=== PATIENT | male | born 1950 | race Caucasian/White ===

== ENCOUNTER 2020-10-02 16:13 | Emergency (ER) | payer MEDICARE, SELFPAY ==
[2020-10-02] VITALS (12 sets, daily range): BP systolic 126–168; BP diastolic 62–88; PULSE 84–119; RESP 14–32; TEMP 36.8–36.9; O2SAT 88–95; BMI 36.0; BMI 33.0
--- NOTE | 2020-10-02 16:35 | CT_ITS ---
PROCEDURE: CT ABDOMEN PELVIS W CON CLINICAL INDICATION: abdominal distension, sbo Bloating, abdominal pain and distension COMPARISON: CT ABDPELW/O CT ABD PELVIS W/O CONTRAST from 09/20/2016 TECHNIQUE: IV Contrast: 75ML Isovue 370 Oral Contrast None Axial images obtained with sagittal and coronal reformats. All CT scans at the facility use one or more dose reduction, viz: automated exposure control, ma/kV adjustment per patient size (including targeted exams where dose is matched to indication, i.e. head), or iterative reconstruction technique. FINDINGS: And irregular area of decreased attenuation is present in the left lobe at the gallbladder fossa measuring 16 mm possibly related to involvement. MRI may confirm. This measures 16 x 10 mm. The gallbladder, spleen, adrenal glands, and pancreas and kidneys have an unremarkable appearance. There is a small hiatal hernia with thickening of the distal esophagus which is nonspecific. No intestinal obstruction or free air. No evidence of appendicitis. Colonic diverticulosis is noted but no evidence of diverticulitis. There is thickening of the urinary bladder. The prostate is mildly enlarged. Artifact is present from right hip decompression screw. IMPRESSION: 1. There is moderate urinary bladder wall thickening which may be seen with incomplete distension, chronic outflow obstruction, or cystitis. 2. 16 mm hypodensity in the left hepatic lobe at the gallbladder fossa possibly due to focal fatty infiltration or liver lesion. MRI may provide further evaluation. 3. Colonic diverticulosis without diverticulitis Dictated by: Morris Hunt MD 10/03/2020 07:36 Morris Hunt MD in [place] 10/03/2020 07:36
--- NOTE | 2020-10-02 16:36 | CT_ITS ---
PROCEDURE: CT ANGIO CHEST CLINCIAL INDICATION: PTE Dyspnea , sore throat fever, shortness of breath COMPARISON: No exams were available for comparison TECHNIQUE: IV Contrast: 70ML Isovue 370 Axial images obtained with sagittal and coronal reformats. All CT scans at the facility use one or more dose reduction, viz: automated exposure control, ma/kV adjustment per patient size (including targeted exams where dose is matched to indication, i.e. head), or iterative reconstruction technique. FINDINGS: HEART AND MEDIASTINAL STRUCTURES: No evidence of pulmonary embolus aortic aneurysm or dissection. LUNGS AND PLEURAL SPACES: Airspace disease in left upper lobe lingula left lower lobe consistent with pneumonia also in the right middle lobe and right lower lobe. No effusions. BONY STRUCTURES: No acute bony abnormalities apparent. UPPER ABDOMEN: Small hiatal hernia. ADDITIONAL FINDINGS: No other significant abnormalities. IMPRESSION: 1. No evidence of pulmonary embolus. 2. Bilateral pneumonia left more severe than right Dictated by: Morris Hunt MD 10/03/2020 07:28 Morris Hunt MD in [place] 10/03/2020 07:28
--- NOTE | 2020-10-02 16:44 | PC.NURSE ---
placed patient on O2 @ 2L per NC
--- NOTE | 2020-10-02 16:45 | HMH.EDGENADL ---
ED Disposition Clinical Impression: Pneumonia Qualifiers: Laterality: bilateral Disposition: Admitted As Inpatient Condition on Discharge: Good Referrals: Geo Graham MD [Primary Care Provider] - - Critical Care Critical Care Time: No Attestation: On 10/02/20, the high probability of a clinically significant, sudden or life threatening deterioration of the following system(s) required my full and direct attention, intervention and personal management. The time I documented below is in addition to time spent performing reported procedures but includes the following listed in this critical care notation. Medical Decision Making - Medical Records Medical records reviewed: Yes: I reviewed the patient's medical records. - All Inquiry Pt receiving controlled substance: No Vital Signs: 10/02/20 16:20 10/02/20 16:35 10/02/20 17:14 Temperature 98.3 F 98.3 F Temperature Source Oral Oral Pulse Rate [Right Brachial] 93 H 93 H 86 Respiratory Rate 32 H 18 16 Blood Pressure [Right Arm] 159/71 H 159/71 H 131/68 Blood Pressure Mean [Right Arm] 100 100 89 Blood Pressure Source [Right Arm] Automatic Cuff Automatic Cuff Automatic Cuff Blood Pressure Position [Right Arm] Sitting Sitting Sitting 02 Sat by Pulse Oximetry 88 L 88 L 90 L Oxygen Delivery Method Room Air Room Air Nasal Cannula Oxygen Flow Rate (LPM) 2 10/02/20 18:00 10/02/20 18:30 10/02/20 19:03 Temperature Temperature Source Pulse Rate [Right Brachial] 84 86 119 H Respiratory Rate 15 Blood Pressure [Right Arm] 132/74 151/69 H Blood Pressure Mean [Right Arm] 93 96 Blood Pressure Source [Right Arm] Blood Pressure Position [Right Arm] 02 Sat by Pulse Oximetry 93 L 91 L 89 L Oxygen Delivery Method Nasal Cannula Nasal Cannula Room Air Oxygen Flow Rate (LPM) 2 2 10/02/20 19:07 Temperature Temperature Source Pulse Rate [Right Brachial] 86 Respiratory Rate 18 Blood Pressure [Right Arm] 168/86 H Blood Pressure Mean [Right Arm] 113 Blood Pressure Source [Right Arm] Automatic Cuff Blood Pressure Position [Right Arm] Sitting 02 Sat by Pulse Oximetry 95 Oxygen Delivery Method Oxygen Flow Rate (LPM) - Lab Data Lab Results 10/02/20 16:38: VBG pH 7.38 10/02/20 16:50: WBC 8.1, RBC 4.07 L, Hgb 12.5 L, Hct 38.3 L, MCV 94.2 H, MCH 30.6, MCHC 32.5, RDW 14.7, Plt Count 237, MPV 8.7, Neut % (Auto) 87.4 H, Lymph % (Auto) 7.6 L, Hayes % (Auto) 3.6, Eos % (Auto) 1.2, Baso % (Auto) 0.2, Neut # (Auto) 7.1, Lymph # (Auto) 0.6 L, Hayes # (Auto) 0.3, Eos # (Auto) 0.1, Baso # (Auto) 0.0, Total Counted 100, Neutrophils % (Manual) 82 H, Band Neutrophils % 1.0, Lymphocytes % (Manual) 8 L, Monocytes % (Manual) 8, Eosinophils % (Manual) 1, Nucleated RBCs 0, Platelet Estimate Normal, RBC Morphology Normal 10/02/20 16:50: Sodium 136, Potassium 4.4, Chloride 98, Carbon Dioxide 29, Anion Gap 13.4, BUN 53 H, Creatinine 1.60 H, Estimated Creat Clear 58, Estimated GFR 43 L, Est GFR ( Amer) 52 L, Glucose 221 H, Calcium 9.8, Total Bilirubin 0.6, AST 33, ALT 22, Alkaline Phosphatase 81, Total Protein 7.1, Albumin 3.9, Globulin 3.2, Albumin/Globulin Ratio 1.2 Result diagrams: 10/02/20 16:50 10/02/20 16:50 Orders (Tests/Meds): ED MEDICATIONS Generic Name Dose Route Start Last Admin Trade Name Freq PRN Reason Stop Dose Admin Sodium Chloride 1,000 mls @ 999 mls/hr 10/02/20 18:15 10/02/20 18:08 Sod Chlor 0.9% 1000ml Bag IV 10/02/20 19:15 999 mls/hr .Q1H1M SHERLYN Administration Ceftriaxone Sodium 1 gm/ 50 mls @ 100 mls/hr 10/02/20 19:15 Sodium Chloride IV 10/16/20 19:14 Q24H SHERLYN Protocol Azithromycin 500 mg/ Sodium 250 mls @ 250 mls/hr 10/02/20 19:15 Chloride IV 10/16/20 19:14 Q24H SHERLYN Protocol Discontinued Medications Generic Name Dose Route Start Last Admin Trade Name Freq PRN Reason Stop Dose Admin Iopamidol 70 ml 10/02/20 18:02 10/02/20 18:04 Iopamidol-370 (76%);100ml Bottle IV 10/02/20 18:
--- NOTE | 2020-10-02 16:46 | ECG_ITS ---
APPROVED REPORT Exam: Resting ECG HR:88 bpm ECG Measurements Heart Rate 88 AXES NE 156 P 60 QRSd 78 QRS 39 QT 352 T 63 QTc 425 Conclusion Normal sinus rhythm Normal ECG Electronically signed by : Geo Tanner, 10/03/2020 06:58:59
[2020-10-02 17:08] LABS: Basophils % 0.2 % (0.1-2.0); Eosinophils # 0.1 K/mm3 (0.0-0.4); Eosinophils % 1.2 % (0.1-12.0); Hematocrit 38.3 % (42.0-52.0); Hemoglobin 12.5 g/dL (14.1-18.0); Lymphocytes # 0.6 K/mm3 (0.7-4.5); Lymphocytes % 7.6 % (10-50); Mean Corpuscular HGB Conc 32.5 g/dL (31.8-35.4); Mean Corpuscular Hemoglobin 30.6 pg (27.0-31.2); Mean Corpuscular Volume 94.2 fl (80-94); Mean Platelet Volume 8.7 fl (7.4-10.4); Monocytes # 0.3 K/mm3 (0.1-1.0); Monocytes % 3.6 % (1.7-9.3); Neutrophils # 7.1 K/mm3 (1.8-7.8); Neutrophils % 87.4 % (37.0-80.0); Platelet Count 237 K/mm3 (142-424); Red Blood Count 4.07 M/mm3 (4.60-6.20); Red Cell Distribution Width 14.7 % (11.5-17.5); White Blood Count 8.1 K/mm3 (4.8-10.8)
[2020-10-02 17:10] LABS: MANUAL DIFFERENTIAL MANUAL DIFFERENTIAL (MANUAL DIFF)
[2020-10-02 17:16] LABS: Chloride 98 mmol/L (98-107); Potassium 4.4 mmoL/L (3.5-5.1); Sodium 136 mmol/L (136-145)
[2020-10-02 17:19] LABS: Alanine Aminotransferase 22 U/L (12-78); Albumin Level 3.9 g/dl (3.5-5.0); Albumin/Globulin Ratio 1.2 (1.1-1.8); Alkaline Phosphatase 81 U/L (38-126); Anion Gap 13.4 mEq/L (5-15); Aspartate Amino Transferase 33 U/L (17-59); Bilirubin,Total 0.6 mg/dl (0.2-1.3); Blood Urea Nitrogen 53 mg/dl (9-20); Carbon Dioxide 29 mmol/L (22.0-30.0); Creatinine Clearance Estimated 58 mL/min (50-200); Estimated Glomerular Filt Rate 43 ml/min (>60); GFR (African American) 52 ML/MIN (>60); Globulin 3.2 g/dL (1.3-3.2); Total Protein,Serum 7.1 g/dl (6.3-8.2)
[2020-10-02 17:20] LABS: Calcium 9.8 mg/dl (8.4-10.2); Glucose 221 mg/dl (74-100)
--- NOTE | 2020-10-02 17:20 | PC.NURSE ---
patient to radiology
[2020-10-02 17:34] LABS: Eosinophils % 1 % (0-3); Lymphocytes % 8 % (10-50); Monocytes % 8 % (2-9); Neutrophils % 82 % (42-76); Nucleated Red Blood Cells 0; Platelet Estimate Normal; RBC Morphology Normal; Total Cells Counted 100
[2020-10-02 17:44] LABS: VBG PH 7.38 mmol/L (7.31-7.41)
--- NOTE | 2020-10-02 18:03 | PC.NURSE ---
patient back from CT at this time
--- NOTE | 2020-10-02 19:03 | PC.NURSE ---
MD requested to have pt taken off o2 and walked to see if he can maintain his oxygen level. While walking pt began to become short of breath and was grunting. Oxygen level as charted at 89% on RA.
--- NOTE | 2020-10-02 19:03 | PC.NURSE ---
Dr Duvall paged for Dr Graham Pt
--- NOTE | 2020-10-02 19:14 | PC.NURSE ---
speaking to Dr. Duvall
[2020-10-02 19:47] LABS: Adenovirus,PCR Not Detected (NotDetected); Bordetella Pertussis Not Detected (NotDetected); Chlamydophila Pneumoniae, PCR Not Detected (NotDetected); Coronavirus 19, PCR Not Detected (NotDetected); Coronavirus 229E Not Detected (NotDetected); Coronavirus NL63 Not Detected (NotDetected); Coronavirus OC43 Not Detected (NotDetected); Coronovirus HKU1,PCR Not Detected (NotDetected); Human Metapneumovirus Not Detected (NotDetected); Influenza A, PCR Not Detected (NotDetected); Influenza AH1, 2009 Not Detected (NotDetected); Influenza AH1, PCR Not Detected (NotDetected); Influenza AH3,PCR Not Detected (NotDetected); Influenza B, PCR Not Detected (NotDetected); Mycoplasma Pneumoniae, PCR Not Detected (NotDetected); Parainfluenza 1, PCR Not Detected (NotDetected); Parainfluenza 2, PCR Not Detected (NotDetected); Parainfluenza 3, PCR Not Detected (NotDetected); Parainfluenza 4, PCR Not Detected (NotDetected); Respiratory Syncytial Virus Not Detected (NotDetected); Rhinovirus/Enterovirus Not Detected (NotDetected)
[2020-10-02 19:57] LABS: Lactic Acid 1.3 mmol/L (0.7-2.1)
--- NOTE | 2020-10-02 20:34 | PC.NURSE ---
Pt placed on room air per Dr Doran
--- NOTE | 2020-10-02 20:42 | PC.NURSE ---
Addendum entered by Lexii Hardin RN 10/02/20 21:21: time 2030 Original Note: pt called out and stated he was ready to go home. this nurse informed him that the doctors wanted him to stay overnight. the patient stated he changed his mind and didnt want to stay over night anymore. pt stated he left his bill fold at home and didnt trust his neighbors with him away for the night. this nurse explained to the pt that he was diagnosed with pneumonia and is requiring oxygen and that it was important that he stay for antibiotics. pt stated he wasnt going to stay. this nurse asked the pt if he would at least stay a little longer and see how he does on room air. this nurse turned pt from 2L NC to room air to assess pt stasus and toleration
--- NOTE | 2020-10-02 21:01 | PC.NURSE ---
this nurse went and assessed the pt. he stated he was still ready to go home. this nurse attempted to encourage the pt to stay over night but pt stated i feel better already and i can rest at home. pt stated he wanted to sign out AMA.
--- NOTE | 2020-10-03 21:24 | PC.NURSE ---
Positive Blood cultures reported to .
== END 2020-10-02 21:18 | disposition left against medical advice (07) ==
LOC: UTC 16:23 → ER 16:26 → 2ND 20:44
PROVIDERS: Emergency Provider Emergency Medicine; PCP Family Medicine; Visit Provider Internal Medicine Adolescent Medicine
DX: Z20.822 Contact with and (suspected) exposure to COVID-19 (principal); J18.9 Pneumonia, unspecified organism
CPT/HCPCS: 71275; 74177; 80053; 83605; 85007; 85025; 87040; 87077; 87186; 87581; 87633; 87798; 93005; 96365; 96367; 99284; J0456; Q9967

== ENCOUNTER → 2021-04-16 08:29 | Outpatient (CLI) | payer MEDICARE, SELFPAY | PROVIDERS: Visit Provider Ophthalmology | DX: Z01.812 Encounter for preprocedural laboratory examination (principal); Z20.822 Contact with and (suspected) exposure to COVID-19 | CPT/HCPCS: U0003 ==

== ENCOUNTER 2021-04-17 07:41 | Day surgery (SDC) | payer MEDICARE, SELFPAY ==
[2021-04-11 12:31] VITALS: BMI 33.4
[2021-04-17 08:52] VITALS: BP 113/61; PULSE 82; RESP 16; TEMP 36.4; O2SAT 96
[2021-04-17 10:35] LABS: POC Glucose,Bedside 119 (70-110)
[2021-04-17 11:06] VITALS: BP 114/67; PULSE 73; RESP 18; O2SAT 97
[2021-04-17 11:11] VITALS: BP 114/67; PULSE 73; RESP 18; TEMP 36.6; O2SAT 97
== END 2021-04-17 11:11 | disposition home or self-care (01) ==
LOC: OUTP 07:45
PROVIDERS: PCP Family Medicine; Visit Provider Ophthalmology
PROC: (CPT 66821; principal; 2021-04-17 10:00)
DX: H26.492 Other secondary cataract, left eye (principal); Z96.1 Presence of intraocular lens; H02.831 Dermatochalasis of right upper eyelid; H02.834 Dermatochalasis of left upper eyelid; E11.9 Type 2 diabetes mellitus without complications; F41.9 Anxiety disorder, unspecified; M19.90 Unspecified osteoarthritis, unspecified site; K21.9 Gastro-esophageal reflux disease without esophagitis; Z79.82 Long term (current) use of aspirin; Z79.84 Long term (current) use of oral hypoglycemic drugs; Z79.899 Other long term (current) drug therapy; Z83.3 Family history of diabetes mellitus
CPT/HCPCS: 66821; 82962

== ENCOUNTER → 2021-06-19 08:54 | Outpatient (CLI) | payer MEDICARE, SELFPAY ==
--- NOTE | 2021-06-19 09:04 | XR_ITS ---
PROCEDURE: XR CHEST 2V CLINICAL HISTORY: COUGH COMPARISON: CT CT ANGIO CHEST from 10/02/2020 FINDINGS: The cardiomediastinal silhouette and pulmonary vascularity are within normal limits. The lungs are clear without infiltrates, suspicious nodules, or pleural effusions. No acute bony abnormalities. IMPRESSION: No acute findings. Dictated by: Morris Hunt MD 06/19/2021 12:21 Morris Hunt MD in [place] 06/19/2021 12:21
== END ==
PROVIDERS: PCP Family Medicine; Visit Provider Family Medicine
DX: R05 Cough (principal)
CPT/HCPCS: 71046

== ENCOUNTER 2021-12-24 09:00 | Outpatient (RCR) | payer MEDICARE, SELFPAY | END 2021-12-24 10:00 | disposition home or self-care (01) | LOC: PT 09:00 | PROVIDERS: PCP Family Medicine; Visit Provider Family Medicine | DX: T87.43 Infection of amputation stump, right lower extremity (principal) | CPT/HCPCS: 97161; 97164; 97597 ==

== ENCOUNTER → 2022-10-02 08:42 | Outpatient (CLI) | payer MEDICARE, SELFPAY ==
--- NOTE | 2022-10-02 08:53 | XR_ITS ---
FINAL REPORT CLINICAL HISTORY: acute left foot pain COMPARISON: none FINDINGS: LEFT FOOT: Three views of the left foot were obtained. There is a subacute fracture at the proximal aspect of the 1st metatarsal. There are moderate severe degenerative changes with worst involvement of the 1st MTP. There are chronic 5th metatarsal and 5th proximal phalanx fractures. Calcaneal spurs are noted. There is no soft tissue abnormality. IMPRESSION: Subacute and chronic fractures as above. Reviewed, Interpreted and Dictated by Gene Gonzales III, MD Transcribed by Radha Trent Authenticated and [facility]
== END ==
PROVIDERS: PCP Nurse Practitioner Family; Visit Provider Podiatrist
DX: M79.672 Pain in left foot (principal)
CPT/HCPCS: 73630

== ENCOUNTER → 2023-01-08 14:07 | Outpatient (CLI) | payer MEDICARE, SELFPAY ==
--- NOTE | 2023-01-08 14:10 | XR_ITS ---
FINAL REPORT CLINICAL HISTORY: Foot Pain COMPARISON: 10/02/2022 FINDINGS: LEFT FOOT Three views of the left foot demonstrate no acute fracture or dislocation. There is a chronic fracture of the 5th metatarsal. There are severe degenerative changes of the great toe with moderate degenerative changes elsewhere. There are calcaneal spurs. The soft tissues are unremarkable. IMPRESSION: Severe degenerative change of the great toe with moderate degenerative change elsewhere. Findings are overall stable in appearance. Reviewed, Interpreted and Dictated by Gene Gonzales III, MD Transcribed by Earline Wilson Authenticated and [facility]
== END ==
PROVIDERS: PCP Nurse Practitioner Family; Visit Provider Nurse Practitioner Family
DX: M79.672 Pain in left foot (principal)
CPT/HCPCS: 73630

== ENCOUNTER → 2023-02-10 08:44 | Outpatient (POV) | payer MEDICARE, SELFPAY ==
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
[2023-02-10 09:22] VITALS: BP 168/68; PULSE 99; RESP 18; O2SAT 98; BMI 28.4
== END | disposition home or self-care (01) ==
PROVIDERS: Visit Provider Nurse Practitioner Family
DX: M79.672 Pain in left foot (principal); G90.522 Complex regional pain syndrome I of left lower limb; E11.40 Type 2 diabetes mellitus with diabetic neuropathy, unspecified; Z89.511 Acquired absence of right leg below knee
CPT/HCPCS: 99202; G0463

== ENCOUNTER 2023-02-11 09:03 | Day surgery (SDC) | payer MEDICARE, SELFPAY ==
[2023-02-07 13:18] VITALS: BMI 28.4
[2023-02-11 14:15] VITALS: BP 129/69; PULSE 80; RESP 18; TEMP 36.4; O2SAT 97
== END 2023-02-11 10:55 | disposition home or self-care (01) ==
PROVIDERS: PCP Nurse Practitioner Family; Visit Provider Ophthalmology
PROC: (CPT 66821; principal; 2023-02-11 09:30)
DX: H26.40 Unspecified secondary cataract (principal)
CPT/HCPCS: 66821; 99152

== ENCOUNTER 2023-02-18 10:48 | Day surgery (SDC) | payer MEDICARE, SELFPAY ==
[2023-02-18 10:58] VITALS: BP 137/68; PULSE 107; RESP 18; TEMP 37.1; O2SAT 97; BMI 28.4
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
[2023-02-18 11:14] VITALS: BP 130/56; PULSE 105; RESP 18; O2SAT 97
== END 2023-02-18 11:14 | disposition home or self-care (01) ==
PROVIDERS: PCP Nurse Practitioner Family; Visit Provider Nurse Anesthetist, Certified Registered
DX: M54.16 Radiculopathy, lumbar region (principal); M54.50 Low back pain, unspecified; M79.672 Pain in left foot; G89.29 Other chronic pain
CPT/HCPCS: 62323; J1030; Q9966

== ENCOUNTER → 2023-02-24 09:07 | Outpatient (POV) | payer MEDICARE, SELFPAY ==
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
[2023-02-24 15:42] VITALS: BP 134/78; PULSE 88; RESP 18; O2SAT 98; BMI 28.4
== END | disposition home or self-care (01) ==
PROVIDERS: PCP Nurse Practitioner Family; Visit Provider Nurse Practitioner Family
DX: M54.16 Radiculopathy, lumbar region (principal); M54.50 Low back pain, unspecified; G89.4 Chronic pain syndrome
CPT/HCPCS: 99212; G0463

== ENCOUNTER → 2023-05-14 10:49 | Outpatient (CLI) | payer MEDICARE, SELFPAY ==
[2023-05-14 11:51] LABS: Basophils % 0.6 % (0.1-2.0); Eosinophils # 0.2 K/mm3 (0.0-0.4); Eosinophils % 2.4 % (0.1-12.0); Hemoglobin 13.1 g/dL (14.1-18.0); Lymphocytes # 1.9 K/mm3 (0.7-4.5); Lymphocytes % 26.2 % (10-50); Mean Corpuscular HGB Conc 32.1 g/dL (31.8-35.4); Mean Corpuscular Hemoglobin 29.6 pg (27.0-31.2); Mean Corpuscular Volume 92.3 fl (80-94); Monocytes # 0.4 K/mm3 (0.1-1.0); Monocytes % 5.5 % (1.7-9.3); Neutrophils # 4.6 K/mm3 (1.8-7.8); Neutrophils % 65.3 % (37.0-80.0); Platelet Count 232 K/mm3 (142-424); Red Blood Count 4.44 M/mm3 (4.60-6.20); Red Cell Distribution Width 13.7 % (11.5-17.5); White Blood Count 7.1 K/mm3 (4.8-10.8)
[2023-05-14 13:02] LABS: Alanine Aminotransferase 22 U/L (12-78); Albumin Level 4.1 g/dl (3.5-5.0); Albumin/Globulin Ratio 1.7 (1.1-1.8); Alkaline Phosphatase 109 U/L (38-126); Anion Gap 15.2 mEq/L (5-15); Aspartate Amino Transferase 29 U/L (17-59); Bilirubin,Total 0.2 mg/dl (0.2-1.3); Blood Urea Nitrogen 36 mg/dl (9-20); Calcium 8.7 mg/dl (8.4-10.2); Carbon Dioxide 26 mmol/L (22.0-30.0); Chloride 106 mmol/L (98-107); Estimated Glomerular Filt Rate 54 ml/min (>60); GFR (African American) 65 ML/MIN (>60); Globulin 2.4 g/dL (1.3-3.2); Glucose 160 mg/dl (74-100); Potassium 5.2 mmoL/L (3.5-5.1); Sodium 142 mmol/L (136-145); Total Protein,Serum 6.5 g/dl (6.3-8.2)
== END ==
PROVIDERS: PCP Nurse Practitioner Family; Visit Provider Anesthesiology
DX: Z01.812 Encounter for preprocedural laboratory examination (principal); E11.9 Type 2 diabetes mellitus without complications; Z79.84 Long term (current) use of oral hypoglycemic drugs
CPT/HCPCS: 36415; 80053; 85025

== ENCOUNTER 2023-05-22 08:00 | Outpatient (RCR) | payer MEDICARE, SELFPAY ==
--- NOTE | 2023-03-19 15:53 | HMH.PTOPWND ---
Rehab Outpt Wound Evaluation Rehab OP Wound Evaluation Start: 03/19/23 15:41 Freq: Status: Active Protocol: Document 03/19/23 15:41 GROVER (Rec: 03/19/23 15:52 PHORFELIBERTO [id number]) E-signed By Tony Maria, PT Subjective/History History History This is the initial PT eval for Fernandez Patel, 72 yowm who presents with c/o wounds on the distal end of his R BKA stump x ~ 1 mo. He reports he has been seeing his pharmacy technician per diem who altered his prosthesis and the wounds began at that point. He has hx of previous similar wounds on the same limb. He reports tenderness in the pavithra-wound skin and pain throughout B LE. He has PMH of DM, HTN, CKD. Subjective Subjective He reports 2/4 tenderness in the pavithra-wound skin of the R LE. He also c/o pain in L LE, overall 7-8/10. He reports he is seen by pain management and is scheduled for intrathecal pain pump implantation. No edema noted in the R LE at this time. Wound Eval Wound Right Distal Leg Wound Type pressure vs shear injury from prosthesis Is This a Chronic Wound Yes Wound Length (cm) 1.3 Wound Width (cm) 2.2 Wound Depth (cm) 0.3 Wound Bed Appearance Beefy Red Percentage Granulated (%) 90 Wound Margins Description Well Defined Surrounding Tissue Appearance [place] Drainage Description Serous Drainage Amount Small Primary Dressing Composite Comment polymem 2 x 2 Wound Debridement Method Gauze,Mechanical Wound Debridement Amount of Tissue Minimal Removed Dressing Change Patient Tolerance Tolerated Well Right Anterior Cali Wound Type Pressure vs shear injury from prosthesis. Is This a Chronic Wound Yes Wound Length (cm) 0.4 Wound Width (cm) 0.5 Wound Depth (cm) 0.1 Wound Bed Appearance [place] Percentage Granulated (%) 100 Wound Margins Description Well Defined Surrounding Tissue Appearance [place] Drainage Description
--- NOTE | 2023-04-16 11:03 | HMH.RHREAS ---
Rehab Reassessment Rehab OP Re-assessment Start: 03/19/23 15:41 Freq: Status: Active Protocol: Document 04/16/23 10:56 PHORFELIBERTO (Rec: 04/16/23 11:03 PHORNE [id number]) E-signed By Tony Maria, PT Rehab Re-assessment Subjective Subjective Pt reports continued pain throughout the R residual limb and on the L lateral foot. They are fixing my prosthetic leg for me pretty soon, I've got an appointment in a couple weeks. Pain today 01/29. Objective Objective Notes R LE wounds healing steadily, superior wound appears fully epithelialized this date. Pain remains increased, likely due to neuropathy. R distal LE wound: L= 0.8 cm, W= 1.6 cm, D= 0.1 cm. 99% healthy granulation tissue. Hyperkeratosis along wound rim requires sharp, selective debridement of devitalized tissue to increase wound healing. R distal wound surface area healed by 45% from initial eval. Assessment Progress Assessment Progressing as Expected Assessment Notes Pt has shown significant improvement in R LE wounds at this time, with the small anterior otoole wound now fully epithelialized. He continues to have difficulty with ambulation due to the need for reduced pressure on his distal residual limb wound. He is unable to wear his prosthetic limb as much as he would prefer to perform necessary ADLs. He continues to need skilled intervention to return to prior level of function. Patient goals met ST,2,3 Goals Not Met LT,2,3,4,5 Revised Goals none Plan Plan Continue per initial POC. Frequency of Therapy 2 x/wk Duration of therapy 4 wks Time and Billing Re-Eval Time 14 Re-Eval Billing Units
--- NOTE | 2023-05-22 14:38 | HMH.RHREAS ---
Rehab Reassessment Rehab OP Re-assessment Start: 03/19/23 15:41 Freq: Status: Active Protocol: Document 05/22/23 14:31 GROVER (Rec: 05/22/23 14:37 GROVER [id number]) E-signed By Tony Maria, PT Rehab Re-assessment Subjective Subjective Pt continues to c/o pain thrpoughout B LE, which appears to be completely unrelated to his wound. Objective Objective Notes R distal LE wound: L= 1.0 cm, W= 1.0 cm, D= 0.1 cm. 99% healthy granulation tissue. Minimal Hyperkeratosis along wound rim requires sharp, selective debridement of devitalized tissue to increase wound healing. Assessment Progress Assessment Progressing as Expected Assessment Notes Pt continues to decrease R LE wound size steadily. Healing delayed due to hx of diabetes. He continues to have difficulty with ambulating due to wound on his residual limb prosthetic weight-bearing surface. He continues to need skilled intervention to return to prior level of function. Patient goals met ST,2,3 Goals Not Met LT,2,3,4,5 Revised Goals none Plan Plan Continue per initial POC. Frequency of Therapy 2 x/wk Duration of therapy 4 wks Time and Billing Re-Eval Time 13 Re-Eval Billing Units 1 PHYSICIAN CERTIFICATION: I certify the specified therapy services for Fernandez Patel are required, authorized, and reviewed every 30 days.
== END 2023-05-22 08:05 | disposition home or self-care (01) ==
LOC: PT 08:00
PROVIDERS: PCP Nurse Practitioner Family; Visit Provider Nurse Practitioner Family
DX: L98.491 Non-pressure chronic ulcer of skin of other sites limited to breakdown of skin (principal); S81.001A Unspecified open wound, right knee, initial encounter; S91.302A Unspecified open wound, left foot, initial encounter
CPT/HCPCS: 97163; 97164; 97597

== ENCOUNTER 2023-05-23 07:53 | Day surgery (SDC) | payer MEDICARE, SELFPAY ==
[2023-05-22 11:08] VITALS: BMI 28.5
[2023-05-23 08:16] VITALS: BP 172/67; PULSE 76; RESP 17; TEMP 36.6; O2SAT 99
[2023-05-23 08:21] LABS: POC Glucose,Bedside 98 (70-110)
--- NOTE | 2023-05-23 08:40 | EXP.ANES.CKL ---
[facility] Disclaimer: The information contained in this section may have been updated after the patient was seen, as this information can be updated by other users. Medical History Callus of foot Chronic kidney disease Diabetes mellitus GERD (gastroesophageal reflux disease) Hyperlipidemia Hypertension Surgical History (Updated 05/22/23 @ 11:07 by Óscar Kaiser RN) History of cataract surgery History of cholecystectomy History of right below knee amputation History of YAG laser capsulotomy of lens Family History Other No significant family history Social History Smoking Status: Never smoker alcohol intake: never substance use type: denies use current occupational status: retired Travel in the last 8 weeks: None household members: none housing: house current occupational exposures/hazards: No caffeine: Yes [facility] Anesthesia Checklist Patient Identification Patient Identification: Arm Band and Verbal (Name & ) Structural Data Admitted From: Home Planned Operative Procedure/s: pain pump trial Consent for Planned Operative Procedure(s) Verified: Yes Verified Documents: Surgical Consent NPO Status Verified Time NPO: 00:00 Additional verifications Fingerstick Blood Glucose: 98 Anesthesia Reactions: No Hx Blood Transfusions: No Blood Transfusion Reaction: No Airway Assessment Mallampati Score:: Class I C-Spine Mobility Assessed: Yes TMJ Mobility Assessed: Yes Dentition: Dentures-good fit Neurological Assessment Level of Consciousness: Awake and Alert Hx Seizures: No Numbness or tingling in extremities: Yes Anesthesia Plan Anesthesia Risk discussed: Yes ASA Class: III Anesthesia Type: IV sedation
[2023-05-23 09:50] VITALS: BP 102/52; PULSE 84; RESP 16; TEMP 36.6; O2SAT 92
[2023-05-23 10:00] VITALS: BP 118/66; PULSE 83; RESP 17; O2SAT 96
[2023-05-23 10:10] VITALS: BP 107/51; PULSE 83; RESP 17; O2SAT 96
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
[2023-05-23 10:20] VITALS: BP 114/59; PULSE 73; RESP 16; O2SAT 95
[2023-05-23 10:30] VITALS: BP 114/64; PULSE 79; RESP 16; O2SAT 96
== END 2023-05-23 10:40 | disposition home or self-care (01) ==
PROVIDERS: PCP Nurse Practitioner Family; Visit Provider Anesthesiology
DX: G90.522 Complex regional pain syndrome I of left lower limb (principal); M51.16 Intervertebral disc disorders with radiculopathy, lumbar region; E11.9 Type 2 diabetes mellitus without complications
CPT/HCPCS: 62350 ×2; 82962; 96374; C1778

== ENCOUNTER → 2023-05-30 11:27 | Outpatient (POV) | payer MEDICARE, SELFPAY ==
[2023-05-30 13:16] VITALS: BP 129/63; PULSE 78; RESP 18; O2SAT 95; BMI 28.8
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
== END ==
PROVIDERS: PCP Nurse Practitioner Family; Visit Provider Nurse Anesthetist, Certified Registered
DX: G90.522 Complex regional pain syndrome I of left lower limb (principal)
CPT/HCPCS: 99212; G0463

== ENCOUNTER 2023-06-13 07:52 | Day surgery (SDC) | payer MEDICARE, SELFPAY ==
[2023-06-12 10:04] VITALS: BMI 29.6
[2023-06-13 08:38] VITALS: BP 142/59; PULSE 81; RESP 18; TEMP 36.6; O2SAT 98
[2023-06-13 08:59] LABS: POC Glucose,Bedside 120 (70-110)
[2023-06-13 09:06] LABS: Basophils # 0.1 K/mm3 (0-0.2); Basophils % 0.8 % (0.1-2.0); Eosinophils # 0.1 K/mm3 (0.0-0.4); Eosinophils % 2.3 % (0.1-12.0); Hematocrit 40.9 % (42.0-52.0); Hemoglobin 12.9 g/dL (14.1-18.0); Lymphocytes # 1.4 K/mm3 (0.7-4.5); Lymphocytes % 23.7 % (10-50); Mean Corpuscular HGB Conc 31.5 g/dL (31.8-35.4); Mean Corpuscular Hemoglobin 29.3 pg (27.0-31.2); Mean Corpuscular Volume 93.1 fl (80-94); Mean Platelet Volume 7.8 fl (7.4-10.4); Monocytes # 0.4 K/mm3 (0.1-1.0); Monocytes % 6.7 % (1.7-9.3); Neutrophils % 66.5 % (37.0-80.0); Platelet Count 201 K/mm3 (142-424); Red Blood Count 4.39 M/mm3 (4.60-6.20); Red Cell Distribution Width 14.1 % (11.5-17.5); White Blood Count 6.1 K/mm3 (4.8-10.8)
[2023-06-13 09:09] LABS: Anion Gap 15.2 mEq/L (5-15); Blood Urea Nitrogen 32 mg/dl (9-20); Calcium 8.9 mg/dl (8.4-10.2); Carbon Dioxide 23 mmol/L (22.0-30.0); Chloride 108 mmol/L (98-107); Creatinine Clearance Estimated 51 mL/min (50-200); Estimated Glomerular Filt Rate 42 ml/min (>60); GFR (African American) 51 ML/MIN (>60); Glucose 124 mg/dl (74-100); Sodium 140 mmol/L (136-145)
[2023-06-13 09:14] LABS: Potassium 6.2 mmoL/L (3.5-5.1)
--- NOTE | 2023-06-13 09:20 | SUR.PREOP ---
0914- Eric Diallo spoke to Kerry in lab, potassium 6.2. Dr. Lockhart notified. Stat redraw ordered.
[2023-06-13 09:29] LABS: Hemoglobin A1C 5.8 % (4.0-6.0)
[2023-06-13 09:36] LABS: Potassium 6.3 mmoL/L (3.5-5.1)
--- NOTE | 2023-06-13 09:53 | SUR.PREOP ---
Potassium level repeated x2. K 6.3. Kitty Tafoya CRNA and Dr. Lockhart notified per Kitty Mcgraw RN. Case to be cancelled today and to notify primary care. Notified Caridad Chavez APRN per Kitty Mcgraw RN and wants pt to be evaluated in ER today. Pt and sister informed and verbzlizes understanding. Pt taken to ER in W/C.
== END 2023-06-13 10:00 | disposition home or self-care (01) ==
LOC: OR 07:53
PROVIDERS: PCP Nurse Practitioner Family; Visit Provider Anesthesiology
DX: Z53.09 Procedure and treatment not carried out because of other contraindication (principal); E78.5 Hyperlipidemia, unspecified; G90.522 Complex regional pain syndrome I of left lower limb
CPT/HCPCS: 63685; 36415; 80048; 82962; 83036; 84132; 85025

== ENCOUNTER 2023-06-13 09:55 | Emergency (ER) | payer MEDICARE, SELFPAY ==
--- NOTE | 2023-06-13 10:01 | ECG_ITS ---
APPROVED REPORT Exam: Resting ECG HR:67 bpm ECG Measurements Heart Rate 67 AXES [place] 170 P 17 QRSd 102 QRS 61 QT 349 T 67 QTc 364 Conclusion SINUS RHYTHM NORMAL ECG UNCONFIRMED REPORT Electronically signed by : Geo Tanner MD 06/15/2023 07:38:52
[2023-06-13 10:05] VITALS: BP 140/68; PULSE 69; RESP 12; TEMP 36.9; O2SAT 98; BMI 28.8
--- NOTE | 2023-06-13 10:07 | PC.NURSE ---
Dr. Alvares at BS for pt eval
--- NOTE | 2023-06-13 10:08 | PC.NURSE ---
Dr. Alvares at BS for pt eval
--- NOTE | 2023-06-13 10:17 | HMH.EDGENADL ---
Discharge Plan Disposition Patient Disposition: Home, Self-Care Prescriptions Prescriptions: New Lokelma 10 gram powder in packet 10 g PO TID 2 Days Qty: 11 0RF Rx Instructions: for 3 doses x 2 days No Action tamsulosin 0.4 mg capsule 1 cap PO DAILY cyclobenzaprine 10 mg tablet 10 mg PO DAILY ropinirole 3 mg tablet 3 mg PO DAILY metformin 500 mg tablet 1,000 mg PO BID bupropion HCl 100 MG tablet sustained-release 12 hr 100 mg PO BID zolpidem 5 MG tablet 5 mg PO HS buspirone 15 MG tablet 15 mg PO BID levocetirizine 5 MG tablet 5 mg PO DAILY lisinopril 20 MG tablet 20 mg PO DAILY lovastatin 40 MG tablet 40 mg PO DAILY sertraline 100 MG tablet 200 mg PO DAILY glipizide 5 MG tablet extended release 24hr 5 mg PO BID calcium carbonate-vitamin D3 1 EACH tablet 1 each PO DAILY aspirin 81 MG tablet,delayed release (DR/EC) 81 mg PO DAILY omeprazole 20 MG capsule,delayed release(DR/EC) 20 mg PO DAILY polyethylene glycol 3350 119 GM powder 17 g PO DAILY pioglitazone 30 MG tablet 30 mg PO DAILY multivit with lrl-QM-hkafzaek 1 EACH tablet 1 tab PO DAILY oxycodone 10 MG tablet 10 mg PO DAILY tizanidine [Zanaflex] 4 mg tablet 4 mg PO HS Qty: 30 0RF Referrals Follow up/Referrals: Caridad Chavez APRN [Primary Care Provider] - See instructions Activity Restrictions/Add. Instructions Additional Instructions/Restrictions: Please do not take your lisinopril until your kidney function and potassium levels are back to normal. It was advised that you be admitted in the hospital for observation and treatment of hyperkalemia but you opted to go home with close outpatient follow-up. Please return with any worsening symptoms. Make sure that you take all of your Lokelma and follow-up with your primary care doctor on Friday as instructed by them. Clinical Impressions Clinical Impression: Acute hyperkalemia, CKD (chronic kidney disease) Discharge ED Provider: Brianna Alvares General Adult HPI General Chief complaint: Recheck/Abnormal Lab/Rx Stated complaint: high potassium Time Seen by Provider: 06/13/23 10:04 Mode of Arrival: Wheelchair Source of Information: Patient Limitations: No Limitations Description of Symptoms (Recalled from ER Triage Doc. by RN): 72 yo M presents to ED from pre op. pt was scheduled to have pain pump placement with dr cuevas today. pt had lab work done and showed hyperkalemia. pcp was called and told pt to come to ED. pt with c/o pain in left foot that is chronic. pt does have right bka. History of Present Illness HPI narrative: Patient is a 72-year-old asymptomatic male presenting today to the emergency department with hyperkalemia. Was getting a preoperative anesthesia assessment where he had blood work drawn and was found to have a potassium of 6.2 this was repeated and it was 6.3 this was nonhemolyzed. Was told to come to the emergency department. Denies any chest pain shortness of breath capitation's etc. Historically took potassium supplementation but is no longer taking potassium supplements. States has had normal urine output he is still on lisinopril. No other medication changes recently. Related Data Home Medications Medication Instructions Recorded Confirmed bupropion HCl 100 mg tablet,12 hr 100 mg PO BID mood 10/02/20 06/13/23 sustained-release buspirone 15 mg tablet 15 mg PO BID mood 10/02/20 06/13/23 levocetirizine 5 mg tablet 5 mg PO DAILY allergies 10/02/20 06/13/23 zolpidem 5 mg tablet 5 mg PO HS sleep 10/02/20 06/13/23 aspirin 81 mg tablet,delayed 81 mg PO DAILY heart health 04/17/21 06/13/23 release calcium carbonate 600 mg-vitamin 1 each PO DAILY Supplement 04/17/21 06/13/23 D3 5 mcg (200 unit) tablet glipizide 5 mg tablet, extended 5 mg PO BID Diabetes 04/17/21 06/13/23 release 24 hr lisinopril 20 mg tablet 20 mg PO DAILY
--- NOTE | 2023-06-13 10:36 | PC.NURSE ---
Dr. Alvares s/w Caridad Chavez APRN regarding pt
[2023-06-13 10:52] VITALS: BP 136/68; PULSE 70; RESP 17; TEMP 36.9; O2SAT 98
[2023-06-13 11:00] VITALS: BP 144/76; PULSE 72; RESP 11; O2SAT 99
[2023-06-13 11:31] VITALS: BP 162/70; RESP 9; O2SAT 98
--- NOTE | 2023-06-13 11:56 | PC.NURSE ---
call made to care management for PA on [facility].
[2023-06-13 12:01] VITALS: BP 148/67; RESP 15
[2023-06-13 12:31] VITALS: BP 146/75; RESP 14
--- NOTE | 2023-06-13 12:43 | PC.NURSE ---
I s/w [facility] and the [facility] coupon will not work with his [employer] insurance. I then called Care Management and s/w Mariluz, who is looking into the option for meds to bed for the pt.
--- NOTE | 2023-06-13 12:47 | PC.NURSE ---
call made to get pt lunch tray
--- NOTE | 2023-06-13 13:21 | PC.NURSE ---
Luispr was not able to be approved thru meds to beds. staff was unable to get discount card for pt. pt was advised that he did need admission, but pt is refusing. pt states this has been going on for awhile, who knows. it hasnt killed me yet, it wont now. advised pt that prescription was sent to [facility] PA for medication filled out. advised pt to call ginnyt and pcp friday to check on status of prescription and to make a follow up appt for blood work.
--- NOTE | 2023-06-13 14:46 | PC.NURSE ---
Pt called and asking for staff to call [employer] [facility] to see if Lokelma prescription can be sent from them.
--- NOTE | 2023-06-13 15:06 | HMH.PHAINT1 ---
Pharmacy Intervention Comments: Relayed to case managment that a 5gm packet of Lokelma is $15.33 at cost and 22 packets for a full course would cost $337.26.
--- NOTE | 2023-06-13 15:12 | PC.NURSE ---
I called [facility] and requested a appeal for corin Betancourt. She submitted for the medication appeal and they would have an emergent decision within 72 hr. I attempted to call the pt and let them know this above information, left a voicemail for pt to return call.
--- NOTE | 2023-06-13 15:49 | CARE MANAGER ---
Addendum entered by Michelle Carmen RN 06/13/23 15:55: Discussed contacting [facility] to see what 2 day supply would cost and following up with PCP to see if they could prescribe something different. Original Note: Contacted to get authorization for Lokelma. Submitted to [facility] and denied due to not taking anything on formulary prior to trying Lokelma. Contacted [facility] who stated the fastest an appeal could be processed is 72 hours, but can take up to 60 days. Asked if peer to peer option available and was told it was not. Contacted ER and let them know of what I was told by Len. Patient can pay out of pocket for medication or an alternative can be prescribed that is on the insurance's formulary. The physician did not wish to prescribe anything different. Spoke with patient regarding talking to pharmacy. He states [facility] pharmacy could give it to him out of pocket for 157 for 2 day supply
== END 2023-06-13 13:29 | disposition home or self-care (01) ==
PROVIDERS: Emergency Provider Student in an Organized Health Care Education/Training Program; PCP Nurse Practitioner Family
DX: E87.5 Hyperkalemia (principal); E11.22 Type 2 diabetes mellitus with diabetic chronic kidney disease; I12.9 Hypertensive chronic kidney disease with stage 1 through stage 4 chronic kidney disease, or unspecified chronic kidney disease; N18.9 Chronic kidney disease, unspecified; E78.5 Hyperlipidemia, unspecified
CPT/HCPCS: 36415; 80048; 82962; 83036; 84132; 85025; 93005; 96360; 99285

== ENCOUNTER → 2023-06-16 14:39 | Outpatient (CLI) | payer MEDICARE, SELFPAY ==
[2023-06-16 16:38] LABS: Potassium 4.8 mmoL/L (3.5-5.1)
== END ==
PROVIDERS: Nurse Practitioner Family; PCP Family Medicine; Visit Provider Family Medicine
DX: E87.5 Hyperkalemia (principal)
CPT/HCPCS: 36415; 84132

== ENCOUNTER → 2023-07-09 08:00 | Outpatient (CLI) | payer MEDICARE, SELFPAY ==
[2023-07-09 08:30] LABS: Basophils # 0.1 K/mm3 (0-0.2); Basophils % 0.7 % (0.1-2.0); Eosinophils # 0.2 K/mm3 (0.0-0.4); Eosinophils % 3.1 % (0.1-12.0); Hematocrit 40.9 % (42.0-52.0); Lymphocytes # 1.6 K/mm3 (0.7-4.5); Lymphocytes % 25.9 % (10-50); Mean Corpuscular HGB Conc 34.3 g/dL (31.8-35.4); Mean Corpuscular Hemoglobin 31.5 pg (27.0-31.2); Mean Corpuscular Volume 91.8 fl (80-94); Mean Platelet Volume 7.4 fl (7.4-10.4); Monocytes # 0.4 K/mm3 (0.1-1.0); Monocytes % 5.9 % (1.7-9.3); Neutrophils # 4.1 K/mm3 (1.8-7.8); Neutrophils % 64.3 % (37.0-80.0); Platelet Count 183 K/mm3 (142-424); Red Blood Count 4.45 M/mm3 (4.60-6.20); Red Cell Distribution Width 14.2 % (11.5-17.5); White Blood Count 6.3 K/mm3 (4.8-10.8)
[2023-07-09 09:23] LABS: Hemoglobin A1C 5.6 % (4.0-6.0)
[2023-07-09 09:42] LABS: Chloride 104 mmol/L (98-107); Potassium 4.7 mmoL/L (3.5-5.1); Sodium 140 mmol/L (136-145)
[2023-07-09 09:45] LABS: Anion Gap 12.7 mEq/L (5-15); Blood Urea Nitrogen 26 mg/dl (9-20); Carbon Dioxide 28 mmol/L (22.0-30.0); Estimated Glomerular Filt Rate 59 ml/min (>60); GFR (African American) 72 ML/MIN (>60); Glucose 158 mg/dl (74-100)
== END ==
PROVIDERS: PCP Nurse Practitioner Family; Visit Provider Anesthesiology
DX: E11.59 Type 2 diabetes mellitus with other circulatory complications; M51.16 Intervertebral disc disorders with radiculopathy, lumbar region; Z79.84 Long term (current) use of oral hypoglycemic drugs
CPT/HCPCS: 36415; 80048; 83036; 85025

== ENCOUNTER 2023-07-11 07:36 | Day surgery (SDC) | payer MEDICARE, SELFPAY ==
[2023-07-11] VITALS (7 sets, daily range): BP systolic 146–178; BP diastolic 77–85; PULSE 85–98; RESP 16–18; TEMP 36.3–36.4; O2SAT 93–98; BMI 29.6
--- NOTE | 2023-07-11 08:07 | EXP.ANES.CKL ---
[facility] Disclaimer: The information contained in this section may have been updated after the patient was seen, as this information can be updated by other users. Medical History Callus of foot Chronic kidney disease Diabetes mellitus GERD (gastroesophageal reflux disease) Hyperlipidemia Hypertension Surgical History History of cataract surgery History of cholecystectomy History of right below knee amputation History of YAG laser capsulotomy of lens Family History Other No significant family history Social History Smoking Status: Never smoker alcohol intake: never substance use type: denies use current occupational status: retired Travel in the last 8 weeks: None household members: none housing: house current occupational exposures/hazards: No caffeine: Yes [facility] Anesthesia Checklist Patient Identification Patient Identification: Arm Band, Family and Verbal (Name & ) Structural Data Admitted From: Home Planned Operative Procedure/s: Placement Neurostimulator generator and leads Consent for Planned Operative Procedure(s) Verified: Yes Verified Documents: Surgical Consent and History and Physical NPO Status Verified Time NPO: 18:00 Chart Verification Results Verified: CBC, BMP, ECG and Chest Xray Additional verifications Fingerstick Blood Glucose: 152 Patient : No Anesthesia Reactions: No Hx Blood Transfusions: No Blood Transfusion Reaction: No Cephalosporin Allergy: No Previous Colonoscopy: No Cardiovascular Assessment Heart Sounds: S1 & S2 Pulse Rhythm: Irregular Peripheral Edema: No Airway Assessment Mallampati Score:: Class II C-Spine Mobility Assessed: Yes TMJ Mobility Assessed: Yes Dentition: Dentures-good fit Neurological Assessment Level of Consciousness: Awake, Alert, Appropriate and Follows Commands Hx Seizures: No Numbness or tingling in extremities: No Anesthesia Plan Anesthesia Risk discussed: Yes Anesthesia Plan: Verified ASA Class: III Anesthesia Type: MAC
[2023-07-11 08:18] LABS: POC Glucose,Bedside 152 (70-110)
--- NOTE | 2023-07-11 09:57 | SUR.PHASEII ---
Rep in w/ pt at this time
--- NOTE | 2023-07-11 10:01 | P.OP_ITS ---
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 He has failed all previous conservative treatments including injections, oral medications, physical therapy and is not a candidate for surgery. He has had a successful psychological evaluation and a successful spinal cord stimulator trial. He presents for permanent placement of a spinal cord stimulator today. Operative findings:: None Operative note:: Informed consent was obtained risk and benefits of the procedure were explained to the patient. Patient was taken the operating room placed prone on the procedure table. He was prepped and draped in sterile fashion. C-arm fluoroscopy was used to view the lumbar spine the skin and subcutaneous tissues adjacent to the L1-L2 interspace were anesthetized using lidocaine. I made an incision and dissected down to the lumbar paraspinous fascia. A 17-gauge epidural needle was inserted and advanced into the L1-L2 interspace. After confirmation of needle placement in the epidural space stimulating lead was inserted and advanced very easily to the T9-T10 vertebral bodies. A second needle was inserted advanced again into the L1-L2 interspace. Again after confirmation of needle placement in the epidural space a second silly lead was inserted and advanced very easily to the T9-T10 vertebral body. Leads were checked in AP and lateral view. They were in good position at the T9-T10 vertebral bodies and in posterior position. After removal of the needles and stylette's, the leads were secured to the fascia with anchor devices and 2-0 Prolene. I prepared the generator pocket on the right flank. We will be using a nonrechargeable generator. I tunneled the leads from the back to the generator pocket and attached the leads to the generator. Both incisions were irrigated with antibiotic solution. The generator was placed in the pocket. Impedances were found to be okay. Both incisions were then closed with 2-0 Vicryl followed by 4-0 nylon and subcutaneous isatu. The patient tolerated the procedure well with no complications. Patient was placed in an abdominal binder taken recovery in stable condition. Patient was programmed by the [employer] franchise sales representative with good stimulation in all areas of pain. Patient was discharged home neurologic intact with good relief of pain symptoms. Plan and disposition: We will follow-up with this patient in 1 week for wound check. We will follow-up in 2 weeks for suture removal. Condition: stable Disposition: PACU Complications:: None
--- NOTE | 2023-07-11 12:21 | P.PNANES_ITS ---
[facility] Anesthesia Record Part I Anesthesia Record I Intake, IV Amount: 500 Hydration: Adequate Estimated blood loss (mL): 10 Urine output (mL): 0 Blood Products used (#): none Blood Pressure: 146/82 SaO2: 93 Pulse Rate: 95 Airway Patency: Patent Respiratory Rate: 18 Temperature: 97.4 F Patient is:: Awake and Stable Stable to PACU at:: 09:45
== END 2023-07-11 10:20 | disposition home or self-care (01) ==
PROVIDERS: PCP Nurse Practitioner Family; Visit Provider Anesthesiology
PROC: (CPT 63650; principal; 2023-07-11 08:30)
DX: G90.522 Complex regional pain syndrome I of left lower limb (principal); M51.16 Intervertebral disc disorders with radiculopathy, lumbar region; G54.6 Phantom limb syndrome with pain; Z89.511 Acquired absence of right leg below knee; E11.9 Type 2 diabetes mellitus without complications
CPT/HCPCS: 63650 ×2; 63685; 82962; 96374; C1778; C1820

== ENCOUNTER → 2023-07-18 08:16 | Outpatient (POV) | payer MEDICARE, SELFPAY ==
--- NOTE | 2023-07-18 08:59 | EXP.PAIN.SOA ---
[facility] Pain Management SOAP Note Subjective:: Patient is a pleasant 72-year-old male that comes our clinic today for follow-up visit after receiving spinal cord stimulator 07/11/2023. Stimulator trial was moderate to significant improvement. However, today patient complaining implantation is not going well. He has CRPS pain of the left lower extremity following. He is tried and failed previous conservative treatment such as injections, oral medications and physical therapy. I discussed with the patient regarding the spinal cord stimulator. The enrollment eligibility representative will be here at this morning to reprogram him. I am optimistic we can get coverage for him regarding the CRPS of the left foot and right foot phantom pain. Objective:: Patient is awake alert [place] x3. In no acute distress. Flexion-extension lumbar spine somewhat guarded secondary to pain. Deep tendon reflexes upper lower extremities normal. There is no gross sensory deficit. Gait is normal. Assessment:: CRPS type I left foot. Right phantom pain right foot. Plan:: The [employer] enrollment eligibility representative spent some time with the patient prior to discharge today. He is receiving coverage complete to the left foot. Patient reports feeling much better. He will follow-up with us in a month. His All #[id number] have been reviewed and appropriate [facility] Disclaimer: The information contained in this section may have been updated after the patient was seen, as this information can be updated by other users. Medical History Callus of foot Chronic kidney disease Diabetes mellitus GERD (gastroesophageal reflux disease) Hyperlipidemia Hypertension Surgical History History of cataract surgery History of cholecystectomy History of right below knee amputation History of YAG laser capsulotomy of lens Family History Other No significant family history Social History Smoking Status: Never smoker alcohol intake: never substance use type: denies use current occupational status: retired Travel in the last 8 weeks: None household members: none housing: house current occupational exposures/hazards: No caffeine: Yes
[2023-07-18 09:30] VITALS: BP 152/77; PULSE 82; RESP 18; O2SAT 95; BMI 30.2
== END ==
PROVIDERS: PCP Nurse Practitioner Family; Visit Provider Nurse Practitioner Family
DX: G90.522 Complex regional pain syndrome I of left lower limb (principal); G54.6 Phantom limb syndrome with pain
CPT/HCPCS: 99212; G0463

== ENCOUNTER → 2023-07-25 10:51 | Outpatient (POV) | payer MEDICARE, SELFPAY ==
--- NOTE | 2023-07-25 11:15 | EXP.PAIN.SOA ---
[facility] Pain Management SOAP Note Subjective:: Patient is a pleasant 72-year-old male who presents today for 2-week follow-up of spinal cord stimulator implant. 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 Today he rates his pain a 7 out of 10. Patient denies any new trauma or injury. He denies any change location or type of pain he experiences. He denies any issues following his surgical procedure. He does state that he is still having pain into his lower left foot at today's visit. He states that the programming of the [employer] spinal cord stimulator helps some however he thinks it needs additional adjustment. Patient has tried and failed conservative therapy such as oral medications, heat and ice, topicals, physical therapy, at home stretching exercise for longer than 12 weeks, injection therapy. Patient's All has been reviewed and is appropriate. Review of Systems: General: No recent weight changes, no fever, no sleep disturbances Respiratory: No cough, no shortness of air, no recurring pulmonary infections Cardiovascular/peripheral vascular: No chest pain, no palpitations, no edema, no shortness of breath Gastrointestinal: No new onset incontinence, normal bowel movements reported Genitourinary: No new onset incontinence Musculoskeletal: Left foot pain Psychiatric: [Normal mood/affect] Neurological: [Denies weakness in extremities], [denies balance issues] Objective:: Physical Exam: General: Alert and oriented x3, no acute distress, pleasant and cooperative Lungs: Respirations even and unlabored, symmetrical chest expansion Eyes: PERRL Musculoskeletal: Flexion and extension of lumbar [spine] somewhat guarded secondary to pain, [antalgic gait noted] Neurological: Speech clear, no gross sensory deficit Skin: Incision sites clean, dry, well approximated with sutures intact minimal erythema noted Assessment:: degenerative disc disease of lumbar spine with lumbar radiculopathy symptoms, complex regional pain syndrome of left lower extremity, 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 asset protection representative was present during today's visit for reprogramming. Patient's incisions are clean, dry, well approximated with minimal erythema noted. Sutures were removed and skin glue and Steri-Strips applied. I have counseled the patient to continue his postop restrictions for the full 6 weeks. Patient will return to clinic in 4 weeks for reevaluation of symptoms and plan of care. Patient has been instructed to contact the clinic with any concerns before the next appointment. Dr. Lockhart has reviewed this note and agrees with this plan of care. This note was dictated using voice recognition software and make contain errors or omissions. [facility] Disclaimer: The information contained in this section may have been updated after the patient was seen, as this information can be updated by other users. Medical History Callus of foot Chronic kidney disease Diabetes mellitus GERD (gastroesophageal reflux disease) Hyperlipidemia Hypertension Surgical History History of cataract surgery History of cholecystectomy History of right below knee amputation History of YAG laser capsulotomy of lens Family History Other No significant family history Social History Smoking Status: Never smoker alcohol intake: never substance use type: denies use current occupational status: retired Travel in the last 8 weeks: None household members: none housing: house current occupational exposures/hazards: No caffeine: Yes
[2023-07-25 11:55] VITALS: BP 142/84; PULSE 88; RESP 18; O2SAT 97; BMI 30.4
== END ==
LOC: SC.PAIN 10:52
PROVIDERS: Visit Provider Nurse Practitioner Family
DX: M51.16 Intervertebral disc disorders with radiculopathy, lumbar region (principal); G90.522 Complex regional pain syndrome I of left lower limb; G54.6 Phantom limb syndrome with pain; Z89.512 Acquired absence of left leg below knee; Z96.82 Presence of neurostimulator
CPT/HCPCS: 99212; 99213; G0463

== ENCOUNTER → 2023-08-01 10:22 | Outpatient (POV) | payer MEDICARE, SELFPAY ==
--- NOTE | 2023-08-01 11:14 | EXP.PAIN.SOA ---
[facility] Pain Management SOAP Note Subjective:: This patient is a very pleasant 72-year-old male that comes our clinic today for follow-up visit regarding CRPS of the left lower extremity. Patient was here on 07/18/2023. At his previous visit he was reprogrammed by the [employer]. Today he is reporting complete relief in terms of his overall CRPS type I symptoms of the left foot as well as right foot phantom pain. He is very pleased with his current spinal cord stimulation therapy. His incisions in the lumbar spine are clean dry and well-healed. Patient has no complaints today. No concerns. He rates his his pain 3/10. Objective:: Patient is awake alert [place] x3. In no acute distress. Flexion-extension cervical lumbar spine guarded secondary to pain. Deep tendon reflexes upper and lower extremities normal. Motor strength upper lower extremities normal. There is no gross sensory deficit. Gait is antalgic secondary to right leg prosthesis. Assessment:: Degenerative disc lumbar spine multilevels. Lumbar radiculopathy. Right foot phantom pain. CRPS type I left foot. Plan:: Patient's All #[id number] has been reviewed and appropriate. Again, patient doing very well with his current spinal cord stimulation therapy. He does not request any additional intervention or medications. He will return to see us on as-needed basis. [facility] Disclaimer: The information contained in this section may have been updated after the patient was seen, as this information can be updated by other users. Medical History Callus of foot Chronic kidney disease Diabetes mellitus GERD (gastroesophageal reflux disease) Hyperlipidemia Hypertension Surgical History History of cataract surgery History of cholecystectomy History of right below knee amputation History of YAG laser capsulotomy of lens Family History Other No significant family history Social History Smoking Status: Never smoker alcohol intake: never substance use type: denies use current occupational status: retired Travel in the last 8 weeks: None household members: none housing: house current occupational exposures/hazards: No caffeine: Yes
[2023-08-01 11:17] VITALS: BP 117/84; PULSE 101; RESP 18; O2SAT 94; BMI 30.4
== END ==
LOC: SC.PAIN 10:23
PROVIDERS: Visit Provider Nurse Anesthetist, Certified Registered
DX: M51.16 Intervertebral disc disorders with radiculopathy, lumbar region (principal); G54.6 Phantom limb syndrome with pain; G90.522 Complex regional pain syndrome I of left lower limb
CPT/HCPCS: 99212; G0463

== ENCOUNTER 2024-03-04 16:26 | Inpatient (IN) | payer MEDICARE, SELFPAY ==
[2024-03-04] VITALS (7 sets, daily range): BP systolic 127–166; BP diastolic 58–85; PULSE 74–103; RESP 16–20; TEMP 36.6–36.8; O2SAT 96–99; BMI 39.0; BMI 24.2
--- NOTE | 2024-03-04 16:33 | CT_ITS ---
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 Exam focused on the arteries. 3D rendering (Not supervised by radiologist): MIP and/or 3D reconstructed images were created by the technologist. Radiation optimization: All CT scans at this facility use at least one of these dose optimization techniques: automated exposure control; mA and/or kV adjustment per patient size (includes targeted exams where dose is matched to clinical indication); or iterative reconstruction. Contrast material: ISOVUE 370; Contrast volume: 100 ml; Contrast route: INTRAVENOUS (IV); COMPARISON: CT HEAD/BRAIN WO CON 03/04/2024 5:35 PM FINDINGS: ANTERIOR CIRCULATION: Right internal carotid artery: Atherosclerosis of the right internal carotid artery, with mild stenoses. No aneurysm. Right middle cerebral artery: No occlusion or significant stenosis. No aneurysm. Right anterior cerebral artery: No occlusion or significant stenosis. No aneurysm. Left internal carotid artery: Atherosclerosis of the left internal carotid artery, with mild stenosis. No aneurysm. Left middle cerebral artery: No occlusion or significant stenosis. No aneurysm. Left anterior cerebral artery: No occlusion or significant stenosis. No aneurysm. POSTERIOR CIRCULATION: Right vertebral artery: No occlusion or significant stenosis. No aneurysm. Left vertebral artery: There is severely decreased flow and concern for occlusion involving the distal left vertebral artery. 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 Severe stenosis is noted of the mid basilar artery. Right posterior cerebral artery: No occlusion or significant stenosis. No aneurysm. Left posterior cerebral artery: No occlusion or significant stenosis. No aneurysm. Brain: A small hypodense infarct is visualized involving the left cerebellar lobe superiorly, which appears to be nonacute. Refer to the head CT report from the same day. Cerebral ventricles: Mild ventriculomegaly. Bones/joints: No acute fracture. Soft tissues: Unremarkable. IMPRESSION: 1. There is severely decreased flow and concern for occlusion involving the distal left vertebral artery. 2. 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 Severe stenosis is noted of the mid basilar artery. 3. Atherosclerosis of the internal carotid arteries, with mild stenoses bilaterally. 4. Additional findings described above.
--- NOTE | 2024-03-04 16:33 | CT_ITS ---
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 Radiation optimization: All CT scans at this facility use at least one of these dose optimization techniques: automated exposure control; mA and/or kV adjustment per patient size (includes targeted exams where dose is matched to clinical indication); or iterative reconstruction. COMPARISON: No relevant prior studies available. FINDINGS: Brain: Small hypodense lacunar infarcts are seen within the left basal ganglia and remedios, indeterminate in acuity. A few small nonacute lacunar infarcts are visualized within the right basal ganglia. No acute intracranial hemorrhage is visualized. The lópez-white differentiation is otherwise preserved. There are scattered foci of white matter hypodensity, likely representing small vessel ischemic disease. The acuity of the white matter disease is indeterminate. Cerebral ventricles: There is mild prominence of the ventricles and sulci, compatible with atrophy. Paranasal sinuses: Visualized sinuses are unremarkable. No fluid levels. Mastoid air cells: No mastoid effusion. Orbital cavities: Bilateral orbital lens implants. Bones: The calvarium demonstrates no evidence for a depressed fracture. Soft tissues: Unremarkable. Vasculature: Intracranial atherosclerosis visualized. IMPRESSION: 1. No acute intracranial hemorrhage. 2. Small hypodense lacunar infarcts are seen within the left basal ganglia and remedios, indeterminate in acuity. If further evaluation is clinically indicated, an MRI of the brain is recommended. 3. A few small nonacute lacunar infarcts are visualized within the right basal ganglia. 4. There are scattered foci of white matter hypodensity, likely representing small vessel ischemic disease. 5. Mild atrophy.
--- NOTE | 2024-03-04 16:33 | CT_ITS ---
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 Exam focused on the cervical segments of the vasculature. 3D rendering (Not supervised by radiologist): MIP and/or 3D reconstructed images were created by the technologist. Radiation optimization: All CT scans at this facility use at least one of these dose optimization techniques: automated exposure control; mA and/or kV adjustment per patient size (includes targeted exams where dose is matched to clinical indication); or iterative reconstruction. Contrast material: ISOVUE 370; Contrast volume: 100 ml; Contrast route: INTRAVENOUS (IV); COMPARISON: CT ANGIO HEAD 03/04/2024 5:36 PM FINDINGS: Right common carotid artery: Artifact limits evaluation of the right common carotid artery, without occlusion. Right internal carotid artery: No stenosis of the proximal right internal carotid artery using NASCET criteria. Artifact limits evaluation of the mid right internal carotid artery, without occlusion. Atherosclerotic changes are visualized of the distal right internal carotid artery, without significant stenosis. Right external carotid artery: No occlusion or significant stenosis. Left common carotid artery: Mild stenosis is visualized of the distal left common carotid artery, with noncalcified plaque. A tiny hyperdense focus is also visualized in this region, consistent with atherosclerosis or ulcerating plaque. Left internal carotid artery: There is increased tortuosity of the left internal carotid artery. No stenosis using NASCET criteria. Mild atherosclerosis is visualized proximally. Left external carotid artery: No occlusion or significant stenosis. Right vertebral artery: A dominant right vertebral artery is identified. Left vertebral artery: The left vertebral artery is small in caliber, without extracranial occlusion. The left vertebral artery originates from the aortic arch, which is a developmental variant. Right subclavian artery: Venous enhancement and artifact limit evaluation of the right subclavian artery. Left subclavian artery: The left subclavian artery is patent, as visualized. Mild atherosclerosis is visualized of the left subclavian artery. Aorta: The ascending aorta is ectatic measuring 2.7 cm in diameter. Mild atherosclerosis of the aortic arch. Artifact limits evaluation of the ascending aorta. Veins: Venous enhancement in artifact limit evaluation of the V1 segment of the right vertebral artery, without definitive occlusion. There is no significant stenosis or occlusion of the remaining extracranial right vertebral artery. Soft tissues: No significant soft tissue swelling. Bones/joints: Degenerative changes are visualized involving the cervical and upper thoracic spine. Varying degrees of spinal canal stenoses and neural foraminal narrowing are visualized at cervical levels. Artifact limits evaluation of the spinal canal. Severe spinal canal stenoses are visualized at C3-C4, C5-C6, and C6-C7, with a disc protrusion at C6-C7. There is probable flattening/compression of the ventral spinal cord at C5-C6 and C6-C7. Heart: There is a small amount of fluid involving the superior pericardial recess. IMPRESSION: 1. Mild stenosis is visualized of the distal left common carotid artery, with noncalcified plaque. A tiny hyperdense focus is also visualized in this region, consistent with atherosclerosis or ulcerating plaque. 2. No stenosis of the extracranial internal carotid arteries bilaterally using NASCET criteria. 3. A dominant right vertebral artery is identified. 4. The ascending aorta is ectatic measuring 2.7 cm in diameter. 5. Degenerative changes are visualized involving the cervical and upper thoracic spine. Severe spinal canal stenoses are visualized at C3-C4, C5-C6, and C6-C7, with a disc protrusion at C6-C7. There is probable flattening/compression of the ventral spinal cord at C5-C6 and C6-C7. Correlation with an MRI of the cervical spine is recommended, as clinically indicated. 6. Additional findings described above. REFERENCES: NASCET CRITERIA. The degree of stenosis in the cervical segment of the internal carotid artery is based on NASCET criteria. Normal is no stenosis. Mild is less than 50% stenosis. Moderate is 50-69% stenosis. Severe is 70% to 99% stenosis. Total occlusion is no detectable patent lumen.
--- NOTE | 2024-03-04 16:37 | HMH.EDGENADL ---
Discharge Plan Disposition Patient Disposition: Admitted Chief Complaint: Neuro Symptoms/Deficit Prescriptions Prescriptions: No Action tamsulosin 0.4 mg capsule 1 cap PO DAILY cyclobenzaprine 10 mg tablet 10 mg PO DAILY ropinirole 3 mg tablet 3 mg PO DAILY metformin 500 mg tablet 1,000 mg PO BID bupropion HCl 100 MG tablet sustained-release 12 hr 100 mg PO BID zolpidem 5 MG tablet 5 mg PO HS buspirone 15 MG tablet 15 mg PO BID levocetirizine 5 MG tablet 5 mg PO DAILY lisinopril 20 MG tablet 20 mg PO DAILY lovastatin 40 MG tablet 40 mg PO DAILY sertraline 100 MG tablet 200 mg PO DAILY glipizide 5 MG tablet extended release 24hr 5 mg PO BID calcium carbonate-vitamin D3 1 EACH tablet 1 each PO DAILY aspirin 81 MG tablet,delayed release (DR/EC) 81 mg PO DAILY omeprazole 20 MG capsule,delayed release(DR/EC) 20 mg PO DAILY polyethylene glycol 3350 119 GM powder 17 g PO DAILY pioglitazone 30 MG tablet 30 mg PO DAILY multivit with [id number] 1 EACH tablet 1 tab PO DAILY oxycodone 10 MG tablet 10 mg PO DAILY tizanidine [Zanaflex] 4 mg tablet 4 mg PO HS Qty: 30 0RF Lokelma 10 gram powder in packet 10 g PO TID 2 Days Qty: 11 0RF Rx Instructions: for 3 doses x 2 days Referrals Follow up/Referrals: Petrona Leigh APRN [Primary Care Provider] - See instructions Clinical Impressions Clinical Impression: Spinal stenosis, Intervertebral disc protrusion, Occlusion of left vertebral artery, Basilar artery stenosis, Left pontine CVA Discharge ED Provider: Ori Salomon General Adult HPI General Chief complaint: Neuro Symptoms/Deficit Stated complaint: weakness Time Seen by Provider: 03/04/24 16:27 History of Present Illness HPI narrative: Patient is a 73-year-old male past medical history of ism-uaagbxq-yacqcmmng diabetes, 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 Last known normal was evening a week ago. He is normally able to get around just fine with his prosthesis and a cane however since then he has been unable to stand without falling. He states that he has generalized weakness, he is able to bear weight on his lower extremities without difficulty however he falls due to losing his balance which is very abnormal for him. No chest pain, no abdominal pain, no dysuria, no other acute complaints at this time. Related Data Home Medications Medication Instructions Recorded Confirmed bupropion HCl 100 mg tablet,12 hr 100 mg PO BID mood 10/02/20 08/01/23 sustained-release buspirone 15 mg tablet 15 mg PO BID mood 10/02/20 08/01/23 levocetirizine 5 mg tablet 5 mg PO DAILY allergies 10/02/20 08/01/23 zolpidem 5 mg tablet 5 mg PO HS sleep 10/02/20 08/01/23 aspirin 81 mg tablet,delayed 81 mg PO DAILY heart health 04/17/21 08/01/23 release calcium carbonate 600 mg-vitamin 1 each PO DAILY Supplement 04/17/21 08/01/23 D3 5 mcg (200 unit) tablet glipizide 5 mg tablet, extended 5 mg PO BID Diabetes 04/17/21 08/01/23 release 24 hr lisinopril 20 mg tablet 20 mg PO DAILY bp 04/17/21 08/01/23 lovastatin 40 mg tablet 40 mg PO DAILY Cholesterol 04/17/21 08/01/23 multivit with minerals-folic 1 tab PO DAILY Supplement 04/17/21 08/01/23 acid-lycopene 0.4 mg-600 mcg tablet omeprazole 20 mg capsule,delayed 20 mg PO DAILY GERD 04/17/21 08/01/23 release oxycodone 10 mg tablet 10 mg PO DAILY Pain 04/17/21 08/01/23 pioglitazone 30 mg tablet 30 mg PO DAILY Diabetes 04/17/21 08/01/23 polyethylene glycol 3350 17 17 g PO DAILY constipation 04/17/21 08/01/23 gram/dose oral powder sertraline 100 mg tablet 200 mg PO DAILY Depression 04/17/21 08/01/23 cyclobenzaprine 10 mg tablet 10 mg PO DAILY . 10/02/22 08/01/23 ropinirole 3 mg tablet 3 mg PO DAILY . 10/02/22 08/01/23 tamsulosin 0.4 mg capsule 1 cap PO DAILY bladder 10/02/22 08/01/23 metformin 500 mg tablet 1,000 mg PO BID Diabetes 10/16/22 08/01/23 Previous Rx's Medication Instructions Recorded tizanidine 4 mg tablet (Zanaflex) 4 mg PO HS sleep #30 tabs 02/24/23 sodium zirconium cyclosilicate 10 10 g PO TID 2 days #11 ea 06/13/23 gram oral powder packet (Lokelma) Allergies Allergy/AdvReac Type Severity Reaction Status Date / Time No Known Allergies Allergy Verified 07/11/23 07:48 [facility] Disclaimer: The information contained in this section may have been updated after the patient was seen, as this information can be updated by other users. Medical History (Updated 03/04/24 @ 21:20 by Ori Salomon MD) GERD (gastroesophageal reflux disease) Hyperlipidemia Hypertension Chronic kidney disease Callus of foot Diabetes mellitus Surgical History History of YAG laser capsulotomy of lens History of cholecystectomy History of right below knee amputation History of cataract surgery Family History Other No significant family history Social History Smoking Status: Never smoker alcohol intake: never substance use type: denies use current occupational status: retired Travel in the last 8 weeks: None household members: none housing: house current occupational exposures/hazards: No caffeine: Yes ROS Obtained: Yes Systems reviewed as appropriate & no additional complaints except as documented Physical Exam General General appearance: alert and in no apparent distress Head Head exam: atraumatic and normocephalic Eye Eye exam: Present PERRL and EOMI ENT ENT exam: Present mucous membranes moist Neck Neck exam: Present normal inspection Chest Chest inspection: Present normal inspection and symmetric chest wall rise Respiratory Respiratory exam: Present normal lung sounds bilaterally; Absent respiratory distress Cardiovascular Cardiovascular exam: Present regular rate and normal rhythm Abdominal Exam Abdominal exam: Present soft; Absent tenderness Extremities Exam Extremities exam: Present normal inspection Neurological Exam Neurological exam: Present alert, oriented X3, CN II-XII intact and other (Finger-nose intact on the right, eumvkh-em-tagx not intact on the left.); Absent motor sensory deficit Psychiatric Psychiatric exam: Present normal affect Skin Skin exam: Present warm and dry Medical Decision Making All Inquiry Pt receiving controlled substance: No Vital Signs: 03/04/24 16:41 03/04/24 18:00 03/04/24 18:30 Temperature 98.2 F Temperature Source Oral Pulse Rate 79 76 Pulse Rate [Left Radial] 103 H Respiratory Rate 20 Blood Pressure 132/64 133/58 L Blood Pressure [Right Arm] 138/85 Blood Pressure Mean [Right Arm] 102 02 Sat by Pulse Oximetry 97 99 99 Oxygen Delivery Method Room Air 03/04/24 19:00 03/04/24 19:30 Temperature Temperature Source Pulse Rate 85 74 Pulse Rate [Left Radial] Respiratory Rate Blood Pressure 144/67 H 139/63 Blood Pressure [Right Arm] Blood Pressure Mean [Right Arm] 02 Sat by Pulse Oximetry 98 99 Oxygen Delivery Method Lab Data Lab Results 03/04/24 16:31: WBC 9.7, RBC 4.19 L, Hgb 12.0 L, Hct 37.8 L, MCV 90.1, MCH 28.5, MCHC 31.7 L, RDW 15.9, Plt Count 265, MPV 7.8, Neut % (Auto) 79.2, Lymph % (Auto) 14.6, [place] % (Auto) 3.9, Eos % (Auto) 1.6, Baso % (Auto) 0.7, Neut # (Auto) 7.7, Lymph # (Auto) 1.4, [place] # (Auto) 0.4, Eos # (Auto) 0.2, Baso # (Auto) 0.1, Sodium 140, Potassium 5.2 H, Chloride 110 H, Carbon Dioxide 21 L, Anion Gap 14.2, BUN 45 H, Creatinine 1.70 H, Estimated Creat Clear 67, Estimated GFR 39 L, Est GFR ( Amer) 48 L, Glucose 141 H, Calcium 9.4, Magnesium 1.9, Total Bilirubin 0.4, AST 54, ALT 44, Alkaline Phosphatase 102, Total Protein 7.3, Albumin 4.3, Globulin 3.0, Albumin/Globulin Ratio 1.4 03/04/24 16:31 03/04/24 16:31 Orders (Tests/Meds): ED MEDICATIONS Discontinued Medications Generic Name Dose Route Start Last Admin Trade Name Freq PRN Reason Stop Dose Admin Lactated Ringer's 1,000 mls @ 999 mls/hr 03/04/24 17:20 03/04/24 17:43 Lactated Ringer's 1000 Ml Bag IV 03/04/24 18:20 999 mls/hr .Q1H1M ONE Administration Iopamidol 100 ml 03/04/24 17:36 03/04/24 17:38 Iopamidol-370 (76%);100ml Bottle IV 03/04/24 17:37 100 ml ONCE ONE Administration Sodium Chloride 40 ml 03/04/24 17:36 03/04/24 17:38 0.9 % Sodium Chloride 50 Ml Vial IV 03/04/24 17:37 40 ml ONCE ONE Administration Sodium Chloride 10 ml 03/04/24 17:36 03/04/24 17:38 Sodium Chloride 0.9% 10ml Syr (Rad Only) IV 03/04/24 17:37 10 ml ONCE ONE Administration ORDERS Category Date Time Status CT angio head Stat Cat Scan 03/04/24 16:[address] angio neck Stat Cat Scan 03/04/24 16:[address] head/brain wo con Stat Cat Scan 03/04/24 16:33 Completed CXR --portable [XR chest portable] Stat Exams 03/04/24 16:44 Completed CBC w/Auto Diff [Complete Blood Count Auto Diff] Stat Lab 03/04/24 16:31 Completed CMP [Comprehensive Metabolic Panel] Stat Lab 03/04/24 16:31 Completed MG [Magnesium] Stat Lab 03/04/24 16:31 Completed ECG Data Tracing #1: Independently interpreted by me, rate is 84, rhythm is regular, sinus rhythm, significant chatter likely from his pain pump. QTc 371. Medical Decision Narrative: In summary patient is a 73-year-old male with past medical history described above who presents emergency department for evaluation of disequilibrium. My concern for posterior circulation CVA is high. Differential also includes electrolyte abnormality, among others. NIH is 2 with left [id number] and word finding described in the picture. Workup will be conducted with hematologic labs, noncontrasted CT scan of the head, CT of the head and neck, EKG. Initial inventions include crystalloid bolus. Workup reviewed by me, hematologic labs are nonactionable, elevation in his creatinine however it has been this elevated before and he is getting crystalloid, mild hyperkalemia which does not need to be treated. I discussed the case with radiologist who read the Noncon CT scan as lacunar infarcts in the left basal ganglia and remedios of indeterminate acuity, nonacute lacunar infarcts in the right basal ganglia. CTA head shows that is severely decreased flow with occlusion of the distal left vertebral artery severe stenosis of the mid basilar artery, severe spinal canal stenosis at C3-C7 with disc protrusion and probable compression of the ventral spinal cord at C5-C6/C6-C7. Patient is well outside the intervention from a neurology standpoint. With respect to his spinal canal stenosis and disc protrusion the case was discussed with [facility] Dr. Hardwick who recommends no surgical intervention from a spine standpoint or from the severe mid basilar stenosis and vertebral artery occlusion given it as well as outside the window at this standpoint, medical management and follow-up for outpatient evaluation with respect to his spine after his acute stroke is managed and to call them prior to his discharge schedule set appointment. Given this the patient is appropriate for management at our institution given that he has a noninterventional stroke. The case discussed with hospital medicine who admit the patient to her service for continued evaluation at this time. Critical Care Critical Care Time Critical Care Time: No
[2024-03-04 16:42] LABS: Basophils # 0.1 K/mm3 (0-0.2); Basophils % 0.7 % (0.1-2.0); Eosinophils # 0.2 K/mm3 (0.0-0.4); Eosinophils % 1.6 % (0.1-12.0); Hematocrit 37.8 % (42.0-52.0); Lymphocytes # 1.4 K/mm3 (0.7-4.5); Lymphocytes % 14.6 % (10-50); Mean Corpuscular HGB Conc 31.7 g/dL (31.8-35.4); Mean Corpuscular Hemoglobin 28.5 pg (27.0-31.2); Mean Corpuscular Volume 90.1 fl (80-94); Mean Platelet Volume 7.8 fl (7.4-10.4); Monocytes # 0.4 K/mm3 (0.1-1.0); Monocytes % 3.9 % (1.7-9.3); Neutrophils # 7.7 K/mm3 (1.8-7.8); Neutrophils % 79.2 % (37.0-80.0); Platelet Count 265 K/mm3 (142-424); Red Blood Count 4.19 M/mm3 (4.60-6.20); Red Cell Distribution Width 15.9 % (11.5-17.5); White Blood Count 9.7 K/mm3 (4.8-10.8)
--- NOTE | 2024-03-04 16:42 | ECG_ITS ---
APPROVED REPORT Exam: Resting ECG HR:84 bpm ECG Measurements Heart Rate 84 AXES PA 360 P -68 QRSd 94 QRS 61 QT 330 T 78 QTc 371 Conclusion Sinus rhythm with significant chatter, false pacer spikes due to a pain pump Electronically signed by : MC MARTINEZ, 03/04/2024 19:07:38
--- NOTE | 2024-03-04 16:44 | XR_ITS ---
PROCEDURE INFORMATION: Exam: XR Chest Exam date and time: 03/04/2024 5:35 PM Age: 73 years old Clinical indication: Other: Weakness TECHNIQUE: Imaging protocol: Radiologic exam of the chest. Views: 1 view. COMPARISON: CR XR CHEST 2V 06/19/2021 9:12 AM FINDINGS: Lungs: Bibasilar atelectatic changes are visualized. Pleural spaces: No pleural effusion. No pneumothorax. Heart/Mediastinum: No cardiomegaly. Bones/joints: There is bilateral acromioclavicular arthropathy. Degenerative changes are noted involving the spine. IMPRESSION: 1. Bibasilar atelectatic changes are visualized. 2. Additional findings described above.
[2024-03-04 16:52] LABS: Chloride 110 mmol/L (98-107); Potassium 5.2 mmoL/L (3.5-5.1); Sodium 140 mmol/L (136-145)
[2024-03-04 16:54] LABS: Alanine Aminotransferase 44 U/L (12-78); Aspartate Amino Transferase 54 U/L (17-59); Blood Urea Nitrogen 45 mg/dl (9-20); Creatinine Clearance Estimated 67 mL/min (50-200); Estimated Glomerular Filt Rate 39 ml/min (>60); GFR (African American) 48 ML/MIN (>60)
[2024-03-04 16:55] LABS: Albumin Level 4.3 g/dl (3.5-5.0); Albumin/Globulin Ratio 1.4 (1.1-1.8); Alkaline Phosphatase 102 U/L (38-126); Anion Gap 14.2 mEq/L (5-15); Bilirubin,Total 0.4 mg/dl (0.2-1.3); Calcium 9.4 mg/dl (8.4-10.2); Carbon Dioxide 21 mmol/L (22.0-30.0); Glucose 141 mg/dl (74-100); Magnesium 1.9 mg/dl (1.6-2.3); Total Protein,Serum 7.3 g/dl (6.3-8.2)
[2024-03-04] MEDS: 0.9 % SODIUM CHLORIDE 50 ML VIAL 40 ML IV (17:38)
[2024-03-04] MEDS: SODIUM CHLORIDE 0.9% 10ML SYR (RAD ONLY) 10 ML IV (17:38)
[2024-03-04] MEDS: IOPAMIDOL-370 (76%);100ML BOTTLE 100 ML IV (17:38)
[2024-03-04] MEDS: LACTATED RINGERS 1000ML 1,000 ML 999 ML IV (17:43)
--- NOTE | 2024-03-04 18:46 | PC.NURSE ---
[facility] transfer contacted re: transfer. ED doctor on phone with Dr. Saavedra
--- NOTE | 2024-03-04 18:46 | PC.NURSE ---
radiology notified to [employer] images and disc made
--- NOTE | 2024-03-04 19:47 | PC.NURSE ---
Contacted [facility] transfer center in regards to patient transfer and status update. they will call back when surgery team is available.
--- NOTE | 2024-03-04 19:58 | PC.NURSE ---
provided patient with urinal.
--- NOTE | 2024-03-04 20:10 | PC.NURSE ---
perianal care provided. moderate brown stool noted. vss. pt able to assist to stand. no complaints.
--- NOTE | 2024-03-04 21:36 | PC.NURSE ---
Report called to Kristy HUIZAR
[2024-03-04 22:19] LABS: Chol/HDL Ratio 2.4 (1-3.5); Cholesterol 87 mg/dl (140-200); HDL Cholesterol 36 mg/dl (40-60); Triglycerides 138 mg/dl (30-150); VLDL Cholesterol 28 mg/dL (0-40)
[2024-03-04 22:30] LABS: Direct LDL Cholesterol 35.79 mg/dL (100-129)
--- NOTE | 2024-03-04 22:36 | P.HP_ITS ---
History of Present Illness *Admission Date: 03/04/24 *Reason for visit:: Difficulty walking *History of present illness: This is a 73-year-old male with a past medical history of DM, prior right BKA, CKD, HTN who presents emergency department today with complaints of difficulty walking and neck pain. He reports since Friday, he has had difficulty ambulating. He normally is able to ambulate with his right lower extremity prosthetic and his cane just fine but states that he has started to have falling episodes and disequilibrium. He states he feels generally weak. He states he is able to bear weight without difficulty but then falls secondary to losing his balance. He also endorses neck pain and shoulder pain bilaterally when awaking in the mornings. He denies any fever, cough, congestion. States that other than his disequilibrium and pain in his neck he has been in his normal, chronic state of health. Emergency department workup notable for CT head imaging with small hypodense lacunar infarcts within the left basal ganglia and remedios that are indeterminant of acuity as well as lacunar infarcts in the right basal ganglia. 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 CT of the neck notable for mild stenosis of the left common carotid artery as well as severe spinal canal stenosis visualized at C3 and C4 and C5 and C6 with disc protrusion at C6 and 7. transfer center was initially consulted secondary to disc protrusion. ER provider spoke with spinal surgeon at and stated no current need for emergent decompression at this time. Does recommend follow-up outpatient with spinal. transfer center has open an encounter and will aid in follow-up at patient's discharge from here. Given his remote strokes noted on CT, he is admitted here for further r estratification and workup. [facility] Disclaimer: The information contained in this section may have been updated after the patient was seen, as this information can be updated by other users. Medical History (Updated 03/04/24 @ 23:30 by JENNIFER Montes De Oca) CVA (cerebrovascular accident) Amputation of right lower extremity below knee upon examination GERD (gastroesophageal reflux disease) Hyperlipidemia Hypertension Chronic kidney disease Callus of foot Diabetes mellitus Surgical History History of YAG laser capsulotomy of lens History of cholecystectomy History of right below knee amputation History of cataract surgery Family History Other No significant family history Social History Smoking Status: Never smoker alcohol intake: never substance use type: denies use current occupational status: retired Travel in the last 8 weeks: None household members: none housing: house current occupational exposures/hazards: No caffeine: Yes Review of Systems Review of Systems Review of systems (narrative): Negative except for HPI Meds Home Medications and Allergies Home Medications Medication Instructions Recorded Confirmed Type bupropion HCl 100 mg tablet,12 hr 100 mg PO BID mood 10/02/20 03/04/24 History sustained-release buspirone 15 mg tablet 15 mg PO BID mood 10/02/20 03/04/24 History levocetirizine 5 mg tablet 5 mg PO DAILY allergies 10/02/20 03/04/24 History zolpidem 5 mg tablet 5 mg PO HS sleep 10/02/20 03/04/24 History aspirin 81 mg tablet,delayed 81 mg PO DAILY heart health 04/17/21 03/04/24 History release calcium carbonate 600 mg-vitamin 1 each PO DAILY Supplement 04/17/21 08/01/23 History D3 5 mcg (200 unit) tablet glipizide 5 mg tablet, extended 5 mg PO BID Diabetes 04/17/21 03/04/24 History release 24 hr lisinopril 20 mg tablet 20 mg PO DAILY bp 04/17/21 03/04/24 History lovastatin 40 mg tablet 40 mg PO DAILY Cholesterol 04/17/21 08/01/23 History multivit with minerals-folic 1 tab PO DAILY Supplement 04/17/21 08/01/23 History acid-lycopene 0.4 mg-600 mcg tablet omeprazole 20 mg capsule,delayed 20 mg PO DAILY GERD 04/17/21 03/04/24 History release oxycodone 10 mg tablet 10 mg PO DAILY Pain 04/17/21 03/04/24 History pioglitazone 30 mg tablet 30 mg PO DAILY Diabetes 04/17/21 03/04/24 History polyethylene glycol 3350 17 17 g PO DAILY constipation 04/17/21 03/04/24 History gram/dose oral powder sertraline 100 mg tablet 200 mg PO DAILY Depression 04/17/21 03/04/24 History cyclobenzaprine 10 mg tablet 10 mg PO DAILY . 10/02/22 03/04/24 History ropinirole 3 mg tablet 3 mg PO DAILY . 10/02/22 03/04/24 History tamsulosin 0.4 mg capsule 1 cap PO DAILY bladder 10/02/22 03/04/24 History metformin 500 mg tablet 1,000 mg PO BID Diabetes 10/16/22 03/04/24 History tizanidine 4 mg tablet (Zanaflex) 4 mg PO HS sleep #30 tabs 02/24/23 03/04/24 Rx sodium zirconium cyclosilicate 10 10 g PO TID 2 days #11 ea 06/13/23 08/01/23 Rx gram oral powder packet (Lokelnd) hydrocodone 5 mg-acetaminophen 325 1 tab PO BID 03/04/24 03/04/24 History mg tablet naproxen 500 mg tablet 500 mg PO DAILY 03/04/24 03/04/24 History New Prescriptions to Start Prescriptions: Allergies Allergy/AdvReac Type Severity Reaction Status Date / Time No Known Allergies Allergy Verified 07/11/23 07:48 Exam Data for Last 24 hours Vital signs and Labs for Last 24 Hours: Temp Pulse Resp BP Pulse Ox O2 Del Method 97.9 F 88 16 166/78 H 96 Room Air 03/04/24 22:14 03/04/24 22:14 03/04/24 22:14 03/04/24 22:14 03/04/24 22:14 03/04/24 22:14 Laboratory Results - last 24 hr 03/04/24 16:31: WBC 9.7, RBC 4.19 L, Hgb 12.0 L, Hct 37.8 L, MCV 90.1, MCH 28.5, MCHC 31.7 L, RDW 15.9, Plt Count 265, MPV 7.8, Neut % (Auto) 79.2, Lymph % (Auto) 14.6, [place] % (Auto) 3.9, Eos % (Auto) 1.6, Baso % (Auto) 0.7, Neut # (Auto) 7.7, Lymph # (Auto) 1.4, [place] # (Auto) 0.4, Eos # (Auto) 0.2, Baso # (Auto) 0.1, Sodium 140, Potassium 5.2 H, Chloride 110 H, Carbon Dioxide 21 L, Anion Gap 14.2, BUN 45 H, Creatinine 1.70 H, Estimated Creat Clear 67, Estimated GFR 39 L, Est GFR ( Amer) 48 L, Glucose 141 H, Calcium 9.4, Magnesium 1.9, Total Bilirubin 0.4, AST 54, ALT 44, Alkaline Phosphatase 102, Total Protein 7.3, Albumin 4.3, Globulin 3.0, Albumin/Globulin Ratio 1.4, Triglycerides 138, Cholesterol 87 L, LDL Cholesterol Direct 35.79 L, VLDL Cholesterol 28, HDL Cholesterol 36 L, Cholesterol/HDL Ratio 2.4 I & O for Last 24 hours: Intake & Output 03/01/24 03/02/24 03/03/24 03/04/24 23:59 23:59 23:59 23:59 Weight 78.562 kg Constitutional Constitutional: no acute distress *Routine HEENT Exam Head: Present normocephalic Eye: Present EOMI and PERRL ENT: Present mucous membranes moist *Routine Neck Exam Neck: Present supple; Absent lymphadenopathy *Routine Respiratory Exam Respiratory: Present CTA bilaterally *Routine Cardiovascular Exam Cardiovascular: Present RRR *Routine Abdominal Exam Abdominal: Present soft and normoactive bowel sounds; Absent tenderness *Routine Rectal Exam Rectal:: deferred *Routine Genitalia Exam Genitalia:: deferred *Routine Extremities Exam Comments: Right BKA noted. Purpling of left second toe noted. *Routine Skin Exam Skin: Present warm; Absent rash *Routine Neurological Exam Neurological: Present alert, oriented X3, normal reflexes and moving all extremities Detailed Neurological Exam Brainstem reflexes: present: corneal reflex and present: gag reflex Cranial nerves: normal: CN I, normal: CN II, normal: CN III, normal: CN IV, normal: CN V, normal: CN , normal: CN VII, normal: CN VIII, normal: CN IX, normal: CN X, normal: CN XI and normal: CN XII Cerebellar function: abnormal: finger to nose Sensory: normal: LE 2-point discrimination and normal: UE 2-point discrimination Assessment and Plan *Assessment and plan (1) Left pontine CVA: Status: Acute Category: Medical Code(s): I63.9 - Cerebral infarction, unspecified (2) Basilar artery stenosis: Status: Acute Category: Medical Code(s): I65.1 - Occlusion and stenosis of basilar artery (3) Occlusion of left vertebral artery: Status: Acute Category: Medical Code(s): I65.02 - Occlusion and stenosis of left vertebral artery (4) Intervertebral disc protrusion: Status: Acute Category: Medical (5) CKD (chronic kidney disease): Status: Acute Qualifiers: Chronic kidney disease stage: stage 3 (moderate) Category: Medical Code(s): N18.9 - Chronic kidney disease, unspecified (6) Diabetes mellitus: Status: Acute Qualifiers: Diabetes mellitus type: type 2 Diabetes mellitus complication status: with kidney complications Category: Medical Code(s): E11.9 - Type 2 diabetes mellitus without complications Plan Ischemic CVA 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 Complains mostly of neck pain when awakening and disequilibrium when ambulating. Otherwise NIH 1, [id number] test slightly off. Allow for mild permissive hypertension at this time Complete stroke workup with MRI brain, echocardiogram A1c and lipid panel pending Speech therapy in the a.m., bedside swallow passed. Diabetic diet now Continue aspirin, would likely benefit from DAPT with Plavix as well PT OT Cervical disc protrusion Will obtain MRI of C-spine in a.m. as well. has opened an encounter via the transfer center and will aid in follow-up appointment at discharge from here. Case management consult to ensure patient has follow-up at discharge. CKD Stable, at baseline Continue maintenance IV fluids DM Sliding scale insulin, A1c pending DVT ppx SQH DNR/DNI
--- NOTE | 2024-03-04 22:49 | PC.NURSE ---
performed a stroke assessment on patient once he arrived to the floor - equal strengths, no deficits noted - passed. patient is unable to provide medication hx, done med rec per pharm refill hx. patient passed nursing bedside swallow eval, diet advanced per [employer] approval. right prosthetic leg at bedside, bed alarm on r/t frequent falls at home (3 this week), scattered bruising noted. patient is [place] and left hearing aids and dentures at home.
[2024-03-04] MEDS: ROPINIROLE 3 MG 3 EACH PO (23:37)
[2024-03-04] MEDS: SERTRALINE 100MG TABLET 200 MG PO (23:45)
[2024-03-05] VITALS: BP 109/68; PULSE 83; PULSE 90; RESP 18; TEMP 36.9; O2SAT 95
[2024-03-05 00:46] LABS: POC Glucose,Bedside 124 (70-110)
[2024-03-05 04:00] VITALS: BP 139/59; PULSE 70; PULSE 71; RESP 18; TEMP 37.2; O2SAT 95; BMI 24.2
--- NOTE | 2024-03-05 06:30 | CA_ITS ---
APPROVED REPORT EXAM: Comprehensive 2D, Doppler, and color-flow Echocardiogram Corporate Strategy Analyst: ABRAM Burks, RVS Ht: 5 ft 11 in Wt: 280lbs BSA: 2.43 BP: 166/78 mmHg Indications: Stroke, CKD,Dizziness, DM, HTN, HLD Echo Enhancing Agent Comments: Technically limited exam due to patient factors 2D Dimensions IVSd 0.97 cm LVEF (Visual) 59.80 % PWd 0.79 cm LA Volume 50.80 mL LVDd 5.12 cm LA Volume Index 20.40 mL/m2 (M/F) 16-34 LVDs 3.48 cm EF AP4 39.10 % Left Atrium 1.97 cm GL Strain -11.9 % M-Mode Dimensions LA Diam 3.67 cm (1.9-4.0) EPSs 1.12 cm TAPSE 2.54 (<1.7) LV Diastology E Decel Time 250 (160-240 msec) E/A Ratio 0.73 MED A' 10.20 cm/s LAT A' 11.80 cm/s Aortic Valve MICHELLE Index 0.84 cm2/m2 AoV Peak Catrachito. 140.0 (50-130 cm/s) AO Peak GR. 7.80 mmHg AO Mean GR. 3.90 (<5 mmHg) AO VTI 28.2 (18-25 cm) MICHELLE (VTI) 2.10 (2.5-4.5 cm2) Mitral Valve MV A Velocity 105.0 (40-130 cm/s) E/A Ratio 0.73 Tricuspid Valve TR P. Velocity 252.00 cm/s RAP Estimate 10.00 mmHg RVSP 35.40 mmHg Left Ventricle The left ventricle is normal size. The left ventricular systolic function is normal. The left ventricular ejection fraction is within the normal range. There is increased LV wall thickness. There is normal LV segmental wall motion. Transmitral Doppler flow pattern suggests impaired LV relaxation. LVEF is 55%. Right Ventricle The right ventricle is normal size. The right ventricular systolic function is normal. Atria The left atrium size is normal. The right atrium size is normal. The interatrial septum is not well-visualized. Aortic Valve The aortic valve is mildly thickened. There is no aortic valvular stenosis. Trace aortic regurgitation. Mitral Valve The mitral valve is normal in structure. No evidence of mitral valve stenosis. Trace mitral valve regurgitation noted. Tricuspid Valve The tricuspid valve leaflets are thin and pliable. Mild to moderate tricuspid regurgitation. RVSP is 25???30 mmHg. Pulmonic Valve The pulmonary valve is normal in structure. Trace pulmonic regurgitation. Other Information Study Quality: Fair Conclusion Normal biventricular systolic function. Mild to moderate TR. RVSP 25-30 mmHg. Electronically signed by : Sherry Mueller MD 03/09/2024 11:32:02
[2024-03-05 06:38] LABS: POC Glucose,Bedside 157 (70-110)
[2024-03-05 07:01] LABS: Chloride 110 mmol/L (98-107); Potassium 4.6 mmoL/L (3.5-5.1); Sodium 139 mmol/L (136-145)
[2024-03-05 07:04] LABS: Anion Gap 13.6 mEq/L (5-15); Blood Urea Nitrogen 37 mg/dl (9-20); Carbon Dioxide 20 mmol/L (22.0-30.0); Creatinine Clearance Estimated 51 mL/min (50-200); Estimated Glomerular Filt Rate 49 ml/min (>60); GFR (African American) 60 ML/MIN (>60)
[2024-03-05 07:05] LABS: Calcium 9.2 mg/dl (8.4-10.2); Glucose 149 mg/dl (74-100)
[2024-03-05 07:14] LABS: Basophils # 0.1 K/mm3 (0-0.2); Basophils % 0.8 % (0.1-2.0); Eosinophils # 0.2 K/mm3 (0.0-0.4); Eosinophils % 3.3 % (0.1-12.0); Hematocrit 35.4 % (42.0-52.0); Hemoglobin 11.4 g/dL (14.1-18.0); Lymphocytes # 1.5 K/mm3 (0.7-4.5); Lymphocytes % 20.9 % (10-50); Mean Corpuscular HGB Conc 32.1 g/dL (31.8-35.4); Mean Corpuscular Hemoglobin 28.9 pg (27.0-31.2); Mean Platelet Volume 8.2 fl (7.4-10.4); Monocytes # 0.3 K/mm3 (0.1-1.0); Monocytes % 4.1 % (1.7-9.3); Neutrophils # 5.2 K/mm3 (1.8-7.8); Platelet Count 236 K/mm3 (142-424); Red Blood Count 3.93 M/mm3 (4.60-6.20); Red Cell Distribution Width 15.7 % (11.5-17.5); White Blood Count 7.4 K/mm3 (4.8-10.8)
--- NOTE | 2024-03-05 07:55 | HMH.PHAINT1 ---
Pharmacy Intervention Comments: HOME MEDICATION LIST VERIFIED USING LIST FROM OUTPATIENT PHARMACY
[2024-03-05 08:00] VITALS: BP 140/67; PULSE 74; PULSE 80; RESP 18; TEMP 36.8; O2SAT 95
[2024-03-05] MEDS: BUSPIRONE HCL 5 MG TABLET 15 MG PO (08:48)
[2024-03-05] MEDS: ASPIRIN EC 81MG TABLET 81 MG PO (08:49)
[2024-03-05] MEDS: HEPARIN SODIUM 5,000 UNIT/ML VIAL 5000 UNIT SQ (08:49)
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
--- NOTE | 2024-03-05 10:01 | HMH.PTEV ---
Physical Therapy Evaluation Rehab PT IP Evaluation Start: 03/05/24 07:46 Freq: ONCE Status: Active Protocol: Document 03/05/24 09:55 ABDIEL (Rec: 03/05/24 10:01 ABDIEL [email or web address]) Subjective/History History History Per H&P: This is a 73-year-old male with a past medical history of DM, prior right BKA, CKD, HTN who presents emergency department today with complaints of difficulty walking and neck pain. He reports since Friday, he has had difficulty ambulating. He normally is able to ambulate with his right lower extremity prosthetic and his cane just fine but states that he has started to have falling episodes and disequilibrium. He states he feels generally weak. He states he is able to bear weight without difficulty but then falls secondary to losing his balance. He also endorses neck pain and shoulder pain bilaterally when awaking in the mornings. He denies any fever, cough, congestion. States that other than his disequilibrium and pain in his neck he has been in his normal, chronic state of health. Emergency department workup notable for CT head imaging with small hypodense lacunar infarcts within the left basal ganglia and remedios that are indeterminant of acuity as well as lacunar infarcts in the right basal ganglia. Subjective Subjective PLOF per pt report: Pt was living at home alone in a single story home with 0 INDIRA. Pt reports 3 falls in the past month. Pt was driving prior. Pt usually IND with mobility and ADLs without AD (including donning/doffing RLE prosthesis). Pt reports he has had more difficulty performing mobility since his symptom onset. New diagnosis of cancer in past 12 No months? Rehab PT IP Eval Objective Appearance Patient Behavior Appropriate,Cooperative Patient Orientation Person,Place,Situation Difficulty following instructions none Speech Pattern Clear Ambulation Patient Able to Ambulate No Balance Ability to Arise Able, uses arms to help Sitting Balance Steady, safe Standing Balance Unsteady Transfers Bed Transfer Ability Minimal x 1 (25% assist) Chair Transfer Ability Minimal x 2 (25% assist) Sit to Stand Bed Transfer Ability Minimal x 1 (25% assist) MMT LLE PT MMT WFL Rehab PT IP prob,goals,plan Problems Date of Evaluation: 03/05/24 PT IP Problems Bed Mobility,Transfers,Gait, Balance,Safety Rehab Potential Rehab Potential Good Equipment Needs Assistive Devices Rolling / Wheeled Walker Plan PT Intervention Plan Bed Mobility,Transfers,Gait, Balance,Safety,Therapeutic Exercise Other Intervention Plan 1-2 times PT Plan Frequency Daily Duration LOS Discharge Goals Bed Transfer Ability Supervision/Stand by Sit to Stand Chair Transfer Ability Contact Guard/Hand Hold Ambulation Assistive Device Rolling Walker Ambulation Distance (feet) 10 Discharge Plan PT Discharge Plan Initial physical therapy evaluation performed. Patient presents below baseline at this time in functional mobility, transfers, gait, and strength. Pt not safe to return home at this time d/t current level of functional mobility. PT recommending short-term rehabilitation stay upon d/c from [facility]. Pt would benefit from skilled PT while at [facility] to prevent further functional decline and maximize safety with mobility. Pt left seated in recliner with prothesis on (per pt request). Eval Complexity Eval Charge Codes 43092 - Moderate Complexity PHYSICIAN CERTIFICATION: I certify the specified therapy services for Fernandez Patel are required, authorized, and reviewed every 30 days.
--- NOTE | 2024-03-05 10:10 | HMH.OTEV ---
OT Inpatient Evaluation Rehab OT IP Evaluation Start: 03/05/24 07:46 Freq: ONCE Status: Active Protocol: Document 03/05/24 09:54 PATRIZIAASHLEIGH (Rec: 03/05/24 10:10 MIK [id number]) Rehab OT IP Assessment Subjective History This is a 73-year-old male with a past medical history of DM, prior right BKA, CKD, HTN who presents emergency department today with complaints of difficulty walking and neck pain. He reports since Friday, he has had difficulty ambulating. He normally is able to ambulate with his right lower extremity prosthetic and his cane just fine but states that he has started to have falling episodes and disequilibrium. He states he feels generally weak. He states he is able to bear weight without difficulty but then falls secondary to losing his balance. He also endorses neck pain and shoulder pain bilaterally when awaking in the mornings. He denies any fever, cough, congestion. States that other than his disequilibrium and pain in his neck he has been in his normal, chronic state of health. Emergency department workup notable for CT head imaging with small hypodense lacunar infarcts within the left basal ganglia and remedios that are indeterminant of acuity as well as lacunar infarcts in the right basal ganglia. 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 CT of the neck notable for mild stenosis of the left common carotid artery as well as severe spinal canal stenosis visualized at C3 and C4 and C5 and C6 with disc protrusion at C6 and 7. transfer center was initially consulted secondary to disc protrusion. ER provider spoke with spinal surgeon at and stated no current need for emergent decompression at this time. Does recommend follow-up outpatient with spinal. transfer center has open an encounter and will aid in follow-up at patient's discharge from here. Given his remote strokes noted on CT, he is admitted here for further restratification and workup. Patient lives alone in 1 story home with no INDIRA. Independent with ADLs and fx'l mobility prior to hospitalization. Subjective I would like to get up. Patient completed bed mobility task from supine->sit @ EOB requiring Mod A. Patient required Mod A to thanh B LE prosthetic to prepare for SPT. Instructed Patient on completing SPT from EOB-> recliner with MOd A x2. Patient reported numbness and tingling in B UE And B LE. Objective Patient Orientation Person,Name,Age,Birthday,Year Right Upper Extremity Gross ROM WFL Left Upper Extremity Gross ROM WFL Bed Mobility bed mobility - supine/sit Assist Level Moderate x 1 (50% assist) Transfer Training Sit/Stand/Pivot Transfer Assist Level Moderate x 2 (50% assist) Chair Transfer Ability Moderate x 2 (50% assist) Chair Transfer Technique Stand Step Pivot Lower Body Dressing Ability Moderate Assistance Rehab OT IP prob,goals,plan Problems Date of Evaluation: 03/05/24 OT IP Problems Bed Mobility,Transfers,Balance ,Self care,Safety Rehab Potential Rehab Potential Good Equipment Needs Assistive Devices Rolling / Wheeled Walker Plan OT intervention Plan Bed Mobility,Transfers,Balance ,Self care,Safety,Therapeutic Exercise OT Plan Frequency Daily Duration LOS Discharge Goals Bed Mobility Ability Assistance x1 Sit to Stand Chair Transfer Ability Minimal x 2 (25% assist) Chair Transfer Ability Moderate x 1 (50% assist) Chair Transfer Technique Stand Step Pivot Discharge Plan OT Discharge Plan Recommend placement after medical d/c. Patient is unable to provide care at this time independently. Patient will continue to be seen here at [facility] with IP OT services til medical d/c. Eval Complexity Eval Charge Codes 83846 - Low Complexity PHYSICIAN CERTIFICATION: I certify the specified therapy services for Fernandez Patel are required, authorized, and reviewed every 30 days.
--- NOTE | 2024-03-05 10:17 | SW/DCPLANNER ---
Addendum entered by Taylor Paul 03/05/24 10:50: Per the plan for this patient is to transfer to [facility]. Original Note: I spoke w/ patient this AM regarding plans once medically stable for discharge. PT/OT evaluated patient and recommended SNF level of care. Patient is agreeable to placement and prefers the following facilities: [place] (currently no beds), [facility], [facility] or [facility]. Patient first preference is [facility] due to daughter residing in [facility]. I will continue to follow up w/ patient and facilities.
[2024-03-05 11:56] VITALS: BP 146/66; PULSE 78; RESP 18; TEMP 36.9; O2SAT 98
[2024-03-05 12:00] VITALS: PULSE 80
[2024-03-05 12:07] LABS: POC Glucose,Bedside 163 (70-110)
[2024-03-05] MEDS: humaLOG 100 UNITS/ML 10ML VIAL (SSI) SQ (12:22)
--- OUTSIDE RECORDS SUMMARY | 2024-03-05 13:11 | XMS_ITS ---
Author Name Levon Vicente Address [address] [place] [id number] Organization Unknown Address [address] [place] [id number] ALLERGIES AND ADVERSE REACTIONS No information ASSESSMENT No information CHIEF COMPLAINT No information MEDICATIONS No information OBJECTIVE DATA No information PHYSICAL EXAMINATION No information TREATMENT PLAN Planned Care Start Date Provider Encounter for Check-up [id number] [facility] PROBLEMS No information RESULTS No information REVIEW OF SYSTEMS No information SUBJECTIVE DATA No information VITAL SIGNS No information
--- OUTSIDE RECORDS SUMMARY | 2024-03-05 13:11 | XMS_ITS ---
Author Name Unknown Organization [facility] No information ASSESSMENT No information CHIEF COMPLAINT No information Medications Date Medication Dosage Dosageunit Startdate Active Dispense Refills Ndccode Isprescription Srcstatus 02/22 00:00 :00 Alcohol Pads 70 % Pad 08/20/2022 00:00:00 1 100 3 [id number] 45 P Taking 02/08 00:00 :00 Alcohol Pads 70 % Pad 08/20/2022 00:00:00 1 100 3 [id number] 45 P Taking 01/13 00:00 :00 Alcohol Pads 70 % Pad 08/20/2022 00:00:00 1 100 3 [id number] 45 P Refill 12/21 00:00 :00 Alcohol Pads 70 % Pad 08/20/2022 00:00:00 1 100 3 [id number] 45 P Taking 11/06 00:00 :00 Alcohol Pads 70 % Pad 08/20/2022 00:00:00 1 100 3 [id number] 45 P Taking 10/30 00:00 :00 Alcohol Pads 70 % Pad 08/20/2022 00:00:00 1 100 3 [id number] 45 P Refill 08/18 00:00 :00 Alcohol Pads 70 % Pad 08/20/2022 00:00:00 1 100 3 [id number] 45 P Refill 08/08 00:00 :00 Alcohol Pads 70 % Pad 08/20/2022 00:00:00 1 100 [id number] 45 P Taking 07/14 00:00 :00 Alcohol Pads 70 % Pad 08/20/2022 00:00:00 1 100 [id number] 45 P Taking 06/16 00:00 :00 Alcohol Pads 70 % Pad 08/20/2022 00:00:00 1 100 [id number] 45 P Taking 06/09 00:00 :00 Alcohol Pads 70 % Pad 08/20/2022 00:00:00 1 100 [id number] 45 P Taking 05/14 00:00 :00 Alcohol Pads 70 % Pad 08/20/2022 00:00:00 1 100 [id number] 45 P Taking 04/21 00:00 :00 Alcohol Pads 70 % Pad 08/20/2022 00:00:00 1 100 [id number] 45 P Taking 03/31 00:00 :00 Alcohol Pads 70 % Pad 08/20/2022 00:00:00 1 100 [id number] 45 P Taking 03/17 00:00 :00 Alcohol Pads 70 % Pad 08/20/2022 00:00:00 1 100 [id number] 45 P Taking 03/10 00:00 :00 Alcohol Pads 70 % Pad 08/20/2022 00:00:00 1 100 [id number] 45 P Taking 02/22 00:00 :00 Aspir-81 81 MG Tablet Delayed Release null 1 30 [id number] 726 Taking 02/08 00:00 :00 Aspir-81 81 MG Tablet Delayed Release null 1 30 [id number] 726 Taking 12/21 00:00 :00 Aspir-81 81 MG Tablet Delayed Release null 1 30 [id number] 726 Taking 11/06 00:00 :00 Aspir-81 81 MG Tablet Delayed Release null 1 30 [id number] 726 Taking 08/08 00:00 :00 Aspir-81 81 MG Tablet Delayed Release null 1 30 [id number] 726 Taking 07/14 00:00 :00 Aspir-81 81 MG Tablet Delayed Release null 1 30 [id number] 726 Taking 06/16 00:00 :00 Aspir-81 81 MG Tablet Delayed Release null 1 30 [id number] 726 Taking 06/09 00:00 :00 Aspir-81 81 MG Tablet Delayed Release null 1 30 [id number] 726 Taking 05/14 00:00 :00 Aspir-81 81 MG Tablet Delayed Release null 1 30 [id number] 726 Taking 04/21 00:00 :00 Aspir-81 81 MG Tablet Delayed Release null 1 30 [id number] 726 Taking 03/31 00:00 :00 Aspir-81 81 MG Tablet Delayed Release null 1 30 [id number] 726 Taking 03/17 00:00 :00 Aspir-81 81 MG Tablet Delayed Release null 1 30 [id number] 726 Taking 03/10 00:00 :00 Aspir-81 81 MG Tablet Delayed Release null 1 30 [id number] 726 Taking 02/22 00:00 :00 buPROPion HCl ER (SR) 150 MG Tablet Extended Release 12 Hour 08/07/2020 00:00:00 1 180 3 [id number] 501 P Taking 02/08 00:00 :00 buPROPion HCl ER (SR) 150 MG Tablet Extended Release 12 Hour 08/07/2020 00:00:00 1 180 3 [id number] 501 P Taking 12/21 00:00 :00 buPROPion HCl ER (SR) 150 MG Tablet Extended Release 12 Hour 08/07/2020 00:00:00 1 180 3 [id number] 501 P Taking 11/06 00:00 :00 buPROPion HCl ER (SR) 150 MG Tablet Extended Release 12 Hour 08/07/2020 00:00:00 1 180 3 [id number] 501 P Taking 09/04 00:00 :00 buPROPion HCl ER (SR) 150 MG Tablet Extended Release 12 Hour 08/07/2020 00:00:00 1 180 3 [id number] 501 P Refill 09/04 00:00 :00 buPROPion HCl ER (SR) 150 MG Tablet Extended Release 12 Hour 08/07/2020 00:00:00 1 180 3 [id number] 501 P Refill 09/04 00:00 :00 buPROPion HCl ER (SR) 150 MG Tablet Extended Release 12 Hour 08/07/2020 00:00:00 1 180 3 [id number] 501 P Refill 08/08 00:00 :00 buPROPion HCl ER (SR) 150 MG Tablet Extended Release 12 Hour 08/07/2020 00:00:00 1 180 3 [id number] 501 P Taking 07/14 00:00 :00 buPROPion HCl ER (SR) 150 MG Tablet Extended Release 12 Hour 08/07/2020 00:00:00 1 180 3 [id number] 501 P Taking 06/16 00:00 :00 buPROPion HCl ER (SR) 150 MG Tablet Extended Release 12 Hour 08/07/2020 00:00:00 1 180 3 [id number] 501 P Taking 06/09 00:00 :00 buPROPion HCl ER (SR) 150 MG Tablet Extended Release 12 Hour 08/07/2020 00:00:00 1 180 3 [id number] 501 P Taking 05/14 00:00 :00 buPROPion HCl ER (SR) 150 MG Tablet Extended Release 12 Hour 08/07/2020 00:00:00 1 180 3 [id number] 501 P Taking 04/21 00:00 :00 buPROPion HCl ER (SR) 150 MG Tablet Extended Release 12 Hour 08/07/2020 00:00:00 1 180 3 [id number] 501 P Taking 03/31 00:00 :00 buPROPion HCl ER (SR) 150 MG Tablet Extended Release 12 Hour 08/07/2020 00:00:00 1 180 3 [id number] 501 P Taking 03/17 00:00 :00 buPROPion HCl ER (SR) 150 MG Tablet Extended Release 12 Hour 08/07/2020 00:00:00 1 180 3 [id number] 501 P Taking 03/10 00:00 :00 buPROPion HCl ER (SR) 150 MG Tablet Extended Release 12 Hour 08/07/2020 00:00:00 1 180 3 [id number] 501 P Taking 02/22 00:00 :00 busPIRone HCl 15 MG Tablet null 1 180 Tablet 0 [id number] 605 P Taking 02/08 00:00 :00 busPIRone HCl 15 MG Tablet null 1 180 Tablet 0 [id number] 605 P Taking 12/21 00:00 :00 busPIRone HCl 15 MG Tablet null 1 180 Tablet 0 [id number] 605 P Taking 12/01 00:00 :00 busPIRone HCl 15 MG Tablet null 1 180 Tablet 0 [id number] 605 P Refill 11/06 00:00 :00 busPIRone HCl 15 MG Tablet null 1 180 Tablet 3 [id number] 605 Taking 08/08 00:00 :00 busPIRone HCl 15 MG Tablet null 1 180 Tablet 3 [id number] 605 Taking 07/14 00:00 :00 busPIRone HCl 15 MG Tablet null 1 180 Tablet 3 [id number] 605 Taking 06/16 00:00 :00 busPIRone HCl 15 MG Tablet null 1 180 Tablet 3 [id number] 605 Taking 06/09 00:00 :00 busPIRone HCl 15 MG Tablet null 1 180 Tablet 3 [id number] 605 Taking 06/02 00:00 :00 busPIRone HCl 15 MG Tablet null 1 180 Tablet 3 [id number] 605 Start 06/02 00:00 :00 busPIRone HCl 15 MG Tablet null 0 180 Tablet 3 [id number] 301 Stop 05/14 00:00 :00 busPIRone HCl 15 MG Tablet null 1 180 Tablet 3 [id number] 301 Taking 04/21 00:00 :00 busPIRone HCl 15 MG Tablet null 1 180 Tablet 3 [id number] 301 Taking 03/31 00:00 :00 busPIRone HCl 15 MG Tablet null 1 180 Tablet 3 [id number] 301 Taking 03/17 00:00 :00 busPIRone HCl 15 MG Tablet null 1 180 Tablet 3 [id number] 301 Taking 03/10 00:00 :00 busPIRone HCl 15 MG Tablet null 1 180 Tablet 3 [id number] 301 Taking 03/10 00:00 :00 Calmoseptin e 0.44-20 .6 % Ointment 01/24/2023 00:00:00 0 1 3 [id number] 102 P Discontinu ed 02/22 00:00 :00 CeleBREX 50 MG Capsule 11/21/2022 00:00:00 1 180 0 [id number] 501 P Taking 02/08 00:00 :00 CeleBREX 50 MG Capsule 11/21/2022 00:00:00 1 180 0 [id number] 501 P Taking 12/21 00:00 :00 CeleBREX 50 MG Capsule 11/21/2022 00:00:00 1 180 0 [id number] 501 P Taking 12/14 00:00 :00 CeleBREX 50 MG Capsule 11/21/2022 00:00:00 1 180 0 [id number] 501 P Refill 11/06 00:00 :00 CeleBREX 50 MG Capsule 11/21/2022 00:00:00 1 180 Capsule 2 [id number] 501 P Taking 08/08 00:00 :00 CeleBREX 50 MG Capsule 11/21/2022 00:00:00 1 180 Capsule 2 [id number] 501 P Taking 07/14 00:00 :00 CeleBREX 50 MG Capsule 11/21/2022 00:00:00 1 180 Capsule 2 [id number] 501 P Taking 06/16 00:00 :00 CeleBREX 50 MG Capsule 11/21/2022 00:00:00 1 180 Capsule 2 [id number] 501 P Taking 06/09 00:00 :00 CeleBREX 50 MG Capsule 11/21/2022 00:00:00 1 180 Capsule 2 [id number] 501 P Taking 05/14 00:00 :00 CeleBREX 50 MG Capsule 11/21/2022 00:00:00 1 180 Capsule 2 [id number] 501 P Taking 05/08 00:00 :00 CeleBREX 50 MG Capsule 11/21/2022 00:00:00 1 180 Capsule 2 [id number] 501 P Refill 05/05 00:00 :00 CeleBREX 50 MG Capsule 11/21/2022 00:00:00 1 180 Capsule 1 [id number] 501 Continue 04/21 00:00 :00 CeleBREX 50 MG Capsule 11/21/2022 00:00:00 1 60 Capsule 2 [id number] 501 P Taking 03/31 00:00 :00 CeleBREX 50 MG Capsule 11/21/2022 00:00:00 1 60 Capsule 2 [id number] 501 P Taking 03/17 00:00 :00 CeleBREX 50 MG Capsule 11/21/2022 00:00:00 1 60 Capsule 2 [id number] 501 P Taking 03/10 00:00 :00 CeleBREX 50 MG Capsule 11/21/2022 00:00:00 1 60 Capsule 2 [id number] 501 P Taking 02/22 00:00 :00 Cyclobenzap rine HCl 10 MG Tablet 04/03/2020 00:00:00 1 90 Tablet 3 [id number] 003 P Taking 02/08 00:00 :00 Cyclobenzap rine HCl 10 MG Tablet 04/03/2020 00:00:00 1 90 Tablet 3 [id number] 003 P Taking 12/21 00:00 :00 Cyclobenzap rine HCl 10 MG Tablet 04/03/2020 00:00:00 1 90 Tablet 3 [id number] 003 P Taking 11/06 00:00 :00 Cyclobenzap rine HCl 10 MG Tablet 04/03/2020 00:00:00 1 90 Tablet 3 [id number] 003 P Taking 09/23 00:00 :00 Cyclobenzap rine HCl 10 MG Tablet 04/03/2020 00:00:00 1 90 Tablet 3 [id number] 003 P Refill 08/08 00:00 :00 Cyclobenzap rine HCl 10 MG Tablet 04/03/2020 00:00:00 1 90 3 [id number] 003 P Taking 07/14 00:00 :00 Cyclobenzap rine HCl 10 MG Tablet 04/03/2020 00:00:00 1 90 3 [id number] 003 P Taking 06/16 00:00 :00 Cyclobenzap rine HCl 10 MG Tablet 04/03/2020 00:00:00 1 90 3 [id number] 003 P Taking 06/09 00:00 :00 Cyclobenzap rine HCl 10 MG Tablet 04/03/2020 00:00:00 1 90 3 [id number] 003 P Taking 05/14 00:00 :00 Cyclobenzap rine HCl 10 MG Tablet 04/03/2020 00:00:00 1 90 3 [id number] 003 P Taking 04/21 00:00 :00 Cyclobenzap rine HCl 10 MG Tablet 04/03/2020 00:00:00 1 90 3 [id number] 003 P Taking 03/31 00:00 :00 Cyclobenzap rine HCl 10 MG Tablet 04/03/2020 00:00:00 1 90 3 [id number] 003 P Taking 03/17 00:00 :00 Cyclobenzap rine HCl 10 MG Tablet 04/03/2020 00:00:00 1 90 3 [id number] 003 P Taking 03/10 00:00 :00 Cyclobenzap rine HCl 10 MG Tablet 04/03/2020 00:00:00 1 90 3 [id number] 003 P Refill 03/10 00:00 :00 Cyclobenzap rine HCl 10 MG Tablet 04/03/2020 00:00:00 1 90 3 [id number] 003 Taking 02/22 00:00 :00 Ezetimibe 10 MG Tablet 12/24/2023 00:00:00 1 90 Tablet 3 [id number] 305 P Taking 02/08 00:00 :00 Ezetimibe 10 MG Tablet 12/24/2023 00:00:00 1 90 Tablet 3 [id number] 305 P Taking 12/23 00:00 :00 Ezetimibe 10 MG Tablet 12/24/2023 00:00:00 1 90 Tablet 3 [id number] 305 P Refill 12/23 00:00 :00 Ezetimibe 10 MG Tablet 12/24/2023 00:00:00 1 90 Tablet 3 [id number] 305 P Start 02/22 00:00 :00 Famotidine 40 MG Tablet null 1 90 Tablet 3 [id number] 960 P Taking 02/08 00:00 :00 Famotidine 40 MG Tablet null 1 90 Tablet 3 [id number] 960 P Taking 12/21 00:00 :00 Famotidine 40 MG Tablet null 1 90 Tablet 3 [id number] 960 P Taking 11/06 00:00 :00 Famotidine 40 MG Tablet null 1 90 Tablet 3 [id number] 960 P Taking 08/08 00:00 :00 Famotidine 40 MG Tablet null 1 90 Tablet 3 [id number] 960 P Taking 07/14 00:00 :00 Famotidine 40 MG Tablet null 1 90 Tablet 3 [id number] 960 P Taking 06/16 00:00 :00 Famotidine 40 MG Tablet null 1 90 Tablet 3 [id number] 960 P Taking 06/09 00:00 :00 Famotidine 40 MG Tablet null 1 90 Tablet 3 [id number] 960 P Taking 05/14 00:00 :00 Famotidine 40 MG Tablet null 1 90 Tablet 3 [id number] 960 P Taking 04/21 00:00 :00 Famotidine 40 MG Tablet null 1 90 Tablet 3 [id number] 960 P Taking 04/03 00:00 :00 Famotidine 40 MG Tablet null 1 90 Tablet 3 [id number] 960 P Refill 03/31 00:00 :00 Famotidine 40 MG Tablet null 1 30 [id number] 960 Taking 03/17 00:00 :00 Famotidine 40 MG Tablet null 1 30 [id number] 960 Taking 03/10 00:00 :00 Famotidine 40 MG Tablet null 1 30 [id number] 960 Taking 02/22 00:00 :00 glipiZIDE 5 MG Tablet null 1 90 Tablet 3 [id number] 101 Taking 02/08 00:00 :00 glipiZIDE 5 MG Tablet null 1 90 Tablet 3 [id number] 101 Taking 12/21 00:00 :00 glipiZIDE 5 MG Tablet null 1 90 Tablet 3 [id number] 101 Taking 11/06 00:00 :00 glipiZIDE 5 MG Tablet null 1 90 Tablet 3 [id number] 101 Taking 08/08 00:00 :00 glipiZIDE 5 MG Tablet null 1 90 Tablet 3 [id number] 101 Taking 07/14 00:00 :00 glipiZIDE 5 MG Tablet null 1 90 Tablet 3 [id number] 101 Taking 06/16 00:00 :00 glipiZIDE 5 MG Tablet null 1 90 Tablet 3 [id number] 101 Taking 06/09 00:00 :00 glipiZIDE 5 MG Tablet null 1 90 Tablet 3 [id number] 101 Taking 06/02 00:00 :00 glipiZIDE 5 MG Tablet null 1 90 Tablet 3 [id number] 101 Start 06/02 00:00 :00 glipiZIDE 5 MG Tablet null 0 90 Tablet 3 [id number] 501 Stop 05/14 00:00 :00 glipiZIDE 5 MG Tablet null 1 90 Tablet 3 [id number] 501 Taking 04/21 00:00 :00 glipiZIDE 5 MG Tablet null 1 90 Tablet 3 [id number] 501 Taking 03/31 00:00 :00 glipiZIDE 5 MG Tablet null 1 90 Tablet 3 [id number] 501 Taking 03/17 00:00 :00 glipiZIDE 5 MG Tablet null 1 90 Tablet 3 [id number] 501 Taking 03/10 00:00 :00 glipiZIDE 5 MG Tablet null 1 90 Tablet 3 [id number] 501 Taking 02/22 00:00 :00 HYDROcodone -Acetaminop hen 5-325 MG Tablet 02/17/2024 00:00:00 1 28 Tablet 0 [id number] 301 P Taking 02/16 00:00 :00 HYDROcodone -Acetaminop hen 5-325 MG Tablet 02/17/2024 00:00:00 1 28 Tablet 0 [id number] 301 P Start 02/24 00:00 :00 Hydrocortis one 1 % Cream 02/25/2024 00:00:00 1 1 1 [id number] 516 P Start 02/22 00:00 :00 Levocetiriz ine Dihydrochlo ride 5 MG Tablet 06/06/2020 00:00:00 1 90 3 [id number] 290 P Taking 02/08 00:00 :00 Levocetiriz ine Dihydrochlo ride 5 MG Tablet 06/06/2020 00:00:00 1 90 3 [id number] 290 P Taking 12/21 00:00 :00 Levocetiriz ine Dihydrochlo ride 5 MG Tablet 06/06/2020 00:00:00 1 90 3 [id number] 290 P Taking 11/06 00:00 :00 Levocetiriz ine Dihydrochlo ride 5 MG Tablet 06/06/2020 00:00:00 1 90 3 [id number] 290 P Taking 08/08 00:00 :00 Levocetiriz ine Dihydrochlo ride 5 MG Tablet 06/06/2020 00:00:00 1 90 3 [id number] 290 P Taking 07/14 00:00 :00 Levocetiriz ine Dihydrochlo ride 5 MG Tablet 06/06/2020 00:00:00 1 90 3 [id number] 290 P Taking 07/03 00:00 :00 Levocetiriz ine Dihydrochlo ride 5 MG Tablet 06/06/2020 00:00:00 1 90 3 [id number] 290 P Refill 06/16 00:00 :00 Levocetiriz ine Dihydrochlo ride 5 MG Tablet 06/06/2020 00:00:00 1 90 3 [id number] 290 Taking 06/09 00:00 :00 Levocetiriz ine Dihydrochlo ride 5 MG Tablet 06/06/2020 00:00:00 1 90 3 [id number] 290 Taking 05/14 00:00 :00 Levocetiriz ine Dihydrochlo ride 5 MG Tablet 06/06/2020 00:00:00 1 90 3 [id number] 290 Taking 04/21 00:00 :00 Levocetiriz ine Dihydrochlo ride 5 MG Tablet 06/06/2020 00:00:00 1 90 3 [id number] 290 Taking 03/31 00:00 :00 Levocetiriz ine Dihydrochlo ride 5 MG Tablet 06/06/2020 00:00:00 1 90 3 [id number] 290 Taking 03/17 00:00 :00 Levocetiriz ine Dihydrochlo ride 5 MG Tablet 06/06/2020 00:00:00 1 90 3 [id number] 290 Taking 03/10 00:00 :00 Levocetiriz ine Dihydrochlo ride 5 MG Tablet 06/06/2020 00:00:00 1 90 3 [id number] 290 Taking 02/22 00:00 :00 Lisinopril 20 MG Tablet null 1 90 Tablet 3 [id number] 103 Taking 02/08 00:00 :00 Lisinopril 20 MG Tablet null 1 90 Tablet 3 [id number] 103 Taking 12/21 00:00 :00 Lisinopril 20 MG Tablet null 1 90 Tablet 3 [id number] 103 Taking 11/06 00:00 :00 Lisinopril 20 MG Tablet null 1 90 Tablet 3 [id number] 103 Taking 08/08 00:00 :00 Lisinopril 20 MG Tablet null 1 90 Tablet 3 [id number] 103 Taking 07/14 00:00 :00 Lisinopril 20 MG Tablet null 1 90 Tablet 3 [id number] 103 Taking 06/16 00:00 :00 Lisinopril 20 MG Tablet null 1 90 Tablet 3 [id number] 103 Taking 06/09 00:00 :00 Lisinopril 20 MG Tablet null 1 90 Tablet 3 [id number] 103 Taking 06/02 00:00 :00 Lisinopril 20 MG Tablet null 1 90 Tablet 3 [id number] 103 Start 06/02 00:00 :00 Lisinopril 20 MG Tablet null 0 90 Tablet 3 [id number] 301 Stop 05/14 00:00 :00 Lisinopril 20 MG Tablet null 1 90 Tablet 3 [id number] 301 Taking 04/21 00:00 :00 Lisinopril 20 MG Tablet null 1 90 Tablet 3 [id number] 301 Taking 03/31 00:00 :00 Lisinopril 20 MG Tablet null 1 90 Tablet 3 [id number] 301 Taking 03/17 00:00 :00 Lisinopril 20 MG Tablet null 1 90 Tablet 3 [id number] 301 Taking 03/10 00:00 :00 Lisinopril 20 MG Tablet null 1 90 Tablet 3 [id number] 301 Taking 02/22 00:00 :00 Lovastatin 40 MG Tablet null 1 90 Tab 3 [id number] 903 Taking 02/08 00:00 :00 Lovastatin 40 MG Tablet null 1 90 Tab 3 [id number] 903 Taking 12/21 00:00 :00 Lovastatin 40 MG Tablet null 1 90 Tab 3 [id number] 903 Taking 11/06 00:00 :00 Lovastatin 40 MG Tablet null 1 90 Tab 3 [id number] 903 Taking 08/08 00:00 :00 Lovastatin 40 MG Tablet null 1 90 Tab 3 [id number] 903 Taking 07/14 00:00 :00 Lovastatin 40 MG Tablet null 1 90 Tab 3 29835040 903 Taking 06/16 00:00 :00 Lovastatin 40 MG Tablet null 1 90 Tab 3 [id number] 903 Taking 06/09 00:00 :00 Lovastatin 40 MG Tablet null 1 90 Tab 3 [id number] 903 Taking 05/14 00:00 :00 Lovastatin 40 MG Tablet null 1 90 Tab 3 [id number] 903 Taking 04/21 00:00 :00 Lovastatin 40 MG Tablet null 1 90 Tab 3 [id number] 903 Taking 03/31 00:00 :00 Lovastatin 40 MG Tablet null 1 90 Tab 3 [id number] 903 Taking 03/17 00:00 :00 Lovastatin 40 MG Tablet null 1 90 Tab 3 [id number] 903 Taking 03/10 00:00 :00 Lovastatin 40 MG Tablet null 1 90 Tab 3 [id number] 903 Taking 02/08 00:00 :00 Methocarbam ol 750 MG Tablet 01/12/2024 00:00:00 0 [id number] 861 P Stop 02/08 00:00 :00 Methocarbam ol 750 MG Tablet 01/12/2024 00:00:00 1 270 Tablet 3 [id number] 861 P Taking 01/11 00:00 :00 Methocarbam ol 750 MG Tablet 01/12/2024 00:00:00 1 270 Tablet 3 [id number] 861 P Start 02/22 00:00 :00 Naproxen 500 MG Tablet 02/23/2024 00:00:00 1 180 0 [id number] 801 P Start 02/22 00:00 :00 Omeprazole 20 MG Capsule Delayed Release null 1 90 3 [id number] 801 P Taking 02/08 00:00 :00 Omeprazole 20 MG Capsule Delayed Release null 1 90 3 [id number] 801 P Taking 12/21 00:00 :00 Omeprazole 20 MG Capsule Delayed Release null 1 90 3 [id number] 801 P Taking 11/06 00:00 :00 Omeprazole 20 MG Capsule Delayed Release null 1 90 3 [id number] 801 P Taking 08/08 00:00 :00 Omeprazole 20 MG Capsule Delayed Release null 1 90 3 [id number] 801 P Taking 07/14 00:00 :00 Omeprazole 20 MG Capsule Delayed Release null 1 90 3 [id number] 801 P Taking 07/03 00:00 :00 Omeprazole 20 MG Capsule Delayed Release null 1 90 3 [id number] 801 P Refill 06/16 00:00 :00 Omeprazole 20 MG Capsule Delayed Release null 1 30 [id number] 801 Taking 06/09 00:00 :00 Omeprazole 20 MG Capsule Delayed Release null 1 30 [id number] 801 Taking 05/14 00:00 :00 Omeprazole 20 MG Capsule Delayed Release null 1 30 [id number] 801 Taking 04/21 00:00 :00 Omeprazole 20 MG Capsule Delayed Release null 1 30 [id number] 801 Taking 03/31 00:00 :00 Omeprazole 20 MG Capsule Delayed Release null 1 30 [id number] 801 Taking 03/17 00:00 :00 Omeprazole 20 MG Capsule Delayed Release null 1 30 [id number] 801 Taking 03/10 00:00 :00 Omeprazole 20 MG Capsule Delayed Release null 1 30 [id number] 801 Taking 02/22 00:00 :00 One Daily Men Formula w/o Iron Tablet null 1 [id number] 88 Taking 02/08 00:00 :00 One Daily Men Formula w/o Iron Tablet null 1 [id number] 88 Taking 12/21 00:00 :00 One Daily Men Formula w/o Iron Tablet null 1 [id number] 88 Taking 11/06 00:00 :00 One Daily Men Formula w/o Iron Tablet null 1 [id number] 88 Taking 08/08 00:00 :00 One Daily Men Formula w/o Iron Tablet null 1 [id number] 88 Taking 07/14 00:00 :00 One Daily Men Formula w/o Iron Tablet null 1 [id number] 88 Taking 06/16 00:00 :00 One Daily Men Formula w/o Iron Tablet null 1 [id number] 88 Taking 06/09 00:00 :00 One Daily Men Formula w/o Iron Tablet null 1 [id number] 88 Taking 05/14 00:00 :00 One Daily Men Formula w/o Iron Tablet null 1 [id number] 88 Taking 04/21 00:00 :00 One Daily Men Formula w/o Iron Tablet null 1 [id number] 88 Taking 03/31 00:00 :00 One Daily Men Formula w/o Iron Tablet null 1 [id number] 88 Taking 03/17 00:00 :00 One Daily Men Formula w/o Iron Tablet null 1 [id number] 88 Taking 03/10 00:00 :00 One Daily Men Formula w/o Iron Tablet null 1 [id number] 88 Taking 02/22 00:00 :00 Pioglitazon e HCl 30 MG Tablet null 1 90 Tablet 3 [id number] 115 Taking 02/08 00:00 :00 Pioglitazon e HCl 30 MG Tablet null 1 90 Tablet 3 [id number] 115 Taking 12/21 00:00 :00 Pioglitazon e HCl 30 MG Tablet null 1 90 Tablet 3 [id number] 115 Taking 11/06 00:00 :00 Pioglitazon e HCl 30 MG Tablet null 1 90 Tablet 3 [id number] 115 Taking 08/08 00:00 :00 Pioglitazon e HCl 30 MG Tablet null 1 90 Tablet 3 [id number] 115 Taking 07/14 00:00 :00 Pioglitazon e HCl 30 MG Tablet null 1 90 Tablet 3 [id number] 115 Taking 06/16 00:00 :00 Pioglitazon e HCl 30 MG Tablet null 1 90 Tablet 3 [id number] 115 Taking 06/09 00:00 :00 Pioglitazon e HCl 30 MG Tablet null 1 90 Tablet 3 [id number] 115 Taking 06/09 00:00 :00 Pioglitazon e HCl 30 MG Tablet null 1 90 Tablet 3 [id number] 115 Start 06/09 00:00 :00 Pioglitazon e HCl 30 MG Tablet null 0 90 Tab 3 [id number] 116 Stop 05/14 00:00 :00 Pioglitazon e HCl 30 MG Tablet null 1 90 Tab 3 [id number] 116 Taking 04/21 00:00 :00 Pioglitazon e HCl 30 MG Tablet null 1 90 Tab 3 [id number] 116 Taking 03/31 00:00 :00 Pioglitazon e HCl 30 MG Tablet null 1 90 Tab 3 [id number] 116 Taking 03/17 00:00 :00 Pioglitazon e HCl 30 MG Tablet null 1 90 Tab 3 [id number] 116 Taking 03/10 00:00 :00 Pioglitazon e HCl 30 MG Tablet null 1 90 Tab 3 [id number] 116 Taking 02/22 00:00 :00 Pramipexole Dihydrochlo ride 0.125 MG Tablet 12/16/2022 00:00:00 1 30 0 [id number] 105 P Taking 02/08 00:00 :00 Pramipexole Dihydrochlo ride 0.125 MG Tablet 12/16/2022 00:00:00 1 30 0 [id number] 105 P Taking 12/21 00:00 :00 Pramipexole Dihydrochlo ride 0.125 MG Tablet 12/16/2022 00:00:00 1 30 0 [id number] 105 P Taking 11/06 00:00 :00 Pramipexole Dihydrochlo ride 0.125 MG Tablet 12/16/2022 00:00:00 1 30 0 [id number] 105 P Taking 08/08 00:00 :00 Pramipexole Dihydrochlo ride 0.125 MG Tablet 12/16/2022 00:00:00 1 30 0 [id number] 105 P Taking 07/14 00:00 :00 Pramipexole Dihydrochlo ride 0.125 MG Tablet 12/16/2022 00:00:00 1 30 0 [id number] 105 P Taking 06/16 00:00 :00 Pramipexole Dihydrochlo ride 0.125 MG Tablet 12/16/2022 00:00:00 1 30 0 [id number] 105 P Taking 06/09 00:00 :00 Pramipexole Dihydrochlo ride 0.125 MG Tablet 12/16/2022 00:00:00 1 30 0 [id number] 105 P Taking 05/14 00:00 :00 Pramipexole Dihydrochlo ride 0.125 MG Tablet 12/16/2022 00:00:00 1 30 0 [id number] 105 P Taking 04/21 00:00 :00 Pramipexole Dihydrochlo ride 0.125 MG Tablet 12/16/2022 00:00:00 1 30 0 [id number] 105 P Taking 03/31 00:00 :00 Pramipexole Dihydrochlo ride 0.125 MG Tablet 12/16/2022 00:00:00 1 30 0 [id number] 105 P Taking 03/17 00:00 :00 Pramipexole Dihydrochlo ride 0.125 MG Tablet 12/16/2022 00:00:00 1 30 0 [id number] 105 P Taking 03/10 00:00 :00 Pramipexole Dihydrochlo ride 0.125 MG Tablet 12/16/2022 00:00:00 1 30 0 [id number] 105 P Taking 02/22 00:00 :00 Prostate Therapy Complex - Capsule null 1 [id number] 35 Taking 02/08 00:00 :00 Prostate Therapy Complex - Capsule null 1 [id number] 35 Taking 12/21 00:00 :00 Prostate Therapy Complex - Capsule null 1 [id number] 35 Taking 11/06 00:00 :00 Prostate Therapy Complex - Capsule null 1 [id number] 35 Taking 08/08 00:00 :00 Prostate Therapy Complex - Capsule null 1 [id number] 35 Taking 07/14 00:00 :00 Prostate Therapy Complex - Capsule null 1 [id number] 35 Taking 06/16 00:00 :00 Prostate Therapy Complex - Capsule null 1 [id number] 35 Taking 06/09 00:00 :00 Prostate Therapy Complex - Capsule null 1 [id number] 35 Taking 05/14 00:00 :00 Prostate Therapy Complex - Capsule null 1 [id number] 35 Taking 04/21 00:00 :00 Prostate Therapy Complex - Capsule null 1 [id number] 35 Taking 03/31 00:00 :00 Prostate Therapy Complex - Capsule null 1 [id number] 35 Taking 03/17 00:00 :00 Prostate Therapy Complex - Capsule null 1 [id number] 35 Taking 03/10 00:00 :00 Prostate Therapy Complex - Capsule null 1 [id number] 35 Taking 02/22 00:00 :00 rOPINIRole HCl 3 MG Tablet null 1 90 0 [id number] 301 P Refill 02/22 00:00 :00 rOPINIRole HCl 3 MG Tablet null 1 90 3 [id number] 301 P Taking 02/08 00:00 :00 rOPINIRole HCl 3 MG Tablet null 1 90 3 [id number] 301 P Taking 12/21 00:00 :00 rOPINIRole HCl 3 MG Tablet null 1 90 3 [id number] 301 P Taking 11/06 00:00 :00 rOPINIRole HCl 3 MG Tablet null 1 90 3 [id number] 301 P Taking 10/21 00:00 :00 rOPINIRole HCl 3 MG Tablet null 1 90 3 [id number] 301 P Refill 08/08 00:00 :00 rOPINIRole HCl 3 MG Tablet null 1 90 3 [id number] 301 Taking 07/14 00:00 :00 rOPINIRole HCl 3 MG Tablet null 1 90 3 [id number] 301 Taking 06/16 00:00 :00 rOPINIRole HCl 3 MG Tablet null 1 90 3 [id number] 301 Taking 06/09 00:00 :00 rOPINIRole HCl 3 MG Tablet null 1 90 3 [id number] 301 Taking 05/14 00:00 :00 rOPINIRole HCl 3 MG Tablet null 1 90 3 [id number] 301 Taking 04/21 00:00 :00 rOPINIRole HCl 3 MG Tablet null 1 90 3 [id number] 301 Taking 03/31 00:00 :00 rOPINIRole HCl 3 MG Tablet null 1 90 3 [id number] 301 Taking 03/17 00:00 :00 rOPINIRole HCl 3 MG Tablet null 1 90 3 [id number] 301 Taking 03/10 00:00 :00 rOPINIRole HCl 3 MG Tablet null 1 90 3 [id number] 301 Taking 02/22 00:00 :00 Sertraline HCl 100 MG Tablet null 1 180 Tablet 3 [id number] 305 Taking 02/08 00:00 :00 Sertraline HCl 100 MG Tablet null 1 180 Tablet 3 [id number] 305 Taking 12/21 00:00 :00 Sertraline HCl 100 MG Tablet null 1 180 Tablet 3 [id number] 305 Taking 11/06 00:00 :00 Sertraline HCl 100 MG Tablet null 1 180 Tablet 3 [id number] 305 Taking 08/08 00:00 :00 Sertraline HCl 100 MG Tablet null 1 180 Tablet 3 [id number] 305 Taking 07/14 00:00 :00 Sertraline HCl 100 MG Tablet null 1 180 Tablet 3 [id number] 305 Taking 06/16 00:00 :00 Sertraline HCl 100 MG Tablet null 1 180 Tablet 3 [id number] 305 Taking 06/09 00:00 :00 Sertraline HCl 100 MG Tablet null 1 180 Tablet 3 [id number] 305 Taking 06/09 00:00 :00 Sertraline HCl 100 MG Tablet null 1 180 Tablet 3 [id number] 305 Start 06/09 00:00 :00 Sertraline HCl 100 MG Tablet null 0 180 3 [id number] 305 Stop 05/14 00:00 :00 Sertraline HCl 100 MG Tablet null 1 180 3 [id number] 305 Taking 04/21 00:00 :00 Sertraline HCl 100 MG Tablet null 1 180 3 [id number] 305 Taking 03/31 00:00 :00 Sertraline HCl 100 MG Tablet null 1 180 3 [id number] 305 Taking 03/17 00:00 :00 Sertraline HCl 100 MG Tablet null 1 180 3 [id number] 305 Taking 03/10 00:00 :00 Sertraline HCl 100 MG Tablet null 1 180 3 [id number] 305 Taking 06/09 00:00 :00 Sulfamethox azole-Trime thoprim 800-160 MG Tablet 03/10/2023 00:00:00 0 20 0 [id number] 561 P Discontinu ed 05/14 00:00 :00 Sulfamethox azole-Trime thoprim 800-160 MG Tablet 03/10/2023 00:00:00 1 20 0 [id number] 561 P Taking 04/21 00:00 :00 Sulfamethox azole-Trime thoprim 800-160 MG Tablet 03/10/2023 00:00:00 1 20 0 [id number] 561 P Taking 03/31 00:00 :00 Sulfamethox azole-Trime thoprim 800-160 MG Tablet 03/10/2023 00:00:00 1 20 0 [id number] 561 P Taking 03/17 00:00 :00 Sulfamethox azole-Trime thoprim 800-160 MG Tablet 03/10/2023 00:00:00 1 20 0 [id number] 561 P Taking 03/10 00:00 :00 Sulfamethox azole-Trime thoprim 800-160 MG Tablet 03/10/2023 00:00:00 1 20 0 [id number] 561 P Start 02/22 00:00 :00 Tamsulosin HCl 0.4 MG Capsule 03/21/2021 00:00:00 1 90 Capsule 3 [id number] 611 P Taking 02/08 00:00 :00 Tamsulosin HCl 0.4 MG Capsule 03/21/2021 00:00:00 1 90 Capsule 3 [id number] 611 P Taking 12/21 00:00 :00 Tamsulosin HCl 0.4 MG Capsule 03/21/2021 00:00:00 1 90 Capsule 3 [id number] 611 P Taking 11/06 00:00 :00 Tamsulosin HCl 0.4 MG Capsule 03/21/2021 00:00:00 1 90 Capsule 3 [id number] 611 P Taking 08/08 00:00 :00 Tamsulosin HCl 0.4 MG Capsule 03/21/2021 00:00:00 1 90 Capsule 3 [id number] 611 P Taking 08/05 00:00 :00 Tamsulosin HCl 0.4 MG Capsule 03/21/2021 00:00:00 1 90 Capsule 3 [id number] 611 P Refill 07/14 00:00 :00 Tamsulosin HCl 0.4 MG Capsule 03/21/2021 00:00:00 1 90 Capsule 3 [id number] 611 P Taking 06/16 00:00 :00 Tamsulosin HCl 0.4 MG Capsule 03/21/2021 00:00:00 1 90 Capsule 3 [id number] 611 P Taking 06/09 00:00 :00 Tamsulosin HCl 0.4 MG Capsule 03/21/2021 00:00:00 1 90 Capsule 3 [id number] 611 P Taking 05/14 00:00 :00 Tamsulosin HCl 0.4 MG Capsule 03/21/2021 00:00:00 1 90 Capsule 3 [id number] 611 P Taking 04/21 00:00 :00 Tamsulosin HCl 0.4 MG Capsule 03/21/2021 00:00:00 1 90 Capsule 3 [id number] 611 P Taking 03/31 00:00 :00 Tamsulosin HCl 0.4 MG Capsule 03/21/2021 00:00:00 1 90 Capsule 3 [id number] 611 P Taking 03/17 00:00 :00 Tamsulosin HCl 0.4 MG Capsule 03/21/2021 00:00:00 1 90 Capsule 3 [id number] 611 P Taking 03/10 00:00 :00 Tamsulosin HCl 0.4 MG Capsule 03/21/2021 00:00:00 1 90 Capsule 3 [id number] 611 P Taking 02/22 00:00 :00 tiZANidine HCl 4 MG Tablet 02/09/2024 00:00:00 1 180 Tablet 1 [id number] 861 P Not Taking 02/08 00:00 :00 tiZANidine HCl 4 MG Tablet 02/09/2024 00:00:00 1 180 Tablet 1 [id number] 861 P Start 02/22 00:00 :00 True Metrix Level 1 Low Solution 08/20/2022 00:00:00 1 300 [id number] 001 P Taking 02/08 00:00 :00 True Metrix Level 1 Low Solution 08/20/2022 00:00:00 1 300 [id number] 001 P Taking 12/21 00:00 :00 True Metrix Level 1 Low Solution 08/20/2022 00:00:00 1 300 [id number] 001 P Taking 11/06 00:00 :00 True Metrix Level 1 Low Solution 08/20/2022 00:00:00 1 300 [id number] 001 P Taking 08/08 00:00 :00 True Metrix Level 1 Low Solution 08/20/2022 00:00:00 1 300 [id number] 001 P Taking 07/14 00:00 :00 True Metrix Level 1 Low Solution 08/20/2022 00:00:00 1 300 [id number] 001 P Taking 06/16 00:00 :00 True Metrix Level 1 Low Solution 08/20/2022 00:00:00 1 300 [id number] 001 P Taking 06/09 00:00 :00 True Metrix Level 1 Low Solution 08/20/2022 00:00:00 1 300 [id number] 001 P Taking 05/14 00:00 :00 True Metrix Level 1 Low Solution 08/20/2022 00:00:00 1 300 [id number] 001 P Taking 04/21 00:00 :00 True Metrix Level 1 Low Solution 08/20/2022 00:00:00 1 300 [id number] 001 P Taking 03/31 00:00 :00 True Metrix Level 1 Low Solution 08/20/2022 00:00:00 1 300 [id number] 001 P Taking 03/17 00:00 :00 True Metrix Level 1 Low Solution 08/20/2022 00:00:00 1 300 [id number] 001 P Taking 03/10 00:00 :00 True Metrix Level 1 Low Solution 08/20/2022 00:00:00 1 300 [id number] 001 P Taking 02/22 00:00 :00 True Metrix Meter w/Devic e Kit 08/09/2022 00:00:00 1 1 [id number] 004 Taking 02/08 00:00 :00 True Metrix Meter w/Devic e Kit 08/09/2022 00:00:00 1 1 [id number] 004 Taking 12/21 00:00 :00 True Metrix Meter w/Devic e Kit 08/09/2022 00:00:00 1 1 [id number] 004 Taking 11/06 00:00 :00 True Metrix Meter w/Devic e Kit 08/09/2022 00:00:00 1 1 [id number] 004 Taking 08/08 00:00 :00 True Metrix Meter w/Devic e Kit 08/09/2022 00:00:00 1 1 [id number] 004 Taking 07/14 00:00 :00 True Metrix Meter w/Devic e Kit 08/09/2022 00:00:00 1 1 [id number] 004 Taking 06/16 00:00 :00 True Metrix Meter w/Devic e Kit 08/09/2022 00:00:00 1 1 [id number] 004 Taking 06/09 00:00 :00 True Metrix Meter w/Devic e Kit 08/09/2022 00:00:00 1 1 [id number] 004 Taking 05/14 00:00 :00 True Metrix Meter w/Devic e Kit 08/09/2022 00:00:00 1 1 [id number] 004 Taking 04/21 00:00 :00 True Metrix Meter w/Devic e Kit 08/09/2022 00:00:00 1 1 [id number] 004 Taking 03/31 00:00 :00 True Metrix Meter w/Devic e Kit 08/09/2022 00:00:00 1 1 [id number] 004 Taking 03/17 00:00 :00 True Metrix Meter w/Devic e Kit 08/09/2022 00:00:00 1 1 [id number] 004 Taking 03/10 00:00 :00 True Metrix Meter w/Devic e Kit 08/09/2022 00:00:00 1 1 [id number] 004 Taking 02/22 00:00 :00 TRUEplus Lancets 33G - Miscellaneo us 08/20/2022 00:00:00 1 300 3 [id number] 18 P Taking 02/08 00:00 :00 TRUEplus Lancets 33G - Miscellaneo us 08/20/2022 00:00:00 1 300 3 [id number] 18 P Taking 12/21 00:00 :00 TRUEplus Lancets 33G - Miscellaneo us 08/20/2022 00:00:00 1 300 3 [id number] 18 P Taking 11/06 00:00 :00 TRUEplus Lancets 33G - Miscellaneo us 08/20/2022 00:00:00 1 300 3 [id number] 18 P Taking 08/18 00:00 :00 TRUEplus Lancets 33G - Miscellaneo us 08/20/2022 00:00:00 1 300 3 [id number] 18 P Refill 08/08 00:00 :00 TRUEplus Lancets 33G - Miscellaneo us 08/20/2022 00:00:00 1 300 3 [id number] 18 Taking 07/14 00:00 :00 TRUEplus Lancets 33G - Miscellaneo us 08/20/2022 00:00:00 1 300 3 [id number] 18 Taking 06/16 00:00 :00 TRUEplus Lancets 33G - Miscellaneo us 08/20/2022 00:00:00 1 300 3 [id number] 18 Taking 06/09 00:00 :00 TRUEplus Lancets 33G - Miscellaneo us 08/20/2022 00:00:00 1 300 3 [id number] 18 Taking 05/14 00:00 :00 TRUEplus Lancets 33G - Miscellaneo us 08/20/2022 00:00:00 1 300 3 [id number] 18 Taking 04/21 00:00 :00 TRUEplus Lancets 33G - Miscellaneo us 08/20/2022 00:00:00 1 300 3 [id number] 18 Taking 03/31 00:00 :00 TRUEplus Lancets 33G - Miscellaneo us 08/20/2022 00:00:00 1 300 3 [id number] 18 Taking 03/17 00:00 :00 TRUEplus Lancets 33G - Miscellaneo us 08/20/2022 00:00:00 1 300 3 [id number] 18 Taking 03/10 00:00 :00 TRUEplus Lancets 33G - Miscellaneo us 08/20/2022 00:00:00 1 300 3 [id number] 18 Taking 11/06 00:00 :00 Veltassa 8.4 GM Packet 06/13/2023 00:00:00 0 3 0 [id number] 401 P Discontinu ed 08/08 00:00 :00 Veltassa 8.4 GM Packet 06/13/2023 00:00:00 1 3 0 [id number] 401 P Taking 07/14 00:00 :00 Veltassa 8.4 GM Packet 06/13/2023 00:00:00 1 3 0 [id number] 401 P Taking 06/16 00:00 :00 Veltassa 8.4 GM Packet 06/13/2023 00:00:00 1 3 0 [id number] 401 P Taking 06/13 00:00 :00 Veltassa 8.4 GM Packet 06/13/2023 00:00:00 1 3 0 [id number] 401 P Start 02/22 00:00 :00 Zolpidem Tartrate 5 MG Tablet 12/08/2023 00:00:00 1 90 0 [id number] 710 P Taking 02/08 00:00 :00 Zolpidem Tartrate 5 MG Tablet 12/08/2023 00:00:00 1 90 0 [id number] 710 P Taking 12/21 00:00 :00 Zolpidem Tartrate 5 MG Tablet 12/08/2023 00:00:00 1 90 0 [id number] 710 P Taking 12/07 00:00 :00 Zolpidem Tartrate 5 MG Tablet 12/08/2023 00:00:00 1 90 0 [id number] 710 P Refill 11/06 00:00 :00 Zolpidem Tartrate 5 MG Tablet 09/18/2023 00:00:00 1 90 0 [id number] 710 P Taking 09/18 00:00 :00 Zolpidem Tartrate 5 MG Tablet 09/18/2023 00:00:00 1 90 0 [id number] 710 P Refill 08/08 00:00 :00 Zolpidem Tartrate 5 MG Tablet 05/07/2023 00:00:00 1 90 1 [id number] 710 Taking 07/14 00:00 :00 Zolpidem Tartrate 5 MG Tablet 05/07/2023 00:00:00 1 90 1 [id number] 710 Taking 06/16 00:00 :00 Zolpidem Tartrate 5 MG Tablet 05/07/2023 00:00:00 1 90 1 [id number] 710 Taking 06/09 00:00 :00 Zolpidem Tartrate 5 MG Tablet 05/07/2023 00:00:00 1 90 1 [id number] 710 Taking 05/14 00:00 :00 Zolpidem Tartrate 5 MG Tablet 05/07/2023 00:00:00 1 90 1 [id number] 710 Taking 05/06 00:00 :00 Zolpidem Tartrate 5 MG Tablet 05/07/2023 00:00:00 1 90 1 [id number] 710 Continue 04/21 00:00 :00 Zolpidem Tartrate 5 MG Tablet 03/10/2023 00:00:00 1 90 1 [id number] 710 P Taking 03/31 00:00 :00 Zolpidem Tartrate 5 MG Tablet 03/10/2023 00:00:00 1 90 1 [id number] 710 P Taking 03/17 00:00 :00 Zolpidem Tartrate 5 MG Tablet 03/10/2023 00:00:00 1 90 1 [id number] 710 P Taking 03/10 00:00 :00 Zolpidem Tartrate 5 MG Tablet 03/10/2023 00:00:00 1 90 1 [id number] 710 P Refill 03/10 00:00 :00 Zolpidem Tartrate 5 MG Tablet 06/20/2022 00:00:00 1 90 0 [id number] 710 Taking OBJECTIVE DATA No information PHYSICAL EXAMINATION No information TREATMENT PLAN No information PROBLEMS No information RESULTS No information REVIEW OF SYSTEMS No information SUBJECTIVE DATA No information VITAL SIGNS No information
--- NOTE | 2024-03-05 13:41 | HMH.SLDYSPHA ---
Speech & Language Evaluation Speech/Language Dysphagia Evaluation Start: 03/05/24 13:33 Freq: ONCE Status: Active Protocol: Document 03/05/24 13:33 ILZ (Rec: 03/05/24 13:41 [email or web address] [id number]) Dysphagia Assess/Goals/Plan Assessment Date of Evaluation: 03/05/24 Evaluation Type Initial Certification Assessment/Problems stroke protocol per MD order Does Patient Qualify for Service No Qualify/Failure Comment Based on clinical observations made throughout bedside swallow evaluation and informal assessment of motor speech, language, and cog-lx skills, pt's mastication/ manipulation of bolus and swallowing appear to be WFL, same with speech and language skills. No further skilled speech therapy services are warranted at this time. Recommendations PHYSICIAN CERTIFICATION: The specified therapy services are required, authorized, and reviewed every 30 days. Diet Recommendations Normal Liquid Type Recommendations Normal/Thin SL Swallow Guidelines Alt bite w/sip thru meal, Standard Aspiration Prec.,Eat at slow rate,Reflux precautions Dysphagia Swallow Precautions/Strategies Sitting Upright (90 deg),Small Bites and Sips,Alternate Liquids/Solids Plan Pt/Guardian verbally ack understanding Yes of dx/prognosis/goals G -code Required No Education Instructions provided Discussed CSE and assessment results, diet recommendations, compensatory strategies, and aspiration/reflux precautions with pt and daughter, nursing, and care management all of which expressed understanding. Pt/Caregiver able to recall information Able to recall/restate Reinforcement needed No Speech & Language HPI History Present Illness Description of Patient Problem TELECOMMUNICATOR pulled following information from chart review and H&P dated 03/04/24, This is a 73-year-old male with a past medical history of DM, prior right BKA, CKD, HTN who presents emergency department today with complaints of difficulty walking and neck pain. He reports since Friday , he has had difficulty ambulating. He normally is able to ambulate with his right lower extremity prosthetic and his cane just fine but states that he has started to have falling episodes and disequilibrium. He states he feels generally weak. He states he is able to bear weight without difficulty but then falls secondary to losing his balance. He also endorses neck pain and shoulder pain bilaterally when awaking in the mornings. He denies any fever, cough, congestion. States that other than his disequilibrium and pain in his neck he has been in his normal, chronic state of health. Emergency department workup notable for CT head imaging with small hypodense lacunar infarcts within the left basal ganglia and remedios that are indeterminant of acuity as well as lacunar infarcts in the right basal ganglia. 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 CT of the neck notable for mild stenosis of the left common carotid artery as well as severe spinal canal stenosis visualized at C3 and C4 and C5 and C6 with disc protrusion at C6 and 7. transfer center was initially consulted secondary to disc protrusion. ER provider spoke with spinal surgeon at and stated no current need for emergent decompression at this time. Does recommend follow-up outpatient with spinal. transfer center has open an encounter and will aid in follow-up at patient's discharge from here. Given his remote strokes noted on CT, he is admitted here for further restratification and workup. Nursing reports he is being transferred to later today. Rehab Services Assessed Speech therapy General Information General Current Food Consistancy Regular,Thin Liquids Dentition Edentulous Oxygen Status Room Air Ability to Follow Directions Good Communication Ability No Impairment Dysphagia:Food Presentation Evaluation Dysphagia Evaluation Summary Pt was seen sitting upright in chair this afternoon for CSE and informal speech and language assessment. He was A& O x3. Nursing reported some difficulty with cheeseburger during lunch, however, it is to be reported pt does not have his dentures with him and is eating edentulous currently. During pt interview , pt reports he, at times, eats without them 2' ill fit. No overt s/sxs of aspiration were noted throughout the CSE across all bolus consistencies . Bolus trials provided x3 to assess for consistency and/or fatigue. He was administered the following: thin liquids ( open cup/straw sip, two consecutive open cup/straw sips), pudding, pureed appleauce, MS (nutrigrain bar) , and regular (syed cracker. ) No s/sxs of distress or difficulty noted. Speech and language WFL. No further skilled speech therapy services are warranted at this time. Stroke Dysphagia Assessment PHYSICIAN CERTIFICATION: I certify the specified therapy services for Fernandze Patel are required, authorized, and reviewed every 30 days.
[2024-03-05 14:08] LABS: Hemoglobin A1C 5.9 % (4.0-6.0)
--- NOTE | 2024-03-10 05:50 | EXP.DC.SUM ---
General Admission date:: 03/04/24 Discharge date: 03/05/24 HPI HPI HPI: This is a 73-year-old male with a past medical history of DM, prior right BKA, CKD, HTN who presents emergency department today with complaints of difficulty walking and neck pain. He reports since Friday, he has had difficulty ambulating. He normally is able to ambulate with his right lower extremity prosthetic and his cane just fine but states that he has started to have falling episodes and disequilibrium. He states he feels generally weak. He states he is able to bear weight without difficulty but then falls secondary to losing his balance. He also endorses neck pain and shoulder pain bilaterally when awaking in the mornings. He denies any fever, cough, congestion. States that other than his disequilibrium and pain in his neck he has been in his normal, chronic state of health. Emergency department workup notable for CT head imaging with small hypodense lacunar infarcts within the left basal ganglia and remedios that are indeterminant of acuity as well as lacunar infarcts in the right basal ganglia. 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 CT of the neck notable for mild stenosis of the left common carotid artery as well as severe spinal canal stenosis visualized at C3 and C4 and C5 and C6 with disc protrusion at C6 and 7. transfer center was initially consulted secondary to disc protrusion. ER provider spoke with spinal surgeon at and stated no current need for emergent decompression at this time. Does recommend follow-up outpatient with spinal. transfer center has open an encounter and will aid in follow-up at patient's discharge from here. Given his remote strokes noted on CT, he is admitted here for further restratification and workup. Hospital Course Hospital Course Hospital Course: This is a 73-year-old male with a past medical history of DM, prior right BKA, CKD, HTN who presents emergency department today with complaints of difficulty walking and neck pain. He reports since Friday, he has had difficulty ambulating. He normally is able to ambulate with his right lower extremity prosthetic and his cane just fine but states that he has started to have falling episodes and disequilibrium. He states he feels generally weak. He states he is able to bear weight without difficulty but then falls secondary to losing his balance. He also endorses neck pain and shoulder pain bilaterally when awaking in the mornings. He denies any fever, cough, congestion. States that other than his disequilibrium and pain in his neck he has been in his normal, chronic state of health. Emergency department workup notable for CT head imaging with small hypodense lacunar infarcts within the left basal ganglia and remedios that are indeterminant of acuity as well as lacunar infarcts in the right basal ganglia. 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 CT of the neck notable for mild stenosis of the left common carotid artery as well as severe spinal canal stenosis visualized at C3 and C4 and C5 and C6 with disc protrusion at C6 and 7. 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 The patient was found not to be in any acute distress, and no new abnormalities on physical examination. Further, the patient expressed appropriate understanding of, and agreement with, the discharge recommendations, medications, and plan. Time spent 37 mins Exam Data for Last 24 hours Vital signs and Labs for Last 24 Hours: Temp Pulse Resp BP Pulse Ox O2 Del Method 98.4 F 80 18 146/66 H 98 Room Air 03/05/24 11:56 03/05/24 12:00 03/05/24 11:56 03/05/24 11:56 03/05/24 11:56 03/05/24 13:33 Constitutional Constitutional: no acute distress *Routine HEENT Exam Head: Present normocephalic Eye: Present EOMI and PERRL ENT: Present mucous membranes moist *Routine Neck Exam Neck: Present supple; Absent lymphadenopathy *Routine Respiratory Exam Respiratory: Present CTA bilaterally *Routine Cardiovascular Exam Cardiovascular: Present RRR *Routine Abdominal Exam Abdominal: Present soft and normoactive bowel sounds; Absent tenderness *Routine Extremities Exam Extremities: Absent cyanosis, clubbing or edema *Routine Skin Exam Skin: Present warm; Absent rash *Routine Neurological Exam Neurological: Present alert and oriented X3 DS: Diagnosis Discharge Diagnosis (1) Peripheral artery disease: Status: Acute Code(s): I73.9 - Peripheral vascular disease, unspecified (2) Diabetes mellitus: Status: Acute Code(s): E11.9 - Type 2 diabetes mellitus without complications Qualifiers: Diabetes mellitus complication status: with kidney complications Diabetes mellitus type: type 2 (3) Hypertension: Status: Acute Code(s): I10 - Essential (primary) hypertension Meds Home Medications and Allergies Home Medications Medication Instructions Recorded Confirmed Type buspirone 15 mg tablet 15 mg PO BID 10/02/20 03/04/24 History zolpidem 5 mg tablet 5 mg PO HS 10/02/20 03/04/24 History aspirin 81 mg tablet,delayed 81 mg PO DAILY 04/17/21 03/04/24 History release glipizide 5 mg tablet, extended 5 mg PO DAILY Diabetes 04/17/21 03/05/24 History release 24 hr lisinopril 20 mg tablet 20 mg PO DAILY 04/17/21 03/04/24 History omeprazole 20 mg capsule,delayed 20 mg PO DAILY GERD 04/17/21 03/04/24 History release pioglitazone 30 mg tablet 30 mg PO DAILY 04/17/21 03/04/24 History sertraline 100 mg tablet 200 mg PO DAILY 04/17/21 03/04/24 History ropinirole 3 mg tablet 3 mg PO HS 10/02/22 03/05/24 History tamsulosin 0.4 mg capsule 0.4 mg PO HS 10/02/22 03/05/24 History metformin 500 mg tablet 1,000 mg PO BID Diabetes 10/16/22 03/04/24 History naproxen 500 mg tablet 500 mg PO BID 03/04/24 03/05/24 History bupropion HCl 150 mg tablet,12 hr 1,510 mg PO BID 03/05/24 03/05/24 History sustained-release ezetimibe 10 mg tablet 10 mg PO DAILY 03/05/24 03/05/24 History tizanidine 4 mg tablet (Zanaflex) 8 mg PO HS 03/05/24 03/05/24 History New Prescriptions to Start Prescriptions: Allergies Allergy/AdvReac Type Severity Reaction Status Date / Time No Known Allergies Allergy Verified 07/11/23 07:48 Discharge Plan Disposition Patient Disposition: Xfer Short-Term Hosp Condition: Good Discharge Order Discharge Orders: Discharge Order (Routine); Ordered 03/05/24 Ordered By: Anastacio Ott Follow up Plan Prescriptions/Medication Reconciliation: Continued tamsulosin 0.4 mg capsule 0.4 mg PO HS ropinirole 3 mg tablet 3 mg PO HS metformin 500 mg tablet 1,000 mg PO BID zolpidem 5 MG tablet 5 mg PO HS buspirone 15 MG tablet 15 mg PO BID lisinopril 20 MG tablet 20 mg PO DAILY sertraline 100 MG tablet 200 mg PO DAILY glipizide 5 MG tablet extended release 24hr 5 mg PO DAILY aspirin 81 MG tablet,delayed release (DR/EC) 81 mg PO DAILY omeprazole 20 MG capsule,delayed release(DR/EC) 20 mg PO DAILY pioglitazone 30 MG tablet 30 mg PO DAILY naproxen 500 mg tablet 500 mg PO BID bupropion HCl 150 mg tablet sustained-release 12 hr 1,510 mg PO BID ezetimibe 10 mg tablet 10 mg PO DAILY tizanidine [Zanaflex] 4 mg tablet 8 mg PO HS Problem Reconciliation Problems Reviewed?: Yes Patient Discharge Instructions ACTIVITY: Ambulate as tolerated DIET: continue same diet Stand Alone Forms: Transfer Record Patient Instructions: DI for Stroke-Ischemic Providers Primary Care Provider: Petrona Leigh Admit Provider: Anastacio Ott Attending Provider: Anastacio Ott
== END 2024-03-05 14:09 | disposition short-term general hospital (02) | DRG 66 ==
LOC: ER 21:20 → 2ND 03-05 01:42
PROVIDERS: Nurse Practitioner Acute Care; Admitting Provider Internal Medicine; Emergency Provider Emergency Medicine; PCP Nurse Practitioner Family; Visit Provider Internal Medicine
DX: I63.9 Cerebral infarction, unspecified (principal); E11.51 Type 2 diabetes mellitus with diabetic peripheral angiopathy without gangrene; I10 Essential (primary) hypertension; E11.22 Type 2 diabetes mellitus with diabetic chronic kidney disease; I12.9 Hypertensive chronic kidney disease with stage 1 through stage 4 chronic kidney disease, or unspecified chronic kidney disease; Z89.511 Acquired absence of right leg below knee; Z86.73 Personal history of transient ischemic attack (TIA), and cerebral infarction without residual deficits; I65.1 Occlusion and stenosis of basilar artery; I65.02 Occlusion and stenosis of left vertebral artery; N18.30 Chronic kidney disease, stage 3 unspecified; Z79.84 Long term (current) use of oral hypoglycemic drugs; M50.223 Other cervical disc displacement at C6-C7 level
CPT/HCPCS: 36415; 70450; 70496; 70498; 71045; 80048; 80053; 80061; 82962; 83036; 83735; 85025; 92610; 93005; 93306; 97162; 97165; 99285; J1644; J7120; Q9967

== ENCOUNTER 2024-08-03 16:52 | Emergency (ER) | payer MEDICARE, SELFPAY ==
[2024-08-03 16:53] VITALS: BP 143/65; PULSE 86; RESP 20; TEMP 36.6; O2SAT 98; BMI 27.6
--- NOTE | 2024-08-03 17:21 | ED_ITS ---
<Statement entered by Ольга Nunes DO - 08/04/24 00:26> I was consulted by the MOSHE, and we discussed the complexity of the problems being addressed. I approved the treatment and management plan for this patient's care in the emergency department, thus performing a substantive portion of the medical decision making. Ольга Nunes DO Discharge Plan Disposition Patient Disposition: Home, Self-Care Condition: Good Prescriptions Prescriptions: No Action tamsulosin 0.4 mg capsule 0.4 mg PO HS ropinirole 3 mg tablet 3 mg PO HS metformin 500 mg tablet 1,000 mg PO BID zolpidem 5 MG tablet 5 mg PO HS buspirone 15 MG tablet 15 mg PO BID lisinopril 20 MG tablet 20 mg PO DAILY sertraline 100 MG tablet 200 mg PO DAILY glipizide 5 MG tablet extended release 24hr 5 mg PO DAILY aspirin 81 MG tablet,delayed release (DR/EC) 81 mg PO DAILY omeprazole 20 MG capsule,delayed release(DR/EC) 20 mg PO DAILY pioglitazone 30 MG tablet 30 mg PO DAILY naproxen 500 mg tablet 500 mg PO BID bupropion HCl 150 mg tablet sustained-release 12 hr 1,510 mg PO BID ezetimibe 10 mg tablet 10 mg PO DAILY tizanidine [Zanaflex] 4 mg tablet 8 mg PO HS Referrals Follow up/Referrals: Petrona Leigh APRN [Primary Care Provider] - See instructions Clinical Impressions Clinical Impression: Cervicalgia Print Language Print Language: Syrian Discharge ED Provider: Ольга Nunes General Adult HPI General Chief complaint: PAIN Stated complaint: pain control Time Seen by Provider: 08/03/24 17:12 History of Present Illness HPI narrative: Patient presents for evaluation of chronic neck pain. Patient has chronic degenerative spine and disc disease. He recently underwent cervical spine surgery at the [facility] 3 months ago. Patient states that he has continued to have pain in his neck since then. He actually saw his spinal surgeon this week and they offered no options or relief. Patient presents to the ER for evaluation. He denies any numbness tingling or any acute new symptoms today including chest pain shortness of breath fever chills hemoptysis hematochezia melena nausea vomiting diarrhea.. Related Data Home Medications ?Medication ?Instructions ?Recorded ?Confirmed buspirone 15 mg tablet 15 mg PO BID 10/02/20 03/04/24 zolpidem 5 mg tablet 5 mg PO HS 10/02/20 03/04/24 aspirin 81 mg tablet,delayed 81 mg PO DAILY 04/17/21 03/04/24 release glipizide 5 mg tablet, extended 5 mg PO DAILY Diabetes 04/17/21 03/05/24 release 24 hr lisinopril 20 mg tablet 20 mg PO DAILY 04/17/21 03/04/24 omeprazole 20 mg capsule,delayed 20 mg PO DAILY GERD 04/17/21 03/04/24 release pioglitazone 30 mg tablet 30 mg PO DAILY 04/17/21 03/04/24 sertraline 100 mg tablet 200 mg PO DAILY 04/17/21 03/04/24 ropinirole 3 mg tablet 3 mg PO HS 10/02/22 03/05/24 tamsulosin 0.4 mg capsule 0.4 mg PO HS 10/02/22 03/05/24 metformin 500 mg tablet 1,000 mg PO BID Diabetes 10/16/22 03/04/24 naproxen 500 mg tablet 500 mg PO BID 03/04/24 03/05/24 bupropion HCl 150 mg tablet,12 hr 1,510 mg PO BID 03/05/24 03/05/24 sustained-release ezetimibe 10 mg tablet 10 mg PO DAILY 03/05/24 03/05/24 tizanidine 4 mg tablet (Zanaflex) 8 mg PO HS 03/05/24 03/05/24 Allergies Allergy/AdvReac Type Severity Reaction Status Date / Time No Known Allergies Allergy Verified 07/11/23 07:48 [facility] Disclaimer: The information contained in this section may have been updated after the clinton ellis was seen, as this information can be updated by other users. Medical History (Updated 08/03/24 @ 18:38 by CLAYTON Mendoza) CVA (cerebrovascular accident) Amputation of right lower extremity below knee upon examination GERD (gastroesophageal reflux disease) Hyperlipidemia Hypertension Chronic kidney disease Callus of foot Diabetes mellitus Surgical History (Updated 03/09/24 @ 00:00 by Janette Holbrook) History of YAG laser capsulotomy of lens History of cholecystectomy History of right below knee amputation History of cataract surgery Family History Other No significant family history Social History Smoking Status: Never smoker alcohol intake: never substance use type: denies use current occupational status: retired Travel in the last 8 weeks: None household members: none housing: house current occupational exposures/hazards: No caffeine: Yes Other Medical History Have you received the Flu Vaccine for this season: No Have you received the Pneumonia Vaccine: No ROS Obtained: Yes Systems reviewed as appropriate & no additional complaints except as documented Physical Exam General General appearance: alert and in no apparent distress Respiratory Respiratory exam: Present normal lung sounds bilaterally Cardiovascular Cardiovascular exam: Present regular rate Neurological Exam Neurological exam: Present alert and oriented X3 Medical Decision Making Medical Records Medical records reviewed: Yes I reviewed the patient's medical records. Screening: Per USPSTF and CDC recommendations, given the prevalence of disease in our region, it is our hospital?s policy to screen for HIV and viral Hepatitis for all patients aged 18 and over and those with ongoing risk factors. All Inquiry Pt receiving controlled substance: No Vital Signs: 08/03/24 16:53 08/03/24 18:45 Temperature 97.9 F 98.1 F Temperature Source Oral Pulse Rate 81 Pulse Rate [Right Radial] 86 Respiratory Rate 20 18 Blood Pressure 133/74 Blood Pressure [Right Arm] 143/65 H Blood Pressure Mean [Right Arm] 91 02 Sat by Pulse Oximetry 98 Oxygen Delivery Method Room Air Lab Data Lab results reviewed: Yes I reviewed the patient's lab results. Orders (Tests/Meds): ED MEDICATIONS Discontinued Medications Generic Name Dose Route Start Last Admin Trade Name Perry PRN Reason Stop Dose Admin Acetaminophen 1,000 mg 08/03/24 17:57 08/03/24 18:08 Acetaminophen 500mg Tab PO 08/03/24 17:58 1,000 mg ONCE ONE Administration Diphenhydramine HCl 50 mg 08/03/24 17:57 08/03/24 18:08 Diphenhydramine 25mg Capsule PO 08/03/24 17:58 50 mg ONCE ONE Administration Lidocaine 1 each 08/03/24 17:57 08/03/24 18:08 Lidocaine 5% Transdermal Patch TP 08/03/24 17:58 1 each ONCE ONE Administration Methocarbamol 500 mg 08/03/24 17:57 08/03/24 18:08 Methocarbamol 500mg Tablet PO 08/03/24 17:58 500 mg ONCE ONE Administration Medical Decision Narrative: In summary patient is a 73-year-old male who presents to the emergency department for evaluation of cervicalgia. Patient is hemodynamically stable upon arrival, afebrile. Zickel exam is unremarkable and nonfocal including bilateral upper extremity being neurovascularly intact with no paresthesias or neuropathies or muscle weakness, tender midline cervical spine but no evidence of infection drainage erythema or edema.. Differential diagnosis includes chronic neck pain versus muscle spasm or torticollis etc. Initial workup was considered including labs and imaging however patient has chronic pain there is no new changes and he has discussed this with his cervical spine surgeon and no interventions were offered thus deferred for our purposes.. Initial interventions include Lidoderm patch Tylenol Robaxin. Upon repeat evaluation patient reported that our initial interventions did nothing for me . Given this I had interactive discussion regarding his care with the patient and offered to attempt further nonnarcotic or sedating pain relief however via patient directed decision making and discharge he declined and felt he would just go home and follow-up with his PCP. Thus patient is appropriate for discharge with close follow-up with his PCP with strict return precautions. Critical Care Critical Care Time Critical Care Time: No
[2024-08-03] MEDS: LIDOCAINE 5% TRANSDERMAL PATCH 1 EACH TP (18:08)
[2024-08-03] MEDS: diphenhydrAMINE 25MG CAPSULE 50 MG PO (18:08)
[2024-08-03] MEDS: ACETAMINOPHEN 500MG TAB 1000 MG PO (18:08)
[2024-08-03] MEDS: METHOCARBAMOL 500MG TABLET 500 MG PO (18:08)
[2024-08-03 18:45] VITALS: BP 133/74; PULSE 81; RESP 18; TEMP 36.7; O2SAT 95
== END 2024-08-03 18:47 | disposition home or self-care (01) ==
PROVIDERS: Emergency Provider Emergency Medicine; PCP Nurse Practitioner Family
DX: M54.2 Cervicalgia (principal)
CPT/HCPCS: 99283

== ENCOUNTER 2024-08-09 13:30 | Outpatient (POV) | payer MEDICARE, SELFPAY ==
[2024-08-09 13:54] VITALS: BP 116/65; PULSE 90; RESP 16; O2SAT 99; BMI 29.2
--- NOTE | 2024-08-09 13:54 | A.OFFVIS_ITS ---
[facility] Disclaimer: The information contained in this section may have been updated after the patient was seen, as this information can be updated by other users. Medical History (Updated 08/07/24 @ 00:00 by Background Daemon) CVA (cerebrovascular accident) Amputation of right lower extremity below knee upon examination GERD (gastroesophageal reflux disease) Hyperlipidemia Hypertension Chronic kidney disease Callus of foot Diabetes mellitus Surgical History (Updated 08/07/24 @ 00:00 by Background Daemon) History of YAG laser capsulotomy of lens History of cholecystectomy History of right below knee amputation History of cataract surgery Family History Other No significant family history Social History Smoking Status: Never smoker alcohol intake: never substance use type: denies use current occupational status: other Travel in the last 8 weeks: None household members: none housing: house current occupational exposures/hazards: No caffeine: Yes PM Subjective & Objective Subjective Subjective:: Patient is a pleasant 73-year-old male who presents today for spinal cord stimulator reprogramming and follow-up. Today he rates his pain a 6 out of 10. He denies any new trauma or injury. He just states that he is feeling like he is having more overall pain in his feet. He states that it is bad and asked that he feels like it is not safe for him to try to drive. He feels like he would not be fast enough to respond. Patient has tried and failed conservative therapy such as oral medications, heat and ice, topicals, physical therapy, at home stretching exercise for longer than 12 weeks, injection therapy. Patient's All has been reviewed and is appropriate. Review of Systems: General: No recent weight changes, no fever, no sleep disturbances Respiratory: No cough, no shortness of air, no recurring pulmonary infections Cardiovascular/peripheral vascular: No chest pain, no palpitations, no edema, no shortness of breath Gastrointestinal: No new onset incontinence, normal bowel movements reported Genitourinary: No new onset incontinence Musculoskeletal: Left foot pain Psychiatric: [Normal mood/affect] Neurological: [Denies weakness in extremities], [denies balance issues] Pain at rest (0-10 scale): 6 Objective Objective:: Physical Exam: General: Alert and oriented x3, no acute distress, pleasant and cooperative Lungs: Respirations even and unlabored, symmetrical chest expansion Eyes: PERRL Musculoskeletal: Flexion and extension of lumbar [spine] somewhat guarded secon rufus to pain, [antalgic gait noted] Neurological: Speech clear, no gross sensory deficit Has patient had previous pain injection?: No Conservative treatment options previously tried: Home exercise plan Length of treatment: Longer than 12 weeks Meds Home Medications and Allergies Home Medications ?Medication ?Instructions ?Recorded ?Confirmed ?Type buspirone 15 mg tablet 15 mg PO BID 10/02/20 03/04/24 History zolpidem 5 mg tablet 5 mg PO HS 10/02/20 03/04/24 History aspirin 81 mg tablet,delayed 81 mg PO DAILY 04/17/21 03/04/24 History release glipizide 5 mg tablet, extended 5 mg PO DAILY Diabetes 04/17/21 03/05/24 History release 24 hr lisinopril 20 mg tablet 20 mg PO DAILY 04/17/21 03/04/24 History omeprazole 20 mg capsule,delayed 20 mg PO DAILY GERD 04/17/21 03/04/24 History release pioglitazone 30 mg tablet 30 mg PO DAILY 04/17/21 03/04/24 History sertraline 100 mg tablet 200 mg PO DAILY 04/17/21 03/04/24 History ropinirole 3 mg tablet 3 mg PO HS 10/02/22 03/05/24 History tamsulosin 0.4 mg capsule 0.4 mg PO HS 10/02/22 03/05/24 History metformin 500 mg tablet 1,000 mg PO BID Diabetes 10/16/22 03/04/24 History naproxen 500 mg tablet 500 mg PO BID 03/04/24 03/05/24 History bupropion HCl 150 mg tablet,12 hr 1,510 mg PO BID 03/05/24 03/05/24 History sustained-release ezetimibe 10 mg tablet 10 mg PO DAILY 03/05/24 03/05/24 History tizanidine 4 mg tablet (Zanaflex) 8 mg PO HS 03/05/24 03/05/24 History New Prescriptions to Start Prescriptions: Allergies Allergy/AdvReac Type Severity Reaction Status Date / Time No Known Allergies Allergy Verified 07/11/23 07:48 Assessment and Plan *Assessment and plan (1) Peripheral artery disease: Status: Acute Category: Medical Code(s): I73.9 - Peripheral vascular disease, unspecified (2) Diabetic neuropathy: Status: Acute Category: Medical Code(s): E11.40 - Type 2 diabetes mellitus with diabetic neuropathy, unspecified Plan Patient was able to be reprogrammed with [employer] 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 I did discuss with the patient that I will send in a prescription of pregabalin 50 mg at bedtime. Patient will be given a 1 month supply of this medication. Patient has tried and failed conservative therapy. We will follow-up with the patient and 1 month for reevaluation of symptoms and plan of care. Patient has been instructed to contact the clinic with any concerns before the next appointment. Dr. Lockhart has reviewed this note and agrees with this plan of care. This note was dictated using voice recognition software and make contain errors or omissions. All injections are used with Lidocaine or Bupivacaine and Depo Medrol.
== END 2024-08-09 23:59 | disposition home or self-care (01) ==
PROVIDERS: PCP Family Medicine; Visit Provider Nurse Practitioner Family
DX: I73.9 Peripheral vascular disease, unspecified (principal); E11.40 Type 2 diabetes mellitus with diabetic neuropathy, unspecified
CPT/HCPCS: 99212; G0463

== ENCOUNTER 2024-12-20 10:44 | Outpatient (CLI) | payer MEDICARE, SELFPAY ==
--- NOTE | 2024-12-20 10:50 | XR_ITS ---
FINAL REPORT CLINICAL HISTORY: Right elbow pain FINDINGS: RIGHT ELBOW Three views were obtained. There is a corticated bony density along the lateral epicondyle which may represent an old avulsion injury or chronic epicondylitis. Moderate degenerative changes are present. There is no acute fracture. There is significant soft tissue swelling overlying the olecranon which may be seen with bursitis. IMPRESSION: No acute bony abnormality. Soft tissue swelling over the olecranon is likely related to bursitis. Chronic changes. Reviewed, Interpreted and Dictated by Kitty Traore MD Transcribed by Cyndi Campbell Authenticated and [facility]
== END 2024-12-20 23:59 | disposition home or self-care (01) ==
LOC: RAD 10:45
PROVIDERS: PCP Nurse Practitioner Family; Visit Provider Physician Assistant
DX: M25.521 Pain in right elbow (principal); S42.401A Unspecified fracture of lower end of right humerus, initial encounter for closed fracture
CPT/HCPCS: 73080

== ENCOUNTER 2024-12-27 10:42 | Outpatient (CLI) | payer MEDICARE, SELFPAY ==
--- NOTE | 2024-12-27 10:57 | XR_ITS ---
FINAL REPORT TECHNIQUE: 3 views right elbow CLINICAL HISTORY: SWELLING OF JOINT ON RT ELBOW, pt stated that he fell 3 weeks ago and had blood drained out of his right elbow 1-2 weeks ago COMPARISON: 12/10/2024 FINDINGS: RIGHT ELBOW: 3 images of the right elbow were obtained. There is an 8 mm ossific density adjacent to the lateral epicondyle, that appears well-corticated and likely represents a remote avulsion fracture. There is no evidence of acute fracture or dislocation. The joint spaces are intact. No joint effusion is identified. There is moderate soft tissue swelling posterior to the olecranon, similar to the prior exam of 12/20/2024. IMPRESSION: No acute bony abnormality. Moderate soft tissue swelling posterior to the olecranon, similar to the prior exam of 12/10/2024. Reviewed, Interpreted and Dictated by Chucho Galaviz MD Transcribed by Luzmaria Hardy Authenticated and [facility]
--- OUTSIDE RECORDS SUMMARY | 2024-12-30 20:22 | XMS_ITS ---
Author Organization Unknown Medications Date Medication Dosage DosageUnit StartDate StopDate StopReason Active DoseQuantity DoseUnit Dispense DispenseUnit Refills NdcCode DrugCode PharmacyId IsPrescription MappedMedication Srcstatus 12/16 00:00 :00 Amoxicillin -Pot Clavulanate 875-125 MG Tablet 10/07/2024 00:00:00 0 6 Tablet 0 550571 27 534 P Not Taking 12/06 00:00 :00 Amoxicillin -Pot Clavulanate 875-125 MG Tablet 10/07/2024 00:00:00 0 6 Tablet 0 199381 27 534 P Not Taking 12/02 00:00 :00 Amoxicillin -Pot Clavulanate 875-125 MG Tablet 10/07/2024 00:00:00 0 6 Tablet 0 739661 27 534 P Not Taking 11/25 00:00 :00 Amoxicillin -Pot Clavulanate 875-125 MG Tablet 10/07/2024 00:00:00 0 6 Tablet 0 595019 27 534 P Not Taking 11/18 00:00 :00 Amoxicillin -Pot Clavulanate 875-125 MG Tablet 10/07/2024 00:00:00 1 6 Tablet 0 968969 27 534 P Taking 11/11 00:00 :00 Amoxicillin -Pot Clavulanate 875-125 MG Tablet 10/07/2024 00:00:00 1 6 Tablet 0 006243 27 534 P Taking 11/08 00:00 :00 Amoxicillin -Pot Clavulanate 875-125 MG Tablet 10/07/2024 00:00:00 1 6 Tablet 0 172545 27 534 P Taking 10/11 00:00 :00 Amoxicillin -Pot Clavulanate 875-125 MG Tablet 10/07/2024 00:00:00 1 6 Tablet 0 763777 27 534 P Taking 10/07 00:00 :00 Amoxicillin -Pot Clavulanate 875-125 MG Tablet 10/07/2024 00:00:00 1 6 Tablet 0 395227 27 534 P Start 12/16 00:00 :00 Aspir-81 81 MG Tablet Delayed Release 1 30 69937927 726 Taking 12/06 00:00 :00 Aspir-81 81 MG Tablet Delayed Release 1 30 74101519 726 Taking 12/02 00:00 :00 Aspir-81 81 MG Tablet Delayed Release 1 30 44807613 726 Taking 11/25 00:00 :00 Aspir-81 81 MG Tablet Delayed Release 1 30 64553724 726 Taking 11/18 00:00 :00 Aspir-81 81 MG Tablet Delayed Release 1 30 55581767 726 Taking 11/11 00:00 :00 Aspir-81 81 MG Tablet Delayed Release 1 30 84928589 726 Taking 11/08 00:00 :00 Aspir-81 81 MG Tablet Delayed Release 1 30 61043557 726 Taking 10/11 00:00 :00 Aspir-81 81 MG Tablet Delayed Release 1 30 39563551 726 Taking 10/07 00:00 :00 Aspir-81 81 MG Tablet Delayed Release 1 30 [id number] 726 Taking 10/04 00:00 :00 Aspir-81 81 MG Tablet Delayed Release 1 30 11332120 726 Taking 09/02 00:00 :00 Aspir-81 81 MG Tablet Delayed Release 1 30 57930214 726 Taking 12/16 00:00 :00 Bactrim DS 800-160 MG Tablet 02/26/2024 00:00:00 0 6 Tablet 0 554044 14 601 P Not Taking 12/06 00:00 :00 Bactrim DS 800-160 MG Tablet 02/26/2024 00:00:00 0 6 Tablet 0 266012 14 601 P Not Taking 12/02 00:00 :00 Bactrim DS 800-160 MG Tablet 02/26/2024 00:00:00 0 6 Tablet 0 109540 14 601 P Not Taking 11/25 00:00 :00 Bactrim DS 800-160 MG Tablet 02/26/2024 00:00:00 0 6 Tablet 0 771639 14 601 P Not Taking 11/18 00:00 :00 Bactrim DS 800-160 MG Tablet 02/26/2024 00:00:00 0 6 Tablet 0 660242 14 601 P Not Taking 11/11 00:00 :00 Bactrim DS 800-160 MG Tablet 02/26/2024 00:00:00 0 6 Tablet 0 924616 14 601 P Not Taking 11/08 00:00 :00 Bactrim DS 800-160 MG Tablet 02/26/2024 00:00:00 0 6 Tablet 0 670244 14 601 P Not Taking 10/11 00:00 :00 Bactrim DS 800-160 MG Tablet 02/26/2024 00:00:00 0 6 Tablet 0 933702 14 601 P Not Taking 10/07 00:00 :00 Bactrim DS 800-160 MG Tablet 02/26/2024 00:00:00 0 6 Tablet 0 795595 14 601 P Not Taking 10/04 00:00 :00 Bactrim DS 800-160 MG Tablet 02/26/2024 00:00:00 1 6 Tablet 0 200663 14 601 P Taking 09/02 00:00 :00 Bactrim DS 800-160 MG Tablet 02/26/2024 00:00:00 1 6 Tablet 0 293499 14 601 P Taking 12/16 00:00 :00 buPROPion HCl ER (SR) 150 MG Tablet Extended Release 12 Hour 1 180 Tablet 3 89910735 505 Taking 12/09 00:00 :00 buPROPion HCl ER (SR) 150 MG Tablet Extended Release 12 Hour 1 180 Tablet 3 55239925 505 Start 12/09 00:00 :00 buPROPion HCl ER (SR) 150 MG Tablet Extended Release 12 Hour 0 180 0 41563396 501 Stop 12/06 00:00 :00 buPROPion HCl ER (SR) 150 MG Tablet Extended Release 12 Hour 08/07/2020 00:00:00 1 180 0 6500888 1 501 P Taking 12/02 00:00 :00 buPROPion HCl ER (SR) 150 MG Tablet Extended Release 12 Hour 08/07/2020 00:00:00 1 180 0 0482351 1 501 P Taking 11/25 00:00 :00 buPROPion HCl ER (SR) 150 MG Tablet Extended Release 12 Hour 08/07/2020 00:00:00 1 180 0 5486536 1 501 P Taking 11/18 00:00 :00 buPROPion HCl ER (SR) 150 MG Tablet Extended Release 12 Hour 08/07/2020 00:00:00 1 180 0 9716377 1 501 P Taking 11/11 00:00 :00 buPROPion HCl ER (SR) 150 MG Tablet Extended Release 12 Hour 08/07/2020 00:00:00 1 180 0 [id number] 1 501 P Taking 11/08 00:00 :00 buPROPion HCl ER (SR) 150 MG Tablet Extended Release 12 Hour 08/07/2020 00:00:00 1 180 0 6941014 1 501 P Taking 10/11 00:00 :00 buPROPion HCl ER (SR) 150 MG Tablet Extended Release 12 Hour 08/07/2020 00:00:00 1 180 0 [id number] 1 501 P Taking 10/07 00:00 :00 buPROPion HCl ER (SR) 150 MG Tablet Extended Release 12 Hour 08/07/2020 00:00:00 1 180 0 5633100 1 501 P Taking 10/04 00:00 :00 buPROPion HCl ER (SR) 150 MG Tablet Extended Release 12 Hour 08/07/2020 00:00:00 1 180 0 7800585 1 501 P Taking 09/06 00:00 :00 buPROPion HCl ER (SR) 150 MG Tablet Extended Release 12 Hour 08/07/2020 00:00:00 1 180 0 5609247 1 501 P Refill 09/02 00:00 :00 buPROPion HCl ER (SR) 150 MG Tablet Extended Release 12 Hour 08/07/2020 00:00:00 1 180 3 4116313 1 501 P Taking 12/16 00:00 :00 busPIRone HCl 15 MG Tablet 1 180 0 3242860 4 605 Taking 12/06 00:00 :00 busPIRone HCl 15 MG Tablet 1 180 0 4004156 4 605 Taking 12/02 00:00 :00 busPIRone HCl 15 MG Tablet 1 180 0 2959142 4 605 Taking 11/25 00:00 :00 busPIRone HCl 15 MG Tablet 1 180 0 2686996 4 605 Taking 11/18 00:00 :00 busPIRone HCl 15 MG Tablet 1 180 0 1125767 4 605 Taking 11/11 00:00 :00 busPIRone HCl 15 MG Tablet 1 180 0 1555745 4 605 Taking 11/08 00:00 :00 busPIRone HCl 15 MG Tablet 1 180 0 3621342 4 605 Taking 10/14 00:00 :00 busPIRone HCl 15 MG Tablet 1 180 0 6485341 4 605 Start 10/14 00:00 :00 busPIRone HCl 15 MG Tablet 0 180 0 3074089 4 605 Stop 10/11 00:00 :00 busPIRone HCl 15 MG Tablet 1 180 0 1874349 4 605 P Taking 10/07 00:00 :00 busPIRone HCl 15 MG Tablet 1 180 0 7030731 4 605 P Taking 10/04 00:00 :00 busPIRone HCl 15 MG Tablet 1 180 0 4860937 4 605 P Taking 09/02 00:00 :00 busPIRone HCl 15 MG Tablet 1 180 0 8768830 4 605 P Taking 12/16 00:00 :00 CeleBREX 50 MG Capsule 11/21/2022 00:00:00 1 180 0 7059063 1 501 P Taking 12/06 00:00 :00 CeleBREX 50 MG Capsule 11/21/2022 00:00:00 1 180 0 8672046 1 501 P Taking 12/02 00:00 :00 CeleBREX 50 MG Capsule 11/21/2022 00:00:00 1 180 0 7869979 1 501 P Taking 11/25 00:00 :00 CeleBREX 50 MG Capsule 11/21/2022 00:00:00 1 180 0 4090941 1 501 P Taking 11/18 00:00 :00 CeleBREX 50 MG Capsule 11/21/2022 00:00:00 1 180 0 1195659 1 501 P Taking 11/11 00:00 :00 CeleBREX 50 MG Capsule 11/21/2022 00:00:00 1 180 0 4361378 1 501 P Taking 11/08 00:00 :00 CeleBREX 50 MG Capsule 11/21/2022 00:00:00 1 180 0 6189001 1 501 P Taking 10/11 00:00 :00 CeleBREX 50 MG Capsule 11/21/2022 00:00:00 1 180 0 4036804 1 501 P Taking 10/07 00:00 :00 CeleBREX 50 MG Capsule 11/21/2022 00:00:00 1 180 0 3011626 1 501 P Taking 10/04 00:00 :00 CeleBREX 50 MG Capsule 11/21/2022 00:00:00 1 180 0 1667141 1 501 P Taking 09/02 00:00 :00 CeleBREX 50 MG Capsule 11/21/2022 00:00:00 1 180 0 4178435 1 501 P Taking 12/16 00:00 :00 Cephalexin 500 MG Capsule 12/02/2024 00:00:00 0 40 5223608 4 701 P Not Taking 12/06 00:00 :00 Cephalexin 500 MG Capsule 12/02/2024 00:00:00 1 40 1423662 4 701 P Taking 12/02 00:00 :00 Cephalexin 500 MG Capsule 12/02/2024 00:00:00 1 40 8731905 4 701 P Start 12/16 00:00 :00 Cyclobenzap rine HCl 10 MG Tablet 04/03/2020 00:00:00 0 90 0 1139819 0 010 P Not Taking 12/06 00:00 :00 Cyclobenzap rine HCl 10 MG Tablet 04/03/2020 00:00:00 0 90 0 3348545 0 010 P Not Taking 12/02 00:00 :00 Cyclobenzap rine HCl 10 MG Tablet 04/03/2020 00:00:00 0 90 0 6489062 0 010 P Not Taking 11/25 00:00 :00 Cyclobenzap rine HCl 10 MG Tablet 04/03/2020 00:00:00 0 90 0 [id number] 0 010 P Not Taking 11/18 00:00 :00 Cyclobenzap rine HCl 10 MG Tablet 04/03/2020 00:00:00 0 90 0 8416435 0 010 P Not Taking 11/11 00:00 :00 Cyclobenzap rine HCl 10 MG Tablet 04/03/2020 00:00:00 0 90 0 7836212 0 010 P Not Taking 11/08 00:00 :00 Cyclobenzap rine HCl 10 MG Tablet 04/03/2020 00:00:00 0 90 0 1634123 0 010 P Not Taking 10/11 00:00 :00 Cyclobenzap rine HCl 10 MG Tablet 04/03/2020 00:00:00 0 90 0 6353940 0 010 P Not Taking 10/07 00:00 :00 Cyclobenzap rine HCl 10 MG Tablet 04/03/2020 00:00:00 0 90 0 5644467 0 010 P Not Taking 10/04 00:00 :00 Cyclobenzap rine HCl 10 MG Tablet 04/03/2020 00:00:00 1 90 0 1827967 0 010 P Taking 09/06 00:00 :00 Cyclobenzap rine HCl 10 MG Tablet 04/03/2020 00:00:00 1 90 0 3584659 0 010 P Refill 09/02 00:00 :00 Cyclobenzap rine HCl 10 MG Tablet 04/03/2020 00:00:00 0 90 Tablet 3 41205 040 010 P Discontinu ed 12/16 00:00 :00 diazePAM 5 MG Tablet 12/02/2024 00:00:00 1 90 Tablet 0 76906 392 660 P Taking 12/06 00:00 :00 diazePAM 5 MG Tablet 12/02/2024 00:00:00 1 90 Tablet 0 80088 392 660 P Taking 12/02 00:00 :00 diazePAM 5 MG Tablet 12/02/2024 00:00:00 1 90 Tablet 0 80870 392 660 P Refill 12/02 00:00 :00 diazePAM 5 MG Tablet 1 90 Tablet 0 0017 2392 660 P Refill 12/02 00:00 :00 diazePAM 5 MG Tablet 1 69476833 660 Taking 11/25 00:00 :00 diazePAM 5 MG Tablet 1 22592554 660 Taking 11/18 00:00 :00 diazePAM 5 MG Tablet 1 46990439 660 Taking 11/11 00:00 :00 diazePAM 5 MG Tablet 1 28634297 660 Taking 11/08 00:00 :00 diazePAM 5 MG Tablet 1 59279577 660 Taking 10/11 00:00 :00 diazePAM 5 MG Tablet 1 96859275 660 Taking 12/16 00:00 :00 Donepezil HCl 5 MG Tablet 1 90 Tablet 0 009 80070 761 P Taking 12/06 00:00 :00 Donepezil HCl 5 MG Tablet 1 90 Tablet 0 009 54913 761 P Taking 12/02 00:00 :00 Donepezil HCl 5 MG Tablet 1 90 Tablet 0 009 76643 761 P Taking 11/25 00:00 :00 Donepezil HCl 5 MG Tablet 1 90 Tablet 0 009 74180 761 P Taking 11/18 00:00 :00 Donepezil HCl 5 MG Tablet 1 90 Tablet 0 009 85351 761 P Taking 11/11 00:00 :00 Donepezil HCl 5 MG Tablet 1 90 Tablet 0 009 77936 761 P Taking 11/08 00:00 :00 Donepezil HCl 5 MG Tablet 1 90 Tablet 0 009 08762 761 P Taking 10/11 00:00 :00 Donepezil HCl 5 MG Tablet 1 90 Tablet 0 009 66911 761 P Taking 10/07 00:00 :00 Donepezil HCl 5 MG Tablet 1 90 Tablet 0 009 63135 761 P Refill 10/07 00:00 :00 Donepezil HCl 5 MG Tablet 1 90 Tablet 0 009 44646 761 P Taking 10/04 00:00 :00 Donepezil HCl 5 MG Tablet 1 90 Tablet 0 009 59628 761 P Taking 09/02 00:00 :00 Donepezil HCl 5 MG Tablet 1 90 Tablet 0 009 31559 761 P Refill 09/02 00:00 :00 Donepezil HCl 5 MG Tablet 1 6039026 7 761 Taking 12/16 00:00 :00 DropSafe Alcohol Prep 70 % Pad 1 300 Swab 3 11482 062 510 Taking 12/06 00:00 :00 DropSafe Alcohol Prep 70 % Pad 1 300 Swab 3 48790 062 510 Taking 12/02 00:00 :00 DropSafe Alcohol Prep 70 % Pad 1 300 Swab 3 71900 062 510 Taking 11/25 00:00 :00 DropSafe Alcohol Prep 70 % Pad 1 300 Swab 3 02382 062 510 Taking 11/18 00:00 :00 DropSafe Alcohol Prep 70 % Pad 1 300 Swab 3 90627 062 510 Taking 11/11 00:00 :00 DropSafe Alcohol Prep 70 % Pad 1 300 Swab 3 49624 062 510 Taking 11/08 00:00 :00 DropSafe Alcohol Prep 70 % Pad 1 300 Swab 3 54638 062 510 Taking 10/11 00:00 :00 DropSafe Alcohol Prep 70 % Pad 1 300 Swab 3 19446 062 510 Taking 10/07 00:00 :00 DropSafe Alcohol Prep 70 % Pad 1 300 Swab 3 84478 062 510 Taking 10/04 00:00 :00 DropSafe Alcohol Prep 70 % Pad 1 300 Swab 3 58457 062 510 Taking 09/02 00:00 :00 DropSafe Alcohol Prep 70 % Pad 1 300 Swab 3 81121 062 510 Taking 12/16 00:00 :00 Ezetimibe 10 MG Tablet 12/24/2023 00:00:00 1 90 Tablet 3 51869 371 305 P Taking 12/06 00:00 :00 Ezetimibe 10 MG Tablet 12/24/2023 00:00:00 1 90 Tablet 3 38086 371 305 P Taking 12/02 00:00 :00 Ezetimibe 10 MG Tablet 12/24/2023 00:00:00 1 90 Tablet 3 68578 371 305 P Taking 11/25 00:00 :00 Ezetimibe 10 MG Tablet 12/24/2023 00:00:00 1 90 Tablet 3 90849 371 305 P Taking 11/18 00:00 :00 Ezetimibe 10 MG Tablet 12/24/2023 00:00:00 1 90 Tablet 3 37233 371 305 P Taking 11/11 00:00 :00 Ezetimibe 10 MG Tablet 12/24/2023 00:00:00 1 90 Tablet 3 45779 371 305 P Taking 11/08 00:00 :00 Ezetimibe 10 MG Tablet 12/24/2023 00:00:00 1 90 Tablet 3 96129 371 305 P Taking 10/11 00:00 :00 Ezetimibe 10 MG Tablet 12/24/2023 00:00:00 1 90 Tablet 3 62409 371 305 P Refill 10/11 00:00 :00 Ezetimibe 10 MG Tablet 12/24/2023 00:00:00 1 90 Tablet 3 28594 371 305 P Taking 10/07 00:00 :00 Ezetimibe 10 MG Tablet 12/24/2023 00:00:00 1 90 Tablet 3 28181 371 305 P Taking 10/04 00:00 :00 Ezetimibe 10 MG Tablet 12/24/2023 00:00:00 1 90 Tablet 3 36410 371 305 P Taking 09/02 00:00 :00 Ezetimibe 10 MG Tablet 12/24/2023 00:00:00 1 90 Tablet 3 59841 371 305 P Taking 12/16 00:00 :00 Famotidine 40 MG Tablet 1 90 Tablet 3 7 7871886 400 Taking 12/06 00:00 :00 Famotidine 40 MG Tablet 1 90 Tablet 3 7 1175048 400 Taking 12/02 00:00 :00 Famotidine 40 MG Tablet 1 90 Tablet 3 7 2873474 400 Taking 11/25 00:00 :00 Famotidine 40 MG Tablet 1 90 Tablet 3 7 4006425 400 Taking 11/18 00:00 :00 Famotidine 40 MG Tablet 1 90 Tablet 3 7 7547187 400 Taking 11/15 00:00 :00 Famotidine 40 MG Tablet 1 90 Tablet 3 7 6924127 400 Start 11/15 00:00 :00 Famotidine 40 MG Tablet 0 90 0 015104 72 960 Stop 11/11 00:00 :00 Famotidine 40 MG Tablet 0 90 0 766358 72 960 P Not Taking 11/08 00:00 :00 Famotidine 40 MG Tablet 0 90 0 533857 72 960 P Not Taking 10/11 00:00 :00 Famotidine 40 MG Tablet 0 90 0 642186 72 960 P Not Taking 10/07 00:00 :00 Famotidine 40 MG Tablet 0 90 0 699170 72 960 P Not Taking 10/04 00:00 :00 Famotidine 40 MG Tablet 1 90 0 843013 72 960 P Taking 09/06 00:00 :00 Famotidine 40 MG Tablet 1 90 0 506117 72 960 P Refill 09/02 00:00 :00 Famotidine 40 MG Tablet 1 90 Tablet 3 0 9554327 960 P Taking 12/16 00:00 :00 Flonase Allergy Relief 50 MCG/ACT Suspension 1 1 Each 3 679506 57 602 Taking 12/06 00:00 :00 Flonase Allergy Relief 50 MCG/ACT Suspension 1 1 Each 3 313371 57 602 Taking 12/02 00:00 :00 Flonase Allergy Relief 50 MCG/ACT Suspension 1 1 Each 3 466722 57 602 Taking 11/25 00:00 :00 Flonase Allergy Relief 50 MCG/ACT Suspension 1 1 Each 3 123542 57 602 Taking 11/18 00:00 :00 Flonase Allergy Relief 50 MCG/ACT Suspension 1 1 Each 3 781292 57 602 Taking 11/15 00:00 :00 Flonase Allergy Relief 50 MCG/ACT Suspension 1 1 Each 3 569603 57 602 Start 11/15 00:00 :00 Flonase Allergy Relief 50 MCG/ACT Suspension 0 1 3 8982803 7 602 Stop 11/11 00:00 :00 Flonase Allergy Relief 50 MCG/ACT Suspension 06/14/2024 00:00:00 1 1 3 1857520 7 602 P Taking 11/08 00:00 :00 Flonase Allergy Relief 50 MCG/ACT Suspension 06/14/2024 00:00:00 1 1 3 6907479 7 602 P Taking 10/11 00:00 :00 Flonase Allergy Relief 50 MCG/ACT Suspension 06/14/2024 00:00:00 1 1 3 7614383 7 602 P Taking 10/07 00:00 :00 Flonase Allergy Relief 50 MCG/ACT Suspension 06/14/2024 00:00:00 1 1 3 4398073 7 602 P Taking 10/04 00:00 :00 Flonase Allergy Relief 50 MCG/ACT Suspension 06/14/2024 00:00:00 1 1 3 4844480 7 602 P Taking 09/02 00:00 :00 Flonase Allergy Relief 50 MCG/ACT Suspension 06/14/2024 00:00:00 1 1 3 4114365 7 602 P Taking 12/16 00:00 :00 Furosemide 20 MG Tablet 1 30 Tablet 11 6 4105971 210 P Taking 12/06 00:00 :00 Furosemide 20 MG Tablet 1 30 Tablet 11 6 5731343 210 P Taking 12/02 00:00 :00 Furosemide 20 MG Tablet 1 30 Tablet 11 6 1277645 210 P Taking 11/25 00:00 :00 Furosemide 20 MG Tablet 1 30 Tablet 11 6 6938688 210 P Taking 11/18 00:00 :00 Furosemide 20 MG Tablet 1 30 Tablet 11 6 9421463 210 P Taking 11/11 00:00 :00 Furosemide 20 MG Tablet 1 30 Tablet 11 6 2053856 210 P Taking 11/08 00:00 :00 Furosemide 20 MG Tablet 1 30 Tablet 11 6 2656046 210 P Taking 10/25 00:00 :00 Furosemide 20 MG Tablet 1 30 Tablet 11 6 6234002 210 P Refill 10/14 00:00 :00 Furosemide 20 MG Tablet 1 30 Tablet 11 6 1012353 210 Start 10/14 00:00 :00 Furosemide 20 MG Tablet 0 30 0 887765 29 725 Stop 10/11 00:00 :00 Furosemide 20 MG Tablet 1 30 0 068028 29 725 P Refill 10/11 00:00 :00 Furosemide 20 MG Tablet 1 30 0 735254 29 725 Taking 10/07 00:00 :00 Furosemide 20 MG Tablet 1 30 0 065625 29 725 Taking 10/04 00:00 :00 Furosemide 20 MG Tablet 1 30 0 956752 29 725 Taking 09/05 00:00 :00 Furosemide 20 MG Tablet 1 30 0 931668 29 725 Start 09/05 00:00 :00 Furosemide 20 MG Tablet 0 30 864143 29 725 Stop 09/02 00:00 :00 Furosemide 20 MG Tablet 07/22/2024 00:00:00 1 30 9100443 9 725 P Taking 12/16 00:00 :00 glipiZIDE 5 MG Tablet 1 90 Tablet 3 605 37420 101 Taking 12/16 00:00 :00 glipiZIDE 10 MG Tablet 12/06/2024 00:00:00 1 30 3 5174628 6 101 P Taking 12/06 00:00 :00 glipiZIDE 10 MG Tablet 12/06/2024 00:00:00 1 30 3 9630321 6 101 P Start 12/06 00:00 :00 glipiZIDE 5 MG Tablet 1 90 Tablet 3 605 09415 101 Taking 12/02 00:00 :00 glipiZIDE 5 MG Tablet 1 90 Tablet 3 605 85402 101 Taking 11/25 00:00 :00 glipiZIDE 5 MG Tablet 1 90 Tablet 3 605 99098 101 Taking 11/18 00:00 :00 glipiZIDE 5 MG Tablet 1 90 Tablet 3 605 15946 101 Taking 11/11 00:00 :00 glipiZIDE 5 MG Tablet 1 90 Tablet 3 605 37996 101 Taking 11/08 00:00 :00 glipiZIDE 5 MG Tablet 1 90 Tablet 3 605 28174 101 Taking 11/04 00:00 :00 glipiZIDE 5 MG Tablet 1 90 Tablet 3 605 79383 101 Start 11/04 00:00 :00 glipiZIDE 5 MG Tablet 0 90 0 15962828 101 Stop 10/11 00:00 :00 glipiZIDE 5 MG Tablet 1 90 0 76772247 101 Taking 10/07 00:00 :00 glipiZIDE 5 MG Tablet 1 90 0 20222716 101 Taking 10/04 00:00 :00 glipiZIDE 5 MG Tablet 1 90 0 95914188 101 Taking 09/02 00:00 :00 glipiZIDE 5 MG Tablet 1 90 0 23043257 101 Taking 12/16 00:00 :00 HYDROcodone -Acetaminop hen 5-325 MG Tablet 10/11/2024 00:00:00 1 28 Tablet 0 07555 012 301 P Taking 12/16 00:00 :00 HYDROcodone -Acetaminop hen 5-325 MG Tablet 11/25/2024 00:00:00 1 40 Tablet 0 50377 012 301 P Taking 12/06 00:00 :00 HYDROcodone -Acetaminop hen 5-325 MG Tablet 10/11/2024 00:00:00 1 28 Tablet 0 39913 012 301 P Taking 12/06 00:00 :00 HYDROcodone -Acetaminop hen 5-325 MG Tablet 11/25/2024 00:00:00 1 40 Tablet 0 22065 012 301 P Taking 12/02 00:00 :00 HYDROcodone -Acetaminop hen 5-325 MG Tablet 10/11/2024 00:00:00 1 28 Tablet 0 88823 012 301 P Taking 12/02 00:00 :00 HYDROcodone -Acetaminop hen 5-325 MG Tablet 11/25/2024 00:00:00 1 40 Tablet 0 84359 012 301 P Taking 11/25 00:00 :00 HYDROcodone -Acetaminop hen 5-325 MG Tablet 11/25/2024 00:00:00 1 40 Tablet 0 85000 012 301 P Refill 11/25 00:00 :00 HYDROcodone -Acetaminop hen 5-325 MG Tablet 10/11/2024 00:00:00 1 28 Tablet 0 21798 012 301 P Taking 11/25 00:00 :00 HYDROcodone -Acetaminop hen 5-325 MG Tablet 05/18/2024 00:00:00 0 40 Tablet 0 70159 012 301 P Not Taking 11/18 00:00 :00 HYDROcodone -Acetaminop hen 5-325 MG Tablet 10/11/2024 00:00:00 1 28 Tablet 0 23964 012 301 P Taking 11/18 00:00 :00 HYDROcodone -Acetaminop hen 5-325 MG Tablet 05/18/2024 00:00:00 0 40 Tablet 0 79658 012 301 P Not Taking 11/11 00:00 :00 HYDROcodone -Acetaminop hen 5-325 MG Tablet 10/11/2024 00:00:00 1 28 Tablet 0 33926 012 301 P Taking 11/11 00:00 :00 HYDROcodone -Acetaminop hen 5-325 MG Tablet 05/18/2024 00:00:00 0 40 Tablet 0 66243 012 301 P Not Taking 11/08 00:00 :00 HYDROcodone -Acetaminop hen 5-325 MG Tablet 10/11/2024 00:00:00 1 28 Tablet 0 76872 012 301 P Taking 11/08 00:00 :00 HYDROcodone -Acetaminop hen 5-325 MG Tablet 05/18/2024 00:00:00 0 40 Tablet 0 00121 012 301 P Not Taking 10/25 00:00 :00 HYDROcodone -Acetaminop hen 5-325 MG Tablet 10/11/2024 00:00:00 1 28 Tablet 0 96375 012 301 P Refill 10/11 00:00 :00 HYDROcodone -Acetaminop hen 5-325 MG Tablet 10/11/2024 00:00:00 1 28 Tablet 0 35037 012 301 P Refill 10/11 00:00 :00 HYDROcodone -Acetaminop hen 5-325 MG Tablet 09/13/2024 00:00:00 1 28 Tablet 0 45555 012 301 P Taking 10/11 00:00 :00 HYDROcodone -Acetaminop hen 5-325 MG Tablet 05/18/2024 00:00:00 0 40 Tablet 0 26352 012 301 P Not Taking 10/07 00:00 :00 HYDROcodone -Acetaminop hen 5-325 MG Tablet 09/13/2024 00:00:00 1 28 Tablet 0 84693 012 301 P Taking 10/07 00:00 :00 HYDROcodone -Acetaminop hen 5-325 MG Tablet 05/18/2024 00:00:00 0 40 Tablet 0 73453 012 301 P Not Taking 10/04 00:00 :00 HYDROcodone -Acetaminop hen 5-325 MG Tablet 05/18/2024 00:00:00 1 40 Tablet 0 48725 012 301 P Taking 10/04 00:00 :00 HYDROcodone -Acetaminop hen 5-325 MG Tablet 09/13/2024 00:00:00 1 28 Tablet 0 08450 012 301 P Taking 09/13 00:00 :00 HYDROcodone -Acetaminop hen 5-325 MG Tablet 09/13/2024 00:00:00 1 28 Tablet 0 54641 012 301 P Refill 09/02 00:00 :00 HYDROcodone -Acetaminop hen 5-325 MG Tablet 02/17/2024 00:00:00 1 28 Tablet 0 70297 012 301 P Taking 09/02 00:00 :00 HYDROcodone -Acetaminop hen 5-325 MG Tablet 05/18/2024 00:00:00 1 40 Tablet 0 19021 012 301 P Taking 12/16 00:00 :00 Hydrocortis one 1 % Cream 02/25/2024 00:00:00 1 1 1 5986504 1 516 P Taking 12/06 00:00 :00 Hydrocortis one 1 % Cream 02/25/2024 00:00:00 1 1 1 8128154 1 516 P Taking 12/02 00:00 :00 Hydrocortis one 1 % Cream 02/25/2024 00:00:00 1 1 1 5319384 1 516 P Taking 11/25 00:00 :00 Hydrocortis one 1 % Cream 02/25/2024 00:00:00 1 1 1 [id number] 1 516 P Taking 11/18 00:00 :00 Hydrocortis one 1 % Cream 02/25/2024 00:00:00 1 1 1 7634139 1 516 P Taking 11/11 00:00 :00 Hydrocortis one 1 % Cream 02/25/2024 00:00:00 1 1 1 8305870 1 516 P Taking 11/08 00:00 :00 Hydrocortis one 1 % Cream 02/25/2024 00:00:00 1 1 1 2152255 1 516 P Taking 10/11 00:00 :00 Hydrocortis one 1 % Cream 02/25/2024 00:00:00 1 1 1 7048635 1 516 P Taking 10/07 00:00 :00 Hydrocortis one 1 % Cream 02/25/2024 00:00:00 1 1 1 2435321 1 516 P Taking 10/04 00:00 :00 Hydrocortis one 1 % Cream 02/25/2024 00:00:00 1 1 1 7996483 1 516 P Taking 09/02 00:00 :00 Hydrocortis one 1 % Cream 02/25/2024 00:00:00 1 1 1 6373173 1 516 P Taking 12/16 00:00 :00 Levocetiriz ine Dihydrochlo ride 5 MG Tablet 1 90 Tablet 0 000 22381 198 Taking 12/06 00:00 :00 Levocetiriz ine Dihydrochlo ride 5 MG Tablet 1 90 Tablet 0 000 41875 198 Taking 12/02 00:00 :00 Levocetiriz ine Dihydrochlo ride 5 MG Tablet 1 90 Tablet 0 000 63346 198 Taking 11/25 00:00 :00 Levocetiriz ine Dihydrochlo ride 5 MG Tablet 1 90 Tablet 0 000 77586 198 Taking 11/18 00:00 :00 Levocetiriz ine Dihydrochlo ride 5 MG Tablet 1 90 Tablet 0 000 36477 198 Taking 11/15 00:00 :00 Levocetiriz ine Dihydrochlo ride 5 MG Tablet 1 90 Tablet 0 000 10021 198 Start 11/15 00:00 :00 Levocetiriz ine Dihydrochlo ride 5 MG Tablet 0 90 0 [id number] 2 290 Stop 11/11 00:00 :00 Levocetiriz ine Dihydrochlo ride 5 MG Tablet 06/06/2020 00:00:00 1 90 0 [id number] 2 290 P Taking 11/08 00:00 :00 Levocetiriz ine Dihydrochlo ride 5 MG Tablet 06/06/2020 00:00:00 1 90 0 [id number] 2 290 P Taking 10/11 00:00 :00 Levocetiriz ine Dihydrochlo ride 5 MG Tablet 06/06/2020 00:00:00 1 90 0 [id number] 2 290 P Taking 10/07 00:00 :00 Levocetiriz ine Dihydrochlo ride 5 MG Tablet 06/06/2020 00:00:00 1 90 0 [id number] 2 290 P Taking 10/04 00:00 :00 Levocetiriz ine Dihydrochlo ride 5 MG Tablet 06/06/2020 00:00:00 1 90 0 [id number] 2 290 P Taking 09/06 00:00 :00 Levocetiriz ine Dihydrochlo ride 5 MG Tablet 06/06/2020 00:00:00 1 90 0 [id number] 2 290 P Refill 09/02 00:00 :00 Levocetiriz ine Dihydrochlo ride 5 MG Tablet 06/06/2020 00:00:00 1 90 3 [id number] 2 290 P Taking 12/16 00:00 :00 Lisinopril 20 MG Tablet 1 90 1 [id number] 98 103 P Taking 12/06 00:00 :00 Lisinopril 20 MG Tablet 1 90 1 [id number] 98 103 P Taking 12/02 00:00 :00 Lisinopril 20 MG Tablet 1 90 1 [id number] 98 103 P Taking 11/25 00:00 :00 Lisinopril 20 MG Tablet 1 90 1 861576 98 103 P Taking 11/18 00:00 :00 Lisinopril 20 MG Tablet 1 90 1 382174 98 103 P Taking 11/11 00:00 :00 Lisinopril 20 MG Tablet 1 90 1 803487 98 103 P Taking 11/08 00:00 :00 Lisinopril 20 MG Tablet 1 90 1 812820 98 103 P Taking 10/11 00:00 :00 Lisinopril 20 MG Tablet 1 90 1 318409 98 103 P Taking 10/07 00:00 :00 Lisinopril 20 MG Tablet 1 90 1 912650 98 103 P Taking 10/04 00:00 :00 Lisinopril 20 MG Tablet 1 90 1 263338 98 103 P Taking 09/02 00:00 :00 Lisinopril 20 MG Tablet 1 90 1 883067 98 103 P Taking 12/16 00:00 :00 Lovastatin 40 MG Tablet 1 90 Tab 3 6818 0046 903 P Taking 12/06 00:00 :00 Lovastatin 40 MG Tablet 1 90 Tab 3 6818 0046 903 P Taking 12/02 00:00 :00 Lovastatin 40 MG Tablet 1 90 Tab 3 6818 0046 903 P Taking 11/25 00:00 :00 Lovastatin 40 MG Tablet 1 90 Tab 3 6818 0046 903 P Taking 11/18 00:00 :00 Lovastatin 40 MG Tablet 1 90 Tab 3 6818 0046 903 P Taking 11/11 00:00 :00 Lovastatin 40 MG Tablet 1 90 Tab 3 6818 0046 903 P Taking 11/08 00:00 :00 Lovastatin 40 MG Tablet 1 90 Tab 3 6818 0046 903 P Taking 10/11 00:00 :00 Lovastatin 40 MG Tablet 1 90 Tab 3 6818 0046 903 P Taking 10/07 00:00 :00 Lovastatin 40 MG Tablet 1 90 Tab 3 6818 0046 903 P Taking 10/04 00:00 :00 Lovastatin 40 MG Tablet 1 90 Tab 3 6818 0046 903 P Taking 09/02 00:00 :00 Lovastatin 40 MG Tablet 1 90 Tab 3 6818 0046 903 P Taking 12/16 00:00 :00 Naproxen 500 MG Tablet 02/23/2024 00:00:00 1 180 0 3145842 1 801 P Taking 12/06 00:00 :00 Naproxen 500 MG Tablet 02/23/2024 00:00:00 1 180 0 0667352 1 801 P Taking 12/02 00:00 :00 Naproxen 500 MG Tablet 02/23/2024 00:00:00 1 180 0 6243817 1 801 P Taking 11/25 00:00 :00 Naproxen 500 MG Tablet 02/23/2024 00:00:00 1 180 0 8920793 1 801 P Refill 11/25 00:00 :00 Naproxen 500 MG Tablet 02/23/2024 00:00:00 0 180 0 9889984 1 801 P Not Taking 11/18 00:00 :00 Naproxen 500 MG Tablet 02/23/2024 00:00:00 0 180 0 8078110 1 801 P Not Taking 11/11 00:00 :00 Naproxen 500 MG Tablet 02/23/2024 00:00:00 0 180 0 0720413 1 801 P Not Taking 11/08 00:00 :00 Naproxen 500 MG Tablet 02/23/2024 00:00:00 0 180 0 9590932 1 801 P Not Taking 10/11 00:00 :00 Naproxen 500 MG Tablet 02/23/2024 00:00:00 0 180 0 4632932 1 801 P Not Taking 10/07 00:00 :00 Naproxen 500 MG Tablet 02/23/2024 00:00:00 0 180 0 9999010 1 801 P Not Taking 10/04 00:00 :00 Naproxen 500 MG Tablet 02/23/2024 00:00:00 1 180 0 7713127 1 801 P Taking 09/02 00:00 :00 Naproxen 500 MG Tablet 02/23/2024 00:00:00 1 180 0 6846986 1 801 P Taking 12/16 00:00 :00 Nasal [place] 0.05 % Solution 06/09/2024 00:00:00 1 1 5 7665230 1 003 P Taking 12/06 00:00 :00 [place]al [place] 0.05 % Solution 06/09/2024 00:00:00 1 1 5 5059979 1 003 P Taking 12/02 00:00 :00 [place]al [place] 0.05 % Solution 06/09/2024 00:00:00 1 1 5 4965750 1 003 P Taking 11/25 00:00 :00 [place]al [place] 0.05 % Solution 06/09/2024 00:00:00 1 1 5 [id number] 1 003 P Taking 11/18 00:00 :00 [place]al [place] 0.05 % Solution 06/09/2024 00:00:00 1 1 5 [id number] 1 003 P Taking 11/11 00:00 :00 [place]al [place] 0.05 % Solution 06/09/2024 00:00:00 1 1 5 [id number] 1 003 P Taking 11/08 00:00 :00 [place]al [place] 0.05 % Solution 06/09/2024 00:00:00 1 1 5 [id number] 1 003 P Taking 10/11 00:00 :00 [place]al [place] 0.05 % Solution 06/09/2024 00:00:00 1 1 5 [id number] 1 003 P Taking 10/07 00:00 :00 [place]al [place] 0.05 % Solution 06/09/2024 00:00:00 1 1 5 3435336 1 003 P Taking 10/04 00:00 :00 [place]al [place] 0.05 % Solution 06/09/2024 00:00:00 1 1 5 [id number] 1 003 P Taking 09/02 00:00 :00 Nasal [place] 0.05 % Solution 06/09/2024 00:00:00 1 1 5 1749063 1 003 P Taking 08/16 00:00 :00 Nasal [place] 0.05 % Solution 06/09/2024 00:00:00 1 1 5 [id number] 1 003 P Taking 07/19 00:00 :00 Nasal [place] 0.05 % Solution 06/09/2024 00:00:00 1 1 5 [id number] 1 003 P Refill 07/19 00:00 :00 Nasal [place] 0.05 % Solution 06/09/2024 00:00:00 1 1 5 [id number] 1 003 P Taking 06/18 00:00 :00 Nasal [place] 0.05 % Solution 06/09/2024 00:00:00 1 1 5 [id number] 1 003 P Taking 06/14 00:00 :00 Nasal [place] 0.05 % Solution 06/09/2024 00:00:00 1 1 5 [id number] 1 003 P Taking 06/09 00:00 :00 Nasal [place] 0.05 % Solution 06/09/2024 00:00:00 1 1 5 3928438 1 003 P Start 12/16 00:00 :00 Omeprazole 40 MG Capsule Delayed Release 1 90 Capsule 3 36188336 710 Taking 12/16 00:00 :00 Omeprazole 20 MG Capsule Delayed Release 0 90 3 56440183 801 P Not Taking 12/06 00:00 :00 Omeprazole 40 MG Capsule Delayed Release 1 90 Capsule 3 47787772 710 Taking 12/06 00:00 :00 Omeprazole 20 MG Capsule Delayed Release 0 90 3 90752145 801 P Not Taking 12/02 00:00 :00 Omeprazole 40 MG Capsule Delayed Release 1 90 Capsule 3 34729646 710 Taking 12/02 00:00 :00 Omeprazole 20 MG Capsule Delayed Release 0 90 3 97654470 801 P Not Taking 11/25 00:00 :00 Omeprazole 40 MG Capsule Delayed Release 1 90 Capsule 3 30382949 710 Taking 11/25 00:00 :00 Omeprazole 20 MG Capsule Delayed Release 0 90 3 41661868 801 P Not Taking 11/18 00:00 :00 Omeprazole 40 MG Capsule Delayed Release 1 90 Capsule 3 99922006 710 Taking 11/18 00:00 :00 Omeprazole 20 MG Capsule Delayed Release 0 90 3 61147616 801 P Not Taking 11/11 00:00 :00 Omeprazole 40 MG Capsule Delayed Release 1 90 Capsule 3 17840141 710 Taking 11/11 00:00 :00 Omeprazole 20 MG Capsule Delayed Release 0 90 3 90336758 801 P Not Taking 11/08 00:00 :00 Omeprazole 40 MG Capsule Delayed Release 1 90 Capsule 3 84066245 710 Taking 11/08 00:00 :00 Omeprazole 20 MG Capsule Delayed Release 0 90 3 85598939 801 P Not Taking 10/11 00:00 :00 Omeprazole 40 MG Capsule Delayed Release 1 90 Capsule 3 69430762 710 Start 10/11 00:00 :00 Omeprazole 40 MG Capsule Delayed Release 0 30 3 13591047 401 Stop 10/11 00:00 :00 Omeprazole 40 MG Capsule Delayed Release 07/19/2024 00:00:00 1 30 3 8073972 3 401 P Taking 10/11 00:00 :00 Omeprazole 20 MG Capsule Delayed Release 0 90 3 80067980 801 P Not Taking 10/07 00:00 :00 Omeprazole 40 MG Capsule Delayed Release 07/19/2024 00:00:00 1 30 3 6892462 3 401 P Taking 10/07 00:00 :00 Omeprazole 20 MG Capsule Delayed Release 0 90 3 15950469 801 P Not Taking 10/04 00:00 :00 Omeprazole 40 MG Capsule Delayed Release 07/19/2024 00:00:00 1 30 3 5243015 3 401 P Taking 10/04 00:00 :00 Omeprazole 20 MG Capsule Delayed Release 1 90 3 67285324 801 P Taking 09/02 00:00 :00 Omeprazole 40 MG Capsule Delayed Release 07/19/2024 00:00:00 1 30 3 6223215 3 401 P Taking 09/02 00:00 :00 Omeprazole 20 MG Capsule Delayed Release 1 90 3 33389018 801 P Taking 12/16 00:00 :00 One Daily Men Formula w/o Iron Tablet 1 4329 2559 88 Taking 12/06 00:00 :00 One Daily Men Formula w/o Iron Tablet 1 4329 2559 88 Taking 12/02 00:00 :00 One Daily Men Formula w/o Iron Tablet 1 4329 2559 88 Taking 11/25 00:00 :00 One Daily Men Formula w/o Iron Tablet 1 4329 2559 88 Taking 11/18 00:00 :00 One Daily Men Formula w/o Iron Tablet 1 4329 2559 88 Taking 11/11 00:00 :00 One Daily Men Formula w/o Iron Tablet 1 4329 2559 88 Taking 11/08 00:00 :00 One Daily Men Formula w/o Iron Tablet 1 4329 2559 88 Taking 10/11 00:00 :00 One Daily Men Formula w/o Iron Tablet 1 4329 2559 88 Taking 10/07 00:00 :00 One Daily Men Formula w/o Iron Tablet 1 4329 2559 88 Taking 10/04 00:00 :00 One Daily Men Formula w/o Iron Tablet 1 4329 2559 88 Taking 09/02 00:00 :00 One Daily Men Formula w/o Iron Tablet 1 4329 2559 88 Taking 12/16 00:00 :00 Pioglitazon e HCl 30 MG Tablet 0 90 0 7963458 2 115 P Not Taking 12/06 00:00 :00 Pioglitazon e HCl 30 MG Tablet 0 90 0 9672877 2 115 P Not Taking 12/02 00:00 :00 Pioglitazon e HCl 30 MG Tablet 0 90 0 2607564 2 115 P Not Taking 11/25 00:00 :00 Pioglitazon e HCl 30 MG Tablet 0 90 0 6501649 2 115 P Not Taking 11/18 00:00 :00 Pioglitazon e HCl 30 MG Tablet 0 90 0 4744429 2 115 P Not Taking 11/11 00:00 :00 Pioglitazon e HCl 30 MG Tablet 0 90 0 5178634 2 115 P Not Taking 11/08 00:00 :00 Pioglitazon e HCl 30 MG Tablet 0 90 0 4980949 2 115 P Not Taking 10/11 00:00 :00 Pioglitazon e HCl 30 MG Tablet 0 90 0 9119612 2 115 P Not Taking 10/07 00:00 :00 Pioglitazon e HCl 30 MG Tablet 0 90 0 5308825 2 115 P Unknown Status 10/04 00:00 :00 Pioglitazon e HCl 30 MG Tablet 1 90 0 3794072 2 115 P Taking 09/13 00:00 :00 Pioglitazon e HCl 30 MG Tablet 1 90 0 5374699 2 115 P Refill 09/02 00:00 :00 Pioglitazon e HCl 30 MG Tablet 1 90 0 1212865 2 115 Taking 12/16 00:00 :00 Pramipexole Dihydrochlo ride 0.125 MG Tablet 12/16/2022 00:00:00 0 30 0 3203667 9 105 P Not Taking 12/06 00:00 :00 Pramipexole Dihydrochlo ride 0.125 MG Tablet 12/16/2022 00:00:00 0 30 0 0924531 9 105 P Not Taking 12/02 00:00 :00 Pramipexole Dihydrochlo ride 0.125 MG Tablet 12/16/2022 00:00:00 0 30 0 2882600 9 105 P Not Taking 11/25 00:00 :00 Pramipexole Dihydrochlo ride 0.125 MG Tablet 12/16/2022 00:00:00 0 30 0 4616029 9 105 P Not Taking 11/18 00:00 :00 Pramipexole Dihydrochlo ride 0.125 MG Tablet 12/16/2022 00:00:00 0 30 0 8670747 9 105 P Not Taking 11/11 00:00 :00 Pramipexole Dihydrochlo ride 0.125 MG Tablet 12/16/2022 00:00:00 0 30 0 7164857 9 105 P Not Taking 11/08 00:00 :00 Pramipexole Dihydrochlo ride 0.125 MG Tablet 12/16/2022 00:00:00 0 30 0 3250510 9 105 P Not Taking 10/11 00:00 :00 Pramipexole Dihydrochlo ride 0.125 MG Tablet 12/16/2022 00:00:00 0 30 0 7946926 9 105 P Not Taking 10/07 00:00 :00 Pramipexole Dihydrochlo ride 0.125 MG Tablet 12/16/2022 00:00:00 0 30 0 6503297 9 105 P Unknown Status 10/04 00:00 :00 Pramipexole Dihydrochlo ride 0.125 MG Tablet 12/16/2022 00:00:00 1 30 0 3866773 9 105 P Taking 09/02 00:00 :00 Pramipexole Dihydrochlo ride 0.125 MG Tablet 12/16/2022 00:00:00 1 30 0 3872247 9 105 P Taking 12/16 00:00 :00 predniSONE 20 MG Tablet 11/25/2024 00:00:00 0 20 Tablet 0 28065 001 820 P Not Taking 12/06 00:00 :00 predniSONE 20 MG Tablet 11/25/2024 00:00:00 1 20 Tablet 0 04974 001 820 P Taking 12/02 00:00 :00 predniSONE 20 MG Tablet 11/25/2024 00:00:00 1 20 Tablet 0 56838 001 820 P Taking 11/25 00:00 :00 predniSONE 20 MG Tablet 11/25/2024 00:00:00 1 20 Tablet 0 71799 001 820 P Start 12/16 00:00 :00 Prostate Therapy Complex - Capsule 1 1184 5014 435 Taking 12/06 00:00 :00 Prostate Therapy Complex - Capsule 1 1184 5014 435 Taking 12/02 00:00 :00 Prostate Therapy Complex - Capsule 1 1184 5014 435 Taking 11/25 00:00 :00 Prostate Therapy Complex - Capsule 1 1184 5014 435 Taking 11/18 00:00 :00 Prostate Therapy Complex - Capsule 1 1184 5014 435 Taking 11/11 00:00 :00 Prostate Therapy Complex - Capsule 1 1184 5014 435 Taking 11/08 00:00 :00 Prostate Therapy Complex - Capsule 1 1184 5014 435 Taking 10/11 00:00 :00 Prostate Therapy Complex - Capsule 1 1184 5014 435 Taking 10/07 00:00 :00 Prostate Therapy Complex - Capsule 1 1184 5014 435 Taking 10/04 00:00 :00 Prostate Therapy Complex - Capsule 1 1184 5014 435 Taking 09/02 00:00 :00 Prostate Therapy Complex - Capsule 1 1184 5014 435 Taking 12/16 00:00 :00 rOPINIRole HCl 5 MG Tablet 1 90 3 0634487 7 901 P Taking 12/16 00:00 :00 rOPINIRole HCl 2 MG Tablet 03/01/2024 00:00:00 1 90 3 0325398 7 601 P Taking 12/06 00:00 :00 rOPINIRole HCl 5 MG Tablet 1 90 3 4843428 7 901 P Taking 12/06 00:00 :00 rOPINIRole HCl 2 MG Tablet 03/01/2024 00:00:00 1 90 3 3552088 7 601 P Taking 12/02 00:00 :00 rOPINIRole HCl 5 MG Tablet 1 90 3 2298772 7 901 P Taking 12/02 00:00 :00 rOPINIRole HCl 2 MG Tablet 03/01/2024 00:00:00 1 90 3 0476397 7 601 P Taking 11/25 00:00 :00 rOPINIRole HCl 5 MG Tablet 1 90 3 4127453 7 901 P Taking 11/25 00:00 :00 rOPINIRole HCl 2 MG Tablet 03/01/2024 00:00:00 1 90 3 [id number] 7 601 P Taking 11/18 00:00 :00 rOPINIRole HCl 5 MG Tablet 1 90 3 7178231 7 901 P Taking 11/18 00:00 :00 rOPINIRole HCl 2 MG Tablet 03/01/2024 00:00:00 1 90 3 0366919 7 601 P Taking 11/11 00:00 :00 rOPINIRole HCl 5 MG Tablet 1 90 3 6536815 7 901 P Taking 11/11 00:00 :00 rOPINIRole HCl 2 MG Tablet 03/01/2024 00:00:00 1 90 3 4821282 7 601 P Taking 11/08 00:00 :00 rOPINIRole HCl 5 MG Tablet 1 90 3 8362114 7 901 P Taking 11/08 00:00 :00 rOPINIRole HCl 2 MG Tablet 03/01/2024 00:00:00 1 90 3 5105822 7 601 P Taking 10/11 00:00 :00 rOPINIRole HCl 5 MG Tablet 1 90 3 3149778 7 901 P Taking 10/11 00:00 :00 rOPINIRole HCl 2 MG Tablet 03/01/2024 00:00:00 1 90 3 4815457 7 601 P Taking 10/07 00:00 :00 rOPINIRole HCl 5 MG Tablet 1 90 3 5520526 7 901 P Taking 10/07 00:00 :00 rOPINIRole HCl 2 MG Tablet 03/01/2024 00:00:00 1 90 3 1010770 7 601 P Taking 10/04 00:00 :00 rOPINIRole HCl 5 MG Tablet 1 90 3 2453380 7 901 P Taking 10/04 00:00 :00 rOPINIRole HCl 2 MG Tablet 03/01/2024 00:00:00 1 90 3 7259616 7 601 P Taking 09/02 00:00 :00 rOPINIRole HCl 5 MG Tablet 1 90 3 4831384 7 901 P Taking 09/02 00:00 :00 rOPINIRole HCl 2 MG Tablet 03/01/2024 00:00:00 1 90 3 9162320 7 601 P Taking 12/16 00:00 :00 Sertraline HCl 100 MG Tablet 1 180 0 745863 01 305 Taking 12/06 00:00 :00 Sertraline HCl 100 MG Tablet 1 180 0 972171 01 305 Taking 12/02 00:00 :00 Sertraline HCl 100 MG Tablet 1 180 0 493551 01 305 Taking 11/25 00:00 :00 Sertraline HCl 100 MG Tablet 1 180 0 519354 01 305 Start 11/25 00:00 :00 Sertraline HCl 100 MG Tablet 0 180 0 228854 01 305 Stop 11/25 00:00 :00 Sertraline HCl 100 MG Tablet 1 180 0 379934 01 305 P Refill 11/25 00:00 :00 Sertraline HCl 100 MG Tablet 1 180 0 562448 01 305 P Taking 11/18 00:00 :00 Sertraline HCl 100 MG Tablet 1 180 0 431868 305 P Taking 11/11 00:00 :00 Sertraline HCl 100 MG Tablet 1 180 0 428418 01 305 P Taking 11/08 00:00 :00 Sertraline HCl 100 MG Tablet 1 180 0 853968 01 305 P Taking 10/11 00:00 :00 Sertraline HCl 100 MG Tablet 1 180 0 722535 01 305 P Taking 10/07 00:00 :00 Sertraline HCl 100 MG Tablet 1 180 0 585402 01 305 P Taking 10/04 00:00 :00 Sertraline HCl 100 MG Tablet 1 180 0 724233 01 305 P Taking 09/13 00:00 :00 Sertraline HCl 100 MG Tablet 1 180 0 111511 01 305 P Refill 09/02 00:00 :00 Sertraline HCl 100 MG Tablet 1 180 Tablet 3 83473470 305 Taking 12/16 00:00 :00 Tamsulosin HCl 0.4 MG Capsule 1 90 Capsule 3 43264211 210 Taking 12/06 00:00 :00 Tamsulosin HCl 0.4 MG Capsule 1 90 Capsule 3 81928498 210 Taking 12/02 00:00 :00 Tamsulosin HCl 0.4 MG Capsule 1 90 Capsule 3 61326225 210 Taking 11/25 00:00 :00 Tamsulosin HCl 0.4 MG Capsule 1 90 Capsule 3 64914147 210 Taking 11/18 00:00 :00 Tamsulosin HCl 0.4 MG Capsule 1 90 Capsule 3 06409429 210 Taking 11/15 00:00 :00 Tamsulosin HCl 0.4 MG Capsule 1 90 Capsule 3 55991961 210 Start 11/15 00:00 :00 Tamsulosin HCl 0.4 MG Capsule 0 90 0 42174 074 405 Stop 11/11 00:00 :00 Tamsulosin HCl 0.4 MG Capsule 03/21/2021 00:00:00 1 90 0 2119276 4 405 P Taking 11/08 00:00 :00 Tamsulosin HCl 0.4 MG Capsule 03/21/2021 00:00:00 1 90 0 8082928 4 405 P Taking 10/11 00:00 :00 Tamsulosin HCl 0.4 MG Capsule 03/21/2021 00:00:00 1 90 0 1238428 4 405 P Taking 10/07 00:00 :00 Tamsulosin HCl 0.4 MG Capsule 03/21/2021 00:00:00 1 90 0 1175893 4 405 P Taking 10/04 00:00 :00 Tamsulosin HCl 0.4 MG Capsule 03/21/2021 00:00:00 1 90 0 8102091 4 405 P Taking 09/06 00:00 :00 Tamsulosin HCl 0.4 MG Capsule 03/21/2021 00:00:00 1 90 0 9569692 4 405 P Refill 09/02 00:00 :00 Tamsulosin HCl 0.4 MG Capsule 03/21/2021 00:00:00 1 90 Capsule 3 47475208 405 P Taking 12/16 00:00 :00 tiZANidine HCl 4 MG Tablet 1 180 Tablet 1 03426538 861 Taking 12/06 00:00 :00 tiZANidine HCl 4 MG Tablet 1 180 Tablet 1 65939224 861 Taking 12/02 00:00 :00 tiZANidine HCl 4 MG Tablet 1 180 Tablet 1 15402099 861 Taking 11/25 00:00 :00 tiZANidine HCl 4 MG Tablet 1 180 Tablet 1 31070174 861 Taking 11/18 00:00 :00 tiZANidine HCl 4 MG Tablet 1 180 Tablet 1 06872513 861 Taking 11/11 00:00 :00 tiZANidine HCl 4 MG Tablet 1 180 Tablet 1 40799460 861 Taking 11/08 00:00 :00 tiZANidine HCl 4 MG Tablet 1 180 Tablet 1 15370832 861 Taking 10/11 00:00 :00 tiZANidine HCl 4 MG Tablet 1 180 Tablet 1 02646219 861 Taking 10/07 00:00 :00 tiZANidine HCl 4 MG Tablet 1 180 Tablet 1 80214782 861 Taking 10/04 00:00 :00 tiZANidine HCl 4 MG Tablet 1 180 Tablet 1 54081071 861 Taking 09/06 00:00 :00 tiZANidine HCl 4 MG Tablet 1 180 Tablet 1 36651277 861 Start 09/06 00:00 :00 tiZANidine HCl 4 MG Tablet 0 180 Tablet 1 62398338 861 Stop 09/02 00:00 :00 tiZANidine HCl 4 MG Tablet 02/09/2024 00:00:00 0 180 Tablet 1 44578112 861 P Not Taking 08/16 00:00 :00 tiZANidine HCl 4 MG Tablet 02/09/2024 00:00:00 0 180 Tablet 1 59571332 861 P Not Taking 07/19 00:00 :00 tiZANidine HCl 4 MG Tablet 02/09/2024 00:00:00 0 180 Tablet 1 88717654 861 P Not Taking 06/18 00:00 :00 tiZANidine HCl 4 MG Tablet 02/09/2024 00:00:00 0 180 Tablet 1 71230658 861 P Not Taking 06/14 00:00 :00 tiZANidine HCl 4 MG Tablet 02/09/2024 00:00:00 0 180 Tablet 1 52187360 861 P Not Taking 03/26 00:00 :00 tiZANidine HCl 4 MG Tablet 02/09/2024 00:00:00 0 180 Tablet 1 35531382 861 P Not Taking 03/15 00:00 :00 tiZANidine HCl 4 MG Tablet 02/09/2024 00:00:00 0 180 Tablet 1 55462903 861 P Not Taking 03/01 00:00 :00 tiZANidine HCl 4 MG Tablet 02/09/2024 00:00:00 0 180 Tablet 1 59368261 861 P Not Taking 03/01 00:00 :00 tiZANidine HCl 4 MG Tablet 02/09/2024 00:00:00 0 180 Tablet 1 59440121 861 P Not Taking 02/22 00:00 :00 tiZANidine HCl 4 MG Tablet 02/09/2024 00:00:00 0 180 Tablet 1 11716779 861 P Not Taking 12/16 00:00 :00 True Metrix Level 1 Low Solution 08/20/2022 00:00:00 9 792 5718143 5 001 P Taking 12/06 00:00 :00 True Metrix Level 1 Low Solution 08/20/2022 00:00:00 6 606 8784766 5 001 P Taking 12/02 00:00 :00 True Metrix Level 1 Low Solution 08/20/2022 00:00:00 2 351 6450443 5 001 P Taking 11/25 00:00 :00 True Metrix Level 1 Low Solution 08/20/2022 00:00:00 4 795 4594074 5 001 P Taking 11/18 00:00 :00 True Metrix Level 1 Low Solution 08/20/2022 00:00:00 8 216 9515113 5 001 P Taking 11/11 00:00 :00 True Metrix Level 1 Low Solution 08/20/2022 00:00:00 4 198 3706022 5 001 P Taking 11/08 00:00 :00 True Metrix Level 1 Low Solution 08/20/2022 00:00:00 6 457 4669527 5 001 P Taking 10/11 00:00 :00 True Metrix Level 1 Low Solution 08/20/2022 00:00:00 3 554 3451487 5 001 P Taking 10/07 00:00 :00 True Metrix Level 1 Low Solution 08/20/2022 00:00:00 6 293 6599945 5 001 P Taking 10/04 00:00 :00 True Metrix Level 1 Low Solution 08/20/2022 00:00:00 1 401 6064010 5 001 P Taking 09/02 00:00 :00 True Metrix Level 1 Low Solution 08/20/2022 00:00:00 1 883 1291830 5 001 P Taking 12/16 00:00 :00 True Metrix Meter w/Devic e Kit 08/09/2022 00:00:00 1 1 2538619 7 002 P Taking 12/06 00:00 :00 True Metrix Meter w/Devic e Kit 08/09/2022 00:00:00 1 1 [id number] 7 002 P Taking 12/02 00:00 :00 True Metrix Meter w/Devic e Kit 08/09/2022 00:00:00 1 1 4709231 7 002 P Taking 11/25 00:00 :00 True Metrix Meter w/Devic e Kit 08/09/2022 00:00:00 1 1 1337585 7 002 P Refill 11/25 00:00 :00 True Metrix Meter w/Devic e Kit 08/09/2022 00:00:00 1 1 0998344 7 002 P Taking 11/18 00:00 :00 True Metrix Meter w/Devic e Kit 08/09/2022 00:00:00 1 1 0637090 7 002 P Taking 11/11 00:00 :00 True Metrix Meter w/Devic e Kit 08/09/2022 00:00:00 1 1 2084364 7 002 P Taking 11/08 00:00 :00 True Metrix Meter w/Devic e Kit 08/09/2022 00:00:00 1 1 0607827 7 002 P Taking 10/11 00:00 :00 True Metrix Meter w/Devic e Kit 08/09/2022 00:00:00 1 1 3927675 7 002 P Taking 10/07 00:00 :00 True Metrix Meter w/Devic e Kit 08/09/2022 00:00:00 1 1 3980491 7 002 P Taking 10/04 00:00 :00 True Metrix Meter w/Devic e Kit 08/09/2022 00:00:00 1 1 0677301 7 002 P Taking 09/02 00:00 :00 True Metrix Meter w/Devic e Kit 08/09/2022 00:00:00 1 1 8421735 7 002 P Taking 08/16 00:00 :00 True Metrix Meter w/Devic e Kit 08/09/2022 00:00:00 1 1 3034495 7 002 P Taking 07/19 00:00 :00 True Metrix Meter w/Devic e Kit 08/09/2022 00:00:00 1 1 3846655 7 002 P Taking 06/18 00:00 :00 True Metrix Meter w/Devic e Kit 08/09/2022 00:00:00 1 1 1641175 7 002 P Taking 06/14 00:00 :00 True Metrix Meter w/Devic e Kit 08/09/2022 00:00:00 1 1 4322597 7 002 P Taking 03/26 00:00 :00 True Metrix Meter w/Devic e Kit 08/09/2022 00:00:00 1 1 [id number] 7 002 P Taking 03/15 00:00 :00 True Metrix Meter w/Devic e Kit 08/09/2022 00:00:00 1 1 5111930 7 002 P Taking 03/01 00:00 :00 True Metrix Meter w/Devic e Kit 08/09/2022 00:00:00 1 1 [id number] 7 002 P Refill 03/01 00:00 :00 True Metrix Meter w/Devic e Kit 08/09/2022 00:00:00 1 1 2652163 7 002 Taking 03/01 00:00 :00 True Metrix Meter w/Devic e Kit 08/09/2022 00:00:00 1 1 3591367 7 002 Taking 02/22 00:00 :00 True Metrix Meter w/Devic e Kit 08/09/2022 00:00:00 1 1 3765726 7 002 Taking 02/08 00:00 :00 True Metrix Meter w/Devic e Kit 08/09/2022 00:00:00 1 1 3266320 7 002 Taking 12/16 00:00 :00 TRUEplus Lancets 33G - Miscellaneo us 1 300 0 02536405 701 Taking 12/16 00:00 :00 TRUEplus Lancets 33G - Miscellaneo us 1 300 0 51624735 701 Taking 12/06 00:00 :00 TRUEplus Lancets 33G - Miscellaneo us 1 300 0 22192554 701 Taking 12/06 00:00 :00 TRUEplus Lancets 33G - Miscellaneo us 1 300 0 94924730 701 Taking 12/02 00:00 :00 TRUEplus Lancets 33G - Miscellaneo us 1 300 0 08301567 701 Taking 12/02 00:00 :00 TRUEplus Lancets 33G - Miscellaneo us 1 300 0 34831255 701 Taking 11/25 00:00 :00 TRUEplus Lancets 33G - Miscellaneo us 1 300 0 06733475 701 Taking 11/25 00:00 :00 TRUEplus Lancets 33G - Miscellaneo us 1 300 0 51752951 701 Taking 11/18 00:00 :00 TRUEplus Lancets 33G - Miscellaneo us 1 300 0 30011253 701 Taking 11/18 00:00 :00 TRUEplus Lancets 33G - Miscellaneo us 1 300 0 91266485 701 Taking 11/11 00:00 :00 TRUEplus Lancets 33G - Miscellaneo us 1 300 0 56364282 701 Taking 11/11 00:00 :00 TRUEplus Lancets 33G - Miscellaneo us 1 300 0 14528162 701 Start 11/11 00:00 :00 TRUEplus Lancets 33G - Miscellaneo us 0 300 0 34819630 701 Stop 11/08 00:00 :00 TRUEplus Lancets 33G - Miscellaneo us 1 300 0 05834181 701 Taking 10/11 00:00 :00 TRUEplus Lancets 33G - Miscellaneo us 1 300 0 98314060 701 Taking 10/07 00:00 :00 TRUEplus Lancets 33G - Miscellaneo us 1 300 0 17772764 701 Taking 10/04 00:00 :00 TRUEplus Lancets 33G - Miscellaneo us 1 300 0 95124279 701 Taking 09/02 00:00 :00 TRUEplus Lancets 33G - Miscellaneo us 1 300 0 83026358 701 Taking 12/16 00:00 :00 Zolpidem Tartrate 5 MG Tablet 11/15/2024 00:00:00 1 90 Tablet 0 05157 531 710 P Taking 12/06 00:00 :00 Zolpidem Tartrate 5 MG Tablet 11/15/2024 00:00:00 1 90 Tablet 0 64514 531 710 P Taking 12/02 00:00 :00 Zolpidem Tartrate 5 MG Tablet 11/15/2024 00:00:00 1 90 Tablet 0 38784 531 710 P Taking 11/25 00:00 :00 Zolpidem Tartrate 5 MG Tablet 11/15/2024 00:00:00 1 90 Tablet 0 40407 531 710 P Taking 11/18 00:00 :00 Zolpidem Tartrate 5 MG Tablet 11/15/2024 00:00:00 1 90 Tablet 0 45044 531 710 P Taking 11/15 00:00 :00 Zolpidem Tartrate 5 MG Tablet 11/15/2024 00:00:00 1 90 Tablet 0 98715 531 710 P Refill 11/11 00:00 :00 Zolpidem Tartrate 5 MG Tablet 09/06/2024 00:00:00 1 90 Tablet 0 44583 531 710 Taking 11/08 00:00 :00 Zolpidem Tartrate 5 MG Tablet 09/06/2024 00:00:00 1 90 Tablet 0 26228 531 710 Taking 10/11 00:00 :00 Zolpidem Tartrate 5 MG Tablet 09/06/2024 00:00:00 1 90 Tablet 0 [id number] 531 710 Taking 10/07 00:00 :00 Zolpidem Tartrate 5 MG Tablet 09/06/2024 00:00:00 1 90 Tablet 0 44529 531 710 Taking 10/04 00:00 :00 Zolpidem Tartrate 5 MG Tablet 09/06/2024 00:00:00 1 90 Tablet 0 33696 531 710 Taking 09/06 00:00 :00 Zolpidem Tartrate 5 MG Tablet 09/06/2024 00:00:00 1 90 Tablet 0 [id number] 531 710 Start 09/06 00:00 :00 Zolpidem Tartrate 5 MG Tablet 0 90 0 1366 8000 710 Stop 09/02 00:00 :00 Zolpidem Tartrate 5 MG Tablet 06/03/2024 00:00:00 1 90 0 [id number] 0 710 Taking
== END 2024-12-27 23:59 | disposition home or self-care (01) ==
LOC: RAD 10:44
PROVIDERS: PCP Nurse Practitioner Family; Visit Provider Nurse Practitioner Family
DX: M25.421 Effusion, right elbow (principal)
CPT/HCPCS: 73080

== ENCOUNTER 2024-12-31 13:41 | Outpatient (CLI) | payer MEDICARE, SELFPAY ==
--- NOTE | 2024-12-31 13:45 | XR_ITS ---
FINAL REPORT TECHNIQUE: 5 views CLINICAL HISTORY: CHRONIC NECK PAIN FINDINGS: There is no fracture present. There are extensive postoperative changes from posterior fusion extending from C2-T2. Moderate diffuse degenerative disc disease is identified. The hardware is unremarkable. Patient is status post laminectomy. IMPRESSION: Extensive postoperative changes from posterior fusion without malalignment. Reviewed, Interpreted and Dictated by Kitty Traore MD Transcribed by Ana Rosa Jarrett Authenticated and [facility]
== END 2024-12-31 23:59 | disposition home or self-care (01) ==
LOC: RAD 13:42
PROVIDERS: PCP Nurse Practitioner; Visit Provider Nurse Practitioner
DX: M54.2 Cervicalgia (principal)
CPT/HCPCS: 72050

== ENCOUNTER 2025-02-11 09:35 | Outpatient (CLI) | payer MEDICARE, SELFPAY ==
--- NOTE | 2025-02-11 09:48 | XR_ITS ---
FINAL REPORT CLINICAL HISTORY: RIGHT ELBOW PAIN pt states he fell COMPARISON: 12/27/2024 FINDINGS: RIGHT ELBOW: 3 images of the right elbow were obtained. There is no evidence of fracture or dislocation. Mild degenerative changes are present. There is a corticated calcification adjacent to the lateral epicondyle, that may be secondary to chronic lateral epicondylitis. There is advanced soft tissue swelling posterior to the olecranon, that may represent bursitis or contusion. There is a small metallic subcutaneous density measuring 2 mm near the medial epicondyle, presumed chronic. IMPRESSION: 1. No acute fracture. 2. Chronic changes as above. 3. Olecranon bursitis versus soft tissue contusion. Reviewed, Interpreted and Dictated by Kitty Traore MD Transcribed by Luzmaria Hardy Authenticated and . [facility]
== END 2025-02-11 23:59 | disposition home or self-care (01) ==
LOC: RAD 09:38
PROVIDERS: PCP Nurse Practitioner; Visit Provider Nurse Practitioner
DX: M19.021 Primary osteoarthritis, right elbow (principal); M25.821 Other specified joint disorders, right elbow; M77.11 Lateral epicondylitis, right elbow
CPT/HCPCS: 73080

== ENCOUNTER 2025-03-24 10:12 | Outpatient (CLI) | payer MEDICARE, SELFPAY ==
--- NOTE | 2025-03-24 10:17 | XR_ITS ---
FINAL REPORT CLINICAL HISTORY: LT HIP PAIN POST FALL COMPARISON: None FINDINGS: LEFT HIP: Two views of the left hip with an AP view of the pelvis demonstrate no acute fracture or dislocation. There are mild hypertrophic changes of the acetabular margin. The joint space is preserved. The visualized bony structures are well aligned. No soft tissue abnormality is seen. An intramedullary fuentes and compression screw are noted in the proximal right femur. IMPRESSION: No acute bony abnormality. Reviewed, Interpreted and Dictated by Chucho Galaviz MD Transcribed by Radha Trent Authenticated and [facility]
--- OUTSIDE RECORDS SUMMARY | 2025-03-24 10:17 | XMS_ITS | Encounter Summary ---
Author Organization Healthcare Address [address] [place] [address] Care Team Providers Care Property Investor Name Role Phone Pcp, No Primary Care Provider Unavailabl e Encounter Details Date Type Department Care Team ([facility] st Contact Info) Description 02/11/2025 Orders Only External Location [address] [place] [address] Cecily Romero, MANUFACTURING OPERATIONS MANAGER [address] [place] [address] Social History Tobacco Use Types Packs/Day Years Used Date Smoking Tobacco: Former Cigarettes Smokeless Tobacco: Never Alcohol Use Standard Drinks/Week Comments Not Currently 0 (1 standard drink = 0.6 oz pur e alcohol) Humiliation, Afraid, Rape, and Kick questionnair e Answer Date Recorded Within the last year, have y ou been afraid of your partner or ex-partner? No 03/09/2024 Within the last year, have y ou been humiliated or emotionally abused in other ways by your partner or ex-partner? No Within the last year, have y ou been kicked, hit, slapped, or otherwise physically hurt by your partner or ex-partner? No 03/09/2024 Within the last year, have y ou been raped or forced to have any kind of sexual activity by your partner or ex-partner? No 03/09/2024 PHQ-2 Answer Date Recorded Patient Health Questionnaire-2 Score 2 07/27/2024 Hunger Vital Sign Answer Date Recorded Within the past 12 months, y ou worried that your food would run out before you got the money to buy more. Never true 03/09/20 24 Within the past 12 months, t he food you bought just didn't last and you didn't have money to get more. Never true 03/09/2024 PRAPARE - Transportation Answer Date Re corded In the past 12 months, has l ack of transportation kept you from medical appointments or from getting medications? No 02/20 In the past 12 months, has l ack of transportation kept you from meetings, work, or from getting things needed for daily living? No 03/09/2024 Housing Stability Vital Sign Answer Ben e Recorded In the last 12 months, was t here a time when you were not able to pay the mortgage or rent on time? No 03/09/2024 [address] of Places Lived in the Last Year Not on f ile 03/09/2024 In the last 12 months, was t here a time when you did not have a steady place to sleep or slept in a care home (including now)? No 03/09/2024 CAGE ASSESSMENT Answer Date Recorded Cage unable to access Not on file 04/23/2024 Cage max number of drinks Not on file 2023 Cage Beverages a week Not on file 04/23/2024 Have you ever felt you should CUT down on your d rinking? 0 04/23/2024 Have you been ANNOYED by people criticizing your drinking? 0 04/23/2024 Have you felt GUILTY about your drinking? 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 0 04/23/2024 CAGE Questionnaire Score 0 024 Utilities Answer Date Recorded In the past 12 months has th e electric, gas, oil, or water company threatened to shut off services in your home? No 03/09/2024 Sex and Gender Information Value Date Recorded Sex Assigned at Not on file Legal Sex Male 8:50 PM EDT Gender Identity Not on file Sexual Orientation Not on file documented as of this encounter Plan of Treatment Upcoming Encounters Date Type Department Care Team (Late st Contact Info) Description 04/12/2025 9:15 AM EDT Office Visit [place] [facility] Clinic [address], [address] [place] [address] Abhilash Trimble MD [address] [place] [address] documented as of this encounter Procedures Procedure Name Priority Date/Time Associated Diagnosis Comments XR MSK OUTSIDE IMAGES 02/11/2025 9:49 AM EDT documented in this encounter Results * XR MSK OUTSIDE IMAGES (02/11/2025 9:49 AM EDT) Anatomical Region Laterality Modality Radiographic Lindy ging 02/11/2025 9:49 AM EDT Cecily Romero APRN IMG XR PROCEDURES Final R esult documented in this encounter Visit Diagnoses Not on filedocumented in this encounter Additional Health Concerns Assessment Noted Time A fall risk assessment has been complete d for the patient 07/27/2024 1:51 PM EST A Body Mass Index follow-up plan has been documented for the patient 07/30/2024 2:14 PM EST documented as of this encounter Care Teams Property Investor Relationship Specialty Start Date End Date Pcp, [place] [address] PCP - General Family Medicine 03/06/23 documented as of this encounter
--- OUTSIDE RECORDS SUMMARY | 2025-03-24 10:17 | XMS_ITS | Encounter Summary ---
Author Organization Healthcare Address [address] [place] [address] Care Team Providers Care Crop Specialist Name Role Phone Pcp, No Primary Care Provider Unavailabl e Reason for Visit * Reason Onset Date Comments HCN - Patient Message 02/22/2025 Reschedule Encounter Details Date Type Department Care Team (Late st Contact Info) Description 02/22/2025 Telephone [place] [facility] [address] [place] [address] Abhilash Trimble MD [address] [place] [address] HCN - Patient Message (Reschedule ) Social History Tobacco Use Types Packs/Day Years [...] place to sleep or slept in a detention (including now)? 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 Best contact number and optimal time of day to reach caller: [phone] anytime Note: Please do not reply to this message. Follow-up communication and further actions as a result of this message need to be communicated with the patient directly, if the patient is not active onMyChart. If the patient is active on MyChart, they will receive notification of the communication/outcome via [employer]. * Telephone Encounter - Luanen Bergeron - 02/22/2025 4:26 PM EDT Patient is scheduled for yearly follow up in April. * Telephone Encounter - Ramses Chase RN - 02/22/2025 3:28 PM EDT Spoke w/ pt daughter and she states pt has had multiple bad falls in past several weeks and is having severe neck pain that pt rates at 12/10 and is sharp in nature. Daughter states pt crying about pain and medication isn't helping. States pt has over 75 pill bottle at his house and unsure about what meds are being taken or how much. States about two weeks ago pt [facility] and imaging was taken but unsure of what. Contacted [facility] and requesteda [facility] and the only imaging available to share was an xray of pts elbow. Pt refuses to let daughter call ambulance. Requesting appt to be seen short-notice. * Telephone Encounter - Camille Alexander - 02/22/2025 12:53 PM EDT Patient Phone Message Reason for Call: Patient daughter calling states pt has fallen a few times in the past month is having bad pain in neck and upper back, daughter states there is a lump in area of hardware please call to advise. Was seen at [facility] for pain unsure of imaging Best contact number and optimal time of day to reach caller: [phone] Note: Please do not reply to this message. Follow-up communication and further actions as a result of this message need to be communicated with the patient directly, if the patient is not active onMyChart. If the patient is active on MyChart, they will receive notification of the communication/outcome via [employer]. documented in this encounter Plan of Treatment Upcoming Encounters Date Type Department Care Team (Late st Contact Info) Description 04/12/2025 9:15 AM EDT Office Visit [place] [facility] [address] [place] [address] Abhilash Trimble MD [address] [place] [address] documented as of this encounter Visit Diagnoses Not on filedocumented in this encounter Additional Health Concerns Assessment Noted Time A fall risk assessment has been complete d for the patient 07/27/2024 1:51 PM EST A Body Mass Index follow-up plan has been documented for the patient 07/30/2024 2:14 PM EST documented as of this encounter Care Teams Crop Specialist Relationship Specialty Start Date End Date Pcp, Nissa [address] [place] [address] PCP - General Family Medicine 03/06/23 documented as of this encounter
--- OUTSIDE RECORDS SUMMARY | 2025-03-24 10:17 | XMS_ITS | Clinical Summary ---
Author Organization [facility] Address [address] [place] [address] Care Team Providers Care Relief Pilot Name Role Phone Pcp, No Primary Care Provider Unavailabl e Allergies No known active allergies Medications buPROPion SR (Wellbutrin SR) 150 MG 12 hr tablet Take 1 tablet (150 mg) by mouth 2 (two) times a day. Do not crush, chew, or split. Active ezetimibe (Zetia) 10 MG tabletIndication s:Hyperlipidemia Take 1 tablet (10 mg) by mouth 1 (one) time each day. Active glipiZIDE (Glucotrol) 5 MG tablet Take 1.5 tablets (7.5 mg) by mouth 2 (two) times a day before meals. Active sertraline (Zoloft) 100 MG tabletIndication s:Major Depressive Disorder Take 1 tablet (100 mg) by mouth 1 (one) time each day. Active hydrOXYzine pamoate (Vistaril) 25 MG capsule Take 1 capsule (25 mg) by mouth every 6 (six) hours if needed for anxiety. 4 Active polyethylene glycol (Miralax) 17 g packet Take 17 g by mouth 2 (two) times a day. 4 Active Additional Information Patient not taking.Reported on 07/27/2024 amLODIPine (Norvasc) 5 MG tablet Take 1 tablet (5 mg) by mouth 1 (one) time each day. Active tamsulosin (Flomax) 0.4 MG 24 hr capsule Take 1 capsule (0.4 mg) by mouth every night. Active acetaminophen (Tylenol) 325 MG tablet Take 2 tablets (650 mg) by mouth every 6 (six) hours if needed. Active Heparin Sodium, Porcine, (heparin, porcine,) 5000 UNIT/ML injectionIndicat ions:DVT preventative Inject 1 mL (5,000 Units) under the skin every 8 (eight) hours. Active Lidocaine 4 % patch Apply 1 patch topically 1 (one) time each day in the morning. Active magnesium hydroxide (Milk of Magnesia) 400 MG/5ML suspension Take 30 mL by mouth every 12 (twelve) hours if needed. Active nitroglycerin (Michel-Bid) 2 % ointment Place 0.5 inches on the skin every 2 (two) hours if needed for chest pain. Active famotidine (Pepcid) 20 MG tablet Take 1 tablet (20 mg) by mouth 2 (two) times a day. Active senna (Senokot) 8.6 MG tablet Take 2 tablets (17.2 mg) by mouth 2 (two) times a day. Active methocarbamol (Robaxin) 750 MG tablet Take 1 tablet (750 mg) by mouth 3 (three) times a day. 4 Active oxyCODONE (Roxicodone) 10 MG immediate release tablet Take 0.5-1 tablets (5-10 mg) by mouth every 4 (four) hours if needed for severe pain. 4 Active Additional Information Patient not taking.Reported on 07/27/2024 melatonin 3 MG tablet Take 2 tablets (6 mg) by mouth at night if needed for sleep. 4 Active naloxone (Narcan) 4 mg/0.1 mL nasal spray 1. Give 1 spray in nostril for no/slow breathing or cannot wake after opioid use 2. Call 911 3. Repeat in other nostril if symptoms continue 4 Active Additional Information Patient not taking.Reported on 07/27/2024 busPIRone (Buspar) 15 MG tablet 4 Active fluticasone (Flonase) 50 MCG/ACT nasal spray 4 Active TRUEplus Lancets 33G misc 4 Active levocetirizine (Xyzal) 5 MG tablet 4 Active omeprazole (PriLOSEC) [address] capsule 4 Active pioglitazone (Actos) 30 MG tablet 4 Active tiZANidine (Zanaflex) 4 MG tablet 4 Active rOPINIRole (Requip) 5 MG tablet 4 Active pregabalin (Lyrica) 75 MG capsule Take 1 capsule (75 mg) by mouth 2 (two) times a day. 60 capsule 4 Active furosemide (Lasix) 20 MG tablet 4 Active Active Problems Problem Noted Date Diagnosed Date Moderate protein-calorie malnutrition 04/26/2024 Cervical myelopathy 03/23/2024 Diabetes mellitus 03/08/2024 CKD (chronic kidney disease), stage III 03/08/20 24 Below knee amputation 03/08/2024 Hypertension 03/08/2024 Complaints of weakness of lower extremity 2023 Encounters Date Type Department Care Team Description 02/22/2025 Telephone [place] [facility] [address] [place] [address] Abhilash Trimble MD HCN - Patient Message (Reschedule ) 02/11/2025 Orders Only External Location [address] [place] [address] Cecily Romero APRN from Last 3 Months Social History Tobacco Use Types Packs/Day Years [...] place to sleep or slept in a custodial (including now)? 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) to steady your nerves or to get [...] on file Sexual Orientation Not on file Last Filed Vital Signs Vital Sign Reading Time Taken Comments Blood Pressure 150/66 08/11/2024 2:00 AM EST Pulse 79 08/11/2024 3:31 AM EST Temperature 36.9 C (98.4 F) 08/11/2024 1:41 AM EST Respiratory Rate 14 08/11/2024 3:31 AM EST Oxygen Saturation 95% 08/11/2024 1:41 AM EST Inhaled Oxygen Concentration - - Weight 82.6 kg (182 lb) 08/10/2024 12:44 PM EST Height 172.7 cm (5' 8 ) 07/27/2024 1:49 PM EST Body Mass Index 27.67 07/27/2024 1:49 PM EST Plan of Treatment Upcoming Encounters Date Type Department Care Team (Late st Contact Info) Description 04/12/2025 9:15 AM EDT Office Visit [place] [facility] [address] [place] [address] Abhilash Trimble MD [address] [place] [address] Health Maintenance Due Date Last Done Comments [facility]-Bone Density Scan 1950 [facility]-Medicare Annual Wellness (AWV) 1950 [facility]-Infant/Child/Adol SDOH Screenings 1950 Diabetes: Dental Exam 1958 [facility]- SDOH Screenings 1966 [facility]-Adult SDOH Screenings 1966 [facility]-Pneumococcal Vaccine: 50+ Years (1 of 2 - PCV) 1967 [facility]-DTaP,Tdap,and Td Vaccines (1 - Tdap) 11/24/1996 11/23/1996 [facility]-RSV Vaccine: 60+ Years or (1 - 1-dose 75+ series) 2023 [facility]-Zoster Vaccines (2 of 3) 09/08/2023 07/14/2023 [id number] Vaccine (4 - season) 2024 06/20/2021, 11/29/2020, 11/01/2020 [facility]-Diabetes: Hemoglobin A1C 09/03/2024 03/06/2024 [facility]-Influenza Vaccine (#1) 05/23/202507/14, 06/12/2021, 06/30/2020, Additional history exists [facility]-Depression Screening 07/27/2025 07/27/2024 [facility]-Obesity Intervention Completed 024, 07/09/2024, 05/07/2024, Additional history exists [facility]-Hepatitis C Screening Completed 08/10/2024 HPV Vaccines Aged Out No longer eligi ble based on patient's age to complete this topic [facility]-HIB Vaccines Aged Out No longer e ligible based on patient's age to complete this topic [facility]-Hepatitis A Vaccines Aged Out No longer eligible based on patient's age to complete this topic [facility]-IPV Vaccines Aged Out No longer e ligible based on patient's age to complete this topic [facility]-Rotavirus Vaccines Aged Out No lo nger eligible based on patient's age to complete this topic Medical Devices Implanted Type Area Production Staff Worker Device Identifier Shelf Expiration Date Model / Serial / Lot Lester-07/11/2023 Implanted:Qty: 1 on 07/11/2023 Lester Back [id number] / / Lead-07/11/2023 Implanted:Qty: 2 on 07/11/2023 Lead Back [id number] / / Wavewriter Alpha-07/11/2023 Implanted: 023 (Quantity not on file) Spinal Cord Stimulator Back Sportfort [id number] / / Screw 4.0mm Symphny Polyaxlschraube 3.5mm X 28mm - [id number] Implanted:Qty: 2 on 04/23/2024 by Abhilash Trimble MD at [facility] N/A: Spine Cervical DePuy Spine Sales [id number] 04/23/2025 [id number] / / Screw 4.0 Ply Cfx 4.5x20 - [id number] Implanted:Qty: 1 on 04/23/2024 by Abhilash Trimble MD at [facility] N/A: Spine Cervical DePuy Spine Sales [id number] 04/23/2025 [id number] / / Screw 4.0 Ply Cfx 4.5x24 - [id number] Implanted:Qty: 1 on 04/23/2024 by Abhilash Trimble MD at [facility] N/A: Spine Cervical DePuy Spine Sales [id number] 04/23/2025 [id number] / / Screw 4.0 Ply Cfx 5.0x24 - [id number] Implanted:Qty: 1 on 04/23/2024 by Abhilash Trimble MD at [facility] N/A: Spine Cervical DePuy Spine Sales [id number] 04/23/2025 [id number] / / Screw 4.0 Ply Cfx 5.0x28 - [id number] Implanted:Qty: 1 on 04/23/2024 by Abhilash Trimble MD at [facility] N/A: Spine Cervical DePuy Spine Sales [id number] 04/23/2025 [id number] / / Set Screw - [id number] Implanted:Qty: 14 on 04/23/2024 by Abhilash Trimble MD at [facility] N/A: Spine Cervical DePuy Spine Sales [id number] 04/23/2025 [id number] / / Chip Bone 20cc - [id number] - [id number] Implanted:Qty: 1 on 04/23/2024 by Abhilash Trimble MD at [facility] N/A: Spine Cervical [facility]-[id number] 02/02/2029 PCAN1/4 / [id number] / [id number] Description:This item was no t implanted, can't take off the record due to it coming from [employer] and the case was already closed. Graft Vivigen 1cc - [id number] - [id number] Implanted:Qty: 1 on 04/23/2024 by Abhilash Trimble MD at [facility] N/A: Spine Cervical [facility]-[id number] 04/09/2025 BL-1500-00 1-4PK / [id number] / [id number] Graft Vivigen 1cc - [id number] - [id number] Implanted:Qty: 1 on 04/23/2024 by Abhilash Trimble MD at [facility] N/A: Spine Cervical [facility]-[id number] 04/09/2025 BL-1500-00 1-4PK / [id number] / [id number] Alexander Ti 4.0x120 Viv - [id number] Implanted:Qty: 2 on 04/23/2024 by Abhilash Trimble MD at [facility] N/A: Spine Cervical DePuy Spine Sales LP-[id number] 06/21/2028 [id number] / / TBAMHX Screw 4.0 Ply 3.5x12 - [id number] Implanted:Qty: 2 on 04/23/2024 by Abhilash Trimble MD at [facility] N/A: Spine Cervical DePuy Spine Sales LP-[id number] 04/23/2025 [id number] / / Screw 4.0 Ply 3.5x14 - [id number] Implanted:Qty: 6 on 04/23/2024 by Abhilash Trimble MD at [facility] N/A: Spine Cervical DePuy Spine Sales [id number] 04/23/2025 [id number] / / Procedures Procedure Name Priority Date/Time Associated Diagnosis Comments XR MSK OUTSIDE IMAGES 02/11/2025 9:49 AM EDT HEPATITIS C ANTIBODY - ED W/REFLEX TO HCV QUANT PCR STAT 08/10/2024 1:39 PM EST HEMOGLOBIN A1C Routine 03/06/2024 10:17 AM EDT from Last 3 Months or Most Recently Relevant to Health Maintenance Results * XR MSK OUTSIDE IMAGES (02/11/2025 9:49 AM EDT) Anatomical Region Laterality Modality Radiographic Lindy ging 02/11/2025 9:49 AM EDT Cecily Romero AUGER OPERATOR IMG XR PROCEDURES Final R esult * Hepatitis C Antibody - ED (08/10/2024 1:39 PM EST) Hepatitis C Antibody Negative Negative 08/10/2024 2:52 PM EST [facility] Blood Venous blood specimen / Unknown Venipuncture / Unknown 08/10/2024 1:39 PM EST 08/10/2024 2:07 PM EST Papito Lamas MD LAB BLOOD ORDERABLES Final Re sult Performing Organization Address City/[facility]/ZIP Co de Phone Number [facility] [address] [place] [address] * (ABNORMAL) Hemoglobin A1c (03/06/2024 10:17 AM EDT) Hemoglobin A1c 6.1(H) <5.7 % 03/06/2024 12:56 PM EDT [facility] Blood Venous blood specimen / Unknown Venipuncture / Unknown 03/06/2024 10:17 AM EDT 03/06/2024 10:22 AM EDT Narrative [facility] - 03/06/2024 12:56 PM EDT HA1C Interpretive Data: Diagnosis of Diabetes: Diabetic > or = 6.5% Pre-diabetic 5.7 to 6.4% Non-diabetic < or = 5.6% Glycemic Targets for Type I and Type II Diabetics: Non- Adults <7.0% Adults <6.0% Children and Adolescents <7.5% Source: [place] [employer]. Standards of medical care in diabetes,2017. Diabetes Care.2017:40 (suppl 1):S1-S135. HbA1c assay performed by an ion-exchange chromatography method that is certified traceable to the DCCT. us Kristy Urias APRN, DNP LAB BLOOD ORDERABLES Fi nal Result Performing Organization Address City/[facility]/ZIP Co de Phone Number [facility] [address] [place] [address] from Last 3 Months or Most Recently Relevant to Health Maintenance Insurance [facility] MEDICARE Advance Directives Documents on File Type Date Recorded Patient Debt Management Counselor Expl anation Advance Directives and Livin g Will 05/01/2024 11:14 AM Advance Directives and Livin g Will 03/05/2024 4:40 PM * Full Code (Latest Code Status on File) Date Activated Date Inactivated Comments 04/23/2024 10:25 AM 04/28/2024 7:12 PM Question Answer Comments Patient has decision-making capacity? Yes * DNR/DNI Date Activated Date Inactivated Comments 03/14/2024 10:47 AM 04/23/2024 8:56 AM Question Answer Comments DNR determined on/before admission date? Yes * DNR/DNI Date Activated Date Inactivated Comments 03/06/2024 3:28 PM 03/14/2024 10:47 AM Question Answer Comments DNR determined on/before admission date? Yes Patient has decision-making capacity? Yes * Full Code Date Activated Date Inactivated Comments 03/05/2024 5:45 PM 03/06/2024 3:28 PM Question Answer Comments Patient has decision-making capacity? Yes Care Teams Relief Pilot Relationship Specialty Start Date End Date Pcp, Nissa [address] [place] [address] PCP - General Family Medicine 03/06/23
--- NOTE | 2025-03-24 12:28 | XR_ITS ---
FINAL REPORT CLINICAL HISTORY: pain post fall COMPARISON: None FINDINGS: LEFT ELBOW 3 views were obtained. There is no acute fracture or dislocation. Small olecranon spur is noted. There is an ossific density adjacent to the lateral epicondyle measuring up to 5 mm. It is well corticated and may be related to old trauma. There is no joint effusion. The joint spaces are intact. There is no soft tissue abnormality. IMPRESSION: No acute bony abnormality. Reviewed, Interpreted and Dictated by Chucho Galaviz MD Transcribed by Radha Trent Authenticated and [facility]
--- NOTE | 2025-03-24 12:28 | XR_ITS ---
FINAL REPORT CLINICAL HISTORY: PAIN post fall COMPARISON: None with a FINDINGS: LEFT KNEE 3 views of the left knee were obtained. There is no acute fracture or dislocation. Osteophytes are noted along the superior margin of the patella. The medial and lateral joint spaces are preserved. Visualized joint spaces are normally aligned. Soft tissues are unremarkable. IMPRESSION: No acute bony abnormality. Reviewed, Interpreted and Dictated by Chucho Galaviz MD Transcribed by Radha Trent Authenticated and . [facility]
== END 2025-03-24 23:59 | disposition home or self-care (01) ==
PROVIDERS: PCP Nurse Practitioner Family; Visit Provider Nurse Practitioner Family
DX: M25.552 Pain in left hip (principal); M25.522 Pain in left elbow
CPT/HCPCS: 73080; 73502; 73562

== ENCOUNTER 2025-04-28 10:15 | Outpatient (CLI) | payer MEDICARE, SELFPAY ==
--- OUTSIDE RECORDS SUMMARY | 2025-04-12 09:04 | XMS_ITS | Encounter Summary ---
Author Organization Healthcare Address [address] [place] [address] Care Team Providers Care Camouflage Specialist Name Role Phone Pcp, No Primary Care Provider Unavailabl e Encounter Details Date Type Department Care Team (Latest Contact Info) Description 04/12/2025 9:04 AM EDT - 04/12/2025 11:59 PM EDT [facility] Encounter [facility] [address], [address] [place] [address] Status post cervical spinal fusion; [...] place to sleep or slept in a group home (including now)? No 03/09/2024 CAGE ASSESSMENT [...] drink first t davin in the 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-SETTER OFF) to steady your nerves or to get [...] skin every 8 (eight) hours. HYDROcodone-acetam inophen ([place]) 5-325 MG tablet 11/26/2024 hydrOXYzine pamoate (Vistaril) [...] is limited by overlying structures. Redemonstration of C3-D5kjasshoofme and C2-T2 posterior spinal fusion hardware without [...] Carmona MD on 512:12 PM Mariposa Mcelroy AFRICAN STUDIES PROFESSOR, DNP IMG XR PROCEDURES Brianne l Result [...] documented as of this encounter Care Teams Camouflage Specialist Relationship Specialty Start Date End Date Pcp, No [address] [place] [address] PCP - General Family Medicine 03/06/23 documented as of this encounter
--- OUTSIDE RECORDS SUMMARY | 2025-04-12 09:15 | XMS_ITS | Encounter Summary ---
Author Organization [facility] Address [address] [id number] Care Team Providers Care Nursing Aide Name Role Phone Pcp, No Primary Care [...] laterality Mariposa Mcelroy APRN, DNP [address] [address] Phone: tel: fax: Referral ID Status Reason Start Date Expiration Date Visits Requested Visits Authorized [id number] Authorized Specialty Services Required 04/12/2025 10/12/2026 1 1 Scheduling Instructions Please schedule at [facility] * Imaging (Routine) - Authorized Specialty Diagnoses [...] Contrast Mariposa Mcelroy APRN, DNP [address] [address] Phone: tel: fax: Referral ID Status Reason Start Date Expiration Date V isits Requested Visits Authorized [id number] Authorized 04/12/2025 10/12/2026 1 1 Encounter Details Date Type Department Care Team (Late st Contact Info) Description 04/12/2025 9:15 AM EDT Office Visit [place] [facility] [address], [address]st [place] [address] Abhilash Trimble MD [address] [place] [address] Status post cervical spinal fusion [...] place to sleep or slept in a snf (including now)? 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 0 04/23/2024 CAGE Questionnaire Score 0 024 Utilities Answer Date Recorded In the past 12 months has th e [employer], gas, oil, or water company threatened to [...] may recall, we discontinued the patient's postoperative [place] at his three-month postop follow up in July,, was having significant sedative effects from the [place]. Since his most recent appointment, his primary care provider has added [place] back on, and he now is taking [...] (porcine) 5,000 Units, Every 8 hours HYDROcodone-acetaminophen ([place]) 5-325 MG tablet hydrOXYzine pamoate (VISTARIL) 25 [...] 465 PERRL, EOMI Strength: Delt Bi Tri Shingle Packer Intrinsics RUE: 5/5 5/5 5/5 5/5 5/5 [...] noted in flexion-extension. Assessment and Plan Fernandez Patle is a 74 y.o. male with history [...] the cervical spine to be obtained at [facility] to assess for hardware failure versus compressive [...] have referred him to interventional pain at [facility] for trigger point injections of the neck, [...] Parts of this note were dictated using [employer] Direct voice recognition software. As a result, errors may occur. When identified, these greenhouse or nursery transplanter errors are corrected, but while every attempt is made to prevent/correct these, errors may still exist. I reviewed this patient's history, exam, and any imaging with Dr Romo. He guided plan of care forthis patient. Mariposa Mcelroy, PAXTON, RELAY MOTORMAN [facility] Department of Neurosurgery Diagnoses and all orders [...] Medical History: Diagnosis Date Below knee amputation ([facility]) 03/08/2024 CKD (chronic kidney disease), stage III ([facility]) 03/08/2024 Diabetes mellitus ([facility]) 03/08/2024 Hypertension 03/08/2024 [2] Past Surgical History: [...] spent for this visit with >50% in [id number] communication with the patient over the diagnosis, [...] is limited by overlying structures. Redemonstration of C3-C5cotqnezwitz and C2-T2 posterior spinal fusion hardware without [...] documented as of this encounter Care Teams Nursing Aide Relationship Specialty Start Date End Date Pcp, [place] [address] PCP - General Family Medicine 03/06/23 documented as of this encounter
--- NOTE | 2025-04-28 | CT_ITS ---
FINAL REPORT TECHNIQUE: Axial images were obtained of the cervical spine by computed tomography. Coronal and sagittal reconstruction process performed. This study was performed with techniques to keep radiation doses as low as reasonably achievable (ALARA). Individualized dose reduction techniques using automated exposure control or adjustment of mA and/or kV according to the patient''s size were employed. CLINICAL HISTORY: MEDTRONIC/POST C-SPINE FUSION FINDINGS: There is long segment cervical fusion bridging C2-T2. Posterior osteophyte formation is seen in the midline at C3-4 and C4-5. There is diffuse endplate hypertrophy at C5-6 and C6-7. Long segment posteriorly laminectomy extends from the C2-3 to C6-7 levels. No foraminal narrowing is most evident on the left at C5-6. IMPRESSION: Long segment fusion bridging C2-T2 with long segment posterior laminectomy. Reviewed, Interpreted and Dictated by Chucho Galaviz MD Transcribed by Ana Rosa Jarrett Authenticated and [facility]
--- OUTSIDE RECORDS SUMMARY | 2025-04-28 10:23 | XMS_ITS | Clinical Summary ---
Author Organization [facility] Address [address] [place] [address] Care Team Providers Care Home Assessment Nurse Name Role Phone Pcp, No Primary Care [...] Active Additional Information Patient not taking.Reported on 04/12/2025 amLODIPine (Norvasc) 5 MG tablet Take 1 tablet (5 mg) by mouth 1 (one) time each day. 4 Active tamsulosin (Flomax) 0.4 MG 24 hr [...] Active Additional Information Patient not taking.Reported on 04/12/2025 melatonin 3 MG tablet Take 2 tablets (6 mg) by mouth at night if needed for sleep. 4 Active naloxone (Narcan) 4 mg/0.1 mL nasal spray 1. Give 1 spray in nostril for no/slow breathing or cannot wake after opioid use 2. Call 911 3. Repeat in other nostril if symptoms continue 4 Active busPIRone (Buspar) 15 MG tablet 4 Active [...] furosemide (Lasix) 20 MG tablet 4 Active amoxicillin-clav ulanate (Augmentin) 875-125 MG tablet 5 Active Blood Glucose Monitoring Suppl (True Metrix Air Glucose Meter) w/Device kit 5 Active calcium carbonate (Tums) 500 MG chewable tablet Chew 1 tablet. 4 Active celecoxib (CeleBREX) 50 MG capsule 1 capsule. 5 Active cyclobenzaprine (Flexeril) 5 MG tablet Take 1 tablet by mouth. 4 Active donepezil (Aricept) 5 MG tablet 1 tablet. 5 Active HYDROcodone-acet aminophen ([place]) 5-325 MG tablet 5 Active lisinopril 20 MG tablet 1 tablet. 5 Active lovastatin (Mevacor) 40 MG tablet 1 tablet. 5 Active naproxen (Naprosyn) 500 MG tablet 1 tablet. 5 Active traMADol (Ultram) 50 MG tablet 1 tablet. 5 Active zolpidem (Ambien) 5 MG tablet 5 Active famotidine (Pepcid) 40 MG tablet 1 tablet. 5 Active omeprazole (PriLOSEC) [address] capsule 1 capsule. 5 Active rOPINIRole (Requip) 2 MG tablet 1 tablet. 4 Active Active Problems Problem Noted Date Diagnosed Date Moderate protein-calorie malnutrition 04/26/2024 Cervical myelopathy 03/23/2024 Diabetes mellitus 03/08/2024 CKD (chronic kidney disease), stage III 03/08/20 24 Below knee amputation 03/08/2024 Hypertension 03/08/2024 Complaints of weakness of lower extremity 2023 Encounters Date Type Department Care Team Description 04/15/2025 Orders Only [place] [facility] [address], [address] [place] [phone] Mariposa Mcelroy, STANDARDS ENGINEER, DNP Status post cervical spinal fusion (Primary Dx); Closed fracture of first thoracic vertebra with routine healing, unspecified fracture morphology, subsequent encounter; Muscle spasms of neck; Bilateral occipital neuralgia; Trigger point of neck; Trigger point of shoulder region, unspecified laterality 04/12/2025 9:15 AM EDT Office Visit [facility] 0 [facility], [address] [place] [phone] Abhilash Trimble MD Status post cervical spinal fusion (Primary Dx); Closed fracture of first thoracic vertebra with routine healing, unspecified fracture morphology, subsequent encounter; Muscle spasms of neck; Bilateral occipital neuralgia; Trigger point of neck; Trigger point of shoulder region, unspecified laterality 04/12/2025 9:04 AM EDT - 04/12/2025 11:59 PM EDT Hospital Encounter [facility] Radiology [address] [place] [address], [address] [place] [phone] Status post cervical spinal fusion; Closed fracture of first thoracic vertebra with routine healing, unspecified fracture morphology, subsequent encounter Discharge Disposition: Home or Self Care 04/12/2025 Travel 04/11/2025 Travel 02/22/[address] [address] Abhilash Trimble MD [facility] - Patient Message (Reschedule ) 02/11/2025 Orders Only External Location [address] [place] [phone] Cecily Romero APRN from Last 3 Months [...] place to sleep or slept in a residential (including now)? No 03/09/2024 CAGE ASSESSMENT Answer [...] drink first t davin in the 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-STEWARD/STEWARDESS SECOND CLASS) to steady your nerves or to get [...] Pulse 66 04/12/2025 9:57 AM EDT Temperature 36.9 C (98.4 F) 08/11/2024 1:41 AM EST Respiratory Rate 14 08/11/2024 3:31 AM EST Oxygen Saturation 99% 04/12/2025 9:57 AM EDT Inhaled Oxygen Concentration - - Weight 82.6 kg (182 lb) 04/12/2025 9:57 AM EDT Height 172.7 cm (5' 8 ) 04/12/2025 9:57 AM EDT Body Mass Index 27.67 04/12/2025 9:57 AM EDT Plan of Treatment Health Maintenance Due Date Last Done Comments [facility]-Bone Density Scan 1948 [facility]-Medicare Annual Wellness (AWV) 1948 [facility]-/Child/Adol SDOH Screenings 1948 Diabetes: Dental Exam 1958 [facility]- SDOH Screenings 1966 [facility]-Adult SDOH Screenings 1966 [facility]-Pneumococcal Vaccine: 50+ Years (1 of 2 - PCV) 1967 [facility]-DTaP,Tdap,and Td Vaccines (1 - Tdap) 11/24/1996 11/23/1996 [facility]-RSV Vaccine: 60+ Years or (1 - 1-dose 75+ series) 2023 [facility]-Zoster Vaccines (2 of 3) 09/08/2023 07/14/2023 TKM-VEXDM-02 Vaccine (4 - season) 2024 06/20/2021, 11/29/2020, 11/01/2020 [facility]-Diabetes: Hemoglobin A1C 09/03/2024 03/06/2024 [facility]-Influenza Vaccine (#1) 05/23/202507/14, 06/12/2021, 06/30/2020, Additional history exists [facility]-Depression Screening 07/27/2025 07/27/2024 [facility]-Hepatitis C Screening Completed 08/10/2024 [facility]-Obesity Intervention Completed 025, 07/27/2024, 07/09/2024, Additional history exists HPV Vaccines Aged Out No longer eligi [...] this topic Medical Devices Implanted Type Area Community Program Assistant Device Identifier Shelf Expiration Date Model / Serial / Lot [place]-07/11/2023 Implanted:Qty: 1 on 07/11/2023 [place] Back [id number] / / Lead-07/11/2023 Implanted:Qty: 2 on 07/11/2023 Lead Back [id number] / / Wavewriter Alpha-07/11/2023 Implanted: 023 (Quantity not on file) Spinal Cord Stimulator Back imagine SC-1416 / / Screw 4.0mm Symphny Polyaxlschraube 3.5mm X 28mm - [id number] Implanted:Qty: 2 on 04/23/2024 by Abhilash Trimble MD at [facility] N/A: Spine Cervical DePuy Spine Sales [id number] 04/23/2025 [id number] / / Screw 4.0 Ply Cfx 4.5x20 - [id number] Implanted:Qty: 1 on 04/23/2024 by Abhilash Trimble MD at [facility] N/A: Spine Cervical DePuy Spine [employer] [id number] 04/23/2025 [id number] / / Screw 4.0 Ply Cfx 4.5x24 - [id number] Implanted:Qty: 1 on 04/23/2024 by Abhilash Trimble MD at [facility] N/A: Spine Cervical DePuy Spine [employer] [id number] 04/23/2025 [id number] / / Screw 4.0 Ply Cfx 5.0x24 - [id number] Implanted:Qty: 1 on 04/23/2024 by Abhilash Trimble MD at [facility] N/A: Spine Cervical DePuy Spine Sales [id number] 04/23/2025 [id number] / / Screw 4.0 Ply Cfx 5.0x28 - [id number] Implanted:Qty: 1 on 04/23/2024 by Abhilash Trimble MD at [facility] N/A: Spine Cervical DePuy Spine Sales [id number] 04/23/2025 [id number] / / Set Screw - [id number] Implanted:Qty: 14 on 04/23/2024 by Abhilash Trimble MD at [facility] N/A: Spine Cervical DePuy Spine Sales [id number] 04/23/2025 [id number] / / Chip Bone 20cc - [id number] - [id number] Implanted:Qty: 1 on 04/23/2024 by Abhilash Trimble MD at [facility] N/A: Spine Cervical [facility]-[id number] 02/02/2029 PCAN1/4 / [id number] / [id number] Description:This item was no t implanted, can't take off the record due to it coming from [employer] and the case was already closed. Graft Vivigen 1cc - [id number] - [id number] Implanted:Qty: 1 on 04/23/2024 by Abhilash Trimble MD at [facility] N/A: Spine Cervical [facility]-[id number] 04/09/2025 BL-1500-00 1-4PK / [id number] / [id number] Graft Vivigen 1cc - [id number] - [id number] Implanted:Qty: 1 on 04/23/2024 by Abhilash Trimble MD at [facility] N/A: Spine Cervical [facility]-[id number] 04/09/2025 BL-1500-00 1-4PK / [id number] / [id number] Alexander Ti 4.0x120 Viv - [id number] Implanted:Qty: 2 on 04/23/2024 by Abhilash Trimble MD at [facility] N/A: Spine Cervical DePuy Spine Sales LP-[id number] 06/21/2028 [id number] / / [id number] Screw 4.0 Ply 3.5x12 - [id number] Implanted:Qty: 2 on 04/23/2024 by Abhilash Trimble MD at [facility] N/A: Spine Cervical DePuy Spine [employer] [id number] 04/23/2025 [id number] / / Screw 4.0 Ply 3.5x14 - [id number] Implanted:Qty: 6 on 04/23/2024 by Abhilash Trimble MD at [facility] N/A: Spine Cervical DePuy Spine Sales LP-[id number] 04/23/2025 [id number] / / Procedures Procedure Name Priority Date/Time Associated Diagnosis Comments XR CERVICAL SPINE COMPLETE 4 TO 5 VIEWS Routine 04/12/2025 9:19 AM EDT Status post cervical spinal fusion Closed fracture of first thoracic vertebra with routine healing, unspecified fracture morphology, subsequent encounter XR MSK OUTSIDE IMAGES 02/11/2025 9:49 AM EDT HEPATITIS C ANTIBODY - ED W/REFLEX TO HCV QUANT PCR STAT 08/10/2024 1:39 PM EST HEMOGLOBIN A1C Routine 03/06/2024 10:17 AM EDT from Last 3 Months or Most Recently Relevant to Health Maintenance Results * XR Cervical Spine Complete 4 [...] intervention. Unchanged multilevel degenerative changes. Procedure Note Kota Matamoros MD - 04/12/2025 CLINICAL INDICATION: assess hardware TECHNIQUE: XR CERVICAL SPINE COMPLETE 4 TO 5 VIEWS COMPARISON: CT cervical spine 08/10/2024 FINDINGS: Visualization of the cervicothoracic transition and upper thoracicvertebra is limited by overlying structures. Redemonstration of C3-L4bsglexvgbng and C2-T2 posterior spinal fusion hardware without [...] Kota Carmona MD on 512:12 PM Mariposa De La Cruzmaliachloe STANDARDS ENGINEER, DNP IMG XR PROCEDURES Brianne l Result * XR MSK OUTSIDE IMAGES (02/11/2025 9:49 AM EDT) Anatomical Region Laterality Modality Radiographic Lindy ging 02/11/2025 9:49 AM EDT Cecily Romero STANDARDS ENGINEER IMG XR PROCEDURES Final R esult * Hepatitis C Antibody - ED (08/10/2024 1:39 PM EST) Hepatitis C Antibody Negative Negative 08/10/2024 2:52 PM EST [facility] Blood Venous blood specimen / Unknown Venipuncture / Unknown 08/10/2024 1:39 PM EST 08/10/2024 2:07 PM EST Papito Lamas MD LAB BLOOD ORDERABLES Final Re sult [facility] [address] [place] [address] * (ABNORMAL) Hemoglobin A1c (03/06/2024 10:17 AM EDT) Hemoglobin A1c 6.1(H) <5.7 % 03/06/2024 12:56 PM EDT [facility] Blood Venous blood specimen / Unknown Venipuncture / Unknown 03/06/2024 10:17 AM EDT 03/06/2024 10:22 AM EDT Narrative [facility] - 03/06/2024 12:56 PM EDT HA1C Interpretive Data: Diagnosis of Diabetes: Diabetic > or = 6.5% Pre-diabetic 5.7 to 6.4% Non-diabetic < or = 5.6% Glycemic Targets for Type I and Type II Diabetics: Non- Adults <7.0% Adults <6.0% Children and Adolescents <7.5% Source: [place] Diabetes [employer]. Standards of medical care in diabetes,2017. Diabetes Care.2017:40 (suppl 1):S1-S135. HbA1c assay performed by an ion-exchange chromatography method that is certified traceable to the DCCT. us Kristy Urias APRN, DNP LAB BLOOD ORDERABLES Fi nal Result [facility] [address] [place] [address] from Last 3 Months or Most Recently Relevant to Health Maintenance Insurance [facility] MEDICARE Advance Directives Documents on File Type Date Recorded Patient Data Integrity Analyst Expl anation Advance Directives and Livin g [...] Patient has decision-making capacity? Yes Care Teams Home Assessment Nurse Relationship Specialty Start Date End Date Pcp, No [address] [place] [address] PCP - General Family Medicine 03/06/23
--- OUTSIDE RECORDS SUMMARY | 2025-04-28 10:23 | XMS_ITS | Encounter Summary ---
Author Organization Healthcare Address [address] [place] [address] Care Team Providers Care Soldering Inspector Name Role Phone Pcp, No Primary Care Provider Unavailabl e Reason for Referral * Imaging (Routine) - Authorized Specialty Diagnoses / Procedures Referred By Contac t Referred To Contact Diagnoses Status post cervical spinal fusion Closed fracture of first thoracic vertebra with routine healing, unspecified fracture morphology, subsequent encounter Muscle spasms of neck Bilateral occipital neuralgia Trigger point of neck Trigger point of shoulder region, unspecified laterality Procedures MR Cervical Spine wo IV Contrast Mariposa Mcelroy APRN, DNP [address] [facility] [place] [address] Phone: tel: fax: Referral ID Status Reason Start Date Expiration Date V isits Requested Visits Authorized [id number] Authorized 04/15/2025 10/15/2026 1 1 Encounter Details Date Type Department Care Team (Late st Contact Info) Description 04/15/2025 Orders Only [place] [facility] [address] [place] [address] Mariposa Mcelroy APRN, DNP [address] [facility] [address] [place] [address] Status post cervical spinal fusion [...] place to sleep or slept in a prison (including now)? No 03/09/2024 CAGE ASSESSMENT Answer [...] drink first t davin in the 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-OPERATIONS SUPERVISOR) to steady your nerves or to get rid of a hangover? 0 04/23/2024 CAGE Questionnaire Score 0 024 Utilities Answer Date Recorded In the past 12 months has e electric, gas, oil, or water company threatened to shut off services in your home? No 03/09/2024 Sex and Gender Information Value Date Recorded Sex Assigned at Not on file Legal Sex Male 8:50 PM EDT Gender Identity Not on file Sexual Orientation Not on file documented as of this encounter Plan of Treatment Scheduled Orders Name Type Priority Associated Diagnoses Orde r Schedule MR Cervical Spine wo IV Contrast Imaging Routine Status post cervical spinal fusion Closed fracture of first thoracic vertebra with routine healing, unspecified fracture morphology, subsequent encounter Muscle spasms of neck Bilateral occipital neuralgia Trigger point of neck Trigger point of shoulder region, unspecified laterality Expected: 04/15/2025 (Approximate), Expires: 10/16/2026 documented as of this encounter Visit Diagnoses Diagnosis Status post cervical spinal fusion- Primary Arthrodesis status Closed fracture of first thoracic vertebra with routine healing, unspecified fracture morphology, subsequent encounter Muscle spasms of neck Bilateral occipital neuralgia Trigger point of shoulder region, unspecified laterality documented in this encounter Additional Health Concerns Assessment Noted Time A fall risk assessment has been complete d for the patient 04/12/2025 9:57 AM EDT A Body Mass Index follow-up plan has been documented for the patient 04/14/2025 1:47 PM EDT documented as of this encounter Care Teams Soldering Inspector Relationship Specialty Start Date End Date Pcp, Nissa [address] [place] [address] PCP - General Family Medicine 03/06/23 documented as of this encounter
--- OUTSIDE RECORDS SUMMARY | 2025-04-28 10:23 | XMS_ITS | Clinical Summary ---
Author Organization [email or web address] ([place], [place], [place], [place]) Address [address] [place] [address] Care Team Providers Care Pump Erector Helper Name Role Phone Caridad Chavez NP Primary Care Provider [phone] SUPERVISOR Unavailable [phone] Social History Tobacco Use Types Packs/Day Years Used Date Smoking Tobacco: Never Assessed Food Insecurity Answer Date Recorded Food run out past 12 months Not on file 09/22 Food did not last past 12 months Not on file 10/03/2023 Employment Answer Date Recorded Help finding and keeping a job Not on file 0 10/03/2023 Family and Community Support Answer Ben e Recorded Help with Day to Day Activities Not on file 10/03/2023 Feeling Lonely or Isolated Not on file 10/03 Educational Attainment Answer Date Prasanth rded Speak language other than Telugu at home Not on file 10/03/2023 Want help with school or training Not on file 10/03/2023 Substance Use Answer Date Recorded Used prescription meds for non-medical reasons N ot on file 10/03/2023 Used illegal drugs past 12 months Not on file 10/03/2023 Sex and Gender Information Value Date Recorded Sex Assigned at Not on file Legal Sex Male 4:21 PM CDT Gender Identity Not on file Sexual Orientation Not on file Plan of Treatment Not on file Insurance ANNA MATT [id number] [facility] [place] [address] Care Teams Pump Erector Helper Relationship Specialty Start Date End Date Caridad Chavez NP [address] [place] [address] PCP - General Nurse Practitioner 07/04/23 Caridad Chavez NP [address] [place] [address] Referring Physician Nurse Practitioner 07/04/23
--- OUTSIDE RECORDS SUMMARY | 2025-04-28 10:23 | XMS_ITS | Encounter Summary ---
Author Organization Healthcare Address [address] [place] [address] Care Team Providers Care Handle And Vent Machine Operator Name Role Phone Pcp, No Primary Care Provider Unavailabl e Encounter Details Date Type Department Care Team (Latest Contact Info) Description 04/11/2025 Travel Social History Tobacco Use Types Packs/Day Years [...] place to sleep or slept in a alf (including now)? No 03/09/2024 CAGE ASSESSMENT Answer [...] drink first t davin in the 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-EDUCATION DIRECTOR) to steady your nerves or to get [...] on file documented as of this encounter Visit Diagnoses Not on filedocumented in this encounter Additional Health Concerns Assessment Noted Time A fall risk assessment has been complete d for the patient 07/27/2024 1:51 PM EST A Body Mass Index follow-up plan has been documented for the patient 07/30/2024 2:14 PM EST documented as of this encounter Care Teams Handle And Vent Machine Operator Relationship Specialty Start Date End Date Pcp, No [address] [place] [address] PCP - General Family Medicine 03/06/23 documented as of this encounter
--- OUTSIDE RECORDS SUMMARY | 2025-04-28 10:23 | XMS_ITS | Referral Summary ---
Author Organization [employer] ([place], [place], [place], [place]) Address [address] [place] [address] Care Team Providers Care Sprayer Automatic Spray Machine Name Role Phone Caridad Chavez NP Primary Care Provider [phone] Caridad Chavez OPERATIONS LABEL CLERK Unavailable [phone] Social History Tobacco Use Types Packs/Day Years [...] Date Prasanth rded Speak language other than Kyrgyz at home Not on file 10/03/2023 Want [...] Treatment Not on file Insurance ANNA MATT [id number] [facility] MEDICARE HMO Care Teams Sprayer Automatic Spray Machine Relationship Specialty Start Date End Date Caridad Chavez NP [address] [place] [address] PCP - General Nurse Practitioner 07/04/23 Caridad Chavez NP [address] [place] [address] Referring Physician Nurse Practitioner 07/04/23
--- OUTSIDE RECORDS SUMMARY | 2025-04-28 10:23 | XMS_ITS | Encounter Summary ---
Author Organization Healthcare Address [address] [place] [address] Care Team Providers Care Driver Sales Name Role Phone Pcp, No Primary Care Provider Unavailabl e Reason for Visit * Reason Onset Date Comments HCN - Patient Message 02/22/2025 Reschedule Encounter Details Date Type Department Care Team (Late st Contact Info) Description 02/22/2025 Telephone [place] [facility] [address], [address] [place] [address] Abhilash Trimble MD [address] [place] [address] HCN - Patient Message (Reschedule [...] place to sleep or slept in a jail (including now)? No 03/09/2024 CAGE ASSESSMENT Answer [...] drink first t davin in the 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-ONLINE MARKETING STRATEGIST) to steady your nerves or to get [...] optimal time of day to reach caller: [phone] anytime Note: Please do not reply to this message. Follow-up communication and further actions as a result of this message need to be communicated with the patient directly, if the patient is not active onMyChart. If the patient is active on MyChart, they will receive notification of the communication/outcome via eBooxt. * Telephone Encounter - Luanne Bergeron - 02/22/2025 4:26 PM EDT Patient [...] about two weeks ago pt went to [facility] after a fall and imaging was taken but unsure of what. Contacted [facility] and requesteda [employer] and the only imaging available to share [...] please call to advise. Was seen at [facility] for pain unsure of imaging Best contact number and optimal time of day to reach caller: [phone] Note: Please do not reply to this message. Follow-up communication and further actions as a result of this message need to be communicated with the patient directly, if the patient is not active onMyChart. If the patient is active on MyChart, they will receive notification of the communication/outcome via [employer]. documented in this encounter Plan of Treatment Not on [...] documented as of this encounter Care Teams Driver Sales Relationship Specialty Start Date End Date Pcp, [place] [address] PCP - General Family Medicine 03/06/23 documented as of this encounter
--- OUTSIDE RECORDS SUMMARY | 2025-04-28 10:23 | XMS_ITS | Encounter Summary ---
Author Organization Healthcare Address [address] [place] [address] Care Team Providers Care Institution Librarian Name Role Phone Pcp, No Primary Care Provider Unavailabl e Encounter Details Date Type Department Care Team (Latest Contact Info) Description 04/12/2025 Travel Social History Tobacco Use Types Packs/Day [...] drink first t davin in the 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-SOIL TECHNICIAN) to steady your nerves or to get [...] documented as of this encounter Care Teams Institution Librarian Relationship Specialty Start Date End Date Pcp, No [address] [place] [address] PCP - General Family Medicine 03/06/23 documented as of this encounter
== END 2025-04-28 23:59 | disposition home or self-care (01) ==
LOC: RAD 10:16
PROVIDERS: PCP Nurse Practitioner Family; Visit Provider Nurse Practitioner Critical Care Medicine
DX: S22.019D Unspecified fracture of first thoracic vertebra, subsequent encounter for fracture with routine healing (principal); M62.838 Other muscle spasm; M54.81 Occipital neuralgia; M54.2 Cervicalgia; M25.519 Pain in unspecified shoulder; Z98.1 Arthrodesis status; Z98.890 Other specified postprocedural states
CPT/HCPCS: 72125

== ENCOUNTER 2025-05-04 09:44 | Outpatient (POV) | payer MEDICARE, SELFPAY ==
--- OUTSIDE RECORDS SUMMARY | 2025-04-12 09:04 | XMS_ITS | Encounter Summary ---
Author Organization Healthcare Address [address] [place] [address] Care Team Providers Care Improvement Auditor Name Role Phone Pcp, No Primary Care Provider Unavailabl e Encounter Details Date Type Department Care Team (Latest Contact Info) Description 04/12/2025 9:04 AM EDT - 04/12/2025 11:59 PM EDT Hospital Encounter [facility] [address], [address] [place] [address] Status post cervical spinal fusion; [...] place to sleep or slept in a nursing home (including now)? No 03/09/2024 CAGE ASSESSMENT [...] drink first t davin in the 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-MASTERCAM PROGRAMMER) to steady your nerves or to get [...] skin every 8 (eight) hours. HYDROcodone-acetam inophen ([place]) 5-325 MG tablet 11/26/2024 hydrOXYzine pamoate (Vistaril) [...] is limited by overlying structures. Redemonstration of C3-[id number] and C2-T2 posterior spinal fusion hardware without [...] Carmona MD on 512:12 PM Mariposa Mcelroy BEHAVIOR MANAGEMENT SPECIALIST, DNP IMG XR PROCEDURES Brianne l Result [...] documented as of this encounter Care Teams Improvement Auditor Relationship Specialty Start Date End Date Pcp, No [address] [place] [address] PCP - General Family Medicine 03/06/23 documented as of this encounter
--- OUTSIDE RECORDS SUMMARY | 2025-04-12 09:15 | XMS_ITS | Encounter Summary ---
Author Organization [facility] Address [address] [id number] Care Team Providers Care Glue Line Operator Name Role Phone Pcp, No Primary Care [...] laterality Mariposa Mcelroy APRN, DNP [address] [address] Phone: tel: fax: Referral ID Status Reason Start Date Expiration Date Visits Requested Visits Authorized [id number] Authorized Specialty Services Required 04/12/2025 10/12/2026 1 1 Scheduling Instructions Please schedule at [facility] * Imaging (Routine) - Authorized [...] Contrast Mariposa Mcelroy APRN, DNP [address] [address] Phone: tel: fax: Referral ID Status Reason Start Date Expiration Date V isits Requested Visits Authorized [id number] Authorized 04/12/2025 10/12/2026 1 1 Encounter Details Date Type Department Care Team (Late st Contact Info) Description 04/12/2025 9:15 AM EDT [facility] Visit [place] [facility] [address], [address] [place] [address] Abhilash Trimble MD [address] [place] [address] Status post cervical spinal fusion [...] No 03/09/2024 Housing Stability Vital Sign Answer Bne e Recorded In the last 12 months, [...] place to sleep or slept in a [place] facility (including now)? No 03/09/2024 CAGE ASSESSMENT Answer [...] drink first t davin in the 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-DISCHARGING MACHINE OPERATOR) to steady your nerves or to get rid of a hangover? 0 04/23/2024 CAGE Questionnaire Score 0 024 Utilities Answer Date Recorded In the past 12 months has th e [employer], gas, oil, or water company threatened to [...] may recall, we discontinued the patient's postoperative Herron at his three-month postop follow up in July,, was having significant sedative effects from the Herron. Since his most recent appointment, his primary care provider has added Herron back on, and he now is taking [...] (porcine) 5,000 Units, Every 8 hours HYDROcodone-acetaminophen (Herron) 5-325 MG tablet hydrOXYzine pamoate (VISTARIL) 25 [...] 465 PERRL, EOMI Strength: Delt Bi Tri Cabinet Professional Intrinsics RUE: 5/5 5/5 5/5 5/5 5/5 [...] the cervical spine to be obtained at [facility] to assess for hardware failure [...] have referred him to interventional pain at [facility] for trigger point injections of the [...] Parts of this note were dictated using Criptext Direct voice recognition software. As a result, errors may occur. When identified, these stationary engineer apprentice errors are corrected, but while every attempt is made to prevent/correct these, errors may still exist. I reviewed this patient's history, exam, and any imaging with Dr Romo. He guided plan of care forthis patient. Mariposa Mcelroy, PAXTON, FUEL QUALITY TECH [facility] Department of Neurosurgery Diagnoses and all [...] Medical History: Diagnosis Date Below knee amputation ([facility]) 03/08/2024 CKD (chronic kidney disease), stage III ([facility]) 03/08/2024 Diabetes mellitus ([facility]) 03/08/2024 Hypertension 03/08/2024 [2] Past Surgical History: [...] spent for this visit with >50% in [id number] communication with the patient over the diagnosis, [...] is limited by overlying structures. Redemonstration of C3-I9qcypidmpnba and C2-T2 posterior spinal fusion hardware without [...] documented as of this encounter Care Teams Glue Line Operator Relationship Specialty Start Date End Date Pcp, [place] [address] PCP - General Family Medicine 03/06/23 documented as of this encounter
--- OUTSIDE RECORDS SUMMARY | 2025-05-04 09:48 | XMS_ITS | Clinical Summary ---
Author Organization [employer] ([place], [place], [place], [place]) Address [address] [place] [address] Care Team Providers Care Slabber Name Role Phone Caridad Chavez NP Primary Care Provider [phone] Caridad Chavez DENTAL TECHNICIAN APPRENTICE Unavailable [phone] Social History Tobacco Use Types Packs/Day Years [...] Date Prasanth rded Speak language other than South African at home Not on file 10/03/2023 Want [...] Treatment Not on file Insurance ANNA MATT [id number] [place] MEDICARE HMO Care Teams Slabber Relationship Specialty Start Date End Date Caridad Chavez NP [address] [place] [address] PCP - General Nurse Practitioner 07/04/23 Caridad Chavez NP [address] [place] [address] Referring Physician Nurse Practitioner 07/04/23
--- OUTSIDE RECORDS SUMMARY | 2025-05-04 09:48 | XMS_ITS | Clinical Summary ---
Author Organization [facility] Address [address] [place] [address] Care Team Providers Care Entry Level Accountant Name Role Phone Pcp, No Primary Care [...] tablet 1 tablet. 5 Active HYDROcodone-acet aminophen ([place]) 5-325 MG tablet 5 Active lisinopril 20 [...] Department Care Team Description 04/15/2025 [facility] Only [facility] [address], [address] [place] [phone] Mariposa Mcelroy, BARBER INSTRUCTOR, DNP Status post cervical spinal fusion (Primary Dx); Closed fracture of first thoracic vertebra with routine healing, unspecified fracture morphology, subsequent encounter; Muscle spasms of neck; Bilateral occipital neuralgia; Trigger point of neck; Trigger point of shoulder region, unspecified laterality 04/12/2025 9:15 AM EDT Office Visit [facility], [address] [place] [phone] Abhilash Trimble MD Status post cervical spinal fusion (Primary Dx); Closed fracture of first thoracic vertebra with routine healing, unspecified fracture morphology, subsequent encounter; Muscle spasms of neck; Bilateral occipital neuralgia; Trigger point of neck; Trigger point of shoulder region, unspecified laterality 04/12/2025 9:04 AM EDT - 04/12/2025 11:59 PM EDT Hospital Encounter [facility] [address] [place] [address], [address] [place] [phone] Status post cervical spinal fusion; Closed fracture of first thoracic vertebra with routine healing, unspecified fracture morphology, subsequent encounter Discharge Disposition: Home or Self Care 04/12/2025 Travel 04/11/2025 Travel 02/22/[address] [address] Abhilash Trimble MD HCN - Patient Message (Reschedule ) 02/11/2025 Orders Only External Location [address] [place] [phone] Cecily Romero APRN from Last 3 Months [...] place to sleep or slept in a skilled nursing (including now)? No 03/09/2024 CAGE ASSESSMENT Answer [...] drink first t davin in the 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-DENTAL HYGIENE INSTRUCTOR) to steady your nerves or to get [...] Scan 1948 [facility]-Medicare Annual Wellness (AWV) 1948 [facility]-Infant/Child/Adol SDOH Screenings 1948 Diabetes: Dental Exam 1958 [facility]- SDOH Screenings 1966 [facility]-Adult SDOH Screenings 1966 [facility]-Pneumococcal Vaccine: 50+ Years (1 of 2 - PCV) 1967 [facility]-DTaP,Tdap,and Td Vaccines (1 - Tdap) 11/24/1996 11/23/1996 [facility]-RSV Vaccine: 60+ Years or (1 - 1-dose 75+ series) 2023 [facility]-Zoster Vaccines (2 of 3) 09/08/2023 07/14/2023 [id number]-[id number] Vaccine (4 - season) 2024 06/20/2021, 11/29/2020, [...] this topic Medical Devices Implanted Type Area Drama Therapist Device Identifier Shelf Expiration Date Model / Serial / Lot Maxie-07/11/2023 Implanted:Qty: 1 on 07/11/2023 Maxie Back [id number] / / Lead-07/11/2023 Implanted:Qty: 2 on 07/11/2023 Lead Back [id number] / / Wavewriter Alpha-07/11/2023 Implanted: 023 (Quantity not on file) Spinal Cord Stimulator Back Vertical Acuity SC-1416 / / Screw 4.0mm Symphny Polyaxlschraube 3.5mm X 28mm - [id number] Implanted:Qty: 2 on 04/23/2024 by Abhilash Trimble MD at [facility] N/A: Spine Cervical DePuy Spine Sales LP-[id number] 04/23/2025 [id number] / / Screw 4.0 Ply Cfx 4.5x20 - [id number] Implanted:Qty: 1 on 04/23/2024 by Abhilash Trimble MD at [facility] N/A: Spine Cervical DePuy Spine Sales LP-[id number] 04/23/2025 [id number] / / Screw 4.0 Ply Cfx 4.5x24 - [id number] Implanted:Qty: 1 on 04/23/2024 by Abhilash Trimble MD at [facility] N/A: Spine Cervical DePuy Spine Sales LP-[id number] 04/23/2025 [id number] / / Screw 4.0 Ply Cfx 5.0x24 - [id number] Implanted:Qty: 1 on 04/23/2024 by Abhilash Trimble MD at [facility] N/A: Spine Cervical DePuy Spine Sales LP-[id number] 04/23/2025 [id number] / / Screw 4.0 Ply Cfx 5.0x28 - [id number] Implanted:Qty: 1 on 04/23/2024 by Abhilash Trimble MD at [facility] N/A: Spine Cervical DePuy Spine Sales LP-[id number] 04/23/2025 [id number] / / Set Screw - [id number] Implanted:Qty: 14 on 04/23/2024 by Abhilash Trimble MD at [facility] N/A: Spine Cervical DePuy Spine Sales LP-[id number] 04/23/2025 [id number] / / Chip Bone 20cc - [id number] - [id number] Implanted:Qty: 1 on 04/23/2024 by Abhilash Trimble MD at [facility] N/A: Spine Cervical [facility]-[id number] 02/02/2029 PCAN1/4 / [id number] / [id number] Description:This item was no t implanted, can't take off the record due to it coming from [employer] and the case was already closed. Graft Vivigen 1cc - [id number] - [id number] Implanted:Qty: 1 on 04/23/2024 by Abhilash Trimble MD at [facility] N/A: Spine Cervical [facility]-714779 04/09/2025 BL-1500-00 1-4PK / [id number] / [id number] Graft Vivigen 1cc - [id number] - [id number] Implanted:Qty: 1 on 04/23/2024 by Abhilash Trimble MD at [facility] N/A: Spine Cervical [facility]-[id number] 04/09/2025 BL-1500-00 1-4PK / [id number] / [id number] Alexander Ti 4.0x120 Viv - [id number] Implanted:Qty: 2 on 04/23/2024 by Abhilash Trimble MD at [facility] N/A: Spine Cervical DePuy Spine Sales LP-[id number] 06/21/2028 [id number] / / TBAMHX Screw 4.0 Ply 3.5x12 - [id number] Implanted:Qty: 2 on 04/23/2024 by Abhilash Trimble MD at [facility] N/A: Spine Cervical DePuy Spine Sales LP-[id number] 04/23/2025 [id number] / / Screw 4.0 Ply 3.5x14 - [id number] Implanted:Qty: 6 on 04/23/2024 by Abhilash Trimble MD at [facility] N/A: Spine Cervical DePuy Spine Sales LP-[id number] 04/23/2025 [id number] / / Procedures Procedure Name Priority Date/Time [...] is limited by overlying structures. Redemonstration of C3-Q0erhznrpepvc and C2-T2 posterior spinal fusion hardware without [...] on 512:12 PM Mariposa De La Cruzmaliachloe BARBER INSTRUCTOR, DNP IMG XR PROCEDURES Brianne l Result * XR MSK OUTSIDE IMAGES (02/11/2025 9:49 AM EDT) Anatomical Region Laterality Modality Radiographic Lindy ging 02/11/2025 9:49 AM EDT Cecily Romero BARBER INSTRUCTOR IMG XR PROCEDURES Final R esult * Hepatitis C Antibody - ED (08/10/2024 1:39 PM EST) Hepatitis C Antibody Negative Negative 08/10/2024 2:52 PM EST [facility] Blood Venous blood specimen / Unknown Venipuncture / Unknown 08/10/2024 1:39 PM EST 08/10/2024 2:07 PM EST Papito Lamas MD LAB BLOOD ORDERABLES Final Re sult [facility] [address] [place] [address] * (ABNORMAL) Hemoglobin A1c (03/06/2024 10:17 AM EDT) Hemoglobin A1c 6.1(H) <5.7 % 03/06/2024 12:56 PM EDT [facility] Blood Venous blood specimen / [...] Adults <6.0% Children and Adolescents <7.5% Source: [place] Diabetes Association. Standards of medical care in diabetes,2017. Diabetes Care.2017:40 (suppl 1):S1-S135. HbA1c assay performed by an ion-exchange chromatography method that is certified traceable to the DCCT. us Kristy Urias APRN, DNP LAB BLOOD ORDERABLES Fi nal Result [facility] [address] [place] [address] from Last 3 Months or Most Recently Relevant to Health Maintenance Insurance [facility] MEDICARE Advance Directives Documents on File Type Date Recorded Patient Lease Purchase Driver Expl anation Advance Directives and Livin g [...] Patient has decision-making capacity? Yes Care Teams Entry Level Accountant Relationship Specialty Start Date End Date Pcp, No [address] [place] [address] PCP - General Family Medicine 03/06/23
--- OUTSIDE RECORDS SUMMARY | 2025-05-04 09:48 | XMS_ITS | Encounter Summary ---
Author Organization [facility] Address [address] [place] [address] Care Team Providers Care Back Hoe Machine Operator Name Role Phone Pcp, No [...] Contrast Mariposa Mcelroy APRN, DNP [address] [facility] [place] [address] Phone: tel: fax: Referral ID Status Reason Start Date Expiration Date V isits Requested Visits Authorized [id number] Authorized 04/15/2025 10/15/2026 1 1 Encounter Details Date Type Department Care Team (Late st Contact Info) Description 04/15/2025 Orders Only [place] [facility] [address], [address] [place] [address] Mariposa Mcelroy APRN, DNP [address] [facility] [address] [place] [address] Status post cervical spinal fusion [...] drink first t davin in the 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-NANNY/HOUSEHOLD MANAGER) to steady your nerves or to get [...] documented as of this encounter Care Teams Back Hoe Machine Operator Relationship Specialty Start Date End Date Pcp, Nissa [address] [place] [address] PCP - General Family Medicine 03/06/23 documented as of this encounter
--- OUTSIDE RECORDS SUMMARY | 2025-05-04 09:48 | XMS_ITS | Referral Summary ---
Author Organization [employer] ([place], [place], [place], [place]) Address [address] [place] [address] Care Team Providers Care Ceo And Founder Name Role Phone Caridad Chavez NP Primary Care Provider [phone] Caridad Chavez ASSEMBLER HANDBAGS Unavailable [phone] Social History Tobacco Use Types Packs/Day Years [...] Date Prasanth rded Speak language other than [place] at home Not on file 10/03/2023 Want [...] Treatment Not on file Insurance ANNA MATT [id number] [facility] MEDICARE HMO Care Teams Ceo And Founder Relationship Specialty Start Date End Date Caridad Chavez NP [address] [place] [address] PCP - General Nurse Practitioner 07/04/23 Caridad Chavez NP [address] [place] [address] Referring Physician Nurse Practitioner 07/04/23
--- OUTSIDE RECORDS SUMMARY | 2025-05-04 09:48 | XMS_ITS | Encounter Summary ---
Author Organization Healthcare Address [address] [place] [address] Care Team Providers Care Java Websphere Developer Name Role Phone Pcp, No Primary Care [...] place to sleep or slept in a fdc (including now)? No 03/09/2024 CAGE ASSESSMENT Answer [...] drink first t davin in the 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-COTTON CLASSER AIDE) to steady your nerves or to get [...] documented as of this encounter Care Teams Java Websphere Developer Relationship Specialty Start Date End Date Pcp, No [address] [place] [address] PCP - General Family Medicine 03/06/23 documented as of this encounter
--- OUTSIDE RECORDS SUMMARY | 2025-05-04 09:48 | XMS_ITS | Encounter Summary ---
Author Organization Healthcare Address [address] [place] [address] Care Team Providers Care Lockstitch Hemmer Name Role Phone Pcp, No Primary Care [...] drink first t davin in the 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-ENGINEERING FACULTY) to steady your nerves or to get [...] documented as of this encounter Care Teams Lockstitch Hemmer Relationship Specialty Start Date End Date Pcp, No [address] [place] [address] PCP - General Family Medicine 03/06/23 documented as of this encounter
--- OUTSIDE RECORDS SUMMARY | 2025-05-04 09:48 | XMS_ITS | Encounter Summary ---
Author Organization Healthcare Address [address] [place] [address] Care Team Providers Care Production Support Analyst Name Role Phone Pcp, No Primary Care Provider Unavailabl e Reason for Visit * Reason Onset Date Comments HCN - Patient Message 02/22/2025 Reschedule Encounter Details Date Type Department Care Team (Late st Contact Info) Description 02/22/2025 Telephone [place] [facility] [address], [address] [place] [address] Abhilash Trimble MD [address] [place] [address] HCN - Patient Message (Reschedule [...] place to sleep or slept in a fpc (including now)? No 03/09/2024 CAGE ASSESSMENT Answer [...] drink first t davin in the 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-STOCK PARTS INSPECTOR) to steady your nerves or to get [...] optimal time of day to reach caller: [phone] anytime Note: Please do not reply to this message. Follow-up communication and further actions as a result of this message need to be communicated with the patient directly, if the patient is not active onMyChart. If the patient is active on MyChart, they will receive notification of the communication/outcome via [email or web address]. * Telephone Encounter - Luanne Bergeron - [...] about two weeks ago pt went to [facility] after a fall and imaging was taken but unsure of what. Contacted [facility] and requesteda [employer] and the only imaging available to share [...] please call to advise. Was seen at [facility] for pain unsure of imaging Best contact number and optimal time of day to reach caller: [phone] Note: Please do not reply to this message. Follow-up communication and further actions as a result of this message need to be communicated with the patient directly, if the patient is not active onMyChart. If the patient is active on MyChart, they will receive notification of the communication/outcome via [employer]. documented in this encounter Plan of Treatment [...] documented as of this encounter Care Teams Production Support Analyst Relationship Specialty Start Date End Date Pcp, [place] [address] PCP - General Family Medicine 03/06/23 documented as of this encounter
[2025-05-04 09:56] VITALS: BP 86/52; BP 89/41; PULSE 74; RESP 14; O2SAT 93; BMI 27.6
--- NOTE | 2025-05-04 10:23 | EXP.PAIN.SOA ---
[facility] Disclaimer: The information contained in this section may have been updated after the patient was seen, as this information can be updated by other users. Medical History CVA (cerebrovascular accident) patient reports stroke in Amputation of right lower extremity below knee upon examination GERD (gastroesophageal reflux disease) Hyperlipidemia Hypertension Chronic kidney disease Callus of foot Diabetes mellitus Surgical History History of YAG laser capsulotomy of lens History of cholecystectomy History of right below knee amputation History of cataract surgery Family History Other No significant family history Social History Smoking Status: Never smoker alcohol intake: never substance use type: denies use current occupational status: other Travel in the last 8 weeks?: None household members: none housing: house current occupational exposures/hazards: No caffeine: Yes PM Subjective & Objective Subjective Subjective:: Patient is a pleasant 74-year-old male who presents today for worsening neck pain. He rates his pain today as 7 out of 10. He denies any new falls or injuries. Patient does state that he does have increased pain and pressure at the back of his head but also has numbness and tingling that does radiate into both arms. He states that his hands side constantly numb. He does state that it is interfering with his ability to perform activities of daily living such as cooking and cleaning. Patient is interested in any help we may be able to provide as the pain is very bothersome. Patient has continued conservative therapy with no additional improvement. Patient does have a spinal cord stimulator in place however feels like he is just not really doing much of improvement. His All has been reviewed and is appropriate. Review of Systems: General: No recent weight changes, no fever, no sleep disturbances Respiratory: No cough, no shortness of air, no recurring pulmonary infections Cardiovascular/peripheral vascular: No chest pain, no palpitations, no edema, no shortness of breath Gastrointestinal: No new onset incontinence, normal bowel movements reported Genitourinary: No new onset incontinence Musculoskeletal: Neck pain, bilateral arm numbness tingling, head pressure Psychiatric: [Normal mood/affect] Neurological: [Denies weakness in extremities], [denies balance issues] Pain at rest (0-10 scale): 7 Objective Objective:: Physical Exam: General: Alert and oriented x3, no acute distress, pleasant and cooperative Lungs: Respirations even and unlabored, symmetrical chest expansion Eyes: PERRL Musculoskeletal: Flexion and extension of cervical [spine] somewhat guarded secondary to pain, [antalgic gait noted] positive Spurling's test Neurological: Speech clear, no gross sensory deficit FINDINGS: There is long segment cervical fusion bridging C2-T2. Posterior osteophyte formation is seen in the midline at C3-4 and C4-5. There is diffuse endplate hypertrophy at C5-6 and C6-7. Long segment posteriorly laminectomy extends from the C2-3 to C6-7 levels. No foraminal narrowing is most evident on the left at C5-6. IMPRESSION: Long segment fusion bridging C2-T2 with long segment posterior laminectomy. Reviewed, Interpreted and Dictated by Chucho Galaviz MD Transcribed by Ana Rosa Jarrett Authenticated and [facility] Has patient had previous pain injection?: No Conservative treatment options previously tried: Home exercise plan Length of treatment: Longer than 12 weeks Meds Home Medications and Allergies Home Medications ?Medication ?Instructions ?Recorded ?Confirmed ?Type buspirone 15 mg tablet 15 mg PO BID 10/02/20 05/04/25 History zolpidem 5 mg tablet 5 mg PO HS 10/02/20 05/04/25 History aspirin 81 mg tablet,delayed 81 mg PO DAILY 04/17/21 05/04/25 History release glipizide 5 mg tablet, extended 5 mg PO DAILY Diabetes 04/17/21 05/04/25 History release 24 hr lisinopril 20 mg tablet 20 mg PO DAILY 04/17/21 05/04/25 History omeprazole 20 mg capsule,delayed 20 mg PO DAILY GERD 04/17/21 05/04/25 History release pioglitazone 30 mg tablet 30 mg PO DAILY 04/17/21 05/04/25 History sertraline 100 mg tablet 200 mg PO DAILY 04/17/21 05/04/25 History ropinirole 3 mg tablet 3 mg PO HS 10/02/22 05/04/25 History tamsulosin 0.4 mg capsule 0.4 mg PO HS 10/02/22 05/04/25 History metformin 500 mg tablet 1,000 mg PO BID Diabetes 10/16/22 05/04/25 History naproxen 500 mg tablet 500 mg PO BID 03/04/24 05/04/25 History bupropion HCl 150 mg tablet,12 hr 1,510 mg PO BID 03/05/24 05/04/25 History sustained-release ezetimibe 10 mg tablet 10 mg PO DAILY 03/05/24 05/04/25 History tizanidine 4 mg tablet (Zanaflex) 8 mg PO HS 03/05/24 05/04/25 History pregabalin 50 mg capsule 50 mg PO HS #30 caps 08/09/24 05/04/25 Rx New Prescriptions to Start Prescriptions: Allergies Allergy/AdvReac Type Severity Reaction Status Date / Time No Known Allergies Allergy Verified 12/20/24 11:16 Assessment and Plan *Assessment and plan (1) Cervicalgia: Status: Acute Category: Medical Code(s): M54.2 - Cervicalgia (2) Degenerative disc disease, cervical: Status: Acute Category: Medical Code(s): M50.30 - Other cervical disc degeneration, unspecified cervical region (3) Cervical radiculopathy: Status: Acute Category: Medical Code(s): M54.12 - Radiculopathy, cervical region Plan Patient is experiencing worsening pain in their neck with radiating tingling and burning sensations into their bilateral upper extremities. Patient did have limited range of motion of his cervical spine with a positive Spurling's test. I did discuss with the patient that I do believe they would benefit from a cervical epidural steroid injection. Risk and benefits were discussed with patient and they would like to proceed forward with this plan of care. Patient has tried and failed conservative therapy including oral medications, heat and ice, topicals, physical therapy and continued at home stretching exercise for longer than 12 weeks that was physician guided. Patient denies any prior cervical epidurals in the past to compare to. Patient has had chronic neck pain for longer than 6 months. Patient does have a history of failed neck surgery. Patient will be scheduled for a IRLANDA C6-C7 under fluoroscopy. Patient denies any blood thinners. Patient did have decreased blood pressure during today's visit. We did discuss with him to monitor this and to make sure to make slow movements when he is going from seated or laying down positions to getting up to minimize risk of falls. He does state that he frequently has dizziness when he goes to stand up. I did review with him that it may be that his blood pressure medication needs to be adjusted. He states that he does have a follow-up appointment coming up later this week with Cecily. I have discussed with him to make sure to review with her about today's visit. We will continue to monitor this. Patient has been instructed to contact the clinic with any concerns before the next appointment. Dr. Lockhart has reviewed this note and agrees with this plan of care. This note was dictated using voice recognition software and make contain errors or omissions. All injections are used with Lidocaine, Bupivacaine and dexamethasone unless otherwise stated as a diagnostic in which it has no steroid. Occasionally urine drug screen is needed to verify patient's compliance with our office pain contract. This is ordered based off specific treatments related to chronic pain with the potential to abuse certain medications.
== END 2025-05-04 23:59 | disposition home or self-care (01) ==
LOC: SC.PAIN 09:46
PROVIDERS: PCP Nurse Practitioner; Visit Provider Nurse Practitioner Family
DX: M50.123 Cervical disc disorder at C6-C7 level with radiculopathy (principal)
CPT/HCPCS: 99212; G0463

== ENCOUNTER 2025-05-09 08:45 | Outpatient (CLI) | payer MEDICARE, SELFPAY ==
--- OUTSIDE RECORDS SUMMARY | 2025-04-12 09:04 | XMS_ITS | Encounter Summary ---
Author Organization Healthcare Address [address] [place] [address] Care Team Providers Care Medical Office Manager Name Role Phone Pcp, No Primary Care Provider Unavailabl e Encounter Details Date Type Department Care Team (Latest Contact Info) Description 04/12/2025 9:04 AM EDT - 04/12/2025 11:59 PM EDT [facility] Encounter [facility] [address], [address] [place] [address] Status post cervical spinal fusion; Closed fracture of first thoracic vertebra with routine healing, unspecified fracture morphology, subsequent encounter Discharge Disposition: Home or Self Care Social History Tobacco Use Types Packs/Day Years [...] drink first t davin in the 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-BRAKE RELINER) to steady your nerves or to get [...] on file documented as of this encounter Medications at Time of Discharge acetaminophen (Tylenol) 325 MG tablet Take 2 tablets (650 mg) by mouth every 6 (six) hours if needed. amLODIPine (Norvasc) 5 MG tablet Take 1 tablet (5 mg) by mouth 1 (one) time each day. 03/15/2024 amoxicillin-clavul anate (Augmentin) 875-125 MG tablet 10/08/2024 Blood Glucose Monitoring Suppl (True Metrix Air Glucose Meter) w/Device kit 11/26/2024 buPROPion SR (Wellbutrin SR) 150 MG 12 hr tablet Take 1 tablet (150 mg) by mouth 2 (two) times a day. Do not crush, chew, or split. busPIRone (Buspar) 15 MG tablet 05/21/2024 calcium carbonate (Tums) 500 MG chewable tablet Chew 1 tablet. 05/05/2024 celecoxib (CeleBREX) 50 MG capsule 1 capsule. 04/04/2025 cyclobenzaprine (Flexeril) 5 MG tablet Take 1 tablet by mouth. 04/30/2024 donepezil (Aricept) 5 MG tablet 1 tablet. 04/04/2025 ezetimibe (Zetia) 10 MG tabletIndications: Hyperlipidemia Take 1 tablet (10 mg) by mouth 1 (one) time each day. famotidine (Pepcid) 20 MG tablet Take 1 tablet (20 mg) by mouth 2 (two) times a day. famotidine (Pepcid) 40 MG tablet 1 tablet. 02/02/2025 fluticasone (Flonase) 50 MCG/ACT nasal spray 06/15/2024 furosemide (Lasix) 20 MG tablet 07/23/2024 glipiZIDE (Glucotrol) 5 MG tablet Take 1.5 tablets (7.5 mg) by mouth 2 (two) times a day before meals. Heparin Sodium, Porcine, (heparin, porcine,) 5000 UNIT/ML injectionIndicatio ns:DVT preventative Inject 1 mL (5,000 Units) under the skin every 8 (eight) hours. HYDROcodone-acetam inophen ([place]) 5-325 MG tablet 11/26/2024 hydrOXYzine pamoate (Vistaril) 25 MG capsule Take 1 capsule (25 mg) by mouth every 6 (six) hours if needed for anxiety. 03/14/2024 levocetirizine (Xyzal) 5 MG tablet 05/28/2024 Lidocaine 4 % patch Apply 1 patch topically 1 (one) time each day in the morning. lisinopril 20 MG tablet 1 tablet. 02/04/2025 lovastatin (Mevacor) 40 MG tablet 1 tablet. 03/15/2025 magnesium hydroxide (Milk of Magnesia) 400 MG/5ML suspension Take 30 mL by mouth every 12 (twelve) hours if needed. melatonin 3 MG tablet Take 2 tablets (6 mg) by mouth at night if needed for sleep. 04/28/2024 methocarbamol (Robaxin) 750 MG tablet Take 1 tablet (750 mg) by mouth 3 (three) times a day. 04/28/2024 naloxone (Narcan) 4 mg/0.1 mL nasal spray 1. Give 1 spray in nostril for no/slow breathing or cannot wake after opioid use 2. Call 911 3. Repeat in other nostril if symptoms continue 04/28/2024 naproxen (Naprosyn) 500 MG tablet 1 tablet. 04/04/2025 nitroglycerin (Michel-Bid) 2 % ointment Place 0.5 inches on the skin every 2 (two) hours if needed for chest pain. omeprazole (PriLOSEC) [address] capsule 05/28/2024 omeprazole (PriLOSEC) [address] capsule 1 capsule. 01/06/2025 oxyCODONE (Roxicodone) 10 MG immediate release tablet Take 0.5-1 tablets (5-10 mg) by mouth every 4 (four) hours if needed for severe pain. 04/28/2024 pioglitazone (Actos) 30 MG tablet 06/14/2024 polyethylene glycol (Miralax) 17 g packet Take 17 g by mouth 2 (two) times a day. 03/14/2024 rOPINIRole (Requip) 2 MG tablet 1 tablet. 09/06/2024 rOPINIRole (Requip) 5 MG tablet 05/28/2024 senna (Senokot) 8.6 MG tablet Take 2 tablets (17.2 mg) by mouth 2 (two) times a day. sertraline (Zoloft) 100 MG tabletIndications: Major Depressive Disorder Take 1 tablet (100 mg) by mouth 1 (one) time each day. tamsulosin (Flomax) 0.4 MG 24 hr capsule Take 1 capsule (0.4 mg) by mouth every night. tiZANidine (Zanaflex) 4 MG tablet 05/28/2024 traMADol (Ultram) 50 MG tablet 1 tablet. 01/28/2025 TRUEplus Lancets 33G misc 06/14/2024 zolpidem (Ambien) 5 MG tablet 04/12/2025 documented as of this encounter Plan of Treatment Not on file documented as of this encounter Procedures Procedure Name Priority Date/Time Associated Diagnosis Comments XR CERVICAL SPINE COMPLETE 4 TO 5 VIEWS Routine 04/12/2025 9:19 AM EDT Status post cervical spinal fusion Closed fracture of first thoracic vertebra with routine healing, unspecified fracture morphology, subsequent encounter documented in this encounter Results * XR Cervical Spine Complete 4 To 5 Views (04/12/2025 9:19 AM EDT) Anatomical Region Laterality Modality Spine, C-spine Digital Radiogra phy Impressions 04/12/2025 12:12 PM EDT No significant interval change. Please refer to the prior CT for hardware complications. CRITICAL RESULT: No. COMMUNICATION: Per this written report. By electronically signing this report, I, the attending physician, attest that I have personally reviewed the images/data for the above examination(s) and agree with the final edited report. Drafted by Philip Fernando MD on 04/12/2025 9:30 AM Final report signed by Kota Carmona MD on 04/12/2025 12:12 PM Narrative 04/12/2025 12:12 PM EDT CLINICAL INDICATION: assess hardware TECHNIQUE: XR CERVICAL SPINE COMPLETE 4 TO 5 VIEWS COMPARISON: CT cervical spine 08/10/2024 FINDINGS: Visualization of the cervicothoracic transition and upper thoracic vertebra is limited by overlying structures. Redemonstration of C3-C7 laminectomy and C2-T2 posterior spinal fusion hardware without significant interval change in position. Previously demonstrated T1 pars and lamina fracture are not well demonstrated on this exam. Metallic hardware in the mandible could represent prior surgical intervention. Unchanged multilevel degenerative changes. Procedure Note Aure Carmona, Kota Wiley MD - 04/12/2025 CLINICAL INDICATION: assess hardware TECHNIQUE: XR CERVICAL SPINE COMPLETE 4 TO 5 VIEWS COMPARISON: CT cervical spine 08/10/2024 FINDINGS: Visualization of the cervicothoracic transition and upper thoracicvertebra is limited by overlying structures. Redemonstration of C3-W3eanuswnsacm and C2-T2 posterior spinal fusion hardware without significantinterval change in position. Previously demonstrated T1 pars and laminafracture are not well demonstrated on this exam. Metallic hardware in themandible could represent prior surgical intervention. Unchanged multileveldegenerative changes. IMPRESSION: No significant interval change. Please refer to the prior CT for hardwarecomplications. CRITICAL RESULT: No. COMMUNICATION: Per this written report. By electronically signing this report, I, the attending physician, attsergiothat I have personally reviewed the images/data for the aboveexamination(s) and agree with the final edited report. Drafted by Philip Fernando MD on 04/12/2025 9:30 AM Final report signed by Kota Carmona MD on 512:12 PM Mariposa Mcelroy BATTERY TESTER FIELD, DNP IMG XR PROCEDURES Brianne l Result documented in this encounter Visit Diagnoses Diagnosis Status post cervical spinal fusion Arthrodesis status Closed fracture of first thoracic vertebra with routine healing, unspecified fracture morphology, subsequent encounter documented in this encounter Additional Health Concerns Assessment Noted Time A fall risk assessment has been complete d for the patient 04/12/2025 9:57 AM EDT A Body Mass Index follow-up plan has been documented for the patient 04/14/2025 1:47 PM EDT documented as of this encounter Care Teams Medical Office Manager Relationship Specialty Start Date End Date Pcp, No [address] [place] [address] PCP - General Family Medicine 03/06/23 documented as of this encounter
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
--- OUTSIDE RECORDS SUMMARY | 2025-05-09 08:47 | XMS_ITS ---
Author Organization [place] Care Team Providers Care Dogger Name Role Phone Joya Cage Unavailable Unavailable Marilou Diallo Unavailable Unavailable Jared Hatch Unavailable Unavailable Viri Caceres Unavailable Unavailable Allergies and adverse reactions No Known Allergies Care Team Name Role Address Phone Organization Dates Jared Hatch PCP [address] , [place], [address], [facility] (Office): : : Ghulam 04/28/2024 - 05/07/2024 Joya Cage [facility] (Office): Ghulam 04/28/2024 - 05/07/2024 Marilou Diallo [facility] (Office): Ghulam 04/28/2024 - 05/07/2024 Viri Caceres [facility] (Office): Ghulam 04/28/2024 - 05/07/2024 Immunizations Immunization Status Vaccine Details Vaccine Code CodeSystem Ben e Notes TB 2 Step Mantoux Skin Test completed tuberculin skin test; unspecified formulation lotNumber: [id number] expiry: 12/14/2024 Mfg: Sanofi pasteur Given 0.1 ml Right Forearm intradermally Step 2 of Multi-step with next step required 98 CVX created date: 04/22/2024 consent date: 04/22/2024 administere d date: 04/06/2024 TB 2 Step Mantoux Skin Test completed tuberculin skin test; unspecified formulation lotNumber: [id number] expiry: 11/20/2024 Mfg: Sanofi pasteur Given 0.1 ml Right Forearm intradermally Step 1 of Multi-step with next step required 98 CVX created date: 03/30/2024 consent date: 03/30/2024 administere d date: 03/30/2024 Mental Status Section Date Assessment Total Score Description 05/07/2024 BIMS 15 cognitively int act CAM 0 No delirium ind icated PHQ-9 11 moderate depres monica 04/30/2024 BIMS 15 cognitively int act CAM 0 No delirium ind icated PHQ-9 11 moderate depres monica Problems Problem # Description Date of onset Resolved Date Code CodeSystem Concern Status 1 DISEASE OF SPINAL CORD, UNSPECIFIED [address] active 2 FUSION OF SPINE, CERVICOTHORACIC REGION [address] active 3 MODERATE PROTEIN-CALORIE MALNUTRITION [address] active 4 MUSCLE WEAKNESS (GENERALIZED) [address] active 5 NEED FOR ASSISTANCE WITH PERSONAL CARE [address] active 6 ACQUIRED ABSENCE OF RIGHT LEG BELOW KNEE [address] active 7 ANXIETY DISORDER, UNSPECIFIED [address] active 8 BENIGN PROSTATIC HYPERPLASIA WITHOUT LOWER URINARY TRACT SYMPTOMS [address] active 9 [address]ICALGIA [address] active 10 CHRONIC KIDNEY DISEASE, STAGE [address] U[address]PECIFIED [address] active 11 COGNITIVE COMMUNICATION DEFICIT [address] active 12 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 [address] active 13 DEFECTS IN THE COMPLEMENT SYSTEM [address] active 14 DEPRESSION, UNSPECIFIED [address] active 15 DYSARTHRIA FOLLOWING OTHER CEREBROVASCULAR DISEASE [address] active 16 ELEVATION OF LEVELS OF LIVER TRANSAMINASE LEVELS [address] active 17 ESSENTIAL (PRIMARY) HYPERTENSION [address] active 18 FREQUENCY OF MICTURITION [address] active 19 MILD COGNITIVE IMPAIRMENT OF UNCERTAIN OR UNKNOWN ETIOLOGY [address] active 20 OTHER CEREBROVASCULAR DISEASE [address] active 21 OTHER CHRONIC PAIN [address] active 22 OTHER CORD COMPRESSION [address] active 23 OTHER SPECIFIED DISEASES OF SPINAL CORD [address] active 24 OTHER SPECIFIED DISORDERS INVOLVING THE IMMUNE MECHANISM, NOT ELSEWHERE CLASSIFIED [address] active 25 OTHER SYMPTOMS AND SIGNS INVOLVING GENERAL SENSATIONS AND PERCEPTIONS [address] active 26 PARESTHESIA OF SKIN [address] active 27 PRESENCE OF CORONARY ANGIOPLASTY IMPLANT AND GRAFT [address] active 28 REPEATED FALLS [address] active 29 RESPIRATORY DISORDERS IN DISEASES CLASSIFIED ELSEWHERE [address] active 30 SPINAL STENOSIS, CERVICAL REGION [address] active 31 TYPE 2 DIABETES MELLITUS WITHOUT COMPLICATIONS [address] active 32 UNSPECIFIED HEARING LOSS, UNSPECIFIED EAR [address] active 33 UNSTEADINESS ON FEET [address] active 34 URGENCY OF URINATION [address] active 35 URINARY TRACT INFECTION, SITE NOT SPECIFIED 024 04/27/[address] completed Reason for Referral No Reasons for Referral Entered Social History Social History Observation Description Start Date End Date Code Code System Current Smoking Status Tobacco smoking consumption unknown 976334436 SNOMED CT Sex Assigned At Male 1950 77375-9 [facility] Gender Identity Vital Signs Code Code System Vitals Name Values and Units Timing Information 51025-4 [facility] Pain Level Value=1.0 05/07/2024 2339-0 [facility] Blood Sugar Psynd=126.0 Units=mg/dL 05/07/2024 8310-5 [facility] Body Temperature Value=97.9 Units= F 05/07/2024 8462-4 [facility] Blood Pressure-Diastolic Value=77 Un its=mmHg 05/07/2024 8480-6 [facility] Blood Pressure-Systolic Gfjqk=799 Un its=mmHg 05/07/2024 04057-9 [facility] Weight Jvihq=887.4 Units=Lbs 8867-4 [facility] Heart rate Value=81.0 Units=/min 9279-1 [facility] Respiratory Rate Value=18.0 Units=/m in 05/04/2024 84891-0 [facility] O2 % BldC Oximetry Value=98.0 Units= % 05/04/2024 8302-2 [facility] Height Value=68.0 Units=Inches 03/29/2024
--- OUTSIDE RECORDS SUMMARY | 2025-05-09 08:47 | XMS_ITS | Encounter Summary ---
Author Organization Healthcare Address [address] [place] [address] Care Team Providers Care Frontend Engineer Name Role Phone Pcp, No Primary Care [...] place to sleep or slept in a half-way (including now)? No 03/09/2024 CAGE ASSESSMENT Answer [...] drink first t davin in the 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-PROVIDER NETWORK MGR) to steady your nerves or to get [...] documented as of this encounter Care Teams Frontend Engineer Relationship Specialty Start Date End Date Pcp, No [address] [place] [address] PCP - General Family Medicine 03/06/23 documented as of this encounter
--- OUTSIDE RECORDS SUMMARY | 2025-05-09 08:47 | XMS_ITS | Clinical Summary ---
Author Organization [facility] ([place], [place], [place], [place]) Address [address] [place] [address] Care Team Providers Care Forestry Farm Laborer Name Role Phone Caridad Chavez NP Primary Care Provider [phone] Caridad Chavez ETL TESTER Unavailable [phone] Social History Tobacco Use Types Packs/Day Years [...] Date Prasanth rded Speak language other than Northern Irish at home Not on file 10/03/2023 Want [...] Treatment Not on file Insurance ANNA MATT [id number] MEDICARE HMO Care Teams Forestry Farm Laborer Relationship Specialty Start Date End Date Caridad Chavez NP [address] [place] [address] PCP - General Nurse Practitioner 07/04/23 Caridad Chavez NP [address] [place] [address] Referring Physician Nurse Practitioner 07/04/23
--- OUTSIDE RECORDS SUMMARY | 2025-05-09 08:47 | XMS_ITS | Encounter Summary ---
Author Organization Healthcare Address [address] [place] [address] Care Team Providers Care Exhibits Curator Name Role Phone Pcp, No Primary Care Provider Unavailabl e Reason for Visit * Reason Onset Date Comments HCN - Patient Message 02/22/2025 Reschedule Encounter Details Date Type Department Care Team (Late st Contact Info) Description 02/22/2025 Telephone [place] [facility] [address], [address] [place] [address] Abhilash Trimble MD [address] [place] [address] HCN - Patient Message (Reschedule [...] drink first t davin in the 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-METHODOLOGIST) to steady your nerves or to get [...] optimal time of day to reach caller: [phone] anytime Note: Please do not reply to this message. Follow-up communication and further actions as a result of this message need to be communicated with the patient directly, if the patient is not active onMyChart. If the patient is active on MyChart, they will receive notification of the communication/outcome via [employer]. * Telephone Encounter - Luanne Bergeron - [...] about two weeks ago pt [facility] and imaging was taken but unsure of what. Contacted [facility] and requesteda Getbazzahare and the only imaging available to share [...] please call to advise. Was seen at [facility] for pain unsure of imaging Best contact number and optimal time of day to reach caller: [phone] Note: Please do not reply to this message. Follow-up communication and further actions as a result of this message need to be communicated with the patient directly, if the patient is not active onMyChart. If the patient is active on MyChart, they will receive notification of the communication/outcome via [employer]. documented in this encounter Plan of Treatment [...] documented as of this encounter Care Teams Exhibits Curator Relationship Specialty Start Date End Date Pcp, [place] [address] PCP - General Family Medicine 03/06/23 documented as of this encounter
--- OUTSIDE RECORDS SUMMARY | 2025-05-09 08:47 | XMS_ITS | Encounter Summary ---
Author Organization [facility] Address [address] [place] [address] Care Team Providers Care Corral Boss Name Role Phone Pcp, No Primary Care [...] Contrast Mariposa Mcelroy APRN, DNP [address] [facility] [place] [address] Phone: tel: fax: Referral ID Status Reason Start Date Expiration Date V isits Requested Visits Authorized [id number] Authorized 04/15/2025 10/15/2026 1 1 Encounter Details Date Type Department Care Team (Late st Contact Info) Description 04/15/2025 Orders Only [place] [facility] [address] [place] [address] Mariposa Mcelroy APRN, DNP [address] [facility] [address] [place] [address] Status post cervical spinal fusion [...] place to sleep or slept in a mcc (including now)? No 03/09/2024 CAGE ASSESSMENT Answer [...] drink first t davin in the 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-APPLICATION DESIGNER) to steady your nerves or to get [...] documented as of this encounter Care Teams Corral Boss Relationship Specialty Start Date End Date Pcp, Nissa [address] [place] [address] PCP - General Family Medicine 03/06/23 documented as of this encounter
--- OUTSIDE RECORDS SUMMARY | 2025-05-09 08:47 | XMS_ITS | Referral Summary ---
Author Organization [employer] ([place], [place], [place], [place]) Address [address] [place] [address] Care Team Providers Care Business Proposal Rep Name Role Phone Caridad Chavez NP Primary Care Provider [phone] Caridad Chavez DIRECTOR OF FINANCIAL PLANNING Unavailable [phone] Social History Tobacco Use Types Packs/Day Years [...] Date Prasanth rded Speak language other than Thai at home Not on file 10/03/2023 Want [...] Treatment Not on file Insurance ANNA MATT [id number] [facility] MEDICARE HMO Care Teams Business Proposal Rep Relationship Specialty Start Date End Date Caridad Chavez NP [address] [place] [address] PCP - General Nurse Practitioner 07/04/23 Caridad Chavez NP [address] [place] [address] Referring Physician Nurse Practitioner 07/04/23
--- OUTSIDE RECORDS SUMMARY | 2025-05-09 08:47 | XMS_ITS | Encounter Summary ---
Author Organization Healthcare Address [address] [place] [address] Care Team Providers Care Chucking Machine Set Up Operator Tool Name Role Phone Pcp, No Primary Care [...] place to sleep or slept in a usp (including now)? No 03/09/2024 CAGE ASSESSMENT Answer [...] drink first t davin in the 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-AS400 PROGRAMMER ANALYST) to steady your nerves or to [...] documented as of this encounter Care Teams Chucking Machine Set Up Operator Tool Relationship Specialty Start Date End Date Pcp, No [address] [place] [address] PCP - General Family Medicine 03/06/23 documented as of this encounter
--- OUTSIDE RECORDS SUMMARY | 2025-05-09 08:47 | XMS_ITS | Encounter Summary ---
Author Organization [facility] Address [address] [place] [address] Care Team Providers Care Water Vessel Captain Name Role Phone Pcp, No Primary Care Provider Unavailabl e Reason for Referral * Imaging (Routine) - Pending Review Specialty Diagnoses / Procedures Referred By Contlarry t Referred To Contact Radiology Diagnoses Cervical myelopathy (CMS/HCC) Status post cervical spinal fusion Procedures MR Cervical Spine wo IV Contrast Mariposa Mcelroy APRN, DNP [address] [address] Phone: tel: fax: Referral ID Status Reason Start Date Expiration Date V isits Requested Visits Authorized [id number] Pending Review 05/09/2025 11/08/2026 1 1 Reason for Visit * Reason Onset Date Comments HCN - Patient Message 05/06/2025 Return mata l Encounter Details Date Type Department Care Team (Late st Contact Info) Description 05/06/2025 Telephone [place] [facility] [address] [place] [address] Abhilash Trimble MD [address] [address] HCN - Patient Message (Return call) Social History Tobacco Use Types Packs/Day Years [...] drink first t davin in the 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-EDITING COMPUTER PUBLISHER) to steady your nerves or to get rid of a hangover? 0 04/23/2024 CAGE Questionnaire Score 0 024 Utilities Answer Date Recorded In the past 12 months has th [employer], [employer], oil, or water [employer] threatened to shut off services in your home? No 03/09/2024 Sex and Gender Information Value Date Recorded Sex Assigned at Not on file Legal Sex Male 8:50 PM EDT Gender Identity Not on file Sexual Orientation Not on file documented as of this encounter Miscellaneous Notes * Telephone Encounter - Luanne Warren APRN, DNP - 05/09/2025 7:54 AM EDT Device information received from Device site as he had a MRI previously post SCS implant. New order placed. * Telephone Encounter - Luanne Warren APRN, DNP - 05/06/2025 4:38 PM EDT Daughter does not have SCS information. Will reach out to [facility]. * Telephone Encounter - Luanne Warren APRN, DNP - 05/06/2025 4:18 PM EDT Spoke with patient. He stated [facility] was not able to complete his MRI as he has a SCS (was not initially indicated on order). He is unsure of the device information, stating it was put in about a year ago at [facility]. Will work to get device information, place updated order to be done at and then will be scheduled. Pt asked for daughter to be contacted as well. Left VM with daughter with information, has my chart and can send device information there if available. * Telephone Encounter - Ronnie Reeder - 05/06/2025 1:00 PM EDT Patient Phone Message Reason for Call: Patient requesting a call back to discuss getting his MRI scheduled. He would also like to discuss results from CT done 04/12 Best contact number and optimal time of day to reach caller: Please call [phone] Note: Please do not reply to this message. Follow-up communication and further actions as a result of this message need to be communicated with the patient directly, if the patient is not active onMyChart. If the patient is active on MyChart, they will receive notification of the communication/outcome via [employer]. documented in this encounter Plan of Treatment Scheduled Orders Name Type Priority Associated Diagnoses Orde r Schedule MR Cervical Spine wo IV Contrast Imaging Routine Cervical myelopathy (CMS/HCC) Status post cervical spinal fusion Expected: 05/09/2025 (Approximate), Expires: 11/10/2026 documented as of this encounter Visit Diagnoses Diagnosis Cervical myelopathy (CMS/HCC)- Primary Cervical spondylosis with myelopathy Status post cervical spinal fusion Arthrodesis status documented in this encounter Additional Health Concerns Assessment Noted Time A fall risk assessment has been complete d for the patient 04/12/2025 9:57 AM EDT A Body Mass Index follow-up plan has been documented for the patient 04/14/2025 1:47 PM EDT documented as of this encounter Care Teams Water Vessel Captain Relationship Specialty Start Date End Date Pcp, [place] [address] PCP - General Family Medicine 03/06/23 documented as of this encounter
--- OUTSIDE RECORDS SUMMARY | 2025-05-09 08:48 | XMS_ITS | Clinical Summary ---
Author Organization [facility] Address [address] [place] [address] Care Team Providers Care Founder And Ceo Name Role Phone Pcp, No Primary Care [...] tablet 1 tablet. 5 Active HYDROcodone-acet aminophen ([place]) 5-325 MG tablet 5 Active lisinopril 20 [...] Encounters Date Type Department Care Team Description 05/06/2025 Telephone [place] [facility] [address], [address] [place] [phone] Abhilash Trimble MD HCN - Patient Message (Return call) 04/15/2025 Orders Only [place] [address] [address] Mariposa Mcelroy, CHIEF TECHNICIAN, DNP Status post cervical spinal fusion (Primary Dx); Closed fracture of first thoracic vertebra with routine healing, unspecified fracture morphology, subsequent encounter; Muscle spasms of neck; Bilateral occipital neuralgia; Trigger point of neck; Trigger point of shoulder region, unspecified laterality 04/12/2025 9:15 AM EDT Office Visit [address] [address] Abhilash Trimble MD Status post cervical spinal fusion (Primary Dx); Closed fracture of first thoracic vertebra with routine healing, unspecified fracture morphology, subsequent encounter; Muscle spasms of neck; Bilateral occipital neuralgia; Trigger point of neck; Trigger point of shoulder region, unspecified laterality 04/12/2025 9:04 AM EDT - 04/12/2025 11:59 PM EDT Hospital Encounter [facility] Radiology [address] [place] [address], [address] [place] [phone] Status post cervical spinal fusion; Closed fracture of first thoracic vertebra with routine healing, unspecified fracture morphology, subsequent encounter Discharge Disposition: Home or Self Care 04/12/2025 Travel 04/11/2025 Travel 02/22/[address] [address] Abhilash Trimble MD HCN - Patient Message (Reschedule ) 02/11/2025 Orders Only External Location [address] [place] [address] Cecily Romero APRN from Last 3 Months [...] place to sleep or slept in a senior care (including now)? No 03/09/2024 CAGE ASSESSMENT Answer [...] drink first t davin in the 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-WHEEL CUTTER) to steady your nerves or to get rid of a hangover? 0 04/23/2024 CAGE Questionnaire Score 0 024 Utilities Answer Date Recorded In the past 12 months has th [employer], gas, oil, or water [employer] threatened to shut off services in your [...] Health Maintenance Due Date Last Done Comments [facility]-Bone Density Scan 1950 [facility]-Medicare Annual Wellness (AWV) 1950 [facility]-Infant/Child/Adol SDOH Screenings 1948 Diabetes: Dental Exam 1958 [facility]- SDOH Screenings 1966 [facility]-Adult SDOH Screenings 1966 [facility]-Pneumococcal Vaccine: 50+ Years (1 of 2 - PCV) 1967 [facility]-DTaP,Tdap,and Td Vaccines (1 - Tdap) 11/24/1996 11/23/1996 [facility]-RSV Vaccine: 60+ Years or (1 - 1-dose 75+ series) 2023 [facility]-Zoster Vaccines (2 of 3) 09/08/2023 07/14/2023 VJJ-[id number]-13 Vaccine ( season) 2024 06/20/2021, 11/29/2020, 11/01/2020 [facility]-Diabetes: Hemoglobin [...] this topic Medical Devices Implanted Type Area Dietetics Teacher Device Identifier Shelf Expiration Date Model / Serial / Lot Fallentimber-07/11/2023 Implanted:Qty: 1 on 07/11/2023 Fallentimber Back SC-4316 / / Lead-07/11/2023 Implanted:Qty: 2 on 07/11/2023 Lead Back SC-2218-50 / / Wavewriter Alpha-07/11/2023 Implanted: 023 (Quantity not on file) Spinal Cord Stimulator Back LSAT Freedom SC-1416 / / Description:Generator model number : SC-1416 Wavewriter Alpha Lead model number (2): SC-2218-50 Fallentimber (1): SC-4316 Screw 4.0mm Symphny Polyaxlschraube 3.5mm X 28mm - [id number] Implanted:Qty: 2 on 04/23/2024 by Abhilash Trimble MD at [facility] N/A: Spine Cervical CleanTie LP-[id number] 04/23/2025 [id number] / / Screw 4.0 Ply Cfx 4.5x20 - [id number] Implanted:Qty: 1 on 04/23/2024 by Abhilash Trimble MD at [facility] N/A: Spine Cervical DePuy Spine Sales LP-[id number] 04/23/2025 [id number] / / Screw 4.0 Ply Cfx 4.5x24 - [id number] Implanted:Qty: 1 on 04/23/2024 by Abhilash Trimble MD at [facility] N/A: Spine Cervical DePuy Spine Sales LP-[id number] 04/23/2025 [id number] / / Screw 4.0 Ply Cfx 5.0x24 - [id number] Implanted:Qty: 1 on 04/23/2024 by Abhilash Trimble MD at [facility] N/A: Spine Cervical DePuy Spine Sales LP-[id number] 04/23/2025 [id number] / / Screw 4.0 Ply Cfx 5.0x28 - [id number] Implanted:Qty: 1 on 04/23/2024 by Abhilash Trimble MD at [facility] N/A: Spine Cervical DePuy Spine Sales LP-[id number] 04/23/2025 [id number] / / Set Screw - [id number] Implanted:Qty: 14 on 04/23/2024 by Abhilash Trimble MD at [facility] N/A: Spine Cervical DePuy Spine Sales LP-[id number] 04/23/2025 [id number] / / Chip Bone 20cc - [id number] - [id number] Implanted:Qty: 1 on 04/23/2024 by Abhliash Trimble MD at [facility] N/A: Spine Cervical [facility]-[id number] 02/02/2029 PCAN1/4 [id number] Description:This item was no t implanted, can't take off the record due to it coming from Q-sight and the case was already closed. Graft Vivigen 1cc - [id number] - [id number] Implanted:Qty: 1 on 04/23/2024 by Abhilash Trimble MD at [facility] N/A: Spine Cervical [facility]-[id number] 04/09/2025 BL-1500-00 1-4PK / [id number] Graft Vivigen 1cc - [id number] - [id number] Implanted:Qty: 1 on 04/23/2024 by Abhilash Trimble MD at [facility] N/A: Spine Cervical [facility]-[id number] 04/09/2025 BL-1500-00 1-4PK / [id number] Alexander Ti 4.0x120 Viv - [id number] Implanted:Qty: 2 on 04/23/2024 by Abhilash Trimble MD at [facility] N/A: Spine Cervical DePuy Spine Sales -[id number] 06/21/2028 [id number] / / [id number] Screw 4.0 Ply 3.5x12 - [id number] Implanted:Qty: 2 on 04/23/2024 by Abhilash Trimble MD at [facility] N/A: Spine Cervical DePuy Spine Sales LP-[id number] 04/23/2025 [id number] / / Screw 4.0 Ply 3.5x14 - [id number] Implanted:Qty: 6 on 04/23/2024 by Abhilash Trimble MD at [facility] N/A: Spine Cervical DePuy Spine Sales LP-[id number] 04/23/2025 [id number] / / Procedures Procedure Name Priority Date/Time [...] is limited by overlying structures. Redemonstration of C3-G4mmsgcvhuuws and C2-T2 posterior spinal fusion hardware without [...] report signed by Kota Carmona MD on 2:12 PM Mariposa Mcelroy CHIEF TECHNICIAN, DNP IMG XR PROCEDURES Brianne l Result * XR MSK OUTSIDE IMAGES (02/11/2025 9:49 AM EDT) Anatomical Region Laterality Modality Radiographic Lindy ging 02/11/2025 9:49 AM EDT Cecily Romero CHIEF TECHNICIAN IMG XR PROCEDURES Final R esult * Hepatitis C Antibody - ED (08/10/2024 1:39 PM EST) Pathologist [facility] Hepatitis C Antibody Negative Negative 08/10/2024 2:52 PM EST [facility] Blood Venous blood specimen / Unknown Venipuncture / Unknown 08/10/2024 1:39 PM EST 08/10/2024 2:07 PM EST Papito Lamas MD LAB BLOOD ORDERABLES Final Re sult [facility] [address] [place] [address] * (ABNORMAL) Hemoglobin A1c (03/06/2024 10:17 AM EDT) Hemoglobin A1c 6.1(H) <5.7 % 03/06/2024 12:56 PM EDT [facility] Blood Venous blood specimen / Unknown [...] Adults <6.0% Children and Adolescents <7.5% Source: Citizen Of [place] Diabetes Association. Standards of medical care in diabetes,2017. Diabetes Care.2017:40 (suppl 1):S1-S135. HbA1c assay performed by an ion-exchange chromatography method that is certified traceable to the DCCT. us Kristy Urias CHIEF TECHNICIAN, DNP LAB BLOOD ORDERABLES Fi nal Result [facility] [address] [place] [address] from Last 3 Months or Most Recently Relevant to Health Maintenance Insurance [place] [address] [facility] MEDICARE Advance Directives Documents on File Type Date Recorded Patient Marketing Project Coordinator Expl anation Advance Directives and Livin g [...] Patient has decision-making capacity? Yes Care Teams Founder And Ceo Relationship Specialty Start Date End Date Pcp, No [address] [place] [address] PCP - General Family Medicine 03/06/23
--- NOTE | 2025-05-09 08:50 | XR_ITS ---
FINAL REPORT CLINICAL HISTORY: Evaluation for Pain of Left Foot COMPARISON: 01/08/2023 FINDINGS: LEFT FOOT Three views of the left foot demonstrate no acute fracture or dislocation. There are advanced hypertrophic changes of osteoarthritis at the 1st MTP joint. An old healed fracture deformity is noted of the 5th metatarsal, stable. A large plantar spur is present. The soft tissues are unremarkable. IMPRESSION: Degenerative/chronic changes without acute bony abnormality. Reviewed, Interpreted and Dictated by Chucho Galaviz MD Transcribed by Radha Trent Authenticated and [facility]
== END 2025-05-09 23:59 | disposition home or self-care (01) ==
LOC: RAD 08:46
PROVIDERS: PCP Nurse Practitioner; Visit Provider Podiatrist
DX: M19.072 Primary osteoarthritis, left ankle and foot (principal)
CPT/HCPCS: 73630

== ENCOUNTER 2025-06-14 09:35 | Day surgery (SDC) | payer MEDICARE, SELFPAY ==
--- NOTE | 2025-06-14 09:49 | P.PCN_ITS ---
Procedure Date: 06/14/25 Time: 09:40 Anesthesiologist:: Jefferson Mejia CRNA Complications:: None Pre-procedure Diagnosis:: Degenerative disc cervical spine multilevels. Cervical radiculopathy. Cervical postlaminectomy syndrome. Post-procedure Diagnosis:: Same. Indications for Procedure:: Patient is a very pleasant 74-year-old male who comes our clinic today for cervical epidural steroid injection. Patient describes posterior cervical neck pain as well as bilateral arm radicular symptoms. He rates his pain 7/10. Procedure Details:: Procedure:Cervical epidural steroid injection Informed consent was obtained and the risks and benefits of the procedure were explained to the patient. The patient was taken to the procedure room and noninvasive monitors placed, including noninvasive blood pressure cuff and pulse oximeter. The neck was prepped using Chloraprep as a cleansing solution. The T2- 3 interspace was viewed using fluroscopy. The skin and subcutaneous tissues were anesthetized using lidocaine 1.5% and a 25-gauge needle. After this an 18-gauge Touhy epidural needle was placed into the T2-3 interspace under fluroscopy guidance and advanced using loss of resistance to air until the epidural space was encountered. After confirmation of needle placement in the epidural space using contrast dye, dexamethasone 10 mg ( 1 ML) was incrementally injected into the cervical epidural space.~ The patient tolerated the procedure well with no complications. Due to significant scar tissue in the lower cervical area posteriorly. Injection was given below the surgical construct and scarring. The patient was observed in the Pain Clinic and then discharged home neurologically intact. Plan and Disposition:: Patient was discharged without incident.
[2025-06-14 09:50] VITALS: BP 134/60; PULSE 105; RESP 18; O2SAT 96
[2025-06-14] MEDS: DEXAMETHASONE 10MG/ML 1ML VIAL 10 MG (09:54)
[2025-06-14 09:55] VITALS: BP 133/70; PULSE 89; RESP 18; O2SAT 94; BMI 27.6
[2025-06-14 10:07] VITALS: BP 147/57; PULSE 85; RESP 16; O2SAT 95
[2025-06-14] MEDS: IOPAMIDOL-200 (41%);10ML VIAL 3 ML IV (10:08)
== END 2025-06-14 10:11 | disposition home or self-care (01) ==
PROVIDERS: PCP Nurse Practitioner; Visit Provider Nurse Anesthetist, Certified Registered
DX: M50.10 Cervical disc disorder with radiculopathy, unspecified cervical region (principal); E11.22 Type 2 diabetes mellitus with diabetic chronic kidney disease; I12.9 Hypertensive chronic kidney disease with stage 1 through stage 4 chronic kidney disease, or unspecified chronic kidney disease; K21.9 Gastro-esophageal reflux disease without esophagitis; N18.9 Chronic kidney disease, unspecified; E78.5 Hyperlipidemia, unspecified; Z86.73 Personal history of transient ischemic attack (TIA), and cerebral infarction without residual deficits; Z89.511 Acquired absence of right leg below knee; Z79.84 Long term (current) use of oral hypoglycemic drugs; Z79.899 Other long term (current) drug therapy
CPT/HCPCS: 62321; J1100; Q9966

== ENCOUNTER 2025-07-15 12:29 | Outpatient (CLI) | payer MEDICARE, SELFPAY ==
--- OUTSIDE RECORDS SUMMARY | 2025-07-15 12:32 | XMS_ITS | Clinical Summary ---
Author Organization [facility] Address [address] [place] [address] Care Team Providers Care Legal Project Manager Name Role Phone Pcp, No Primary [...] tablet 1 tablet. 5 Active HYDROcodone-acet aminophen ([place]) 5-325 MG tablet 5 Active lisinopril 20 [...] Encounters Date Type Department Care Team Description 07/07/2025 Telephone [place] [facility] Clinic [address], [address] [place] [phone] Abhilash Trimble MD 05/06/2025 Telephone [facility] Clinic [address], [address] [place] [phone] Abhilash Trimble MD HCN - Patient Message (Return call) 04/15/2025 Orders Only [facility] [address], [address] [place] [phone] Mariposa Mcelroy, GAMBLING BOX PERSON, DNP Status post cervical spinal fusion (Primary Dx); Closed fracture of first thoracic vertebra with routine healing, unspecified fracture morphology, subsequent encounter; Muscle spasms of neck; Bilateral occipital neuralgia; Trigger point of neck; Trigger point of shoulder region, unspecified laterality from Last 3 Months Social History Tobacco [...] drink first t davin in the 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-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) to steady your nerves or to get [...] 04/12/2025 9:57 AM EDT Plan of Treatment Upcoming Encounters Date Type Department Care Team (Late st Contact Info) Description 05/09/2026 2:00 PM EDT Office Visit [place] [facility] [address], [address] [place] [address] Abhilash Trimble MD [address] [place] [address] Health Maintenance Due Date Last Done Comments [facility]-Bone Density Scan 1950 [facility]-Medicare Annual Wellness (AWV) 1950 [facility]-/Child/Adol SDOH Screenings 1948 Diabetes: Dental Exam 1958 [facility]- SDOH Screenings 1966 [facility]-Adult SDOH Screenings 1966 [facility]-Pneumococcal Vaccine: 50+ Years (1 of 2 - PCV) 1967 [facility]-DTaP,Tdap,and Td Vaccines (1 - Tdap) 11/24/1996 11/23/1996 [facility]-RSV Vaccine: 60+ Years or (1 - 1-dose 75+ series) 2023 [facility]-Zoster Vaccines (2 of 3) 09/08/2023 07/14/2023 [facility]-Diabetes: Hemoglobin A1C 09/03/2024 03/06/2024 VSS-[id number]-71 Vaccine (4 - season) 2025 06/20/2021, 11/29/2020, 11/01/2020 [facility]-Influenza Vaccine (#1) 05/23/202507/14, 06/12/2021, 06/30/2020, Additional [...] this topic Medical Devices Implanted Type Area Shot Coat Tender Device Identifier Shelf Expiration Date Model / Serial / Lot Diagonal-07/11/2023 Implanted:Qty: 1 on 07/11/2023 Diagonal Back SC-4316 / / Lead-07/11/2023 Implanted:Qty: 2 on 07/11/2023 Lead Back SC-2218-50 / / Wavewriter Alpha-07/11/2023 Implanted: 023 (Quantity not on file) Spinal Cord Stimulator Back DCWafers SC-1416 / / Description:Generator model number : SC-1416 Wavewriter Alpha Lead model number (2): SC-2218-50 Diagonal (1): SC-4316 Screw 4.0mm Symphny Polyaxlschraube 3.5mm X 28mm - [id number] Implanted:Qty: 2 on 04/23/2024 by Abhilash Trimble MD at [facility] N/A: Spine Cervical DePuy Spine Sales LP-[id number] 04/23/2025 [id number] / / Screw 4.0 Ply Cfx 4.5x20 - [id number] Implanted:Qty: 1 on 04/23/2024 by Abhilash Trimble MD at [facility] N/A: Spine Cervical DePuy Spine Sales LP-[id number] 04/23/2025 [id number] / / Screw 4.0 Ply Cfx 4.5x24 - [id number] Implanted:Qty: 1 on 04/23/2024 by Abhilash Trimble MD at [facility] N/A: Spine Cervical DePuy Spine Sales LP-[id number] 04/23/2025 [id number] / / Screw 4.0 Ply Cfx 5.0x24 - [id number] Implanted:Qty: 1 on 04/23/2024 by Abhilash Trimble MD at [facility] N/A: Spine Cervical DePuy Spine Sales LP-[id number] 04/23/2025 [id number] / / Screw 4.0 Ply Cfx 5.0x28 - [id number] Implanted:Qty: 1 on 04/23/2024 by Abhilash Trimble MD at [facility] N/A: Spine Cervical DePuy Spine Sales LP-[id number] 04/23/2025 [id number] / / Set Screw - [id number] Implanted:Qty: 14 on 04/23/2024 by Abhilash Trimble MD at [facility] N/A: Spine Cervical DePuy Spine Sales LP-[id number] 04/23/2025 [id number] / / Chip Bone 20cc - [id number] - [id number] Implanted:Qty: 1 on 04/23/2024 by Abhilash Trimble MD at [facility] N/A: Spine Cervical [facility]-[id number] 02/02/2029 PCAN1/4 / [id number] / [id number] Description:This item was no t implanted, can't take off the record due to it coming from [employer]-sight and the case was already closed. Graft Vivigen 1cc - [id number] - [id number] Implanted:Qty: 1 on 04/23/2024 by Abhilash Trimble MD at [facility] N/A: Spine Cervical [facility]-[id number] 04/09/2025 BL-150000 1-4PK / [id number] / [id number] Graft Vivigen 1cc - [id number] - [id number] Implanted:Qty: 1 on 04/23/2024 by Abhilash Trimble MD at [facility] N/A: Spine Cervical [facility]-[id number] 04/09/2025 BL-1500-00 1-4PK / [id number] / [id number] Alexander Ti 4.0x120 Viv - [id number] Implanted:Qty: 2 on 04/23/2024 by Abhilash Trimble MD at [facility] N/A: Spine Cervical DePuy Spine Sales LP-635779 06/21/2028 [id number] / / TBAMHX Screw 4.0 Ply 3.5x12 - [id number] Implanted:Qty: 2 on 04/23/2024 by Abhilash Trimble MD at [facility] N/A: Spine Cervical DePuy Spine Sales LP-[id number] 04/23/2025 [id number] / / Screw 4.0 Ply 3.5x14 - [id number] Implanted:Qty: 6 on 04/23/2024 by Abhilash Trimble MD at [facility] N/A: Spine Cervical DePuy Spine Sales LP-[id number] 04/23/2025 [id number] / / Procedures Procedure Name Priority Date/Time Associated Diagnosis Comments HEPATITIS C ANTIBODY - ED W/REFLEX TO HCV QUANT PCR STAT 08/10/2024 1:39 PM EST HEMOGLOBIN A1C Routine 03/06/2024 10:17 AM EDT from Last 3 Months or Most Recently Relevant to Health Maintenance Results * Hepatitis C Antibody - ED (08/10/2024 1:39 PM EST) Hepatitis C Antibody Negative Negative 08/10/2024 2:52 PM EST [facility] Blood Venous blood specimen / Unknown Venipuncture / Unknown 08/10/2024 1:39 PM EST 08/10/2024 2:07 PM EST us Papito Lamas MD LAB BLOOD ORDERABLES Final Re sult [facility] [address] [place] [address] * (ABNORMAL) Hemoglobin A1c (03/06/2024 10:17 AM EDT) Hemoglobin A1c 6.1(H) <5.7 % 03/06/2024 12:56 PM EDT [facility] Blood Venous blood specimen / Unknown Venipuncture / Unknown 03/06/2024 10:17 AM EDT 03/06/2024 10:22 AM EDT Narrative [facility] - 03/06/2024 12:56 PM EDT HA1C Interpretive Data: Diagnosis of Diabetes: Diabetic > or = 6.5% Pre-diabetic 5.7 to 6.4% Non-diabetic < or = 5.6% Glycemic Targets for Type I and Type II Diabetics: Non- Adults <7.0% Adults <6.0% Children and Adolescents <7.5% Source: [place] Diabetes Association. Standards of medical care in diabetes,2017. Diabetes Care.2017:40 (suppl 1):S1-S135. HbA1c assay performed by an ion-exchange chromatography method that is certified traceable to the DCCT. Kristy Urias APRN, DNP LAB BLOOD ORDERABLES Fi nal Result [facility] [address] [place] [address] from Last 3 Months or Most Recently Relevant to Health Maintenance Insurance [facility] MEDICARE Advance Directives Documents on File Type Date Recorded Patient Textbook Associate Expl anation Advance Directives and Livin g [...] Patient has decision-making capacity? Yes Care Teams Legal Project Manager Relationship Specialty Start Date End Date Pcp, Nissa [address] [place] [address] PCP - General Family Medicine 03/06/23
--- OUTSIDE RECORDS SUMMARY | 2025-07-15 12:32 | XMS_ITS | Referral Summary ---
Author Organization [employer] ([place], [place], [place], [place]) Address [address] [place] [address] Care Team Providers Care Natural Gas Technician Name Role Phone Caridad Chavez NP Primary Care Provider [phone] Caridad Chavez RIB CLOTH KNITTER Unavailable [phone] Social History Tobacco Use Types Packs/Day Years [...] Date Prasanth rded Speak language other than Mosotho at home Not on file 10/03/2023 Want [...] Treatment Not on file Insurance ANNA MATT [id number] [facility] MEDICARE HMO Care Teams Natural Gas Technician Relationship Specialty Start Date End Date Caridad Chavez NP [address] [place] [address] PCP - General Nurse Practitioner 07/04/23 Caridad Chavez NP [address] [place] [address] Referring Physician Nurse Practitioner 07/04/23
--- OUTSIDE RECORDS SUMMARY | 2025-07-15 12:32 | XMS_ITS ---
Author Organization [facility] Care Team Providers Care Shirt Turner Name Role Phone Joya Cage Unavailable Unavailable Marilou Diallo Unavailable Unavailable Jared Hatch Unavailable Unavailable Viri Caceres Unavailable Unavailable Allergies and adverse reactions No Known Allergies Care Team Name Role Address Phone Organization Dates Jared Hatch PCP [address] , [place], [address], [facility] (Office): : : [place] 04/28/2024 - 05/07/2024 Joya Cage [facility] (Office): [place] 04/28/2024 - 05/07/2024 Marilou Diallo [facility] (Office): [facility] 04/28/2024 - 05/07/2024 Viri Caceres [facility] (Office): [place] 04/28/2024 - 05/07/2024 Immunizations Immunization Status Vaccine Details Vaccine Code CodeSystem Ben e Notes TB 2 Step Mantoux Skin Test completed tuberculin skin test; unspecified formulation lotNumber: [id number] expiry: 12/14/2024 Mfg: Sanofi pasteur Given 0.1 ml Right Forearm intradermally Step 2 of Multi-step with next step required 98 CVX created date: 04/22/2024 consent date: 04/22/2024 administere d date: 04/06/2024 TB 2 Step Mantoux Skin Test completed tuberculin skin test; unspecified formulation lotNumber: [id number] expiry: 11/20/2024 Mfg: Sanofi pasteur Given 0.1 [...] ind icated PHQ-9 11 moderate depres monica Insurance Providers Problems Problem # Description Date of onset Resolved Date Code CodeSystem Concern Status 1 DISEASE OF SPINAL CORD, UNSPECIFIED [address] active 2 FUSION OF SPINE, CERVICOTHORACIC REGION [address] active 3 MODERATE PROTEIN-CALORIE MALNUTRITION [address] active 4 MUSCLE WEAKNESS (GENERALIZED) [address] active 5 NEED FOR ASSISTANCE WITH PERSONAL CARE [address] active 6 ACQUIRED ABSENCE OF RIGHT LEG BELOW KNEE [address] active 7 ANXIETY DISORDER, UNSPECIFIED [address] active 8 BENIGN PROSTATIC HYPERPLASIA WITHOUT LOWER URINARY TRACT SYMPTOMS [address] active 9 [address]ICALGIA [address] active 10 CHRONIC KIDNEY DISEASE, STAGE [address]PECIF[address] active 11 COGNITIVE COMMUNICATION DEFICIT [address] active 12 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 [address] active 13 DEFECTS IN THE COMPLEMENT SYSTEM [address] active 14 DEPRESSION, UNSPECIFIED [address] active 15 DYSARTHRIA FOLLOWING OTHER CEREBROVASCULAR DISEASE [address] active 16 ELEVATION OF LEVELS OF LIVER TRANSAMINASE LEVELS [address] active 17 ESSENTIAL (PRIMARY) HYPERTENSION [address] active 18 FREQUENCY OF MICTURITION [address] active 19 MILD COGNITIVE IMPAIRMENT OF UNCERTAIN OR UNKNOWN ETIOLOGY [address] active 20 OTHER CEREBROVASCULAR DISEASE [address] active 21 OTHER CHRONIC PAIN [address] active 22 OTHER CORD COMPRESSION [address] active 23 OTHER SPECIFIED DISEASES OF SPINAL CORD [address] active 24 OTHER SPECIFIED DISORDERS INVOLVING THE IMMUNE MECHANISM, NOT ELSEWHERE CLASSIFIED [address] active 25 OTHER SYMPTOMS AND SIGNS INVOLVING GENERAL SENSATIONS AND PERCEPTIONS [address] active 26 PARESTHESIA OF SKIN [address] active 27 PRESENCE OF CORONARY ANGIOPLASTY IMPLANT AND GRAFT [address] active 28 REPEATED FALLS [address] active 29 RESPIRATORY DISORDERS IN DISEASES CLASSIFIED ELSEWHERE [address] active 30 SPINAL STENOSIS, CERVICAL REGION [address] active 31 TYPE 2 DIABETES MELLITUS WITHOUT COMPLICATIONS [address] active 32 UNSPECIFIED HEARING LOSS, UNSPECIFIED EAR [address] active 33 UNSTEADINESS ON FEET [address] active 34 URGENCY OF URINATION [address] active 35 URINARY TRACT INFECTION, SITE NOT SPECIFIED 024 04/27/[address] completed Reason for Referral No Reasons for Referral Entered Social History Social History Observation Description Start Date End Date Code Code System Current Smoking Status Tobacco smoking consumption unknown 821113215 SNOMED CT Sex Assigned At Male 1950 20998-5 [facility] Gender Identity Sexual Orientation Vital Signs Code Code System Vitals Name Values and Units Timing Information 03936-0 [facility] Pain Level Value=1.0 05/07/2024 2339-0 [facility] Blood Sugar Dkdxk=266.0 Units=mg/dL 05/07/2024 8310-5 [facility] Body Temperature Value=97.9 Units= F 05/07/2024 8462-4 [facility] Blood Pressure-Diastolic Value=77 Un its=mmHg 05/07/2024 8480-6 [facility] Blood Pressure-Systolic Sknuz=610 Un its=mmHg 05/07/2024 67186-3 [facility] Weight Eimsr=452.4 Units=Lbs 8867-4 [facility] Heart rate Value=81.0 Units=/min 9279-1 [facility] Respiratory Rate Value=18.0 Units=/m in 05/04/2024 51500-5 [facility] O2 % BldC Oximetry Value=98.0 Units= % 05/04/2024 8302-2 [facility] Height Value=68.0 Units=Inches 03/29/2024
--- OUTSIDE RECORDS SUMMARY | 2025-07-15 12:32 | XMS_ITS | Encounter Summary ---
Author Organization Healthcare Address [address] [place] [address] Care Team Providers Care Edging Machine Setter Name Role Phone Pcp, No Primary Care Provider Unavailabl e Encounter Details Date Type Department Care Team (Late st Contact Info) Description 07/07/2025 Telephone [facility] [address] [place] [address] Abhilash Trimble MD [address] [place] [address] Social History Tobacco Use Types Packs/Day Years [...] place to sleep or slept in a fci (including now)? 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 Follow-up communication and further actions as a result of this message need to be communicated with the patient directly, if the patient is not active onMyChart. If the patient is active on MyChart, they will receive notification of the communication/outcome via [employer]. documented in this encounter Plan of Treatment Upcoming Encounters Date Type Department Care Team (Late st Contact Info) Description 05/09/2026 2:00 PM EDT Office Visit [facility] [address] [place] [address] Abhilash Trimble MD [address] [facility] [address] [place] [address] documented as of this encounter Visit Diagnoses Not on filedocumented in this encounter Additional Health Concerns Assessment Noted Time A fall risk assessment has been complete d for the patient 04/12/2025 9:57 AM EDT A Body Mass Index follow-up plan has been documented for the patient 04/14/2025 1:47 PM EDT documented as of this encounter Care Teams Edging Machine Setter Relationship Specialty Start Date End Date Pcp, Nissa [address] [place] [address] PCP - General Family Medicine 03/06/23 documented as of this encounter
--- OUTSIDE RECORDS SUMMARY | 2025-07-15 12:32 | XMS_ITS | Encounter Summary ---
Author Organization [facility] Address [address] [place] [address] Care Team Providers Care Internist Name Role Phone Pcp, No Primary Care Provider Unavailabl e Reason for Referral * Imaging (Routine) - Pending Review Specialty Diagnoses / Procedures Referred By Contlarry t Referred To Contact Radiology Diagnoses Cervical myelopathy (CMS/HCC) Status post cervical spinal fusion Procedures MR Cervical Spine wo IV Contrast Mariposa Mcelroy APRN, DNP [address] [address] Phone: tel: fax: Referral ID Status Reason Start Date Expiration Date V isits Requested Visits Authorized [id number] Pending Review 05/09/2025 11/08/2026 1 1 Reason for Visit * Reason Onset Date Comments HCN - Patient Message 05/06/2025 Return mata l Encounter Details Date Type Department Care Team (Late st Contact Info) Description 05/06/2025 Telephone [facility] [address] [place] [address] Abhilash Trimble MD [address] [address] [facility] - Patient Message (Return [...] drink first t davin in the 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 0 04/23/2024 CAGE Questionnaire Score 0 024 Utilities Answer Date Recorded In the past 12 months has th [employer], [employer], oil, or water [employer] threatened to shut off services in your [...] information. Will reach out to [facility]. * Telephone Encounter - Luanne Warren APRN, DNP - 05/06/2025 4:18 PM EDT Spoke with patient. He stated [facility] was not able to complete his MRI as he has a SCS (was not initially indicated on order). He is unsure of the device information, stating it was put in about a year ago at [facility]. Will work to get device [...] of day to reach caller: Please call [phone] Note: Please do not reply to this message. Follow-up communication and further actions as a result of this message need to be communicated with the patient directly, if the patient is not active onMyChart. If the patient is active on MyChart, they will receive notification of the communication/outcome via [employer]. documented in this encounter Plan of Treatment Upcoming Encounters Date Type Department Care Team (Late st Contact Info) Description 05/09/2026 2:00 PM EDT Office Visit [facility] [address] [place] [address] Abhilash Trimble MD [address] [place] [address] Scheduled Orders Name Type Priority Associated Diagnoses [...] documented as of this encounter Care Teams Internist Relationship Specialty Start Date End Date Pcp, Nissa [address] [place] [address] PCP - General Family Medicine 03/06/23 documented as of this encounter
--- OUTSIDE RECORDS SUMMARY | 2025-07-15 12:32 | XMS_ITS | Clinical Summary ---
Author Organization [employer] ([place], [place], [place], [place]) Address [address] [place] [address] Care Team Providers Care Certified Medication Technician Name Role Phone Caridad Chavez NP Primary Care Provider [phone] Caridad Chavez TELECOMMUNICATIONS FACILITY EXAMINER Unavailable [phone] Social History Tobacco Use Types Packs/Day Years [...] Date Prasanth rded Speak language other than Central African at home Not on file 10/03/2023 [...] Treatment Not on file Insurance ANNA MATT [id number] [facility] MEDICARE HMO Care Teams Certified Medication Technician Relationship Specialty Start Date End Date Caridad Chavez NP [address] [place] [address] PCP - General Nurse Practitioner 07/04/23 Caridad Chavez NP [address] [place] [address] Referring Physician Nurse Practitioner 07/04/23
--- NOTE | 2025-07-15 13:00 | US_ITS ---
FINAL REPORT CLINICAL HISTORY: Evaluation of Decreased Pedal Pulses. RLE BKA. only left leg evaluated. HTN, current smoker, HLD, DM, left leg rest pain. FINDINGS: LOWER EXTREMITY SEGMENTAL PRESSURE MEASUREMENTS FINDINGS: RIGHT LOWER EXTREMITY: Was not visualized on this examination. LEFT LOWER EXTREMITY: Upper thigh: 188 Calf: 123 Ankle, posterior tibial artery: 111 Ankle, dorsalis pedis: 156 Toe: 78 Comments: Ankle-brachial index of 1.01. This is consistent with mild changes of peripheral vascular disease. IMPRESSION: Right leg was not examined. Mild changes of peripheral vascular disease of the left lower extremity. Reviewed, Interpreted and Dictated by Kitty Traore MD Transcribed by Luzmaria Hardy Authenticated and [facility]
== END 2025-07-15 23:59 | disposition home or self-care (01) ==
LOC: RT 12:31
PROVIDERS: PCP Nurse Practitioner; Visit Provider Podiatrist
DX: I73.9 Peripheral vascular disease, unspecified (principal); R09.89 Other specified symptoms and signs involving the circulatory and respiratory systems; R20.9 Unspecified disturbances of skin sensation; Z89.511 Acquired absence of right leg below knee; I10 Essential (primary) hypertension; F17.210 Nicotine dependence, cigarettes, uncomplicated; E78.5 Hyperlipidemia, unspecified; E11.9 Type 2 diabetes mellitus without complications; M79.605 Pain in left leg
CPT/HCPCS: 93923

== ENCOUNTER 2025-08-30 08:54 | Inpatient (IN) | payer MEDICARE, SELFPAY ==
[2025-08-30] VITALS (33 sets, daily range): BP systolic 119–164; BP diastolic 53–99; PULSE 70–95; RESP 12–21; TEMP 36.6–36.9; O2SAT 95–99; BMI 25.0; BMI 27.3
--- NOTE | 2025-08-30 08:59 | PC.NURSE ---
FSBS 201
--- NOTE | 2025-08-30 08:59 | PC.NURSE ---
fsbs 201
--- NOTE | 2025-08-30 09:01 | ED_ITS ---
Discharge Plan Disposition Patient Disposition: Admitted Condition: Fair Prescriptions Prescriptions: No Action tamsulosin 0.4 mg capsule 0.4 mg PO HS ropinirole 3 mg tablet 3 mg PO HS metformin 500 mg tablet 1,000 mg PO BID baclofen 10 mg tablet 10 mg PO BID Qty: 28 0RF zolpidem 5 MG tablet 5 mg PO HS buspirone 15 MG tablet 15 mg PO BID lisinopril 20 MG tablet 20 mg PO DAILY sertraline 100 MG tablet 200 mg PO DAILY glipizide 5 MG tablet extended release 24hr 5 mg PO DAILY aspirin 81 MG tablet,delayed release (DR/EC) 81 mg PO DAILY omeprazole 20 MG capsule,delayed release(DR/EC) 20 mg PO DAILY pioglitazone 30 MG tablet 30 mg PO DAILY pregabalin 50 mg capsule 50 mg PO HS Qty: 30 0RF naproxen 500 mg tablet 500 mg PO BID bupropion HCl 150 mg tablet sustained-release 12 hr 1,510 mg PO BID ezetimibe 10 mg tablet 10 mg PO DAILY tizanidine [Zanaflex] 4 mg tablet 8 mg PO HS Referrals Follow up/Referrals: Cecily Romero APRN [Primary Care Provider, Medical] - See instructions Clinical Impressions Clinical Impression: Fall, Hip pain, right, Anemia Print Language Print Language: Czech Discharge ED Provider: Anders Dos Santos Adult HPI General Chief complaint: Fall Stated complaint: Fall Time Seen by Provider: 08/30/25 08:55 History of Present Illness HPI narrative: Patient is a 75-year-old male with history of diabetes and kidney disease with history of a right BKA after an NURSING HOME many years ago. He is also had a history of cervical spine fixation and reports chronic numbness in his bilateral upper extremities and headaches since that what surgery was performed a year ago. He presents today due to concerns for fall. It sounds a, chemical fall. But he reports that he has been tripping and falling at least a couple of times a week and feels unsteady on his feet ever since his surgery a year ago, but his frequency of falls been increasing. This morning, he tripped and fell landing directly on his right hip and right shoulder. He reports he was unable to get up off the ground since around midnight last night. He was unable to walk. He reports right shoulder pain right hip pain right femur pain and bilateral elbow pain where he has small skin tears that are hemostatic. He denies striking his head. He does not take any blood thinners. He denies any new numbness weakness tingling neck pain or back pain. Although his symptoms are chronic. Denies any recent fevers or infectious symptoms. Related Data Home Medications ?Medication ?Instructions ?Recorded ?Confirmed buspirone 15 mg tablet 15 mg PO BID 10/02/20 zolpidem 5 mg tablet 5 mg PO HS 10/02/20 07/07/25 aspirin 81 mg tablet,delayed 81 mg PO DAILY 04/17/21 1 release glipizide 5 mg tablet, extended 5 mg PO DAILY Diabetes 04/17/21 07/07/25 release 24 hr lisinopril 20 mg tablet 20 mg PO DAILY 04/17/2106/22 omeprazole 20 mg capsule,delayed 20 mg PO DAILY GERD 0 04/17/21 07/07/25 release pioglitazone 30 mg tablet 30 mg PO DAILY 04/17/2106/22 sertraline 100 mg tablet 200 mg PO DAILY 04/17/21 ropinirole 3 mg tablet 3 mg PO HS 10/02/22 07/07/25 tamsulosin 0.4 mg capsule 0.4 mg PO HS 10/02/22 metformin 500 mg tablet 1,000 mg PO BID Diabetes 07/07/25 naproxen 500 mg tablet 500 mg PO BID 03/04/2407/07 bupropion HCl 150 mg tablet,12 hr 1,510 mg PO BID 02/2007/07/25 sustained-release ezetimibe 10 mg tablet 10 mg PO DAILY 03/05/2406/22 tizanidine 4 mg tablet (Zanaflex) 8 mg PO HS 03/05/24 07/07/25 Previous Rx's ?Medication ?Instructions ?Recorded pregabalin 50 mg capsule 50 mg PO HS #30 caps 4 baclofen 10 mg tablet 10 mg PO BID #28 tabs Allergies Allergy/AdvReac Type Severity Reaction Status Date / Time No Known Allergies Allergy Verified 07/07/25 13:30 [facility] Disclaimer: The information contained in this section may have been updated after the patient was seen, as this information can be updated by other users. Medical History (Updated 08/30/25 @ 11:21 by Anders Dos Santos MD) Numbness and tingling Unspecified disturbances of skin sensation Decreased pedal pulses CVA (cerebrovascular accident) Amputation of right lower extremity below knee upon examination GERD (gastroesophageal reflux disease) Hyperlipidemia Hypertension Chronic kidney disease Callus of foot Diabetes mellitus Surgical History History of YAG laser capsulotomy of lens History of cholecystectomy History of right below knee amputation History of cataract surgery Family History Other No significant family history Social History Smoking Status: Never smoker alcohol intake: never substance use type: denies use current occupational status: other Travel in the last 8 weeks?: None household members: none housing: house current occupational exposures/hazards: No caffeine: Yes Have you lived/traveled outside [place] in past 30 days?: No Contact w/someone who lives/traveled outside US past 30 days?: No Exposure to someone with infectious disease in past 14 days?: No Do you have a fever (greater than 100.4 F or 38 C)?: No Have you tested positive for COVID-19?: No Exposed to someone with COVID-19 in past 14 days?: No Do you have a sore throat?: No Do you have a cough?: No Do you have any weakness?: No Do you have any diarrhea?: No Are you experiencing any unusual bleeding?: No Do you have any muscle aches/pain?: No Do you have any abdominal pain?: No Are you experiencing loss of taste or smell?: No Other Medical History Have you received the Flu Vaccine for this season: No Have you received the Pneumonia Vaccine: No ROS Obtained: Yes All systems reviewed & no additional complaints except as documented Physical Exam General General appearance: alert and in no apparent distress Head Head exam: atraumatic and normocephalic Eye Eye exam: Present PERRL and EOMI ENT ENT exam: Present normal oropharynx Neck Neck exam: Present full ROM, trachea midline and tenderness (Midline cervical and paraspinal tenderness that patient reports is chronic. He did not hit his head or neck this morning) Chest Chest inspection: Present symmetric chest wall rise Respiratory Respiratory exam: Present normal lung sounds bilaterally; Absent stridor Cardiovascular Cardiovascular exam: Present regular rate and normal rhythm Abdominal Exam Abdominal exam: Present soft; Absent distention or tenderness Extremities Exam Extremities exam: Present full ROM and tenderness (Exquisitely tender of the right hip and right femur. Closed and full range of motion. Mild right shoulder girdle tenderness. Closed and neurovascular intact distally.) Back Exam Back exam: Present full ROM; Absent tenderness Neurological Exam Neurological exam: Present alert and oriented X3 Psychiatric Psychiatric exam: Present normal mood Skin Skin exam: Present warm and dry Medical Decision Making Medical Records Screening: Per USPSTF and CDC recommendations, given the prevalence of disease in our region, it is our hospital?s policy to screen for HIV and viral Hepatitis for all patients aged 18 and over and those with ongoing risk factors. All Inquiry Pt receiving controlled substance: No Vital Signs: 08/30/25 09:00 08/30/25 09:05 08/30/25 09:43 Temperature 98.5 F Temperature Source Temporal Artery Scan Pulse Rate 80 79 Pulse Rate [Right] 87 Respiratory Rate 18 Blood Pressure 145/61 H 144/60 H Blood Pressure [Right Arm] 143/59 H Blood Pressure Mean Blood Pressure Mean [Right Arm] 87 Blood Pressure Source [Right Arm] Automatic Cuff Blood Pressure Position [Right Arm] Sitting 02 Sat by Pulse Oximetry 98 98 98 Oxygen Delivery Method Room Air Room Air Room Air 08/30/25 10:00 08/30/25 10:33 Temperature Temperature Source Pulse Rate 76 Pulse Rate [Right] Respiratory Rate Blood Pressure 141/59 H 135/66 Blood Pressure [Right Arm] Blood Pressure Mean 89 Blood Pressure Mean [Right Arm] Blood Pressure Source [Right Arm] Blood Pressure Position [Right Arm] 02 Sat by Pulse Oximetry 95 Oxygen Delivery Method Room Air Lab Data Lab Results 08/30/25 09:00: WBC 10.0, RBC 3.71 L, Hgb 6.5 L*, Hct 24.1 L, MCV 65.0 L, MCH 17.5 L, MCHC 27.0 L, RDW 19.9 H, Plt Count 311, MPV 9.4, Neut % (Auto) 74.8, Lymph % (Auto) 15.2, Harnett % (Auto) 8.6, Eos % (Auto) 0.4, Baso % (Auto) 0.6, Neut # (Auto) 7.5, Lymph # (Auto) 1.5, Harnett # (Auto) 0.9, Eos # (Auto) 0.0, Baso # (Auto) 0.1, Sodium 141, Potassium 4.7, Chloride 107, Carbon Dioxide 22, Anion Gap 16.7 H, BUN 42 H, Creatinine 1.50 H, Estimated Creat Clear 42, Estimated GFR 45 L, Est GFR ( Amer) 55 L, Glucose 170 H, Calcium 8.8, Total Bilirubin 0.3, AST 28, ALT 23, Alkaline Phosphatase 115, Total Creatine Kinase 53 L, Total Protein 7.0, Albumin 4.3, Globulin 2.7, Albumin/Globulin Ratio 1.6 08/30/25 09:35: Crossmatch ([facility]) See Detail 08/30/25 09:00 08/30/25 09:00 Orders (Tests/Meds): ED MEDICATIONS Generic Name Dose Route Start Last Admin Trade Name Freq PRN Reason Stop Dose Admin Sodium Chloride 250 mls @ 25 mls/hr 08/30/25 09:30 Sod Chlor 0.9% 250ml Bag IV 08/31/25 09:29 .Q10H SHERLYN Discontinued Medications Generic Name Dose Route Start Last Admin Trade Name Freq PRN Reason Stop Dose Admin Bacitracin 1 each 08/30/25 09:09 08/30/25 09:17 Bacitracin Oint 0.9gm Udp TP 08/30/25 09:10 1 each ONCE ONE Administration Fentanyl Citrate 50 mcg 08/30/25 09:09 08/30/25 09:17 Fentanyl 100mcg/2ml Vial IV 08/30/25 09:10 50 mcg ONCE ONE Administration Ondansetron HCl 4 mg 08/30/25 09:09 08/30/25 09:18 Ondansetron 4mg/2ml Vial IV 08/30/25 09:10 4 mg ONCE ONE Administration Tetanus/Reduced Diphtheria/Acell Pertussis 0.5 ml 08/30/25 09:09 08/30/25 09:18 Tet/Diphth/Pert-Adult 0.5ml Syringe IM 08/30/25 09:10 0.5 ml .ONCE ONE Administration ORDERS Category Date Time Status Red Blood Cells Stat [facility] 08/30/25 09:35 Results Type and Screen Stat [facility] 08/30/25 09:[address] bony pelvis Stat Cat Scan 08/30/25 10:[address] femur RT wo con Stat Cat Scan 08/30/25 10:22 Completed XR chest portable Stat Exams 08/30/25 09:09 Completed XR elbow LT 2V Stat Exams 08/30/25 09:09 Completed XR elbow RT 2V Stat Exams 08/30/25 09:09 Completed XR femur RT 2V Stat Exams 08/30/25 09:09 Completed XR hip RT 2-3V w/pelvis Stat Exams 08/30/25 09:09 Completed XR shoulder RT min 2V Stat Exams 08/30/25 09:09 Completed Complete Blood Count Auto Diff Stat Lab 08/30/25 09:00 Completed Comprehensive Metabolic Panel Stat Lab 08/30/25 09:00 Completed Creatine Kinase Stat Lab 08/30/25 09:00 Completed Creatine Kinase Stat Lab 08/30/25 11:17 Ordered Urinalysis and Microscopic Stat Lab 08/30/25 09:09 Ordered Medical Decision Narrative: Patient is a 75-year-old male with history of hypertension hyperlipidemia diabetes right BKA, kidney disease. He presents today from home after a mechanical fall. On arrival, he is afebrile hemodynamically stable no acute distress. On exam, warm and well-perfused with full and equal pulses in the bilateral upper extremities. His airway is intact, bilateral breath sounds. He has exquisite right hip tenderness and right femur tenderness without obvious deformity and is a closed injury. Within the limitations of exam given his BKA, he has brisk capillary refill distally and sensory intact and is able to slightly move flex at the right hip. He also has tenderness mildly over the right shoulder girdle with full range of motion and is neurovascular intact. Bilateral skin tears over the bilateral elbows that are closed. No step-off or deformity along the calvarium or midline spinal tenderness that is new per patient. Will workup for traumatic injuries with plain films of areas of bony tenderness. Will obtain basic hematologic labs given comorbid history to ensure no electrolyte derangement as well as rule out rhabdo given that he has been on the ground since midnight last night. Hematologic labs reviewed by myself demonstrate new anemia with a hemoglobin of 6.5, last check in February 2024 was hemoglobin of 11. Patient has CKD with a creatinine of 1.5 at his baseline. No significant electrolyte derangement. CK is within normal limits. Independently interpreted plain film to demonstrate possible acute on chronic fracture. Consulted with orthopedics Dr. Patel who would like a CT scan, but regardless this will be nonoperative intervention. Given patient's possible acute on chronic fracture in conjunction with his new onset anemia in conjunction with his inability to ambulate, felt reasonable to consult hospitalist for admission. Interactive discussion with Carol GONZALEZ accepting for Dr. Duvall. Patient be transferred in hemodynamically stable condition. Critical Care Critical Care Time Critical Care Time: No
--- NOTE | 2025-08-30 09:09 | XR_ITS ---
PROCEDURE INFORMATION: Exam: XR Right Elbow Exam date and time: 08/30/2025 9:18 AM Age: 75 years old Clinical indication: Pain; Elbow; Right; Additional info: Trauma TECHNIQUE: Imaging protocol: Radiologic exam of the right elbow. Views: 1 or 2 views. COMPARISON: CR XR ELBOW RT MIN 3V 02/11/2025 9:49 AM FINDINGS: Bones/joints: Medial and lateral columns are without fracture. Radial head and proximal ulna are without fracture. No joint effusion. Enthesophytes at the at the origin of the forearm extensors. Lateral epicondyle. IV tubing limits this exam slightly. Degenerative changes within the olecranon. Soft tissues: Normal. IMPRESSION: 1. Degenerative changes within the olecranon. 2. No acute process.
--- NOTE | 2025-08-30 09:09 | XR_ITS ---
PROCEDURE INFORMATION: Exam: XR Right Hip Exam date and time: 08/30/2025 9:18 AM Age: 75 years old Clinical indication: Hip pain; Right hip; Additional info: Trauma TECHNIQUE: Imaging protocol: Radiologic exam of the right hip. Views: 2 or 3 views hip with pelvis when performed. COMPARISON: CT ABDOMEN PELVIS W CON 10/02/2020 5:48 PM FINDINGS: Bones/joints: osseous structures of the pelvis without an acute process. rami are intact. Sacroiliac joints without separation/diastases/fracture. Iliac bones unremarkable/noncontributory. Degenerative changes within the visualized portions of the caudal aspect of the lumbar spine. Mild degenerative changes within the hip including mild joint space narrowing and early osteophyte formation. No fracture. The trabecular stress markings normal. Long intramedullary fuentes with compression screw stabilizing a complex mid/distal femoral diaphyseal fracture. Abundant periosteal response about the fracture site. Mildly displaced fracture about the greater trochanter on the right. Age indeterminate. Soft tissues: See Bones/joints finding. IMPRESSION: 1. Mild degenerative changes within the right hip. 2. Long intramedullary fuentes with compression screw stabilizing a complex mid/distal femoral diaphyseal fracture. Abundant periosteal response about the fracture site. 3. Mildly displaced fracture about the greater trochanter on the right. Age indeterminate. Fracture through this region noted on CT dated 10-02-20 although only partially imaged on that CT. Correlate regarding tenderness in this region. Consider CT if indicated.
--- NOTE | 2025-08-30 09:09 | XR_ITS ---
PROCEDURE INFORMATION: Exam: XR Right Femur Exam date and time: 08/30/2025 9:18 AM Age: 75 years old Clinical indication: Pain; Thigh; Right; Additional info: Trauma TECHNIQUE: Imaging protocol: Radiologic exam of the right femur. Views: 2 views. COMPARISON: CR XR FEMUR RT 2V 08/30/2025 9:18 AM FINDINGS: Bones/joints: Obliquely oriented comminuted fracture involving the mid/distal diaphysis of the right femur stabilized with an intramedullary fuentes with locking screws distally. Abundant periosteal response about the fracture site. Healed. Degenerative changes within the knee most pronounced medially. Soft tissues: Unremarkable. IMPRESSION: Obliquely oriented comminuted fracture involving the mid/distal diaphysis of the right femur stabilized with an intramedullary fuentes with locking screws distally. Abundant periosteal response about the fracture site. Healed. Proximal aspect of the femur including the hip not within the field.
--- NOTE | 2025-08-30 09:09 | XR_ITS ---
PROCEDURE INFORMATION: Exam: XR Left Elbow Exam date and time: 08/30/2025 9:18 AM Age: 75 years old Clinical indication: Pain; Elbow; Left; Additional info: Trauma TECHNIQUE: Imaging protocol: Radiologic exam of the left elbow. Views: 1 or 2 views. COMPARISON: CR XR ELBOW LT MIN 3V 03/24/2025 12:33 PM FINDINGS: Bones/joints: Medial and lateral columns are without fracture. Radial head and proximal ulna are without fracture. No joint effusion. Tiny ossification at the origin of the forearm extensors/lateral epicondyle. Degenerative changes within the olecranon. Soft tissues: Normal. IMPRESSION: 1. Degenerative changes within the olecranon. 2. No acute process.
--- NOTE | 2025-08-30 09:09 | XR_ITS ---
PROCEDURE INFORMATION: Exam: XR Right Shoulder Exam date and time: 08/30/2025 9:18 AM Age: 75 years old Clinical indication: Pain; Shoulder; Right; Additional info: Trauma TECHNIQUE: Imaging protocol: Radiologic exam of the right shoulder. Views: 2 or more views. COMPARISON: CR XR SHOULDER RT MIN 2V 08/30/2025 9:18 AM FINDINGS: Bones/joints: Visualized portions of the clavicle normal. Moderate degenerative changes of the acromioclavicular joint. Glenohumeral joint normal. Scapula normal. Visualized ribs and visualized pulmonary parenchyma normal. Coracoid process normal. Prior operative changes within the cervical spine. Correlate regarding clinical manifestations of rotator cuff pathology. Consider MRI if indicated. Soft tissues: Normal. IMPRESSION: Moderate degenerative changes of the acromioclavicular joint. A fracture is not visualized. Correlate regarding clinical manifestations of rotator cuff pathology. Consider MRI if indicated.
--- NOTE | 2025-08-30 09:09 | XR_ITS ---
PROCEDURE INFORMATION: Exam: XR Chest Exam date and time: 08/30/2025 9:18 AM Age: 75 years old Clinical indication: Injury or trauma; Fall; Blunt trauma (contusions or hematomas) TECHNIQUE: Imaging protocol: Radiologic exam of the chest. Views: 1 view. COMPARISON: CR XR CHEST PORTABLE 03/04/2024 5:35 PM FINDINGS: Lungs: Mild atelectasis/scarring right lung base. Previously noted. Lungs are otherwise well aerated. Pleural spaces: Unremarkable. No pleural effusion. No pneumothorax. Heart/Mediastinum: Unremarkable. No cardiomegaly. Bones/joints: Unremarkable. IMPRESSION: Mild atelectasis/scarring right lung base. Previously noted. Lungs are otherwise well aerated.
[2025-08-30] MEDS: FENTANYL 100MCG/2ML VIAL 50 MCG IV (09:17)
[2025-08-30] MEDS: BACITRACIN OINT 0.9GM UDP 1 EACH TP (09:17)
[2025-08-30] MEDS: TET/DIPHTH/PERT-ADULT 0.5ML SYRINGE 0.5 ML IM (09:18)
[2025-08-30] MEDS: ONDANSETRON 4MG/2ML VIAL 4 MG IV (09:18)
[2025-08-30 09:20] LABS: Hematocrit 24.1 % (42.0-52.0); Immature Granulocytes % 0.4 %; Mean Corpuscular HGB Conc 27.0 g/dL (31.8-35.4); Mean Corpuscular Hemoglobin 17.5 pg (27.0-31.2); Mean Corpuscular Volume 65.0 fl (80-94); Nucleated Red Blood Cells % 0 %; Platelet Count 311 K/mm3 (142-424); Red Blood Count 3.71 M/mm3 (4.60-6.20); Red Cell Distribution Width-SD 45.4 fL; White Blood Count 10.0 K/mm3 (4.8-10.8)
[2025-08-30 09:23] LABS: Hemoglobin 6.5 g/dL (14.1-18.0)
[2025-08-30 09:25] LABS: Alanine Aminotransferase 23 U/L (12-78); Albumin Level 4.3 g/dl (3.5-5.0); Albumin/Globulin Ratio 1.6 (1.1-1.8); Alkaline Phosphatase 115 U/L (38-126); Anion Gap 16.7 mEq/L (5-15); Aspartate Amino Transferase 28 U/L (17-59); Bilirubin,Total 0.3 mg/dl (0.2-1.3); Blood Urea Nitrogen 42 mg/dl (9-20); Calcium 8.8 mg/dl (8.4-10.2); Carbon Dioxide 22 mmol/L (22.0-30.0); Chloride 107 mmol/L (98-107); Creatine Kinase 53 U/L (55-170); Creatinine Clearance Estimated 42 mL/min (50-200); Creatinine,Serum 1.50 mg/dl (0.66-1.25); Estimated Glomerular Filt Rate 45 ml/min (>60); GFR (African American) 55 ML/MIN (>60); Globulin 2.7 g/dL (1.3-3.2); Glucose 170 mg/dl (74-100); Potassium 4.7 mmoL/L (3.5-5.1); Sodium 141 mmol/L (136-145); Total Protein,Serum 7.0 g/dl (6.3-8.2)
--- NOTE | 2025-08-30 09:50 | PC.NURSE ---
This RN calls Pain Management at patient's request due to patient having an appointment at 10am.
--- NOTE | 2025-08-30 10:13 | PC.NURSE ---
[id number] Pt provided urinal and reminded of need for urine sample
--- NOTE | 2025-08-30 10:19 | CT_ITS ---
PROCEDURE INFORMATION: Exam: CT Pelvis Without Contrast, Skeleton Exam date and time: 08/30/2025 10:38 AM Age: 75 years old Clinical indication: Hip pain; Right hip; Prior surgery; Surgery date: 6+ months; Surgery type: Femur nailing; Additional info: Ttp R hip, plz extend image to capture R femur TECHNIQUE: Imaging protocol: Computed tomography of the pelvis without contrast. Exam focused on the skeleton. Radiation optimization: All CT scans at this facility use at least one of these dose optimization techniques: automated exposure control; mA and/or kV adjustment per patient size (includes targeted exams where dose is matched to clinical indication); or iterative reconstruction. COMPARISON: CR XR HIP RT 2-3V W/PELVIS 08/30/2025 9:18 AM FINDINGS: Intraperitoneal space: Subtle nodularity within the mesenteric fat adjacent to the cecum. See image number 1 series 4. Possibly volume averaging with bowel versus lymph nodes. Consider follow-up CT abdomen and pelvis. No free fluid within the pelvis or within the dependent portions of the peritoneum. Reproductive: The prostate gland is rather prominent and enlarged. Please correlate in regards to hyperplasia versus carcinoma. Bones/joints: osseous structures of the pelvis without an acute process. rami are intact. Sacroiliac joints without separation/diastases/fracture. Iliac bones unremarkable/noncontributory. Degenerative changes within the visualized portions of the caudal aspect of the lumbar spine. Compression screw and intramedullary fuentes within the right proximal femur. Again noted is a mildly displaced fracture of a portion of the greater trochanter on the right laterally about the operative site. Whether the above is acute or chronic is difficult to ascertain. Soft tissues: Soft tissues are unremarkable. Other findings: Scattered diverticula IMPRESSION: 1. Compression screw and intramedullary fuentes within the right proximal femur. Again noted is a mildly displaced fracture of a portion of the greater trochanter on the right laterally about the operative site. Whether the above is acute or chronic is difficult to ascertain. See image 96 series 10/ and image number 77 series 3. 2. Subtle nodularity within the mesenteric fat adjacent to the cecum. See image number 1 series 4. Possibly volume averaging with bowel versus lymph nodes. Consider follow-up CT abdomen and pelvis. 3. The prostate gland is rather prominent and enlarged. Please correlate in regards to hyperplasia versus carcinoma. 4. No free fluid within the pelvis or within the dependent portions of the peritoneum.
--- NOTE | 2025-08-30 10:22 | CT_ITS ---
PROCEDURE INFORMATION: Exam: CT Right Lower Extremity Without Contrast, Thigh Exam date and time: 08/30/2025 10:40 AM Age: 75 years old Clinical indication: Pain; Thigh; Right; Prior surgery; Surgery date: 6+ months; Surgery type: Femur nailing; Additional info: Trauma TECHNIQUE: Imaging protocol: CT of the right lower extremity without contrast was performed. Exam focused on the thigh. Radiation optimization: All CT scans at this facility use at least one of these dose optimization techniques: automated exposure control; mA and/or kV adjustment per patient size (includes targeted exams where dose is matched to clinical indication); or iterative reconstruction. COMPARISON: CR XR FEMUR RT 2V 08/30/2025 9:18 AM FINDINGS: Bones/joints: Comminuted fracture involving the mid/distal diaphysis of the femur with abundant periosteal response. Killed. Compression screw proximally. Locking screws distally. Mild degenerative changes within the knee most pronounced within the medial compartment as well as the patellofemoral joint. Mildly displaced fracture lateral aspect of the greater trochanter. Lucency at the fracture site. See image 35 series 4 and image 40 series 1002. Soft tissues: Normal. IMPRESSION: 1. Comminuted fracture involving the mid/distal diaphysis of the femur with abundant periosteal response. Compression screw proximally. Locking screws distally. 2. Mild degenerative changes within the knee most pronounced within the medial compartment as well as the patellofemoral joint. 3. Mildly displaced fracture lateral aspect of the greater trochanter. Lucency at the fracture site. See image 35 series 4 and image 40 series 1002. This does not involve the femoral neck or proximal femur. Whether this is acute or chronic is difficult to ascertain. No significant soft tissue swelling.
--- NOTE | 2025-08-30 11:14 | PC.NURSE ---
Provider speaking with hospitalist
--- NOTE | 2025-08-30 11:17 | PC.NURSE ---
Celso KuhnPediatric Orthodontist notified of need for admission. At this time the patient will be boarding in the ER.
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
[2025-08-30 11:40] LABS: Iron 22 ug/dL (49-181)
[2025-08-30 11:50] LABS: Total Iron Binding Capacity 340 ug/dL (261-462)
[2025-08-30 12:18] LABS: Ferritin 16.1 ng/ml (17.9-464)
[2025-08-30] MEDS: HYDROCODONE/APAP 5/325 MG TABLET 1 TAB PO ×3 (12:34→22:59)
--- NOTE | 2025-08-30 12:41 | PC.NURSE ---
Pt tolerated first 15 minutes of blood transfusion. Transfusion rate increased. Breath sounds remain clear, pt denies any transfusion reaction symptoms.
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
[2025-08-30 13:56] LABS: Vitamin B12 340 pg/mL (239-931)
[2025-08-30 13:58] LABS: Hemoglobin A1C 7.0 % (4.0-6.0)
[2025-08-30 14:32] LABS: Hematocrit 25.6 % (42.0-52.0)
[2025-08-30 14:38] LABS: Hemoglobin 7.3 g/dL (14.1-18.0)
--- NOTE | 2025-08-30 14:40 | PC.NURSE ---
PT PROVIDED LUNCH TRAY. PT AND FAMILY UPDATED ON POC. NO NEEDS AT THIS TIME. CALL LIGHT WITHIN REACH
--- NOTE | 2025-08-30 15:08 | PC.NURSE ---
ATTEMPTED TO CALL REPORT, NURSE ON ANOTHER CALL AT THIS TIME
[2025-08-30 17:16] LABS: POC Glucose,Bedside 273 gm/dL (70-110)
[2025-08-30] MEDS: humaLOG 100 UNITS/ML 10ML VIAL (SSI) SUBCUT (17:16)
[2025-08-30 20:23] LABS: POC Glucose,Bedside 114 gm/dL (70-110)
[2025-08-31] VITALS: BP 140/67; PULSE 71; RESP 14; TEMP 36.7; O2SAT 95
[2025-08-31 02:12] LABS: Microscopic, Urine URINE MICROSCOPIC (MICROSCOPIC)
[2025-08-31 02:23] LABS: Bilirubin,Urine Negative (Negative); Color,Urine YELLOW (Yellow); Glucose,Urine (UA) Negative (Negative); Ketones,Urine Negative (Negative); Leukocyte Esterase,Urine Negative (Negative); PH,Urine 6.5 (5.0-8.5); Protein,Urine Negative (Negative); Specific Gravity, Urine 1.020 (1.005-1.030); Urobilinogen,Urine 0.2 EU/dl (0.2)
[2025-08-31 02:40] LABS: Bacteria,Urine 2+ /lpf; Mucus,Urine 1+ /lpf; Squamous Epithelial Cell,Urine Occasional #/hpf (0-5)
[2025-08-31 04:00] VITALS: BP 136/63; PULSE 72; RESP 18; TEMP 36.8; O2SAT 96; BMI 24.7
--- NOTE | 2025-08-31 04:48 | PC.NURSE ---
Alert and oriented. Complained of pain one time, treated per mar. No other complaints. Independent in the bed. Call light in reach.
[2025-08-31 06:35] LABS: POC Glucose,Bedside 149 gm/dL (70-110)
[2025-08-31 08:00] VITALS: BP 150/67; PULSE 83; RESP 18; TEMP 36.7; O2SAT 95
--- NOTE | 2025-08-31 08:29 | SW/DCPLANNER ---
Addendum entered by Taylor Appling 09/02/25 10:07: I have updated Ольга arvizu/ [facility] that patient will discharge today. Addendum entered by Taylor Appling 09/01/25 11:00: I confirmed w/ Ольга at [facility] that patient will be ready to admit tomorrow SNF level of care. Addendum entered by [facility] 08/31/25 13:21: Оль[facility]а [facility] is willing to accept patient on Sunday 09/02. Patient has been updated and is agreeable. Addendum entered by Taylor Appling 08/31/25 11:41: Patient prefers placement at time of discharge. Patient is agreeable w/ placement in [place] or [place]. [facility] do not currently have a male beds open. Per [facility] male bed is open and patient information has been faxed. CM will continue to follow up. Original Note: I spoke w/ patient regarding plans once medically stable for discharge. PT/OT has been ordered to evaluate patient. Patient stated that he resides at home alone and uses a wheelchair. Patient stated that his insurance does provide in home services such as a stitch cleaner for 3 hours a week. Patient and I did discuss placement vs home health services pending PT/OT evaluation. CM will continue to follow up. Discharge date is unknown at this time.
[2025-08-31 08:45] LABS: Hematocrit 28.0 % (42.0-52.0); Hemoglobin 8.0 g/dL (14.1-18.0); Immature Granulocytes % 0.4 %; Mean Corpuscular HGB Conc 28.6 g/dL (31.8-35.4); Mean Corpuscular Hemoglobin 19.5 pg (27.0-31.2); Mean Corpuscular Volume 68.3 fl (80-94); Nucleated Red Blood Cells % 0 %; Platelet Count 286 K/mm3 (142-424); Red Blood Count 4.10 M/mm3 (4.60-6.20); Red Cell Distribution Width-SD 53.1 fL; White Blood Count 7.4 K/mm3 (4.8-10.8)
[2025-08-31 08:52] LABS: Chloride 107 mmol/L (98-107); Potassium 4.5 mmoL/L (3.5-5.1); Sodium 140 mmol/L (136-145)
[2025-08-31 08:55] LABS: Anion Gap 12.5 mEq/L (5-15); Blood Urea Nitrogen 33 mg/dl (9-20); Carbon Dioxide 25 mmol/L (22.0-30.0); Creatinine Clearance Estimated 50 mL/min (50-200); Creatinine,Serum 1.30 mg/dl (0.66-1.25); Estimated Glomerular Filt Rate 54 ml/min (>60); GFR (African American) 65 ML/MIN (>60)
[2025-08-31 08:56] LABS: Calcium 8.5 mg/dl (8.4-10.2); Glucose 132 mg/dl (74-100); Magnesium 2.4 mg/dl (1.6-2.3)
[2025-08-31] MEDS: SERTRALINE 100MG TABLET 200 MG PO (09:01)
[2025-08-31] MEDS: LISINOPRIL 20MG TABLET 20 MG PO (09:01)
[2025-08-31] MEDS: EZETIMIBE 10MG TABLET 10 MG PO (09:01)
[2025-08-31] MEDS: BACLOFEN 10MG TABLET 10 MG PO ×2 (09:01→21:31)
[2025-08-31] MEDS: BUSPIRONE HCL 10 MG TABLET 15 MG PO ×2 (09:01→21:31)
[2025-08-31] MEDS: HYDROCODONE/APAP 5/325 MG TABLET 1 TAB PO ×2 (09:03→17:14)
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
[2025-08-31] MEDS: humaLOG 100 UNITS/ML 10ML VIAL (SSI) SUBCUT ×3 (11:57→21:31)
[2025-08-31] MEDS: IRON SUCROSE COMPLEX 200 MG in 0.9 % SODIUM CHLORIDE 100 ML 220 MG IV (11:57)
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
[2025-08-31 16:00] VITALS: BP 143/66; PULSE 75; RESP 18; TEMP 36.6; O2SAT 97
[2025-08-31 17:21] LABS: POC Glucose,Bedside 183 gm/dL (70-110)
[2025-08-31 20:00] VITALS: BP 141/69; PULSE 72; RESP 16; TEMP 36.3; O2SAT 93
[2025-08-31 20:48] LABS: POC Glucose,Bedside 196 gm/dL (70-110)
[2025-08-31] MEDS: PANTOPRAZOLE 40MG TABLET 40 MG PO (21:31)
[2025-08-31] MEDS: TIZANIDINE 4MG TABLET 8 MG PO (21:31)
[2025-08-31] MEDS: ROPINIROLE 1MG TABLET 3 MG PO (21:32)
[2025-08-31] MEDS: TAMSULOSIN 0.4MG CAPSULE 0.4 MG PO (21:32)
[2025-08-31] MEDS: PREGABALIN 25MG CAPSULE 75 MG PO (21:35)
[2025-08-31] MEDS: ZOLPIDEM TARTRATE 5 MG TABLET PO (21:35)
[2025-09-01 04:00] VITALS: BP 125/52; PULSE 65; RESP 17; TEMP 36.5; O2SAT 97; BMI 24.4
[2025-09-01 06:44] LABS: Chloride 109 mmol/L (98-107); Potassium 4.9 mmoL/L (3.5-5.1); Sodium 139 mmol/L (136-145)
[2025-09-01 06:46] LABS: Hematocrit 27.4 % (42.0-52.0); Hemoglobin 7.4 g/dL (14.1-18.0); Immature Granulocytes % 0.6 %; Mean Corpuscular HGB Conc 27.0 g/dL (31.8-35.4); Mean Corpuscular Hemoglobin 19.0 pg (27.0-31.2); Mean Corpuscular Volume 70.4 fl (80-94); Nucleated Red Blood Cells % 0 %; Platelet Count 204 K/mm3 (142-424); Red Blood Count 3.89 M/mm3 (4.60-6.20); Red Cell Distribution Width-SD 56.0 fL; White Blood Count 7.2 K/mm3 (4.8-10.8)
[2025-09-01 06:47] LABS: Anion Gap 12.9 mEq/L (5-15); Blood Urea Nitrogen 33 mg/dl (9-20); Calcium 8.3 mg/dl (8.4-10.2); Carbon Dioxide 22 mmol/L (22.0-30.0); Creatinine Clearance Estimated 58 mL/min (50-200); Creatinine,Serum 1.10 mg/dl (0.66-1.25); Estimated Glomerular Filt Rate 65 ml/min (>60); GFR (African American) 79 ML/MIN (>60); Glucose 140 mg/dl (74-100)
[2025-09-01] MEDS: humaLOG 100 UNITS/ML 10ML VIAL (SSI) SUBCUT ×4 (07:04→20:00)
[2025-09-01 07:20] LABS: POC Glucose,Bedside 177 gm/dL (70-110)
[2025-09-01 08:00] VITALS: BP 126/59; PULSE 85; RESP 18; TEMP 36.5; O2SAT 96
[2025-09-01 08:36] LABS: POC Glucose,Bedside 234 gm/dL (70-110)
[2025-09-01] MEDS: BACLOFEN 10MG TABLET 10 MG PO ×2 (08:52→19:59)
[2025-09-01] MEDS: EZETIMIBE 10MG TABLET 10 MG PO (08:53)
[2025-09-01] MEDS: SERTRALINE 100MG TABLET 200 MG PO (08:53)
[2025-09-01] MEDS: LISINOPRIL 20MG TABLET 20 MG PO (08:53)
[2025-09-01] MEDS: BUSPIRONE HCL 10 MG TABLET 15 MG PO ×2 (08:53→19:59)
[2025-09-01 10:40] LABS: POC Glucose,Bedside 235 gm/dL (70-110)
[2025-09-01 11:09] VITALS: BMI 24.4
[2025-09-01 12:00] VITALS: BP 132/95; PULSE 89; RESP 18; TEMP 36.6; O2SAT 93
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
[2025-09-01] MEDS: POLYETHYLENE GLYCOL 3350 17 GM PACKET PO ×2 (13:52→20:00)
[2025-09-01] MEDS: SENNOSIDES 8.6MG/DOCUSATE 50MG TABLET 1 TAB PO ×2 (13:52→19:59)
[2025-09-01] MEDS: IRON SUCROSE COMPLEX 200 MG in 0.9 % SODIUM CHLORIDE 100 ML 220 MG IV (14:58)
[2025-09-01 16:00] VITALS: BP 135/60; PULSE 79; RESP 18; TEMP 36.4; O2SAT 98
[2025-09-01 17:21] LABS: POC Glucose,Bedside 215 gm/dL (70-110)
[2025-09-01] MEDS: HYDROCODONE/APAP 5/325 MG TABLET 1 TAB PO (17:31)
[2025-09-01 19:51] LABS: POC Glucose,Bedside 242 gm/dL (70-110)
[2025-09-01] MEDS: TIZANIDINE 4MG TABLET 8 MG PO (19:59)
[2025-09-01] MEDS: PREGABALIN 25MG CAPSULE 75 MG PO (19:59)
[2025-09-01] MEDS: ZOLPIDEM TARTRATE 5 MG TABLET PO (19:59)
[2025-09-01] MEDS: PANTOPRAZOLE 40MG TABLET 40 MG PO (19:59)
[2025-09-01] MEDS: TAMSULOSIN 0.4MG CAPSULE 0.4 MG PO (19:59)
[2025-09-01 20:00] VITALS: BP 117/61; PULSE 84; RESP 16; TEMP 36.7; O2SAT 92
[2025-09-01] MEDS: ROPINIROLE 1MG TABLET 3 MG PO (20:00)
--- NOTE | 2025-09-02 02:49 | PC.NURSE ---
Pt AOx4, pleasant. [place]. Tolerating room air. No significant changes at this point in the shift. Pt is currently resting in bed with eyes closed. Respirations even and unlabored. Bed is low, locked, and call light is in reach.
[2025-09-02 04:00] VITALS: BP 131/61; PULSE 74; RESP 14; TEMP 36.4; O2SAT 98; BMI 24.6
[2025-09-02 05:14] LABS: POC Glucose,Bedside 162 gm/dL (70-110)
[2025-09-02] MEDS: humaLOG 100 UNITS/ML 10ML VIAL (SSI) SUBCUT ×2 (05:15→11:25)
[2025-09-02 06:04] LABS: Hematocrit 28.1 % (42.0-52.0); Hemoglobin 7.6 g/dL (14.1-18.0); Immature Granulocytes % 0.8 %; Mean Corpuscular HGB Conc 27.0 g/dL (31.8-35.4); Mean Corpuscular Hemoglobin 19.6 pg (27.0-31.2); Mean Corpuscular Volume 72.4 fl (80-94); Nucleated Red Blood Cells % 0 %; Platelet Count 265 K/mm3 (142-424); Red Blood Count 3.88 M/mm3 (4.60-6.20); Red Cell Distribution Width-SD 59.7 fL; White Blood Count 7.6 K/mm3 (4.8-10.8)
[2025-09-02 06:37] LABS: Chloride 107 mmol/L (98-107); Potassium 4.0 mmoL/L (3.5-5.1); Sodium 143 mmol/L (136-145)
[2025-09-02 06:40] LABS: Anion Gap 18.0 mEq/L (5-15); Blood Urea Nitrogen 42 mg/dl (9-20); Calcium 8.3 mg/dl (8.4-10.2); Carbon Dioxide 22 mmol/L (22.0-30.0); Creatinine Clearance Estimated 50 mL/min (50-200); Creatinine,Serum 1.30 mg/dl (0.66-1.25); Estimated Glomerular Filt Rate 54 ml/min (>60); GFR (African American) 65 ML/MIN (>60); Glucose 132 mg/dl (74-100)
[2025-09-02 08:00] VITALS: BP 115/61; PULSE 88; RESP 17; TEMP 36.7; O2SAT 96
[2025-09-02 08:15] VITALS: O2SAT 96
[2025-09-02] MEDS: BUSPIRONE HCL 10 MG TABLET 15 MG PO (08:35)
[2025-09-02] MEDS: BACLOFEN 10MG TABLET 10 MG PO (08:35)
[2025-09-02] MEDS: EZETIMIBE 10MG TABLET 10 MG PO (08:36)
[2025-09-02] MEDS: LISINOPRIL 20MG TABLET 20 MG PO (08:36)
[2025-09-02] MEDS: SERTRALINE 100MG TABLET 200 MG PO (08:36)
[2025-09-02] MEDS: SENNOSIDES 8.6MG/DOCUSATE 50MG TABLET 1 TAB PO (08:36)
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
[2025-09-02 11:32] LABS: POC Glucose,Bedside 278 gm/dL (70-110)
[2025-09-02 12:30] VITALS: BP 136/61; PULSE 94; RESP 17; TEMP 36.9; O2SAT 97
== END 2025-09-02 12:59 | DRG 536 ==
LOC: ER 11:21 → 2ND 12:05
PROVIDERS: Admitting Provider Internal Medicine Adolescent Medicine; Emergency Provider Emergency Medicine; PCP Nurse Practitioner; Responsible Provider Internal Medicine Adolescent Medicine; Visit Provider Internal Medicine Adolescent Medicine
DX: S72.111A Displaced fracture of greater trochanter of right femur, initial encounter for closed fracture (principal); D63.1 Anemia in chronic kidney disease; E11.22 Type 2 diabetes mellitus with diabetic chronic kidney disease; I12.9 Hypertensive chronic kidney disease with stage 1 through stage 4 chronic kidney disease, or unspecified chronic kidney disease; N18.30 Chronic kidney disease, stage 3 unspecified; F32.A Depression, unspecified; F41.9 Anxiety disorder, unspecified; N40.0 Benign prostatic hyperplasia without lower urinary tract symptoms; K21.9 Gastro-esophageal reflux disease without esophagitis; E11.42 Type 2 diabetes mellitus with diabetic polyneuropathy; F43.20 Adjustment disorder, unspecified; E78.5 Hyperlipidemia, unspecified; S51.012A Laceration without foreign body of left elbow, initial encounter; S51.011A Laceration without foreign body of right elbow, initial encounter; M50.30 Other cervical disc degeneration, unspecified cervical region; G89.29 Other chronic pain; W01.10XA Fall on same level from slipping, tripping and stumbling with subsequent striking against unspecified object, initial encounter; R29.6 Repeated falls; Y93.89 Activity, other specified; Y92.002 Bathroom of unspecified non-institutional (private) residence as the place of occurrence of the external cause; Z60.2 Problems related to living alone; Z91.81 History of falling; Z89.511 Acquired absence of right leg below knee; Z87.828 Personal history of other (healed) physical injury and trauma; Z86.73 Personal history of transient ischemic attack (TIA), and cerebral infarction without residual deficits; Z79.82 Long term (current) use of aspirin; Z79.84 Long term (current) use of oral hypoglycemic drugs; Z79.899 Other long term (current) drug therapy
CPT/HCPCS: 36415; 36430; 71045; 72192; 73030; 73070; 73502; 73552; 73700; 80048; 80053; 81001; 82550; 82607; 82728; 82962; 83036; 83540; 83550; 83735; 85014; 85018; 85025; 86850; 87086; 90471; 90715; 97162; 97165; 97530; 97535; 99285; J1756; J2405; J3010; P9016

== ENCOUNTER 2025-09-19 12:25 | Outpatient (CLI) | payer MEDICARE, SELFPAY ==
--- NOTE | 2025-09-19 12:28 | XR_ITS ---
FINAL REPORT CLINICAL HISTORY: right femur fx COMPARISON: CT 08/30/2025 FINDINGS: Two views of the right femur were obtained. There is an intramedullary fuentes fixing the fracture of the mid to distal right femur, chronic. The hardware appears intact. There is a 2 mm lucency along the lateral aspect of the proximal fuentes, similar to CT scan. Fracture of the greater trochanter is similar to CT scan. No new osseous abnormality identified. There is degenerative disease in both the hip and knee. No acute soft tissue abnormality. IMPRESSION: Chronic changes without acute osseous abnormality of the right femur. Reviewed, Interpreted and Dictated by Jeimy Lake MD Transcribed by Radha Trent Authenticated and [facility]
--- OUTSIDE RECORDS SUMMARY | 2025-09-19 12:28 | XMS_ITS | Encounter Summary ---
Author Organization [facility] Address [address] [place] [address] Care Team Providers Care Photogrammetric Compilation Specialist Name Role Phone Pcp, No Primary Care Provider Unavailabl e Encounter Details Date Type Department Care Team (Late st Contact Info) Description 07/25/2025 Orders Only [facility] [address] [place] [address] Marga Hicks Stage 3 chronic kidney disease, unspecified whether stage 3a or 3b CKD (CMS/HCC) (Primary Dx); Vitamin D insufficiency Social History Tobacco Use Types Packs/Day Years [...] drink first t davin in the 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-CONTENT DEVELOPMENT SPECIALIST) to steady your nerves or to get [...] Care Team (Late st Contact Info) Description 10/11/2025 4:15 PM EST Appointment [facility] [address] [place] [address] 10/28/2025 10:00 AM EST Office Visit [facility] [address] [place] [address] Claudio Johnson MD [address] [place] [address] 05/09/2026 2:00 PM EDT Office Visit [facility] [address] [place] [address] Abhilash Trimble MD [address] [place] [address] Scheduled Orders Name Type Priority Associated Diagnoses Orde r Schedule Renal Function Panel, Plasma Lab Routine Stage 3 chronic kidney disease, unspecified whether stage 3a or 3b CKD ([facility]) Expected: 07/25/2025 (Approximate), Expires: 01/22/2027 CBC and Differential Lab Routine Stage 3 chronic kidney disease, unspecified whether stage 3a or 3b CKD ([facility]) Expected: 07/25/2025 (Approximate), Expires: 01/22/2027 Creatinine, Random, Urine Lab Routine Stage 3 chronic kidney disease, unspecified whether stage 3a or 3b CKD ([facility]) Expected: 07/25/2025 (Approximate), Expires: 01/22/2027 Protein, Random, Urine with Creatinine Lab Routine Stage 3 chronic kidney disease, unspecified whether stage 3a or 3b CKD ([facility]) Expected: 07/25/2025 (Approximate), Expires: 01/22/2027 Urinalysis with reflex microscopic (Culture NOT Included) Lab Routine Stage 3 chronic kidney disease, unspecified whether stage 3a or 3b CKD ([facility]) Expected: 07/25/2025 (Approximate), Expires: 01/22/2027 PTH Intact Total Lab Routine Stage 3 chronic kidney disease, unspecified whether stage 3a or 3b CKD ([facility]) Vitamin D insufficiency Expected: 07/25/2025 (Approximate), Expires: 01/22/2027 Vitamin D 25 Hydroxy Lab Routine Stage 3 chronic kidney disease, unspecified whether stage 3a or 3b CKD ([facility]/HCC) Vitamin D insufficiency Expected: 07/25/2025 (Approximate), Expires: 01/22/2027 documented as of this encounter Visit Diagnoses Diagnosis Stage 3 chronic kidney disease, unspecified whether stage 3a or 3b CKD (CMS/HCC)- Primary Vitamin D insufficiency documented in this encounter Additional Health Concerns Assessment Noted Time A fall risk assessment has been complete d for the patient 04/12/2025 9:57 AM EDT A Body Mass Index follow-up plan has been documented for the patient 04/14/2025 1:47 PM EDT documented as of this encounter Care Teams Photogrammetric Compilation Specialist Relationship Specialty Start Date End Date Pcp, [place] [address] PCP - General Family Medicine 03/06/23 documented as of this encounter
--- OUTSIDE RECORDS SUMMARY | 2025-09-19 12:28 | XMS_ITS | Referral Summary ---
Author Organization [facility] ([place], [place], [place], [place], [place]) Address [address] [place] [address] Care Team Providers Care Global Regulatory Affairs Manager Name Role Phone Caridad Chavez NP Primary Care Provider [phone] Caridad Chavez ULTIMATE HOOPS SCOREBOARD OPERATOR Unavailable [phone] Social History Tobacco Use Types Packs/Day Years [...] Date Prasanth rded Speak language other than Moldovan at home Not on file 10/03/2023 Want [...] Treatment Not on file Insurance [place] [id number] [employer] HMO Care Teams Global Regulatory Affairs Manager Relationship Specialty Start Date End Date Caridad Chavez NP [address] [place] [address] [facility] [place] [address] PCP - General Nurse Practitioner 07/04/23 Caridad Chavez NP [address] [address] [place] [address] Referring Physician Nurse Practitioner 07/04/23
--- OUTSIDE RECORDS SUMMARY | 2025-09-19 12:28 | XMS_ITS | Encounter Summary ---
Author Organization [facility] Address [address] [place] [address] Care Team Providers Care Retort Furnace Operator Name Role Phone Pcp, No Primary Care Provider Unavailabl e Encounter Details Date Type Department Care Team (Late st Contact Info) Description 07/07/2025 Telephone [facility] [address], [address] [place] [address] Abhilash Trimble MD [address] [place] [address] Social History Tobacco Use Types [...] place to sleep or slept in a retirement (including now)? No 03/09/2024 CAGE ASSESSMENT Answer [...] drink first t davin in the 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-PRODUCT LISTER) to steady your nerves or to get [...] ov notes and imaging please fax to [phone] Best contact number and optimal time of day to reach caller: Luanne [phone] Note: Please do not reply to this message. Follow-up communication and further actions as a result of this message need to be communicated with the patient directly, if the patient is not active onMyChart. If the patient is active on MyChart, they will receive notification of the communication/outcome via [facility]. documented in this encounter Plan of Treatment Upcoming Encounters Date Type Department Care Team (Late st Contact Info) Description 10/11/2025 4:15 PM EST Appointment [facility] Radiology [address] [place] [address] 10/28/2025 10:00 AM EST Office Visit [facility] [address] [place] [address] Claudio Johnson MD [address] [place] [address] 05/09/2026 2:00 PM EDT Office Visit [facility] [address] [place] [address] Abhilash Trimble MD [address] [place] [address] documented as of this encounter Visit Diagnoses Not on filedocumented in this encounter Additional Health Concerns Assessment Noted Time A fall risk assessment has been complete d for the patient 04/12/2025 9:57 AM EDT A Body Mass Index follow-up plan has been documented for the patient 04/14/2025 1:47 PM EDT documented as of this encounter Care Teams Retort Furnace Operator Relationship Specialty Start Date End Date Pcp, No [address] [place] [address] PCP - General Family Medicine 03/06/23 documented as of this encounter
--- OUTSIDE RECORDS SUMMARY | 2025-09-19 12:28 | XMS_ITS | Clinical Summary ---
Author Organization [email or web address] ([place], [place], [place], [place], [place]) Address [address] [place] [address] Care Team Providers Care Double Bottom Driver Name Role Phone Caridad Chavez NP Primary Care Provider [phone] Caridad Chavez LEGAL ADMINISTRATOR Unavailable [phone] Social History Tobacco Use Types Packs/Day Years [...] Date Prasanth rded Speak language other than Argentine at home Not on file 10/03/2023 Want [...] Treatment Not on file Insurance [place] [id number] [employer] MEDICARE HMO Care Teams Double Bottom Driver Relationship Specialty Start Date End Date Caridad Chavez NP [address] [place] [address] [place] [address] PCP - General Nurse Practitioner 07/04/23 Caridad Chavez NP [address] [address] [place] [address] Referring Physician Nurse Practitioner 07/04/23
--- OUTSIDE RECORDS SUMMARY | 2025-09-19 12:28 | XMS_ITS | Clinical Summary ---
Author Organization [facility] Address [address] [place] [address] Care Team Providers Care Developer Designer Name Role Phone Pcp, No Primary [...] tablet 1 tablet. 5 Active HYDROcodone-acet aminophen ([place]) 5-325 MG tablet 5 Active lisinopril 20 [...] Encounters Date Type Department Care Team Description 07/25/2025 Orders Only [facility] [address] [place] [address] Marga Hicks Stage 3 chronic kidney disease, unspecified whether stage 3a or 3b CKD (CMS/HCC) (Primary Dx); Vitamin D insufficiency 07/07/2025 Telephone [place] [facility] [address] [place] [address] Abhilash Trimble MD from Last 3 Months Social History Tobacco [...] place to sleep or slept in a long-term (including now)? 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 0 04/23/2024 CAGE Questionnaire Score 0 024 Utilities Answer Date Recorded In the past 12 months has e [employer], gas, oil, or water [employer] threatened to shut off services in your [...] Info) Description 10/11/2025 4:15 PM EST Appointment [facility] [address] [place] [address] 10/28/2025 10:00 AM EST Office Visit [facility] [address] [place] [address] Claudio Johnson MD [address] [place] [address] 05/09/2026 2:00 PM EDT Office Visit [place] [facility] [address] [place] [address] Abhilash Trimble MD [address] [place] [address] Health Maintenance Due Date Last [...] 09/08/2023 07/14/2023 [facility]-Diabetes: Hemoglobin A1C 09/03/2024 03/06/2024 [id number] Vaccine (4 - 2024- season) 2025 06/20/2021, 11/29/2020, 11/01/2020 [facility]-Influenza Vaccine (#1) 05/23/202507/14, 06/12/2021, 06/30/2020, Additional history exists [facility]-Depression Screening 07/27/2025 07/27/2024 [facility]-Hepatitis C Screening Completed 08/10/2024 [facility]-Obesity Intervention Completed 025, 07/27/2024, 07/09/2024, Additional history exists HPV Vaccines (No Doses Required) Completed [facility]-HIB Vaccines Aged Out No longer e [...] this topic Medical Devices Implanted Type Area Patrol Judge Device Identifier Shelf Expiration Date Model / Serial / Lot Dexter-07/11/2023 Implanted:Qty: 1 on 07/11/2023 Dexter Back SC-4316 / / Lead-07/11/2023 Implanted:Qty: 2 on 07/11/2023 Lead Back SC-2218-50 / / Wavewriter Alpha-07/11/2023 Implanted: 023 (Quantity not on file) Spinal Cord Stimulator Back Affashion SC-1416 / / Description:Generator model number : SC-1416 Wavewriter Alpha Lead model number (2): SC-2218-50 Dexter (1): SC-4316 Screw 4.0mm Symphny Polyaxlschraube 3.5mm X 28mm - [id number] Implanted:Qty: 2 on 04/23/2024 by Abhilash Trimble MD at [facility] N/A: Spine Cervical DePuy [employer]ine [employer] -[id number] 04/23/2025 [id number] / / Screw 4.0 Ply Cfx 4.5x20 - [id number] Implanted:Qty: 1 on 04/23/2024 by Abhilash Trimble MD at [facility] N/A: Spine Cervical DePuy Spine [employer] [id number] 04/23/2025 [id number] / / Screw 4.0 Ply Cfx 4.5x24 - [id number] Implanted:Qty: 1 on 04/23/2024 by Abhilash Trimble MD at [facility] N/A: Spine Cervical [employer]ine [employer] LP-[id number] 04/23/2025 [id number] / / Screw 4.0 Ply Cfx 5.0x24 - [id number] Implanted:Qty: 1 on 04/23/2024 by Abhilash Trimble MD at [facility] N/A: Spine Cervical [employer] LP-[id number] 04/23/2025 [id number] / / Screw 4.0 Ply Cfx 5.0x28 - [id number] Implanted:Qty: 1 on 04/23/2024 by Abhilash Trimble MD at [facility] N/A: Spine Cervical [employer]ine [employer] LP-[id number] 04/23/2025 [id number] / / Set Screw - [id number] Implanted:Qty: 14 on 04/23/2024 by Abhilash Trimble MD at [facility] N/A: Spine Cervical [employer]ine [employer] [id number] 04/23/2025 [id number] / / Chip Bone 20cc - [id number] - [id number] Implanted:Qty: 1 on 04/23/2024 by Abhilash Trimble MD at [facility] N/A: Spine Cervical [facility]-[id number] 02/02/2029 PCAN1/4 / [id number] / [id number] Description:This item was no t implanted, can't take off the record due to it coming from [employer] and the case was already closed. Graft Vivigen [facility] - [id number] - [id number] Implanted:Qty: 1 on 04/23/2024 by Abhilash Trimble MD at [facility] N/A: Spine Cervical [facility]-[id number] 04/09/2025 BL-1500-00 1-4PK / [id number] / [id number] Graft Vivigen 1cc - [id number] - [id number] Implanted:Qty: 1 on 04/23/2024 by Abhilash Trimble MD at [facility] N/A: Spine Cervical [facility]-[id number] 04/09/2025 BL-1500-00 1-4PK / [id number] / [id number] Alexander Ti 4.0x120 Viv - [id number] Implanted:Qty: 2 on 04/23/2024 by Abhilash Trimble MD at [facility] N/A: Spine Cervical [employer] LP-[id number] 06/21/2028 [id number] / / TBAMHX Screw 4.0 Ply 3.5x12 - [id number] Implanted:Qty: 2 on 04/23/2024 by Abhilash Trimble MD at [facility] N/A: Spine Cervical [employer] LP-[id number] 04/23/2025 [id number] / / Screw 4.0 Ply 3.5x14 - [id number] Implanted:Qty: 6 on 04/23/2024 by Abhilash Trimble MD at [facility] N/A: Spine Cervical [employer] LP-[id number] 04/23/2025 [id number] / / Procedures Procedure Name Priority Date/Time Associated Diagnosis Comments HEPATITIS C ANTIBODY - ED W/REFLEX TO HCV QUANT PCR STAT 08/10/2024 1:39 PM EST HEMOGLOBIN A1C Routine 03/06/2024 10:17 AM EDT from Last 3 Months or Most Recently Relevant to Health Maintenance Results * Hepatitis C Antibody - ED (08/10/2024 1:39 PM EST) Hepatitis C Antibody Negative Negative 08/10/2024 2:52 PM EST [facility] Blood Venous blood specimen / Unknown Venipuncture / Unknown 08/10/2024 1:39 PM EST 08/10/2024 2:07 PM EST us [facility] LAB BLOOD ORDERABLES Final Resul t [facility] [address] [place] [address] * (ABNORMAL) Hemoglobin A1c (03/06/2024 10:17 AM [...] Adults <6.0% Children and Adolescents <7.5% Source: [place] [employer]. Standards of medical care in diabetes,2017. Diabetes Care.2017:40 (suppl 1):S1-S135. HbA1c assay performed by an ion-exchange chromatography method that is certified traceable to the DCCT. Kristy Urias APRN, DNP LAB BLOOD ORDERABLES Fi [facility] [address] [place] [address] from Last 3 Months or Most Recently Relevant to Health Maintenance [place] [address] MEDICARE Advance Directives Documents on File Type Date Recorded Patient Protocol Manager Expl anation Advance Directives and Livin g [...] Patient has decision-making capacity? Yes Care Teams Developer Designer Relationship Specialty Start Date End Date Pcp, No [address] [place] [address] PCP - General Family Medicine 03/06/23
== END 2025-09-19 23:59 | disposition home or self-care (01) ==
LOC: RAD 12:26
PROVIDERS: PCP Family Medicine; Visit Provider Physician Assistant
DX: S72.111D Displaced fracture of greater trochanter of right femur, subsequent encounter for closed fracture with routine healing (principal); M16.11 Unilateral primary osteoarthritis, right hip; M17.11 Unilateral primary osteoarthritis, right knee; X58.XXXD Exposure to other specified factors, subsequent encounter
CPT/HCPCS: 73552